=== PATIENT | male | born 1945 | race Caucasian/White ===

== ENCOUNTER 2017-04-08 10:11 | Inpatient (IN) | payer MEDICARE ==
[2017-04-08] MEDS ORDERED: Ondansetron INJ* 2 MG/ML VIAL IV ONE (10:32)
--- NOTE | 2017-04-08 11:30 | RAD ---
HISTORY: Abdominal pain COMPARISONS: None VIEWS: Frontal supine and upright views of the abdomen. FINDINGS: BOWEL: There is a nonobstructive bowel gas pattern. There is a large amount of stool within the colon. CALCULI: There are no abnormal calculi. BONES AND SOFT TISSUES: The patient is status post internal fixation of the left femur OTHER FINDINGS: The lung bases are clear. There is no subphrenic gas. A catheter is noted overlying the lower abdomen, presumably a peritoneal dialysis catheter. IMPRESSION: NONOBSTRUCTIVE BOWEL GAS PATTERN. LARGE AMOUNT OF STOOL WITHIN THE COLON
[2017-04-08 12:21] LABS: Hematocrit 33 % (42-52); Hemoglobin 11.4 g/dl (14.0-18.0); Mean Corpuscular HGB Conc 35 g/dl (31-36); Mean Corpuscular Hemoglobin 34 pg (27-31); Mean Corpuscular Volume 96 fL (80-94); Mean Platelet Volume 7 um3 (7.4-10.4); Red Blood Count 3.41 10^6/ul (4.0-5.4); Red Cell Distribution Width 15 % (10.5-15); White Blood Count 9.1 10^3/ul (3.5-10.8)
[2017-04-08 12:43] LABS: BUN/Creatinine Ratio 4.3 (8-20); C Reactive Protein 2.99 mg/L (< 5.00); EGFR African American 5.9 (>60); EGFR Non-African American 4.6 (>60); Globulin 3.8 g/dL (2-4); Magnesium 1.9 mg/dL (1.9-2.7); Potassium 3.9 mmol/L (3.5-5.0); Total Bilirubin 0.6 mg/dL (0.2-1.0); Total Protein 7.8 g/dL (6.4-8.9)
[2017-04-08 12:52] LABS: Troponin I 0.05 ng/mL (<0.04)
[2017-04-08] MEDS ORDERED: Ondansetron INJ* 2 MG/ML VIAL IV PRN (14:01)
[2017-04-08] MEDS ORDERED: Docusate CAP* 100 MG PO PRN (14:34)
[2017-04-08] MEDS ORDERED: Mometasone/Formoter 200/5 MDI INH PRN (14:34)
[2017-04-08] MEDS ORDERED: Dextrose 50% Syringe 50 ML* 25 GM/50 ML SYRINGE IV PUSH PRN (14:35)
[2017-04-08] MEDS ORDERED: Sevelamer TAB* 800 MG PO PRN (15:14)
[2017-04-08] MEDS: Sevelamer TAB* 800 MG PO SCH (16:22)
[2017-04-08] MEDS: Insulin LISPRO* 1 UNITS UNIT SUBCUT SCH ×2 (17:09→21:09)
[2017-04-08 18:16] LABS: Body Fluid Appearance Clear
[2017-04-08 18:22] LABS: Body Fluid WBC 9 /mcL
[2017-04-08 19:29] LABS: Body Fluid Total Cells Counted 100
[2017-04-08] MEDS ORDERED: Insulin GLARGINE(*) 1 UNITS UNIT SUBCUT SCH (21:00)
--- NOTE | 2017-04-08 21:05 | ED ---
Cale Blake Billy, scribed for Aldo Yoo MD on 04/08/17 at 1031 . Complex/Multi-Sys Presentation - HPI Summary HPI Summary: Patient is a 71 year-old diabetic male coming to [facility] for evaluation of nausea and vomiting since this morning. He was on his way to the dialysis center when his symptoms began in the car. He has been on home dialysis since December 2016. He reports diffuse abdominal pressure at this time, worse than normal. It was improved after fluid was drawn from the patient. He also complains of intermittent shortness of breath and generalized weakness. Denies fevers, chills , diarrhea, or constipation. No contact with sick people or recent traveling. - History Of Current Complaint Chief Complaint: EDGeneral Time Seen by Provider: 04/08/17 10:18 Hx Obtained From: Patient, Family/Head Of Ethics And Compliance Onset/Duration: Gradual Onset, Lasting Hours Timing: Constant Severity Currently: Moderate Severity Initially: Moderate Associated Signs And Symptoms: Positive: Weakness, SOB, Nausea, Vomiting, Abdominal Pain. Negative: Diarrhea, Fever - Allergies/Home Medications Allergies/Adverse Reactions: Allergies Allergy/AdvReac Type Severity Reaction Status Date / Time Labetalol AdvReac Severe Hallucinati Verified 10/08/16 06:10 ons Home Medications: Home Medications Aspirin TAB* [Aspirin 325 MG TAB*] 325 mg PO DAILY 04/08/17 [History Confirmed 04/08/17] Atorvastatin* [Lipitor*] 20 mg PO BEDTIME 04/08/17 [History Confirmed 04/08/17] B-Complex W/ C-Biotin-Fe & Fol [Dialyvite 800/Iron 29-0.8 mg] 1 tab PO DAILY [History Confirmed 04/08/17] Docusate Sodium [Eql Stool Softener] 100 mg PO QPM PRN 04/08/17 [History Confirmed 04/08/17] Furosemide TAB* [Lasix TAB*] 80 mg PO DAILY 04/08/17 [History Confirmed 04/08/17 ] Mupirocin 2% CREAM* [Bactroban 2% CREAM*] 1 applic TOPICAL DAILY 04/08/17 [ History Confirmed 04/08/17] Sevelamer TAB* [Renvela TAB*] 2,400 mg PO .W /MEALS AND SNACKS 04/08/17 [ History Confirmed 04/08/17] PMH/Surg Hx/FS Hx/Imm Hx Endocrine/Hematology History: Reports: Hx Diabetes Denies: Hx Anemia Cardiovascular History: Reports: Hx Hypercholesterolemia, Hx Hypertension - CONTROL WITH MEDS, Other Cardiovascular Problems/Disorders - CVA 2011 -right LE slight limb Denies: Hx Congestive Heart Failure, Hx Pacemaker/ICD Respiratory History: Reports: Other Respiratory Problems/Disorders - right pneumothorax with chest tube 07/30, pulmonary nodules on CT GI History: Reports: Other GI Disorders - inguinal hernia Denies: Hx Cirrhosis, Hx Crohn's Disease, Hx Diverticulosis, Hx Gall Bladder Disease, Hx Gastroesophageal Reflux Disease, Hx Gastrointestinal Bleed, Hx Hiatal Hernia, Hx Irritable Bowel, Hx Jaundice, Hx Obstructive Bowel, Hx Ileostomy, Hx Pyloric Stenosis, Hx Ulcer History: Reports: Hx Chronic Renal Failure - T/R/S HD, Hx Dialysis, Hx Renal Disease, Other Problems/Disorders - kidney toxic drugs Denies: Hx Acute Renal Failure, Hx Benign Prostatic Hyperplasia, Hx Kidney Infection, Hx Kidney Stones Musculoskeletal History: Reports: Hx Arthritis - hands, Hx Orthopedic Injury - lt femur fx repair 07/18/14, Other Musculoskeletal History - HX OF RIGHT RIB FX 1- 7 - NO PROBLEMS 2013 Denies: Hx Back Problems, Hx Bursitis, Hx Congenital Bone Abnormalities, Hx Fibromyalgia, Hx Gout, Hx Osteoporosis, Hx Scoliosis, Hx Tendonitis Sensory History: Reports: Hx Cataracts, Hx Legally Blind, Other Sensory Impairments Denies: Hx Contacts or Glasses, Hx Hearing Aid Opthamlomology History: Reports: Hx Cataracts, Hx Legally Blind, Other Sensory Impairments Denies: Hx Contacts or Glasses Neurological History: Reports: Hx Headaches, Hx Migraine - 20 years ago, Hx Nerve Disease - 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 lt femur repair in [place] 07/18/14. Gallbladder removal Hx Anesthesia Reactions: No - Immunization History Date of Tetanus Vaccine: Unk Date of Influenza Vaccine: None Infectious Disease History: No Infectious Disease History: Denies: Hx Clostridium Difficile, Hx Hepatitis, Hx Human Immunodeficiency Virus (HIV), Hx of Known/Suspected MRSA, Traveled Outside the [place] in Last 30 Days - Family History Known Family History: Positive: Hypertension, Diabetes - Social History Alcohol Use: Occasionally Substance Use Type: Reports: None Smoking Status (MU): Former Smoker Type: Cigarettes Amount Used/How Often: "ONLY SMOKED TEN CIGARETTES IN WHOLE LIFE" Length of Time of Smoking/Using Tobacco: 1 YEAR Have You Smoked in the Last Year: No Review of Systems Negative: Fever, Chills Positive: Shortness Of Breath Positive: Abdominal Pain, Vomiting, Nausea. Negative: Diarrhea Positive: Weakness All Other Systems Reviewed And Are Negative: Yes Physical Exam - Summary Physical Exam Summary: VITAL SIGNS: Reviewed. GENERAL: Patient is a fragile, ill-looking male male who is lying comfortable in the stretcher. Patient is not in any acute respiratory distress. HEAD AND FACE: No signs of trauma. No ecchymosis, hematomas or skull depressions. No sinus tenderness. EYES: PERRLA, EOMI x 2, No injected conjunctiva, no nystagmus. EARS: Hearing grossly intact. Ear canals and tympanic membranes are within normal limits. MOUTH: Oropharynx within normal limits. NECK: Supple, trachea is midline, no adenopathy, no JVD, no carotid bruit, no c- spine tenderness, neck with full ROM. CHEST: Symmetric, no tenderness at palpation LUNGS: Clear to auscultation bilaterally. No wheezing or crackles. CVS: Regular rate and rhythm, S1 and S2 present, no murmurs or gallops appreciated. ABDOMEN: Soft, non-tender. Slight distention. No rebound no guarding, and no masses palpated. Bowel sounds are decreased. Peritoneal dialysis site to the left side of the abdomen. EXTREMITIES: FROM in all major joints, no edema, no cyanosis or clubbing. NEURO: Alert and oriented x 3. No acute neurological deficits. Speech is normal and follows commands. SKIN: Dry and warm Triage Information Reviewed: Yes Vital Signs On Initial Exam: Initial Vitals Temp Pulse Resp BP Pulse Ox 97.3 F 52 16 116/42 100 04/08/17 10:14 04/08/17 10:14 04/08/17 10:14 04/08/17 10:14 04/08/17 10:14 Vital Signs Reviewed: Yes Diagnostics - Vital Signs Vital Signs Temp Pulse Resp BP Pulse Ox 04/08/17 10:18 97.3 F 53 20 116/42 100 04/08/17 10:14 97.3 F 52 16 116/42 100 - Laboratory Lab Results: Lab Results 04/08/17 04/08/17 04/08/17 Range/Units 12:00 12:00 12:00 WBC 9.1 (3.5-10.8) 10^3/ul RBC 3.41 L (4.0-5.4) 10^6/ul Hgb 11.4 L (14.0-18.0) g/dl Hct 33 L (42-52) % MCV 96 H (80-94) fL MCH 34 H (27-31) pg MCHC 35 (31-36) g/dl RDW 15 (10.5-15) % Plt Count 273 (150-450) 10^3/ul MPV 7 L (7.4-10.4) um3 Neut % (Auto) 71.5 (38-83) % Lymph % (Auto) 16.6 L (25-47) % Anson % (Auto) 7.8 (1-9) % Eos % (Auto) 3.4 (0-6) % Baso % (Auto) 0.7 (0-2) % Absolute Neuts (auto) 6.5 (1.5-7.7) 10^3/ul Absolute Lymphs (auto) 1.5 (1.0-4.8) 10^3/ul Absolute Monos (auto) 0.7 (0-0.8) 10^3/ul Absolute Eos (auto) 0.3 (0-0.6) 10^3/ul Absolute Basos (auto) 0.1 (0-0.2) 10^3/ul Absolute Nucleated RBC 0.01 10^3/ul Nucleated RBC % 0.1 Sodium 136 (133-145) mmol/L Potassium 3.9 (3.5-5.0) mmol/L Chloride 91 L (101-111) mmol/L Carbon Dioxide 29 (22-32) mmol/L Anion Gap 16 H (2-11) mmol/L BUN 48 H (6-24) mg/dL Creatinine 11.08 H (0.67-1.17) mg/dL Est GFR ( Amer) 5.9 (>60) Est GFR (Non-Af Amer) 4.6 (>60) BUN/Creatinine Ratio 4.3 L (8-20) Glucose 260 H (70-100) mg/dL Lactic Acid 2.2 H* (0.5-2.0) mmol/L Calcium 10.0 (8.6-10.3) mg/dL Magnesium 1.9 (1.9-2.7) mg/dL Total Bilirubin 0.60 (0.2-1.0) mg/dL AST 11 L (13-39) U/L ALT 17 (7-52) U/L Alkaline Phosphatase 68 (34-104) U/L Troponin I 0.05 H* (<0.04) ng/mL C-Reactive Protein 2.99 (< 5.00) mg/L B-Natriuretic Peptide ( - 100) pg/mL Total Protein 7.8 (6.4-8.9) g/dL Albumin 4.0 (3.2-5.2) g/dL Globulin 3.8 (2-4) g/dL Albumin/Globulin Ratio 1.1 (1-3) Amylase 50 (29-103) U/L Lipase 48 (11.0-82.0) U/L Blood Type Antibody Screen 04/08/17 04/08/17 Range/Units 12:00 12:00 WBC (3.5-10.8) 10^3/ul RBC (4.0-5.4) 10^6/ul Hgb (14.0-18.0) g/dl Hct (42-52) % MCV (80-94) fL MCH (27-31) pg MCHC (31-36) g/dl RDW (10.5-15) % Plt Count (150-450) 10^3/ul MPV (7.4-10.4) um3 Neut % (Auto) (38-83) % Lymph % (Auto) (25-47) % Anson % (Auto) (1-9) % Eos % (Auto) (0-6) % Baso % (Auto) (0-2) % Absolute Neuts (auto) (1.5-7.7) 10^3/ul Absolute Lymphs (auto) (1.0-4.8) 10^3/ul Absolute Monos (auto) (0-0.8) 10^3/ul Absolute Eos (auto) (0-0.6) 10^3/ul Absolute Basos (auto) (0-0.2) 10^3/ul Absolute Nucleated RBC 10^3/ul Nucleated RBC % Sodium (133-145) mmol/L Potassium (3.5-5.0) mmol/L Chloride (101-111) mmol/L Carbon Dioxide (22-32) mmol/L Anion Gap (2-11) mmol/L BUN (6-24) mg/dL Creatinine (0.67-1.17) mg/dL Est GFR ( Amer) (>60) Est GFR (Non-Af Amer) (>60) BUN/Creatinine Ratio (8-20) Glucose (70-100) mg/dL Lactic Acid (0.5-2.0) mmol/L Calcium (8.6-10.3) mg/dL Magnesium (1.9-2.7) mg/dL Total Bilirubin (0.2-1.0) mg/dL AST (13-39) U/L ALT (7-52) U/L Alkaline Phosphatase (34-104) U/L Troponin I (<0.04) ng/mL C-Reactive Protein (< 5.00) mg/L B-Natriuretic Peptide 116 H ( - 100) pg/mL Total Protein (6.4-8.9) g/dL Albumin (3.2-5.2) g/dL Globulin (2-4) g/dL Albumin/Globulin Ratio (1-3) Amylase (29-103) U/L Lipase (11.0-82.0) U/L Blood Type A Positive Antibody Screen Negative Result Diagrams: 04/08/17 12:00 04/08/17 12:00 Lab Statement: Any lab studies that have been ordered have been reviewed, and results considered in the medical decision making process. - Radiology Abdomen XR Radiology Interpretation Completed By: Radiologist - NONOBSTRUCTIVE BOWEL GAS PATTERN. LARGE AMOUNT OF STOOL WITHIN THE COLON - EKG 1154 EKG Interpretation: NSR 65 bpm, ST elevation in III aVF EKG Comparison: No Significant Change - Compared to 08/19/16 Complex Multi-Symp Course/Dx Assessment/Plan: Patient is a 71 year-old diabetic male coming to [facility] for evaluation of nausea and vomiting since this morning. He was on his way to the dialysis center when his symptoms began in the car. He has been on home dialysis since December 2016. He reports diffuse abdominal pressure at this time , worse than normal. It was improved after fluid was drawn from the patient. He also complains of intermittent shortness of breath and generalized weakness. Denies fevers, chills, diarrhea, or constipation. No contact with sick people or recent traveling. Test results show mild chronic anemia, worsening acute on chronic renal failure, hyperglycemia with glucose 260, lactic acid 2.2, trop 0.05. Abd x-ray shows nonobstructive bowel gas pattern and a large amount of stool within the colon. EKG shows ST elevations in III and aVF, however this appears similar to previous EKGs. I discussed with Dr. Dyer who agrees that it is not an acute STEMI. I also discussed the case with Dr. Holder who recommends admission to the medical team. There is a possibility of changing the peritoneal port since it may not be working appropriately. Therefore I discussed the case with Dr. White who requested that the patient be admitted to hospitalist services. I then discussed the case with Dr. Kirk who accepted the patient for admission. He feels better after Zofran, denies any N/V or CP, SOB, or palpitations. He denies abdominal pain. Therefore he will be admitted to the hospitalist services. - Diagnoses Provider Diagnoses: Acute on chronic renal failure, increase troponin r/o ACS - Physician Notifications Discussed Care Of Patient With: Dr. Holder (nephrology) at 1309: Recommends admission to medical services. Dr. Dyer (interventionalist) at 1311: Today's EKG is similar to 08/19/16, no STEMI visualized on today's EKG. Dr. Kirk ( hospitalist) at 1315: Accepts admission. Discharge - Discharge Plan Condition: Stable Disposition: ADMITTED TO [facility] The documentation as recorded by the Cale sterling Billy accurately reflects the service I personally performed and the decisions made by me, Aldo Yoo MD.
[2017-04-08] MEDS: Carvedilol TAB* 25 MG PO SCH (21:09)
[2017-04-08] MEDS: Atorvastatin* 20 MG TAB PO SCH (21:09)
[2017-04-08] MEDS: Heparin VIAL(*) 5000 UNITS/ML VIAL (FIVE THOUSAND) SUBCUT SCH (21:10)
[2017-04-08] MEDS: Timolol 0.5% OPTH.SOL* BTL BOTH EYES SCH (21:20)
--- NOTE | 2017-04-08 22:34 | HP ---
ADMISSION HISTORY AND PHYSICAL: DATE OF ADMISSION: 04/08/17 PRIMARY CARE PROVIDER: Dr. Jose White. SUBSTATION INSPECTOR: Dr. Holder. HEALTHCARE PROXY: His , Cornelia. CODE STATUS: Full. SOURCE OF INFORMATION: History obtained from interview with the patient and his and review of past medical records. RELIABILITY: Good. CHIEF COMPLAINT: Nausea and vomiting. HISTORY OF PRESENT ILLNESS: A 71-year-old man, past medical history of end- stage renal disease, previously on hemodialysis, switched to peritoneal dialysis in December who noted several months, approximately 2 months of increasing fatigue where he largely stays in bed all day. Also associated neck pain for which he only uses Tylenol and Biofreeze, no other medications. It was noted that his peritoneal dialysis catheter was inserted in September 2016. He started peritoneal dialysis in December 2016 shortly after which he started having increased fatigue. His describes him as "slowly declining." This morning, he had several episodes of nausea and vomiting productive of "yellow mucus" before presenting to dialysis and then again at dialysis. He was seen by a nurse at dialysis and was directed to be evaluated in the emergency room. The patient denies any recent fevers, chills, or night sweats. No sick contacts. No recent travel. No changes in his medications. He endorses a chronic cough that has been unchanged in character or severity. He denies diarrhea or constipation. Notes that he moves his bowels daily with the use of an [id number] stool softener and has moved his bowels once today while in the emergency room. Denies any headache although does note increased pruritus. His skin feels dry and food has taste quite differently over the last 2 months. When seen by this author, the patient did have pain in his neck for which he was using a heat pack. Otherwise, he had no complaints. PAST MEDICAL HISTORY: Insulin-dependent type 2 diabetes mellitus, end-stage renal disease with peritoneal dialysis, COPD, hypertension, diabetic neuropathy and retinopathy. The patient is legally blind. 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 MEDICATIONS: Include: 1. Advair 2 puffs twice daily as needed. 2. Amlodipine 10 mg daily. 3. Aspirin 325 mg daily. 4. Atorvastatin 20 mg daily. 5. Bactroban 2% topically as needed. 6. Carvedilol 25 mg twice daily. 7. Dialyvite 800 with zinc 1 tablet daily. 8. Lasix 80 mg daily. 9. Heparin use in his PD catheter if there is fibrinous material expressed. 10. Insulin Humalog with pen per home sliding scale. 11. Lantus 16 to 20 units daily. The patient and noticed blood glucose is elevated in the morning and they increased to twice daily. 12. Renvela 2400 mg daily with meals and snacks. 13. Timolol 0.5% one drop both eyes twice daily. 14. [id number] stool softener which they do not know. ALLERGIES: Include LABETALOL. FAMILY HISTORY: His father and his sister, both had hypertension and diabetes. His father and one of his brothers had rectal cancer. SOCIAL HISTORY: No tobacco or illicits. Drinks approximately 1 alcoholic drink per month at most. Lives with his . REVIEW OF SYSTEMS: As per HPI. Otherwise, all other systems negative. PHYSICAL EXAMINATION GENERAL: Older than stated age, lying 30 degrees in bed. Interactive, pleasant , in no apparent distress. VITAL SIGNS: When seen by this author, 123/60, heart rate 66, respiratory rate 16, 99% on room air. T-max in the emergency room 97.3. HEENT: Oropharynx is clear. He has moist mucous membranes. Sclerae are anicteric. NECK: Non-elevated JVD. No cervical or supraclavicular lymphadenopathy. LUNGS: Clear to auscultation. HEART: He has distant heart sounds. Regular rate and rhythm. Difficult to appreciate any murmurs. ABDOMEN: Soft, nontender, nondistended. He has a peritoneal dialysis catheter in place, clean, dry, and intact. EXTREMITIES: Warm and well perfused without clubbing, cyanosis, or edema. He has 1+ radial pulses. NEUROLOGIC: He is alert and oriented x3. His cranial nerves are intact. Vision not checked. Gait not assessed. No apparent agitation, anxiety, or depression. LABORATORY DATA: Reviewed. Hemoglobin 11.5, hematocrit 33, MCV 96, platelets 273. Chloride 91, bicarb 29, BUN 48, creatinine 11, glucose 260, lactic acid 2.2. His troponin I of 0.05. CRP 2.99. BNP 116. Lipase of 48. Data reviewed. EKG: Normal sinus rhythm with a right bundle branch block, ventricular rate of 72. Data reviewed. Abdominal x-ray: Nonobstructive bowel gas pattern. Large amount of stool within the colon. ASSESSMENT AND PLAN: This is a 71-year-old man, past medical history as outlined above including end-stage renal disease, new to peritoneal dialysis in December, who has been experiencing decline in his functional status since that time, now presenting with intractable nausea and vomiting. 1. Nausea and vomiting: Admit to the hospital. Culture peritoneal dialysate. Discussion with the emergency room indicated that Dr. Holder would like to work with Dr. Winkler to potentially evaluate peritoneal dialysis catheter and thought that it may not be functioning correctly. Certainly, his BUN and creatinine have been increasing. There is question of whether he is uremic with symptoms of nausea, vomiting, pruritus, and changes in his food texture. His dialysis nurse is in the room at this time and working to set him up with a cycler. 2. Anemia: Suspect in the setting of chronic disease and renal dysfunction. 3. Elevated lactic acidosis: Again, suspect in the setting of renal disease. We will repeat in 2 hours. 4. Elevated troponin in the setting of creatinine of 11: Repeat and check q.3 hours for 2 additional checks. Doubt this represents acute myocardial infarction. We will continue the patient's aspirin. 5. Type 2 diabetes: Continue Lantus 16 units at bedtime with insulin sliding scale. Fingersticks with meals. 6. Constipation as evidenced on abdominal film. Continue p.r.n. stool softeners. The patient is moving his bowels daily. 7. Hypertension: Continue amlodipine. 8. Hyperlipidemia: Continue statin. 9. DVT prophylaxis: Heparin subcu. CC: Dr. Jose White; Dr. Holder* [id number]/[facility] #: [id number] [facility]
[2017-04-09] MEDS: Heparin VIAL(*) 5000 UNITS/ML VIAL (FIVE THOUSAND) SUBCUT SCH ×3 (05:03→21:54)
[2017-04-09] MEDS: Insulin LISPRO* 1 UNITS UNIT SUBCUT SCH ×5 (08:53→21:54)
[2017-04-09] MEDS: amLODIPine TAB* 5 MG PO SCH (08:54)
[2017-04-09] MEDS: Furosemide TAB* 40 MG PO SCH (08:54)
[2017-04-09] MEDS: Carvedilol TAB* 25 MG PO SCH ×2 (08:54→21:55)
[2017-04-09] MEDS: Aspirin TAB* 325 MG PO SCH (08:54)
[2017-04-09] MEDS: Sevelamer TAB* 800 MG PO SCH ×3 (08:54→17:27)
[2017-04-09] MEDS: Timolol 0.5% OPTH.SOL* BTL BOTH EYES SCH ×2 (09:01→21:59)
--- NOTE | 2017-04-09 09:01 | PN ---
Subjective - Subjective Reason for Note: Progress Note History: I have reviewed his presentation with the patient and Dr. Kirk's admitting H and P. He presented with signs of acute renal insufficiency - Dr. Winkler has reviewed his PD catheter - this may require resituating. He also had severe constipation for 2 days that may have contributed to his hospital stay - this is resolved. 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) E11.22 , N18.5 Current Medications: Current Medications Acetaminophen (Tylenol Tab*) 650 mg PO Q4H PRN PRN Reason: FEVER/PAIN Amlodipine Besylate (Norvasc Tab*) 10 mg PO DAILY [facility] Last Admin: 04/09/17 08:54 Dose: 10 mg Aspirin (Aspirin Tab*) 325 mg PO DAILY [facility] M Last Admin: 04/09/17 08:54 Dose: 325 mg Atorvastatin Calcium (Lipitor*) 20 mg PO BEDTIME [facility] Last Admin: 04/08/17 21:09 Dose: 20 mg Carvedilol (Coreg Tab*) 25 mg PO BID [facility] M Last Admin: 04/09/17 08:54 Dose: 25 mg Dextrose (D50w Syringe 50 Ml*) 12.5 gm IV PUSH .FOR FS < 60 - SS PRN PRN Reason: FS < 60 Docusate Sodium (Colace Cap*) 100 mg PO BID PRN PRN Reason: CONSTIPATION Furosemide (Lasix Tab*) 80 mg PO DAILY [facility] Last Admin: 04/09/17 08:54 Dose: 80 mg Heparin Sodium (Porcine) (Heparin Vial(*)) 5,000 units SUBCUT Q8HR [facility] M Last Admin: 04/09/17 05:03 Dose: 5,000 units Insulin Glargine (Lantus(*)) 16 units SUBCUT BEDTIME [facility] M Last Admin: 04/08/17 21:10 Dose: 16 units Insulin Human Lispro (Humalog*) 0 units SUBCUT ACHS [facility] PRN Reason: Protocol Last Admin: 04/09/17 08:53 Dose: 4 unit Mometasone Furoate/Formoterol Fumar (Dulera 200/5 Mdi*) 1 puff INH BID PRN; Protocol PRN Reason: SHORTNESS OF BREATH Ondansetron HCl (Zofran Inj*) 4 mg IV Q4H PRN PRN Reason: NAUSEA/VOMITING Sevelamer Carbonate (Renvela Tab*) 2,400 mg PO TID WITH MEALS [facility] Last Admin: 04/09/17 08:54 Dose: 2,400 mg Sevelamer Carbonate (Renvela Tab*) 2,400 mg PO .SEE COMMENTS PRN PRN Reason: WITH SNACKS Timolol Maleate (Timoptic 0.5% Opth*) 1 drop BOTH EYES BID [facility] Last Admin: 04/08/17 21:20 Dose: 1 drop - Review of Systems Constitutional Symptoms: No: Night Sweats Pulmonary: Negative: Cough, Sputum Cardiology: Negative: Chest Pain, Shortness of Breath, Palpitations, Swelling of Ankles Gastroenterology: Positive: Nausea, Vomiting, Change in Bowel Habits Negative: Abdominal Pain Home Medications: Home Medications Medication Instructions Recorded Confirmed Type Insulin Detemir [Levemir Flexpen] 16 - 20 unit SUBCUT BEDTIME 07/18/14 04/08/17 History Insulin Lispro [Humalog Kwikpen] 0 - 3 unit SUBCUT AC MDD 50 units 05/16/16 History Timolol 0.5% OPTH.ERLINDA* [Timoptic 1 drop BOTH EYES BID 05/16/16 04/08/17 History 0.5% Opth*] amLODIPine TAB* [Norvasc 5 mg TAB*] 10 mg PO DAILY 05/16/16 04/08/17 History Carvedilol TAB* [Coreg TAB*] 25 mg PO BID #60 tab 05/24/16 04/08/17 Rx Fluticas/Salmet 230/21 HFA(NF) 1 puff INH BID PRN 10/01/16 04/08/17 History [Advair HFA 23O/21 (NF)] Aspirin TAB* [Aspirin 325 MG TAB*] 325 mg PO DAILY 04/08/17 04/08/17 History Atorvastatin* [Lipitor*] 20 mg PO BEDTIME 04/08/17 04/08/17 History B-Complex W/ C-Biotin-Fe & Fol 1 tab PO DAILY 04/08/17 04/08/17 History [Dialyvite 800/Iron 29-0.8 mg] Docusate Sodium [Eql Stool 100 mg PO QPM PRN 04/08/17 04/08/17 History Softener] Furosemide TAB* [Lasix TAB*] 80 mg PO DAILY 04/08/17 04/08/17 History Mupirocin 2% CREAM* [Bactroban 2% 1 applic TOPICAL DAILY 04/08/17 04/08/17 History CREAM*] Sevelamer TAB* [Renvela TAB*] 2,400 mg PO .W /MEALS AND SNACKS 04/08/17 History Allergies: Allergies Allergy/AdvReac Type Severity Reaction Status Date / Time Labetalol AdvReac Severe Hallucinati Verified 10/08/16 06:10 ons Objective - Vital Signs Vital Signs: Vital Signs 04/08/17 04/08/17 04/08/17 14:36 14:54 15:00 Temperature 98.3 F Pulse Rate 72 70 70 Respiratory 20 18 15 Rate Blood Pressure 145/69 124/62 129/65 (mmHg) O2 Sat by Pulse 99 99 99 Oximetry 04/08/17 04/08/17 04/08/17 15:53 15:57 19:26 Temperature 98.3 F 98.3 F 98.8 F Pulse Rate 72 72 74 Respiratory 22 20 14 Rate Blood Pressure 145/69 145/69 112/49 (mmHg) O2 Sat by Pulse 100 100 95 Oximetry 04/08/17 04/09/17 04/09/17 23:47 04:49 04:55 Temperature 98.2 F 98.5 F Pulse Rate 69 62 62 Respiratory 16 16 20 Rate Blood Pressure 111/60 94/42 97/53 (mmHg) O2 Sat by Pulse 97 100 98 Oximetry 04/09/17 07:30 Temperature 98.2 F Pulse Rate 72 Respiratory Rate Blood Pressure 116/58 (mmHg) O2 Sat by Pulse 99 Oximetry - Intake and Output Intake and Output: Intake & Output 04/06/17 04/07/17 04/08/17 04/09/17 11:59 11:59 11:59 11:59 Intake Total 880 Balance 880 Weight 186 lb 9.6 oz Intake: Oral 880 ADLs: Meal Record Start: 04/08/17 14: 36 Freq: DAILY@0900,1400,1800 Status: Active Created 04/08/17 14:36 System (Rec: 04/08/17 14:36 System [id number]) Document 04/08/17 18:00 [id number] (Rec: 04/08/17 19:10 [id number] [id number]) Intake and Output Start: 04/08/17 10: 17 Freq: Status: Active Created 04/08/17 10:17 System (Rec: 04/08/17 10:17 System [id number]) Intake and Output Start: 04/08/17 14: 36 Freq: DAILY@0600,1400,2200 Status: Active Created 04/08/17 14:36 System (Rec: 04/08/17 14:36 System MED-L08) Document 04/09/17 06:00 [id number] (Rec: 04/09/17 06:15 [id number] MED-C26) Document 04/09/17 06:00 [id number] (Rec: 04/09/17 06:14 [id number] [id number]) - Physical Exam General: No Cyanosis, Yes Anemia, No Jaundice, No Lymphadenopathy, No Clubbing Lungs and Chest: Yes: Chest Expansion Full, Chest Expansion Symetrica, Percussion Note Resonant, Vessicular Breath Sounds. No: Crackles, Wheezes Heart Rate and Rhythm: Regular Additional Cardiovascular: Yes: Normal Heart Sounds. No: Heart Murmur, Pedal Edema Abdominal Exam: Yes: Soft, Bowel Sounds Present. No: Abdominal Mass, Hepatomegaly, Abdominal Tenderness Results - Results Lab Results: Laboratory Results - last 24 hr 04/08/17 04/08/17 04/08/17 14:30 16:24 16:54 POC Glucose (mg/dL) 199 H Lactic Acid Troponin I 0.05 H* Fluid Source Peritonial fluid Fluid Volume 60 Fluid Color Colorless Fluid Appearance Clear Fluid WBC 9 Fluid RBC 1 Fluid Tot Cell Count 100 Fluid Neutrophils 12 Fluid Lymphocytes 11 Fluid Monocytes 77 Fluid Other Cells 1 04/08/17 04/08/17 04/08/17 16:54 19:16 20:54 POC Glucose (mg/dL) 346 H Lactic Acid 2.0 Troponin I 0.05 H* Fluid Source Fluid Volume Fluid Color Fluid Appearance Fluid WBC Fluid RBC Fluid Tot Cell Count Fluid Neutrophils Fluid Lymphocytes Fluid Monocytes Fluid Other Cells 04/09/17 07:49 POC Glucose (mg/dL) 240 H Lactic Acid Troponin I Fluid Source Fluid Volume Fluid Color Fluid Appearance Fluid WBC Fluid RBC Fluid Tot Cell Count Fluid Neutrophils Fluid Lymphocytes Fluid Monocytes Fluid Other Cells Radiology Results: Patient Name: SHANTE MANZO Medical Record#: [id number] Ordering Physician: Aldo Yoo MD Acct.#: [id number] : 1945 Age: 71 Sex: M Location: EMERGENCY DEPARTMENT Exam Date: 04/08/17 1034 ADM Status: REG ER Order Information: ABDOMEN ( COMPLETE) 2 VWS Accession Number: [id number] CPT: 25096 HISTORY: Abdominal pain COMPARISONS: None VIEWS: Frontal supine and upright views of the abdomen. FINDINGS: BOWEL: There is a nonobstructive bowel gas pattern. There is a large amount of stool within the colon. CALCULI: There are no abnormal calculi. BONES AND SOFT TISSUES: The patient is status post internal fixation of the left femur OTHER FINDINGS: The lung bases are clear. There is no subphrenic gas. A catheter is noted overlying the lower abdomen, presumably a peritoneal dialysis catheter. IMPRESSION: NONOBSTRUCTIVE BOWEL GAS PATTERN. LARGE AMOUNT OF STOOL WITHIN THE COLON <Electronically signed by Joseph Gibson MD in OV> 04/08/17 1126 Dictated By: Joseph Gibson MD Dictated Date/Time: 04/08/17 1126 Transcribed Date/Time: 04/08/17 1125 Copy to: CC:Jose White MD; Aldo Yoo MD Imaging - [facility] [address] [address] ph ([phone]) ph ([phone]) ph ([phone]) 1 of 1 Assessment - Problem List Assessment: Patient Problems Acute renal failure (Acute) Constipation (Acute) Peritoneal dialysis status (Acute) Vomiting (Acute) Bilateral inguinal hernia (BIH) (Chronic) Essential hypertension (Chronic) History of CVA (cerebrovascular accident) (Chronic) Hyperlipidemia (Chronic) Mass of right lung (Chronic) S/P cholecystectomy (Chronic 12/31/14) 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) Type 2 diabetes mellitus with renal manifestations (Acute) Plan: Acute renal failure (Acute) Peritoneal dialysis status (Acute)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) This is being evaluated - he is continuing to receive PD. He is having a contrast study today to determine placement of the PD catheter Constipation (Acute) This is now resolved with an enema - discussed fiber/ bowel regimen Type 2 diabetes mellitus with renal manifestations (Acute) Chronic hyperglycemia due to dialysis - FS often in 400s, never below 200 mg/dl. Increase basal insulin Vomiting (Acute) not vomiting at this time Bilateral inguinal hernia (BIH) (Chronic) comorbidity Essential hypertension (Chronic) controlled History of CVA (cerebrovascular accident) (Chronic) Hyperlipidemia (Chronic) secondary diagnosis Mass of right lung (Chronic) I will repeat his CT chest - not performed since June 2016 - suspicious for lung cancer - may be responsible for presentation S/P cholecystectomy (Chronic 12/31/14) I discussed with the patient and partner loss to follow up at my office. He has relied upon the dialysis service for all his medical needs. I will take care of his diabetes and re-evaluate his lung mass.
[2017-04-09] MEDS ORDERED: Dextrose 50% Syringe 50 ML* 25 GM/50 ML SYRINGE IV PUSH PRN (09:08)
[2017-04-09] MEDS: Insulin GLARGINE(*) 1 UNITS UNIT SUBCUT SCH ×2 (10:16→21:55)
[2017-04-09] MEDS ORDERED: Insulin LISPRO* 1 UNITS UNIT SUBCUT SCH (11:30)
--- NOTE | 2017-04-09 13:13 | RAD ---
CPT II Codes: 6045F. Indication: Difficulty draining dialysate. Approximately 1 minute and 14 seconds of fluoroscopy time was used. Using usual aseptic technique and lidocaine as local anesthetic, contrast was injected into the peritoneal dialysis catheter. There is suggestion of a loculated fluid collection although there is free return of contrast upon aspiration. IMPRESSION: Contrast appears to be loculated although if there is complete return of contrast upon aspiration.
--- NOTE | 2017-04-09 13:40 | RAD ---
HISTORY: Lung mass COMPARISONS: Chest x-ray dated December 18, 2016, CT dated June 23, 2016 TECHNIQUE: Multiple contiguous axial CT scans of the chest were obtained without intravenous contrast. Coronal and sagittal multiplanar reformations are also submitted for review. FINDINGS: NECK AND THYROID: The lower neck and thyroid are unremarkable. CHEST WALL: There is no lower cervical, axillary, or supraclavicular lymphadenopathy by size criteria. HEART AND PERICARDIUM: The heart is unremarkable. There are stable small pericardial fat AORTA AND PULMONARY VASCULATURE: The aorta and pulmonary vasculature are normal. MEDIASTINUM: Again noted are multiple mediastinal lymph nodes measuring up to 1.1 cm in short axis. These are similar in size and appearance to the June 23, 2016 examination. CANDY: There are right hilar lymph nodes, there is a stable spiculated right perihilar mass. There is stable fullness of the left hilum. AIRWAY AND ESOPHAGUS: Again noted is mild airway narrowing. LUNG PARENCHYMA: Again noted multiple pulmonary parenchymal nodules. These appear similar in overall size and distribution compared to the previous examination. There is stable peribronchial vascular thickening of the left upper lobe PLEURA: No pleural abnormalities are noted. UPPER ABDOMEN: There has been interval development of a small amount of ascites BONES AND SOFT TISSUES: No bone or soft tissue abnormalities are noted. OTHER: None. IMPRESSION: 1. STABLE PULMONARY PARENCHYMAL NODULES WITH STABLE RIGHT HILAR MASS AND LEFT HILAR FULLNESS, WITH ASSOCIATED MEDIASTINAL LYMPHADENOPATHY. 2. STABLE PERIBRONCHIAL VASCULAR THICKENING PREDOMINANTLY WITHIN THE LEFT UPPER LOBE. 3. ASCITES
[2017-04-09] MEDS: Acetaminophen TAB* 325 MG PO PRN (15:56)
[2017-04-09] MEDS: Mupirocin 2% OINT* TUBE TOPICAL SCH (16:37)
[2017-04-09] MEDS: Atorvastatin* 20 MG TAB PO SCH (21:56)
[2017-04-10] MEDS: Heparin VIAL(*) 5000 UNITS/ML VIAL (FIVE THOUSAND) SUBCUT SCH ×3 (05:56→22:32)
[2017-04-10 07:51] LABS: Hematocrit 28 % (42-52); Hemoglobin 9.7 g/dl (14.0-18.0); Mean Corpuscular HGB Conc 35 g/dl (31-36); Mean Corpuscular Hemoglobin 34 pg (27-31); Mean Corpuscular Volume 97 fL (80-94); Mean Platelet Volume 7 um3 (7.4-10.4); Red Blood Count 2.84 10^6/ul (4.0-5.4); Red Cell Distribution Width 15 % (10.5-15); White Blood Count 7.4 10^3/ul (3.5-10.8)
[2017-04-10 07:54] LABS: Add Diff/Slide Review? Slide Review Added; Comments Flag Yes
[2017-04-10 08:02] LABS: BUN/Creatinine Ratio 4.6 (8-20); C Reactive Protein 1.7 mg/L (< 5.00); Calcium 8.6 mg/dL (8.6-10.3); EGFR African American 5.8 (>60); EGFR Non-African American 4.5 (>60); Potassium 3.8 mmol/L (3.5-5.0)
[2017-04-10 08:12] LABS: Troponin I 0.05 ng/mL (<0.04)
--- NOTE | 2017-04-10 08:24 | PN ---
Subjective - Subjective Reason for Note: Progress Note History: He is feeling well. No nausea/vomiting/diarrhea. PD fluid dwell at present. BP and glucose acceptable 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) E11.22 , N18.5 Current Medications: Current Medications Acetaminophen (Tylenol Tab*) 650 mg PO Q4H PRN PRN Reason: FEVER/PAIN Last Admin: 04/09/17 15:56 Dose: 325 mg Amlodipine Besylate (Norvasc Tab*) 10 mg PO DAILY [facility] Last Admin: 04/09/17 08:54 Dose: 10 mg Aspirin (Aspirin Tab*) 325 mg PO DAILY [facility] Last Admin: 04/09/17 08:54 Dose: 325 mg Atorvastatin Calcium (Lipitor*) 20 mg PO BEDTIME [facility] Last Admin: 04/09/17 21:56 Dose: 20 mg Carvedilol (Coreg Tab*) 25 mg PO BID [facility] Last Admin: 04/09/17 21:55 Dose: 25 mg Dextrose (D50w Syringe 50 Ml*) 12.5 gm IV PUSH .FOR FS < 60 - SS PRN PRN Reason: FS < 60 Docusate Sodium (Colace Cap*) 100 mg PO BID PRN PRN Reason: CONSTIPATION Furosemide (Lasix Tab*) 80 mg PO DAILY [facility] Last Admin: 04/09/17 08:54 Dose: 80 mg Heparin Sodium (Porcine) (Heparin Vial(*)) 5,000 units SUBCUT Q8HR [facility] Last Admin: 04/10/17 05:56 Dose: 5,000 units Insulin Glargine (Lantus(*)) 25 units SUBCUT Q12H [facility] Last Admin: 04/09/17 21:55 Dose: 25 units Insulin Human Lispro (Humalog*) 0 units SUBCUT ACHS [facility] PRN Reason: Protocol Last Admin: 04/09/17 21:54 Dose: 6 unit Insulin Human Lispro (Humalog*) 0 units SUBCUT AC VICTOR M PRN Reason: Protocol Last Admin: 04/09/17 18:32 Dose: 3 units Mometasone Furoate/Formoterol Fumar (Dulera 200/5 Mdi*) 1 puff INH BID PRN; Protocol PRN Reason: SHORTNESS OF BREATH Mupirocin (Bactroban 2 % Oint*) 1 applic TOPICAL DAILY [facility] Last Admin: 04/09/17 16:37 Dose: Not Given Ondansetron HCl (Zofran Inj*) 4 mg IV Q4H PRN PRN Reason: NAUSEA/VOMITING Sevelamer Carbonate (Renvela Tab*) 2,400 mg PO TID WITH MEALS [facility] Last Admin: 04/09/17 17:27 Dose: 2,400 mg Sevelamer Carbonate (Renvela Tab*) 2,400 mg PO .SEE COMMENTS PRN PRN Reason: WITH SNACKS Timolol Maleate (Timoptic 0.5% Opth*) 1 drop BOTH EYES BID [facility] Last Admin: 04/09/17 21:59 Dose: 1 drop Home Medications: Home Medications Medication Instructions Recorded Confirmed Type Insulin Detemir [Levemir Flexpen] 16 - 20 unit SUBCUT BEDTIME 07/18/14 04/08/17 History Insulin Lispro [Humalog Kwikpen] 0 - 3 unit SUBCUT AC MDD 50 units 05/16/16 History Timolol 0.5% OPTH.ERLINDA* [Timoptic 1 drop BOTH EYES BID 05/16/16 04/08/17 History 0.5% Opth*] amLODIPine TAB* [Norvasc 5 mg TAB*] 10 mg PO DAILY 05/16/16 04/08/17 History Carvedilol TAB* [Coreg TAB*] 25 mg PO BID #60 tab 05/24/16 04/08/17 Rx Fluticas/Salmet 230/21 HFA(NF) 1 puff INH BID PRN 10/01/16 04/08/17 History [Advair HFA 23O/21 (NF)] Aspirin TAB* [Aspirin 325 MG TAB*] 325 mg PO DAILY 04/08/17 04/08/17 History Atorvastatin* [Lipitor*] 20 mg PO BEDTIME 04/08/17 04/08/17 History B-Complex W/ C-Biotin-Fe & Fol 1 tab PO DAILY 04/08/17 04/08/17 History [Dialyvite 800/Iron 29-0.8 mg] Docusate Sodium [Eql Stool 100 mg PO QPM PRN 04/08/17 04/08/17 History Softener] Furosemide TAB* [Lasix TAB*] 80 mg PO DAILY 04/08/17 04/08/17 History Mupirocin 2% CREAM* [Bactroban 2% 1 applic TOPICAL DAILY 04/08/17 04/08/17 History CREAM*] Sevelamer TAB* [Renvela TAB*] 2,400 mg PO .W /MEALS AND SNACKS 04/08/17 History Allergies: Allergies Allergy/AdvReac Type Severity Reaction Status Date / Time Labetalol AdvReac Severe Hallucinati Verified 10/08/16 06:10 ons Objective - Vital Signs Vital Signs: Vital Signs 04/09/17 04/09/17 04/09/17 11:10 15:26 19:21 Temperature 98.1 F 98.2 F 97.8 F Pulse Rate 65 74 74 Respiratory 16 16 Rate Blood Pressure 106/46 106/50 110/51 (mmHg) O2 Sat by Pulse 99 97 98 Oximetry 04/09/17 04/09/17 04/10/17 20:00 22:03 04:08 Temperature 97.8 F 98.1 F Pulse Rate 71 69 Respiratory 16 16 16 Rate Blood Pressure 112/54 111/53 (mmHg) O2 Sat by Pulse 98 97 Oximetry 04/10/17 07:13 Temperature 97.9 F Pulse Rate 65 Respiratory Rate Blood Pressure 123/60 (mmHg) O2 Sat by Pulse 98 Oximetry - Intake and Output Intake and Output: Intake & Output 04/07/17 04/08/17 04/09/17 04/10/17 11:59 11:59 11:59 11:59 Intake Total 1305 Balance 1305 Weight 190 lb 7.52 oz Intake: Oral 1305 Other: Estimated Void Small # Bowel Movements 0 # Voids 1 ADLs: Meal Record Start: 04/08/17 14: 36 Freq: DAILY@0900,1400,1800 Status: Active Created 04/08/17 14:36 System (Rec: 04/08/17 14:36 System MED-L08) Document 04/08/17 18:00 [id number] (Rec: 04/08/17 19:10 [id number] MED-C09) Document 04/09/17 09:00 [id number] (Rec: 04/09/17 09:21 [id number] MED-C11) Document 04/09/17 13:45 [id number] (Rec: 04/09/17 14:04 [id number] MED-C11) Document 04/09/17 18:00 [id number] (Rec: 04/09/17 18:07 [id number] MED-C11) Intake and Output Start: 04/08/17 10: 17 Freq: Status: Active Created 04/08/17 10:17 System (Rec: 04/08/17 10:17 System ED-C24) Intake and Output Start: 04/08/17 14: 36 Freq: DAILY@0600,1400,2200 Status: Active Created 04/08/17 14:36 System (Rec: 04/08/17 14:36 System MED-L08) Document 04/09/17 06:00 [id number] (Rec: 04/09/17 06:15 [id number] MED-C26) Document 04/09/17 06:00 [id number] (Rec: 04/09/17 06:14 [id number] MEDL-C02) Document 04/09/17 13:45 [id number] (Rec: 04/09/17 14:04 [id number] MED-C11) Document 04/09/17 22:00 [id number] (Rec: 04/09/17 22:36 [id number] MED-C11) Document 04/10/17 06:00 [id number] (Rec: 04/10/17 06:27 [id number] MEDL-C02) - Physical Exam Abdominal Exam: Yes: Distention. No: Rigidity, Abdominal Mass, Hepatomegaly, Splenomegaly, Abdominal Tenderness Results - Results Lab Results: Laboratory Results - last 24 hr 04/09/17 04/09/17 04/09/17 11:42 17:06 21:12 WBC RBC Hgb Hct MCV MCH MCHC RDW Plt Count MPV Neut % (Auto) Lymph % (Auto) Ramsey % (Auto) Eos % (Auto) Baso % (Auto) Absolute Neuts (auto) Absolute Lymphs (auto) Absolute Monos (auto) Absolute Eos (auto) Absolute Basos (auto) Absolute Nucleated RBC Nucleated RBC % Sodium Potassium Chloride Carbon Dioxide Anion Gap BUN Creatinine Est GFR ( Amer) Est GFR (Non-Af Amer) BUN/Creatinine Ratio Glucose POC Glucose (mg/dL) 260 H 246 H 293 H Calcium Troponin I C-Reactive Protein 04/10/17 04/10/17 04/10/17 06:34 06:34 07:28 WBC 7.4 RBC 2.84 L Hgb 9.7 L Hct 28 L MCV 97 H MCH 34 H MCHC 35 RDW 15 Plt Count 212 MPV 7 L Neut % (Auto) 58.6 Lymph % (Auto) 24.3 L Ramsey % (Auto) 10.9 H Eos % (Auto) 5.5 Baso % (Auto) 0.7 Absolute Neuts (auto) 4.3 Absolute Lymphs (auto) 1.8 Absolute Monos (auto) 0.8 Absolute Eos (auto) 0.4 Absolute Basos (auto) 0.1 Absolute Nucleated RBC 0 Nucleated RBC % 0 Sodium 134 Potassium 3.8 Chloride 95 L Carbon Dioxide 26 Anion Gap 13 H BUN 51 H Creatinine 11.17 H Est GFR ( Amer) 5.8 Est GFR (Non-Af Amer) 4.5 BUN/Creatinine Ratio 4.6 L Glucose 160 H POC Glucose (mg/dL) 159 H Calcium 8.6 Troponin I 0.05 H* C-Reactive Protein 1.70 Radiology Results: Patient Name: SHANTE MANZO Medical Record#: [id number] Ordering Physician: Francesco Holder MD Acct.#: [id number] : 1945 Age: 71 Sex: M Location: [address] [place] [address] - MEDICAL Exam Date: 04/09/17 ADM Status: ADM IN Order Information: INJ CONTRAST FOR CVAD PATENCY Accession Number: [id number] CPT: 12297 CPT II Codes: 6045F. Indication: Difficulty draining dialysate. Approximately 1 minute and 14 seconds of fluoroscopy time was used. Using usual aseptic technique and lidocaine as local anesthetic, contrast was injected into the peritoneal dialysis catheter. There is suggestion of a loculated fluid collection although there is free return of contrast upon aspiration. IMPRESSION: Contrast appears to be loculated although if there is complete return of contrast upon aspiration. <Electronically signed by Ebony Call MD in [place]> 04/09/17 1343 Dictated By: Ebony Call MD Dictated Date/Time: 04/09/17 1343 Transcribed Date/Time: 04/09/17 1255 Copy to: CC:Jose White MD; Connor Kirk MD; Francesco Holder MD Imaging - [facility] Imaging - [facility] Imaging - [facility] [id number] [place] [id number] [place] [id number] ph ([phone]) ph ([phone]) ph ([phone]) Patient Name: SHANTE MANZO Medical Record#: [id number] Ordering Physician: Jose White MD Acct.#: [id number] : 1945 Age: 71 Sex: M Location: [address] [place] [address] MEDICAL Exam Date: 04/09/17906 ADM Status: ADM IN Order Information: CT CHEST W/O Accession Number: [id number] CPT: 27605 HISTORY: Lung mass COMPARISONS: Chest x-ray dated December 18, 2016, CT dated June 23, 2016 TECHNIQUE: Multiple contiguous axial CT scans of the chest were obtained without intravenous contrast. Coronal and sagittal multiplanar reformations are also submitted for review. FINDINGS: NECK AND THYROID: The lower neck and thyroid are unremarkable. CHEST WALL: There is no lower cervical, axillary, or supraclavicular lymphadenopathy by size criteria. HEART AND PERICARDIUM: The heart is unremarkable. There are stable small pericardial fat AORTA AND PULMONARY VASCULATURE: The aorta and pulmonary vasculature are normal. MEDIASTINUM: Again noted are multiple mediastinal lymph nodes measuring up to 1.1 cm in short axis. These are similar in size and appearance to the June 23, 2016 examination. CANDY: There are right hilar lymph nodes, there is a stable spiculated right perihilar mass. There is stable fullness of the left hilum. AIRWAY AND ESOPHAGUS: Again noted is mild airway narrowing. LUNG PARENCHYMA: Again noted multiple pulmonary parenchymal nodules. These appear similar in overall size and distribution compared to the previous examination. There is stable peribronchial vascular thickening of the left upper lobe PLEURA: No pleural abnormalities are noted. UPPER ABDOMEN: There has been interval development of a small amount of ascites BONES AND SOFT TISSUES: No bone or soft tissue abnormalities are noted. OTHER: None. IMPRESSION: 1. STABLE PULMONARY PARENCHYMAL NODULES WITH STABLE RIGHT HILAR MASS AND LEFT HILAR FULLNESS, WITH ASSOCIATED MEDIASTINAL LYMPHADENOPATHY. 2. STABLE PERIBRONCHIAL VASCULAR THICKENING PREDOMINANTLY WITHIN THE LEFT UPPER LOBE. 3. ASCITES <Electronically signed by Joseph Gibson MD in [place]> 04/09/17 1336 Dictated By: Joseph Gibson MD Dictated Date/Time: 04/09/17 1336 Transcribed Date/Time: 04/09/17 1329 Copy to: 1 of 2 1 of 1 Assessment - Problem List Assessment: Patient Problems Acute renal failure (Acute) Constipation (Acute) Peritoneal dialysis status (Acute) Vomiting (Acute) Bilateral inguinal hernia (BIH) (Chronic) Essential hypertension (Chronic) History of CVA (cerebrovascular accident) (Chronic) Hyperlipidemia (Chronic) Mass of right lung (Chronic) S/P cholecystectomy (Chronic 12/31/14) 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) Type 2 diabetes mellitus with renal manifestations (Acute) Plan: Acute renal failure (Acute) Peritoneal dialysis status (Acute)Vomiting (Acute) D/W Dr. Holder and Dr. Winkler. PD cath needs to be replaced. Plan - replace catheter and use directly if placed endoscopically. Otherwise, place tunneled central vascular access and temporarily HD until PD cath replacement can be performed. Patient prefers the former. Constipation (Acute) ongoing Essential hypertension (Chronic) on target Mass of right lung (Chronic) CT unchanged Type 2 diabetes mellitus with renal manifestations (Acute) controlled. Troponin I stable due to poor renal clearance. Discussed with patient and Cornelia Lee
[2017-04-10] MEDS ORDERED: Insulin LISPRO* 1 UNITS UNIT SUBCUT SCH (10:00)
[2017-04-10] MEDS: Insulin LISPRO* 1 UNITS UNIT SUBCUT SCH ×8 (10:24→22:50)
[2017-04-10] MEDS: amLODIPine TAB* 5 MG PO SCH (10:26)
[2017-04-10] MEDS: Carvedilol TAB* 25 MG PO SCH ×2 (10:26→22:30)
[2017-04-10] MEDS: Aspirin TAB* 325 MG PO SCH (10:26)
[2017-04-10] MEDS: Sevelamer TAB* 800 MG PO SCH ×3 (10:26→17:50)
[2017-04-10] MEDS: Furosemide TAB* 40 MG PO SCH (10:27)
[2017-04-10] MEDS: Mupirocin 2% OINT* TUBE TOPICAL SCH (10:28)
[2017-04-10] MEDS: Timolol 0.5% OPTH.SOL* BTL BOTH EYES SCH ×2 (10:29→22:35)
[2017-04-10] MEDS: Insulin GLARGINE(*) 1 UNITS UNIT SUBCUT SCH ×2 (10:59→22:32)
[2017-04-10] MEDS ORDERED: Insulin GLARGINE(*) 1 UNITS UNIT SUBCUT ONE (11:00)
[2017-04-10] MEDS ORDERED: Heparin DIALYSIS ONLY(*) 1,000 UNITS/ML VIAL ONE (12:02)
--- NOTE | 2017-04-10 12:08 | PN ---
Progress Note - Progress Note SOAP: Subjective: Pt seen, and case reviewed. I discussed Mr Bynum' poor PD outflow with Dr Holder earlier this week. Pt admitted for GI issues that are improving. Objective: abdo: soft/mild distension, NT PD catheter in place PD cath raadiology reviewed Assessment: Poor flow in and out of PD catheter. Plan: Laparoscopy and revision of peritneal dialysis catheter, possible replacement. Pre op abx
[2017-04-10] MEDS ORDERED: Bupivacaine 0.25% EPI 200,000* 30 ML SDV ONE (12:26)
[2017-04-10] MEDS ORDERED: Ondansetron INJ* 2 MG/ML VIAL IV PRN (13:44)
[2017-04-10] MEDS ORDERED: fentaNYL* 50 MCG/ML 2 ML VIAL (100 MCG VIAL) IV PRN (13:44)
[2017-04-10] MEDS ORDERED: HYDROmorphone* 1 MG/ML 1 ML SYR IV PRN (13:44)
[2017-04-10] MEDS: Morphine INJ* 2 MG/ML 1 ML SYRINGE IV PRN (20:26)
[2017-04-10] MEDS: Atorvastatin* 20 MG TAB PO SCH (22:30)
[2017-04-10] MEDS: Acetaminophen TAB* 325 MG PO PRN (22:30)
[2017-04-11] MEDS: Morphine INJ* 4 MG/ML 1 ML SYRINGE IV PRN ×2 (03:33→07:55)
[2017-04-11] MEDS: Docusate CAP* 100 MG PO PRN ×2 (03:47→08:14)
--- NOTE | 2017-04-11 04:11 | OP ---
CC: Jose White MD; Francesco Holder MD; [facility] OPERATIVE REPORT: DATE OF OPERATION: 04/10/17 DATE OF : [birth year] SURGEON: Neil Winkler MD CELLULAR EQUIPMENT INSTALLER: HARITHA Hirsch ANESTHESIOLOGIST: Gus Ross MD ANESTHESIA: General. PRE-OP DIAGNOSIS: Malfunctioning peritoneal dialysis catheter. POST-OP DIAGNOSIS: Malfunctioning peritoneal dialysis catheter. OPERATIVE PROCEDURE: Diagnostic laparoscopy and revision of peritoneal dialysis catheter. SPECIMEN: None. DRAINS: The previously placed curl catheter at the left lower quadrant. DESCRIPTION OF PROCEDURE: Mr. Bynum is a 71-year-old gentleman, who underwent placement of a perito francisco dialysis catheter in September of last year. Postoperative course was uneventful. He did not re quire dialysis until earlier this year. Recently, however, the outflow of the catheter has been poo r. The patient notes that he has to sit up in order to empty all of the dialysate. He was in the p rocess of being worked up for this and was noted to have nausea, vomiting, and abdominal pain. He w as admitted to the hospital for this purpose and improved with IV fluids and bowel rest and this dasia eared to be a second issue; however, during his time here, he underwent an imaging study of the jaguar toneal dialysis catheter, it showed flow in and out of the catheter, but in a small space in the pel vis. I outlined the details of a laparoscopy and evaluation of the catheter in the operating room t o both Mr. Bynum and his . His did sign consent. We spoke about the complications, which included but not limited to bleeding, infection, need for removal, need for hemodialysis if this did not function well. We also discussed the strong possibility of replacement of the catheter if we co uld not get the current one functioning. The patient was marked, brought to the operating room, placed in the operating table in a supine pos ition. Preoperative antibiotics were given. Sequential devices were placed on bilateral lower extr emities. General anesthesia was induced. The patient's abdomen was clipped of hair and prepped and draped in the standard surgical fashion prepping the dialysis catheter and draping it off of field. A time-out was performed. An incision was made just along the previous incision at Smith's point along the left costal margin . This was deepened down to the fascia, which was elevated and a Veress needle inserted into the ab dominal cavity, which was then allowed to insufflate to a pressure of 15 mmHg. The patient tolerate d the insufflation well. Veress needle was removed and 5-mm trocar was inserted. Laparoscope was in serted through this and review of the abdomen showed some free fluid. The omentopexy is still intac t from the original placement of the peritoneal dialysis catheter. The table was placed in a Trendelenburg fashion and the catheter was identified in the deep pelvis i n appropriate manner. The sigmoid colon did appear redundant and fatty, but there was no scar tissu e. The sigmoid colon was bluntly retracted out of the pelvis allowing for us to fully visualize the catheter, which was then removed. Catheter was then accessed and 20 cc of sterile saline was inserted with the distal portion of the c url cath clamped. We did visualize all of the drainage holes with good flow of fluid and no fibrino us tissue within the tubing itself. Incision was made to continue using this catheter as it appeared to completely intact. It was dropp ed back into the pelvis in its previous place. The sigmoid colon was then brought up to the anterio r abdominal wall and was sewn to the anterior abdominal wall to bring this somewhat more out o f the abdomen and allow small bowel to go in to the deep pelvis. The catheter was then flushed with dialysate and it flowed very freely and was also removed just as easily giving us the impression that this catheter functioned well and would serve Mr. Bynum well. At this point, the 5-mm trocar that was placed in the left lower quadrant was removed and an 0 Polys orb suture utilized to reapproximate the superficial layer to prevent flow of peritoneal fluid throu gh this incision site. We did not do the same thing at the 5-mm trocar at the infracostal site. Abdomen was allowed to collapse. Trocar was removed under vision and all three skin incisions were reapproximated with 4-0 Monocryl subcuticular sutures. Steri- Strips and sterile dressing were appl ied as well as 4x4's and tape at the exit site of the peritoneal dialysis catheter. Again, I do wan t to mention that the peritoneal dialysis catheters tract along the abdominal wall was not affected at any time and no cuffs of the catheter were identified or needed to be identified. [id number]/[facility] #: [id number]
[2017-04-11] MEDS: Heparin VIAL(*) 5000 UNITS/ML VIAL (FIVE THOUSAND) SUBCUT SCH (05:39)
[2017-04-11] MEDS: Sevelamer TAB* 800 MG PO SCH ×2 (07:56→12:17)
[2017-04-11] MEDS: Timolol 0.5% OPTH.SOL* BTL BOTH EYES SCH (07:56)
[2017-04-11] MEDS: Carvedilol TAB* 25 MG PO SCH (07:56)
[2017-04-11] MEDS: Aspirin TAB* 325 MG PO SCH (07:57)
[2017-04-11] MEDS: amLODIPine TAB* 5 MG PO SCH (07:57)
[2017-04-11] MEDS: Furosemide TAB* 40 MG PO SCH (07:58)
[2017-04-11] MEDS: Mupirocin 2% OINT* TUBE TOPICAL SCH (09:40)
[2017-04-11] MEDS: Insulin LISPRO* 1 UNITS UNIT SUBCUT SCH ×4 (09:45→13:03)
--- NOTE | 2017-04-11 09:45 | PN ---
Progress Note - Progress Note SOAP: Subjective: He is doing well and has minimal incisional pain PD catheter has been functioning well overnight He had some breakfast, no nausea or vomiting Objective: Temp Pulse Resp BP Pulse Ox 97.9 F 63 16 122/57 99 04/11/17 07:22 04/11/17 07:22 04/11/17 07:55 04/11/17 07:22 04/11/17 07:22 PEX: Comfortable Abd is soft and slightly distended. Dressings intact, PD catheter in place. Few bowel sounds Assessment: POD#1 s/p revision of peritoneal dialysis catheter Plan: Continue to use catheter and follow-seems to be working well now.
[2017-04-11] MEDS: Insulin GLARGINE(*) 1 UNITS UNIT SUBCUT SCH (09:47)
[2017-04-11 11:21] VITALS: BP 117/61
--- NOTE | 2017-04-11 11:22 | PN ---
Subjective - Subjective Reason for Note: Discharge Note History: Dr. Winkler was able to re-site the HD catheter without having to replace it. He has pain this morning from the procedure. He is eating and drinking. He wants to go home. He had a low volume on his PD cycle. T2D on target. 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) E11.22 , N18.5 Current Medications: Current Medications Acetaminophen (Tylenol Tab*) 650 mg PO Q4H PRN PRN Reason: FEVER/PAIN Last Admin: 04/10/17 22:30 Dose: 650 mg Amlodipine Besylate (Norvasc Tab*) 10 mg PO DAILY [facility] Last Admin: 04/11/17 07:57 Dose: 10 mg Aspirin (Aspirin Tab*) 325 mg PO DAILY [facility] Last Admin: 04/11/17 07:57 Dose: 325 mg Atorvastatin Calcium (Lipitor*) 20 mg PO BEDTIME [facility] Last Admin: 04/10/17 22:30 Dose: 20 mg Carvedilol (Coreg Tab*) 25 mg PO BID [facility] Last Admin: 04/11/17 07:56 Dose: 25 mg Dextrose (D50w Syringe 50 Ml*) 12.5 gm IV PUSH .FOR FS < 60 - SS PRN PRN Reason: FS < 60 Docusate Sodium (Colace Cap*) 100 mg PO BID PRN PRN Reason: CONSTIPATION Last Admin: 04/11/17 08:14 Dose: 100 mg Furosemide (Lasix Tab*) 80 mg PO DAILY [facility] Last Admin: 04/11/17 07:58 Dose: 80 mg Heparin Sodium (Porcine) (Heparin Vial(*)) 5,000 units SUBCUT Q8HR [facility] Last Admin: 04/11/17 05:39 Dose: 5,000 units Insulin Glargine (Lantus(*)) 25 units SUBCUT Q12H [facility] Last Admin: 04/11/17 09:47 Dose: 25 units Insulin Human Lispro (Humalog*) 0 units SUBCUT AC [facility] PRN Reason: Protocol Last Admin: 04/11/17 09:45 Dose: 1 units Insulin Human Lispro (Humalog*) 0 units SUBCUT ACHS [facility] PRN Reason: Protocol Last Admin: 04/11/17 09:46 Dose: 2 units Mometasone Furoate/Formoterol Fumar (Dulera 200/5 Mdi*) 1 puff INH BID PRN; Protocol PRN Reason: SHORTNESS OF BREATH Morphine Sulfate (Morphine Inj (Syringe)*) 2 mg IV Q4H PRN PRN Reason: PAIN - MODERATE Last Admin: 04/10/17 20:26 Dose: 2 mg Morphine Sulfate (Morphine Inj (Syringe)*) 4 mg IV Q4H PRN PRN Reason: PAIN - SEVERE Last Admin: 04/11/17 07:55 Dose: 4 mg Mupirocin (Bactroban 2 % Oint*) 1 applic TOPICAL DAILY [facility] Last Admin: 04/11/17 09:40 Dose: Not Given Ondansetron HCl (Zofran Inj*) 4 mg IV Q4H PRN PRN Reason: NAUSEA/VOMITING Last Admin: 04/10/17 15:29 Dose: 4 mg Sevelamer Carbonate (Renvela Tab*) 2,400 mg PO TID WITH MEALS [facility] Last Admin: 04/11/17 07:56 Dose: 2,400 mg Sevelamer Carbonate (Renvela Tab*) 2,400 mg PO .SEE COMMENTS PRN PRN Reason: WITH SNACKS Timolol Maleate (Timoptic 0.5% Opth*) 1 drop BOTH EYES BID [facility] Last Admin: 04/11/17 07:56 Dose: 1 drop Home Medications: Home Medications Medication Instructions Recorded Confirmed Type Insulin Detemir [Levemir Flexpen] 16 - 20 unit SUBCUT BEDTIME 07/18/14 04/08/17 History Insulin Lispro [Humalog Kwikpen] 0 - 3 unit SUBCUT AC MDD 50 units 05/16/16 History Timolol 0.5% OPTH.ERLINDA* [Timoptic 1 drop BOTH EYES BID 05/16/16 04/08/17 History 0.5% Opth*] amLODIPine TAB* [Norvasc 5 mg TAB*] 10 mg PO DAILY 05/16/16 04/08/17 History Carvedilol TAB* [Coreg TAB*] 25 mg PO BID #60 tab 05/24/16 04/08/17 Rx Fluticas/Salmet 230/21 HFA(NF) 1 puff INH BID PRN 10/01/16 04/08/17 History [Advair HFA 23O/21 (NF)] Aspirin TAB* [Aspirin 325 MG TAB*] 325 mg PO DAILY 04/08/17 04/08/17 History Atorvastatin* [Lipitor*] 20 mg PO BEDTIME 04/08/17 04/08/17 History B-Complex W/ C-Biotin-Fe & Fol 1 tab PO DAILY 04/08/17 04/08/17 History [Dialyvite 800/Iron 29-0.8 mg] Docusate Sodium [Eql Stool 100 mg PO QPM PRN 04/08/17 04/08/17 History Softener] Furosemide TAB* [Lasix TAB*] 80 mg PO DAILY 04/08/17 04/08/17 History Mupirocin 2% CREAM* [Bactroban 2% 1 applic TOPICAL DAILY 04/08/17 04/08/17 History CREAM*] Sevelamer TAB* [Renvela TAB*] 2,400 mg PO .W /MEALS AND SNACKS 04/08/17 History Allergies: Allergies Allergy/AdvReac Type Severity Reaction Status Date / Time Labetalol AdvReac Severe Hallucinati Verified 10/08/16 06:10 ons Objective - Vital Signs Vital Signs: Vital Signs 04/10/17 04/10/17 04/10/17 14:00 14:05 14:10 Temperature Pulse Rate 59 59 58 Respiratory 16 16 16 Rate Blood Pressure 145/67 133/62 132/60 (mmHg) O2 Sat by Pulse 100 97 97 Oximetry 04/10/17 04/10/17 04/10/17 14:15 14:31 15:00 Temperature Pulse Rate 59 53 99 Respiratory 16 16 Rate Blood Pressure 125/69 136/66 148/63 (mmHg) O2 Sat by Pulse 99 99 Oximetry 04/10/17 04/10/17 04/10/17 15:22 15:26 16:37 Temperature 94.7 F Pulse Rate 54 54 55 Respiratory 16 16 Rate Blood Pressure 150/67 150/67 134/61 (mmHg) O2 Sat by Pulse 100 100 99 Oximetry 04/10/17 04/10/17 04/10/17 17:28 19:28 20:00 Temperature 97.6 F Pulse Rate 64 60 Respiratory 16 Rate Blood Pressure 126/63 120/66 (mmHg) O2 Sat by Pulse 100 99 Oximetry 04/10/17 04/10/17 04/11/17 20:26 21:26 00:01 Temperature 97.6 F Pulse Rate 64 Respiratory 16 16 16 Rate Blood Pressure 111/55 (mmHg) O2 Sat by Pulse 99 Oximetry 04/11/17 04/11/17 04/11/17 03:33 04:33 07:22 Temperature 97.4 F 97.9 F Pulse Rate 58 63 Respiratory 16 14 16 Rate Blood Pressure 121/62 122/57 (mmHg) O2 Sat by Pulse 100 99 Oximetry 04/11/17 04/11/17 07:55 08:55 Temperature Pulse Rate Respiratory 16 16 Rate Blood Pressure (mmHg) O2 Sat by Pulse Oximetry - Intake and Output Intake and Output: Intake & Output 04/08/17 04/09/17 04/10/17 04/11/17 11:59 11:59 11:59 11:59 Intake Total 1305 2150 Output Total 500 Balance 1305 1650 Weight 190 lb 7.52 oz Intake: IV Fluids 550 0.45 NS 550 Oral 1305 1600 Output: Abdominal Drain 500 Urine 0 Other: Estimated Void Small # Bowel Movements 0 0 # Voids 1 ADLs: Meal Record Start: 04/08/17 14: 36 Freq: DAILY@0900,1400,1800 Status: Active Created 04/08/17 14:36 System (Rec: 04/08/17 14:36 System MED-L08) Document 04/08/17 18:00 [id number] (Rec: 04/08/17 19:10 [id number] MED-C09) Document 04/09/17 09:00 [id number] (Rec: 04/09/17 09:21 [id number] MED-C11) Document 04/09/17 13:45 [id number] (Rec: 04/09/17 14:04 [id number] MED-C11) Document 04/09/17 18:00 [id number] (Rec: 04/09/17 18:07 [id number] MED-C11) Document 04/10/17 09:00 [id number] (Rec: 04/10/17 09:49 [id number] MED-C11) Document 04/10/17 13:46 [id number] (Rec: 04/10/17 13:46 [id number] MED-C09) Document 04/10/17 18:00 [id number] (Rec: 04/10/17 18:39 [id number] MED-C09) Document 04/11/17 05:41 [id number] (Rec: 04/11/17 05:41 [id number] MED-M13) Document 04/11/17 09:00 [id number] (Rec: 04/11/17 09:21 [id number] MED-C02) Intake and Output Start: 04/08/17 10: 17 Freq: Status: Active Created 04/08/17 10:17 System (Rec: 04/08/17 10:17 System ED-C24) Intake and Output Start: 04/08/17 14: 36 Freq: DAILY@0600,1400,2200 Status: Active Created 04/08/17 14:36 System (Rec: 04/08/17 14:36 System MED-L08) Document 04/09/17 06:00 [id number] (Rec: 04/09/17 06:15 [id number] MED-C26) Document 04/09/17 06:00 [id number] (Rec: 04/09/17 06:14 [id number] MEDL-C02) Document 04/09/17 13:45 [id number] (Rec: 04/09/17 14:04 [id number] MED-C11) Document 04/09/17 22:00 [id number] (Rec: 04/09/17 22:36 [id number] MED-C11) Document 04/10/17 06:00 [id number] (Rec: 04/10/17 06:27 [id number] MEDL-C02) Document 04/10/17 22:00 [id number] (Rec: 04/10/17 23:19 [id number] MED-C09) Document 04/11/17 05:34 [id number] (Rec: 04/11/17 05:34 [id number] MED-C09) - Physical Exam General: No Cyanosis, Yes Anemia, No Jaundice, No Clubbing Lungs and Chest: Yes: Chest Expansion Full, Chest Expansion Symetrica, Percussion Note Resonant, Vessicular Breath Sounds. No: Crackles, Wheezes Heart Rate and Rhythm: Regular Additional Cardiovascular: Yes: Normal Heart Sounds. No: Heart Murmur, Pedal Edema Abdominal Exam: Yes: Distention, Soft, Abdominal Mass, Abdominal Tenderness - mild, Bowel Sounds Present. No: Guarding, Rebound Tenderness Results - Results Lab Results: Laboratory Results - last 24 hr 04/10/17 04/10/17 04/10/17 11:57 16:18 20:34 POC Glucose (mg/dL) 94 97 155 H 04/11/17 07:27 POC Glucose (mg/dL) 152 H Assessment - Problem List Assessment: Patient Problems Acute renal failure (Acute) Constipation (Acute) Peritoneal dialysis status (Acute) Vomiting (Acute) Bilateral inguinal hernia (BIH) (Chronic) Essential hypertension (Chronic) History of CVA (cerebrovascular accident) (Chronic) Hyperlipidemia (Chronic) Mass of right lung (Chronic) S/P cholecystectomy (Chronic 12/31/14) 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) Type 2 diabetes mellitus with renal manifestations (Acute) Plan: I spoke to Carly the dialysis nurse. She thinks he can go home. I have no medical reason to keep him in the hospital. I will use hydrocodone for pain control for a few days.
[2017-04-11] MEDS: Acetaminophen TAB* 325 MG PO PRN (11:43)
[2017-04-11] MEDS: Morphine INJ* 2 MG/ML 1 ML SYRINGE IV PRN (12:27)
--- NOTE | 2017-04-11 20:43 | DS ---
CC: Neil Winkler MD; Francesco Holder MD DISCHARGE SUMMARY: DATE OF ADMISSION: 04/08/17 DATE OF DISCHARGE: 04/11/17 DISCHARGE DIAGNOSES: 1. Acute renal failure due to loculated peritoneal dialysis site. 2. Constipation. 3. [id number] type 2 diabetes mellitus. COMORBIDITIES: Mass in his right lung, stable. SECONDARY DIAGNOSES: 1. Hyperlipidemia. 2. Essential hypertension. 3. Bilateral inguinal hernias. 4. End-stage renal disease. HISTORY: Alec Bynum is a 71-year-old white male. His presentation is documented in Dr. Connor Kirk's admitting history and physical. In short, he presented with nausea, vomiting, constipation . PHYSICAL EXAMINATION: Vital Signs: Blood pressure 123/60, heart rate 66, respirations 16, oxygen s aturation 99% on room air, T-max 97.3. No focal findings. INVESTIGATIONS: Hemoglobin 11.5, hematocrit 33, MCV 96, platelets 273. Chemistry: Chloride 91, bic arbonate 29, BUN 48, creatinine 1.1, glucose is 260, lactic acid 2.2. Troponin I 0.05. CRP 2.99. BNP 116. Lipase 48. EKG: Right bundle branch block, sinus rhythm. Abdominal x-ray: Nonobstructi ve bowel gas pattern, stool in colon. INITIAL IMPRESSION: 1. Intractable nausea and vomiting. He was admitted to the hospital, PD dialysate was cultured. Dalila Winkler's surgical opinion was obtained concerning the peritoneal dialysis catheter. 2. Constipation. He had successful management of his constipation. INVESTIGATIONS: Troponin I series 0.05 continuously and no change, this was thought to be secondary to end-stage renal insufficiency and not to his heart. Imaging: PD catheter patency film contrast was loculated. CT scan of his chest to follow the right lung mass, stable right hilar mass and left hilar fullness associated with mediastinal lymphadenopa thy. Stable peribronchial vascular thickening of the left upper lobe. CONSULTATIONS: He was seen in consultation by Dr. Winkler, who took him to surgery on 04/10/17. He h ad a diagnostic laparoscopy and revision of his PD catheter, which was patent and functional at the end of this. His note is part of the electronic medical records. Microbiology with blood cultures and peritoneal dialysis site culture was negative. Nasal MRSA scree n was negative. HOSPITAL COURSE: His constipation was managed by the nursing staff. He tolerated well the revision of his PD catheter. On the day of discharge, he had some pain at the re-siting of his PD catheter, otherwise he is feeli ng well. PHYSICAL EXAMINATION ON THE DAY OF DISCHARGE: Vital Signs: Temperature 98.1, pulse 63, respiration s 16, oxygen saturation 98%, blood pressure 117/61. Skin: Pale, no cyanosis, jaundice or clubbing. Cardiovascular System: His pulse was regular. Normal character and volume. Venous pressure was n ot elevated. Heart sounds were normal. No pedal edema. Respiratory System: His chest was clear. Abdomen: Slight tenderness at the site of his PD catheter, otherwise benign with normal bowel sound s. He is alert and oriented, yet no asterixis. ASSESSMENT AND PLAN: 1. Peritoneal dialysis. I spoke to Carly, who is his dialysis nurse and obtained domestic paramete rs. He will follow up after the at Dr. Hodler's office. 2. Constipation. He now has a bowel regimen. 3. Type 2 diabetes mellitus, insulin requiring. We increased his insulin in the hospital as he was running high because of the dialysate. 4. Hypertension, on target. 5. Hyperlipidemia. Continue current treatment. DISCHARGE MEDICATIONS: 1. Hydrocodone with acetaminophen 5/325 mg 1 tablet every 4 hours as needed, maximum daily dose 6, 30 tablets issued. I-STOP protocol followed. 2. Insulin detemir 20 units at bedtime or increase up to 30 depending on blood glucose. 3. Amlodipine 10 mg daily. 4. Timolol 0.5% ophthalmic solution 1 drop each eye twice daily. 5. Lispro insulin as per usual carbohydrate counting. 6. Carvedilol 25 mg twice daily. 7. Fluticasone and salmeterol 230/21 mcg HFA 1 puff twice daily as needed. 8. Sevelamer 2400 mg daily. 9. Atorvastatin 20 mg at bedtime. 10. Docusate sodium 100 mg every evening as needed. 11. Mupirocin 2% topical as needed. 12. Aspirin 325 mg a day. 13. B complex 1 a day. 14. Furosemide 80 mg a day. I discussed this with the family and he will follow up in my office within a week. [id number]/[facility] #: [id number]
== END 2017-04-11 13:10 | disposition home or self-care (01) | DRG 982 ==
LOC: ED 10:11 → MED 14:01 → OBSVTOIN 04-09 09:00
PROVIDERS: ADMIT Internal Medicine; ATTEND Internal Medicine
PROC: 3E1M39Z Irrigation of Peritoneal Cavity using Dialysate, Percutaneous Approach (ICD-10-PCS; 2017-04-08)
PROC: 0WW Anatomical Regions, General, Revision (ICD-10-PCS; principal; 2017-04-10 14:30)
DX: N17.9 Acute kidney failure, unspecified (principal); T85.611A Breakdown (mechanical) of intraperitoneal dialysis catheter, initial encounter; I12.0 Hypertensive chronic kidney disease with stage 5 chronic kidney disease or end stage renal disease; E11.22 Type 2 diabetes mellitus with diabetic chronic kidney disease; I69.359 Hemiplegia and hemiparesis following cerebral infarction affecting unspecified side; X58.XXXA Exposure to other specified factors, initial encounter; Y92.009 Unspecified place in unspecified non-institutional (private) residence as the place of occurrence of the external cause; K59.00 Constipation, unspecified; E11.65 Type 2 diabetes mellitus with hyperglycemia; N18.6 End stage renal disease; D63.1 Anemia in chronic kidney disease; J44.9 Chronic obstructive pulmonary disease, unspecified; E11.40 Type 2 diabetes mellitus with diabetic neuropathy, unspecified; E11.319 Type 2 diabetes mellitus with unspecified diabetic retinopathy without macular edema; E78.5 Hyperlipidemia, unspecified; H54.8 Legal blindness, as defined in USA; Z99.2 Dependence on renal dialysis; Z79.82 Long term (current) use of aspirin; Z79.01 Long term (current) use of anticoagulants; Z79.4 Long term (current) use of insulin; Z79.899 Other long term (current) drug therapy; Z88.8 Allergy status to other drugs, medicaments and biological substances; Z83.3 Family history of diabetes mellitus; Z82.49 Family history of ischemic heart disease and other diseases of the circulatory system; Z80.0 Family history of malignant neoplasm of digestive organs; I45.10 Unspecified right bundle-branch block; R74.8 Abnormal levels of other serum enzymes; K40.20 Bilateral inguinal hernia, without obstruction or gangrene, not specified as recurrent; R91.8 Other nonspecific abnormal finding of lung field
CPT/HCPCS: 36415; 36598; 71250; 74020; 80048; 80053; 82150; 83605; 83690; 83735; 83880; 84484; 85025; 86140; 86850; 86900; 86901; 87040; 87205; 87641; 89051; 93005; A9270-GY; J1644; J2270; J2405; Q9967

== ENCOUNTER 2017-04-15 02:44 | Inpatient (IN) | payer MEDICARE ==
[2017-04-15] MEDS ORDERED: NS 0.9% 1000 ML* 1,000 ML IV ONE (03:09)
[2017-04-15 03:51] LABS: Hematocrit 31 % (42-52); Mean Corpuscular HGB Conc 35 g/dl (31-36); Mean Corpuscular Hemoglobin 34 pg (27-31); Mean Corpuscular Volume 97 fL (80-94); Mean Platelet Volume 8 um3 (7.4-10.4); Red Blood Count 3.19 10^6/ul (4.0-5.4); Red Cell Distribution Width 15 % (10.5-15); White Blood Count 10.8 10^3/ul (3.5-10.8)
[2017-04-15 04:00] LABS: ALT < 3 U/L (7-52); AST 9 U/L (13-39); Albumin 3.5 g/dL (3.2-5.2); Alkaline Phosphatase 58 U/L (34-104); Anion Gap 14 mmol/L (2-11); Blood Urea Nitrogen 47 mg/dL (6-24); C Reactive Protein 56.34 mg/L (< 5.00); CO2 Carbon Dioxide 25 mmol/L (22-32); Calcium 9.1 mg/dL (8.6-10.3); Chloride 93 mmol/L (101-111); EGFR African American 5.4 (>60); EGFR Non-African American 4.2 (>60); Globulin 3.4 g/dL (2-4); Glucose 195 mg/dL (70-100); Lipase 17 U/L (11.0-82.0); Magnesium 1.9 mg/dL (1.9-2.7); Potassium 3.4 mmol/L (3.5-5.0); Sodium 132 mmol/L (133-145); Total Protein 6.9 g/dL (6.4-8.9)
--- NOTE | 2017-04-15 04:08 | ED ---
kate Blake Timothy, scribed for Omkar Valdovinos MD on 04/15/17 at 0313 . GI/ HPI - HPI Summary HPI Summary: Alec Bynum is a 71 yo male presenting to [facility] with vomiting and 4/10 pain for the past 2 weeks. Pt's caregiver state that he was sent home 04/11/17, after visiting the hospital 04/08/17. 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 His MHx includes AR, HLD, HTN, CVA, neuropathy bilateral feet, migraine, CVA, PNX, anorexia nervosa, renal disease/failure, DM, anemia, MRSA. - History of Current Complaint Time Seen by Provider: 04/15/17 03:09 Stated Complaint: VOMITING Hx Obtained From: Patient, Family/Battery Checker Onset/Duration: Started Weeks Ago, Still Present Timing: Constant Severity: Moderate Current Severity: Moderate Pain Intensity: 4 Location of Pain: Diffuse Associated Signs and Symptoms: Positive: Nausea, Vomiting - Additional Pertinent History Primary Care Physician: [id number] - Allergy/Home Medications Allergies/Adverse Reactions: Allergies Allergy/AdvReac Type Severity Reaction Status Date / Time Labetalol AdvReac Severe Hallucinati Verified 04/15/17 03:06 ons PMH/Surg Hx/FS Hx/Imm Hx Endocrine/Hematology History: Reports: Hx Diabetes, Hx Anemia Cardiovascular History: Reports: Hx Hypercholesterolemia, Hx Hypertension - CONTROL WITH MEDS, Other Cardiovascular Problems/Disorders - CVA 2011 -right LE slight limb Denies: Hx Congestive Heart Failure, Hx Pacemaker/ICD Respiratory History: Reports: Other Respiratory Problems/Disorders - right pneumothorax with chest tube 07/30, pulmonary nodules on CT GI History: Reports: Other GI Disorders - inguinal hernia Denies: Hx Cirrhosis, Hx Crohn's Disease, Hx Diverticulosis, Hx Gall Bladder Disease, Hx Gastroesophageal Reflux Disease, Hx Gastrointestinal Bleed, Hx Hiatal Hernia, Hx Irritable Bowel, Hx Jaundice, Hx Obstructive Bowel, Hx Ileostomy, Hx Pyloric Stenosis, Hx Ulcer History: Reports: Hx Chronic Renal Failure - T/R/S HD, Hx Dialysis, Hx Renal Disease, Other Problems/Disorders - kidney toxic drugs Denies: Hx Acute Renal Failure, Hx Benign Prostatic Hyperplasia, Hx Kidney Infection, Hx Kidney Stones Musculoskeletal History: Reports: Hx Arthritis - hands, Hx Orthopedic Injury - lt femur fx repair 07/18/14, Other Musculoskeletal History - HX OF RIGHT RIB FX 1- 7 - NO PROBLEMS 2013 Denies: Hx Back Problems, Hx Bursitis, Hx Congenital Bone Abnormalities, Hx Fibromyalgia, Hx Gout, Hx Osteoporosis, Hx Scoliosis, Hx Tendonitis Sensory History: Reports: Hx Cataracts, Hx Legally Blind, Other Sensory Impairments Denies: Hx Contacts or Glasses, Hx Hearing Aid Opthamlomology History: Reports: Hx Cataracts, Hx Legally Blind, Other Sensory Impairments Denies: Hx Contacts or Glasses Neurological History: Reports: Hx Headaches, Hx Migraine - 20 years ago, Hx Nerve Disease - 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 lt femur repair in [place] 07/18/14. Gallbladder removal Hx Anesthesia Reactions: No - Immunization History Date of Tetanus Vaccine: Unk Date of Influenza Vaccine: None Infectious Disease History: Denies: Hx Clostridium Difficile, Hx Hepatitis, Hx Human Immunodeficiency Virus (HIV), Hx of Known/Suspected MRSA, Traveled Outside the [place] in Last 30 Days - Family History Known Family History: Positive: Hypertension, Diabetes - Social History Alcohol Use: Occasionally Substance Use Type: Reports: None Smoking Status (MU): Former Smoker Type: Cigarettes Amount Used/How Often: "ONLY SMOKED TEN CIGARETTES IN WHOLE LIFE" Length of Time of Smoking/Using Tobacco: 1 YEAR Have You Smoked in the Last Year: No Review of Systems Constitutional: Negative Eyes: Negative ENT: Negative Cardiovascular: Negative Respiratory: Negative Positive: Vomiting Genitourinary: Negative Musculoskeletal: Negative Skin: Negative Neurological: Other - "eyes rolled back into head with shaking" Psychological: Normal All Other Systems Reviewed And Are Negative: Yes Physical Exam Triage Information Reviewed: Yes Vital Signs On Initial Exam: Initial Vitals Temp Pulse Resp BP Pulse Ox 97.1 F 69 16 119/52 100 04/15/17 03:00 04/15/17 03:00 04/15/17 03:00 04/15/17 03:00 04/15/17 03:00 Vital Signs Reviewed: Yes Appearance: Positive: No Pain Distress, Ill-Appearing Skin: Positive: Warm Head/Face: Positive: Normal Head/Face Inspection Eyes: Positive: KATHRINE Neck: Positive: Supple Respiratory/Lung Sounds: Positive: Breath Sounds Present Cardiovascular: Positive: RRR Abdomen Description: Positive: Nontender, Soft Bowel Sounds: Positive: Hypoactive Musculoskeletal: Positive: Strength/ROM Intact Neurological: Positive: Sensory/Motor Intact Diagnostics - Vital Signs Vital Signs Temp Pulse Resp BP Pulse Ox 04/15/17 03:00 97.1 F 69 16 119/52 100 - Laboratory Result Diagrams: 04/15/17 03:35 04/15/17 03:35 Lab Statement: Any lab studies that have been ordered have been reviewed, and results considered in the medical decision making process. - EKG 0352 Cardiac Rate: Bradycardia - 59 BPM EKG Interpretation: Sinus bradycardia @ 59 BPM, RBBB Re-Evaluation - Re-Evaluation First Eval Change: Unchanged - will admit GIGU Course/Dx - Course Assessment/Plan: Alec Bynum is a 71 yo male presenting to [facility] with vomiting for the past 2 weeks, seen at [facility] [place] and discharged 04/11/17. In the ED course he received IV fluids. His EKG suggests sinus bradycardia and RBBB. Of note is his lactic acid of 3.5. After clinical examination and review of his lab studies as well as discussion with Dr. Shoemaker, he will be admitted to [facility] [place] further evaluation and treatment. - Diagnoses Provider Diagnoses: Vomiting - Physician Notifications Discussed Care Of Patient With: David Shoemaker - Accepts Pt for admission Time Discussed With Above Provider: 04:16 Instructed by Provider To: Admit As Inpatient Discharge - Discharge Plan Condition: Fair Disposition: ADMITTED TO [facility] Discharge Disposition Comment: admission for further evaluation and treatment The documentation as recorded by the kate sterling Timothy accurately reflects the service I personally performed and the decisions made by me, Omkar Valdovinos MD.
--- NOTE | 2017-04-15 05:34 | HP ---
H&P (Free Text) History and Physical: PCP: Tammi White MD Date/Time of Evaluation: 04/15/2017 0515 CC: N/V, generalized weakness, progressive fatigue HPI: Mr Bynum is a 71YO male HX ESRD-PD who was admitted 04/09-04/11/2017 for the same symptoms which it appears was felt to be 2nd acute renal failure 2nd loculation of his PD catheter. He underwent relocation of the PD catheter via surgery. His N/V were reportedly controlled at that time and so he was discharged. 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 Each time his eyes rolled back into his head and he flailed his arms while not responding. On Thursday, she though he was "joking" with her, but family informed her later that he was not. She had encouraged him to come to the ED yesterday afternoon, but he refused. He denies abdominal pain other than mild post-op tenderness at the sites. He denies chest pain, SOB, palpitations, F/C, cough congestion, or other issues. PMedHx, PSurgHx, SocHx, & FamHx: reviewed and unchanged compared to H&P dated Ambulatory Orders Nursing to reconcile. Insulin Detemir [Levemir Flexpen] 20-30 unit SUBCUT BEDTIME 07/18/14 Insulin Lispro [Humalog Kwikpen] 0 - 3 unit SUBCUT AC MDD 50 units 05/16/16 Timolol 0.5% OPTH.ERLINDA* [Timoptic 0.5% Opth*] 1 drop BOTH EYES BID 05/16/16 amLODIPine TAB 10 mg PO DAILY 05/16/16 Carvedilol TAB* [Coreg TAB*] 25 mg PO BID #60 tab 05/24/16 Fluticas/Salmet 230/21 HFA(NF) [Advair HFA 23O/21 (NF)] 1 puff INH BID PRN 10/01 Aspirin TAB* [Aspirin 325 MG TAB*] 325 mg PO DAILY 04/08/17 Atorvastatin* [Lipitor 20 MG*] 20 mg PO BEDTIME 04/08/17 Docusate Sodium [Eql Stool Softener] 100 mg PO QPM PRN 04/08/17 Furosemide TAB* [Lasix TAB*] 80 mg PO DAILY 04/08/17 Mupirocin 2% CREAM* [Bactroban 2% CREAM*] 1 applic TOPICAL DAILY 04/08/17 Sevelamer TAB* [Renvela TAB*] 2,400 mg PO .W /MEALS AND SNACKS 04/08/17 HYDROcodone/ACETAMIN 5-325 MG* [[place] 5-325 TAB*] 1 tab PO Q4H PRN #30 tab MDD 6 04/11/17 Allergies Labetalol Adverse Reaction (Severe, Verified 04/15/17 03:06) Hallucinations ROS: chronic cough at its baseline; otherwise as above or reviewed and negative Constitutional: NAD, normally developed, overweight white male vitals: Vital Signs Temp 36.2 C 04/15/17 03:05 Pulse 60 04/15/17 04:00 Resp 22 04/15/17 03:17 BP 101/49 04/15/17 04:00 Pulse Ox 97 04/15/17 04:00 Intake & Output 04/14/17 04/14/17 04/15/17 11:59 23:59 11:59 Weight 83.007 kg HEENM: atraumatic; sclera/conjunctiva: non-icteric/clear; hearing: clinically mildly decreased; oropharynx: clear, mucosa tacky Neck: soft tissue: no nuchal rigidity; thyroid: normal Pulmonary: clear to auscultation bilaterally, good aeration, no accessory muscle use CV: RR/RR, normal S1S2, no carotid bruit, no jugular venous distention, 2+ B DP/ PT, no edema Abdominal: soft, non-distended, non-tender, no rebound/guarding/rigidity, normoactive bowel sounds, no hepatosplenomegaly or masses, no costovertebral angle tenderness; PD catheter current & former site appear to be healing well, no erythema/warmth/induration/discharge Musculoskeletal: general: grossly intact; gait: too weak to ambulate Integumental: op sites as above; otherwise normal appearance and texture of exposed skin Psychiatric orientation: AA&O to PPS affect: fatigued mood: cooperative eye contact: fair to poor content: reliable responses: mildly slowed insight: fair Testing: Lab Results 04/15/17 04/15/17 04/15/17 Range/Units 03:35 03:35 03:35 WBC 10.8 (3.5-10.8) 10^3/ul RBC 3.19 L (4.0-5.4) 10^6/ul Hgb 11.0 L (14.0-18.0) g/dl Hct 31 L (42-52) % MCV 97 H (80-94) fL MCH 34 H (27-31) pg MCHC 35 (31-36) g/dl RDW 15 (10.5-15) % Plt Count 179 (150-450) 10^3/ul MPV 8 (7.4-10.4) um3 Neut % (Auto) 75.5 (38-83) % Lymph % (Auto) 10.6 L (25-47) % Thayer % (Auto) 11.5 H (1-9) % Eos % (Auto) 2.0 (0-6) % Baso % (Auto) 0.4 (0-2) % Absolute Neuts (auto) 8.1 H (1.5-7.7) 10^3/ul Absolute Lymphs (auto) 1.1 (1.0-4.8) 10^3/ul Absolute Monos (auto) 1.2 H (0-0.8) 10^3/ul Absolute Eos (auto) 0.2 (0-0.6) 10^3/ul Absolute Basos (auto) 0 (0-0.2) 10^3/ul Absolute Nucleated RBC 0 10^3/ul Nucleated RBC % 0 Sodium 132 L (133-145) mmol/L Potassium 3.4 L (3.5-5.0) mmol/L Chloride 93 L (101-111) mmol/L Carbon Dioxide 25 (22-32) mmol/L Anion Gap 14 H (2-11) mmol/L BUN 47 H (6-24) mg/dL Creatinine 11.89 H (0.67-1.17) mg/dL Est GFR ( Amer) 5.4 (>60) Est GFR (Non-Af Amer) 4.2 (>60) BUN/Creatinine Ratio 4.0 L (8-20) Glucose 195 H (70-100) mg/dL Lactic Acid 3.5 H* (0.5-2.0) mmol/L Calcium 9.1 (8.6-10.3) mg/dL Magnesium 1.9 (1.9-2.7) mg/dL Total Bilirubin 0.50 (0.2-1.0) mg/dL AST 9 L (13-39) U/L ALT < 3 L (7-52) U/L Alkaline Phosphatase 58 (34-104) U/L C-Reactive Protein 56.34 H (< 5.00) mg/L Total Protein 6.9 (6.4-8.9) g/dL Albumin 3.5 (3.2-5.2) g/dL Globulin 3.4 (2-4) g/dL Albumin/Globulin Ratio 1.0 (1-3) Lipase 17 (11.0-82.0) U/L ECG, personally reviewed: 1st degree AV RBBB bradycardia rate 59, no ischemia XRY abdomen: ordered, pending Impression: 71M HX ESRD-PD, DM2, COPD presents ~3days post-discharge with progressive fatigue, generalized weakness, & N/V; also constipation DIAGNOSIS & PLAN Primary progressive fatigue, generalized weakness, & N/V of uncertain etiology : check XRY abdomen to r/o SBO vs ileus : blood & dialysate CXs : anti-emetics : supportive care constipation : review and increase bowel regimen once abdominal XRY negative for SBO/ileus Secondary DM2 w/ retinopathy, neuropathy, & ESRD-PD : insulin carb ratio diet : basal/bolus/correctional insulin : update A1c COPD : albuterol nebs Q2H PRN : continue outpatient regimen HX L MCA CVA : continue aspirin legally blind : no acute issue Admission Rational: observation for N/V & failure to thrive DVTp: heparin SQ Code Status: full HCP:
[2017-04-15] MEDS ORDERED: Albuterol 2.5 MG/3 ML NEB.SOL* (0.083%) INH PRN (06:06)
[2017-04-15] MEDS ORDERED: Mometasone/Formoter 200/5 MDI INH PRN (06:11)
[2017-04-15] MEDS ORDERED: NS 0.9% 1000 ML* 500 ML IV SCH (06:45)
[2017-04-15] MEDS: Ondansetron INJ* 2 MG/ML VIAL IV PRN (07:33)
--- NOTE | 2017-04-15 08:01 | RAD ---
INDICATION: Abdominal pain COMPARISON: Similar radiograph dated April 08, 2017 TECHNIQUE: Supine and upright views of the abdomen were obtained. FINDINGS: On the upright view there are multiple air-fluid levels seen in the colon and possibly the small bowel. There is a paucity of gas overlying the distal colon and rectum. There is stool overlying the expected location of the rectum. The gas-filled transverse colon measures up to 7.6 cm in diameter. There is no evidence of free air. A peritoneal dialysis catheter is incidentally noted at the midline lower abdomen. IMPRESSION: Radiographic images compatible with large bowel obstruction with the transverse colon measuring up to 7.6 cm in diameter and a large amount of stool overlying the distal colon and rectum.
--- NOTE | 2017-04-15 08:27 | PN ---
Subjective - Subjective Reason for Note: Progress Note History: I obtained the history from the patient, Cornelia Lee and from Dr. David Shoemaker's H and P. I discharged Shante Manzo after an admission 04/08 - 04/11/2017 for nausea, vomiting, constipation, inadequate PD due to loculation. He had his PD catheter repositioned to good effect. On 04/12 evening he had a brief episode of unresponsiveness when his eyes rolled back and he had another episode witnessed by Cornelia Lee early this morning. He had no sequelae (no post-ictal symptoms ). His presentation was with nausea, vomiting and constipation. His lactic acid is a little elevated, but his CO2 is normal. This morning he has a stiff neck and nausea. Active Problems: Active Problems Constipation (Acute) K59.00 Peritoneal dialysis status (Acute) Z99.2 Sick sinus syndrome (Acute) I49.5 Syncope (Acute) R55 Type 2 diabetes mellitus with renal manifestations (Acute) E11.29 Vomiting (Acute) R11.10 Essential hypertension (Chronic) I10 History of CVA (cerebrovascular accident) (Chronic) Z86.73 Hyperlipidemia (Chronic) E78.5 S/P cholecystectomy (Chronic 12/31/14) Z90.49 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) E11.22 , N18.5 Current Medications: Current Medications Acetaminophen (Tylenol Tab*) 650 mg PO Q6H PRN PRN Reason: FEVER/PAIN Albuterol (Ventolin 2.5 Mg/3 Ml Neb.Erlinda*) 2.5 mg INH Q2H PRN PRN Reason: SOB/WHEEZING Amlodipine Besylate (Norvasc Tab*) 10 mg PO DAILY VICTOR M Aspirin (Aspirin Tab*) 325 mg PO DAILY VICTOR M Atorvastatin Calcium (Lipitor*) 20 mg PO BEDTIME VICTOR M Carvedilol (Coreg Tab*) 25 mg PO BID VICTOR M Furosemide (Lasix Tab*) 80 mg PO DAILY VICTOR M Insulin Glargine (Lantus(*)) 17 units SUBCUT 2100 VICTOR M Stop: 04/16/17 20:00 Insulin Human Lispro (Humalog*) 0 units SUBCUT AC VICTOR M PRN Reason: Protocol Insulin Human Lispro (Humalog*) 0 units SUBCUT ACHS VICTOR M PRN Reason: Protocol Mometasone Furoate/Formoterol Fumar (Dulera 200/5 Mdi*) 1 puff INH BID PRN; Protocol PRN Reason: SHORTNESS OF BREATH Mupirocin (Bactroban 2% Cream*) 1 applic TOPICAL DAILY VICTOR M Ondansetron HCl (Zofran Inj*) 4 mg IV Q6H PRN PRN Reason: NAUSEA Last Admin: 04/15/17 07:33 Dose: 4 mg Sevelamer Carbonate (Renvela Tab*) 2,400 mg PO .W /MEALS AND SNACKS VICTOR M Timolol Maleate (Timoptic 0.5% Opth*) 1 drop BOTH EYES BID VICTOR M - Review of Systems Constitutional Symptoms: No: Fever Pulmonary: Negative: Cough, Sputum, Respiratory Distress, Shortness of Breath Cardiology: Negative: Chest Pain, Shortness of Breath, Palpitations, Swelling of Ankles Gastroenterology: Positive: Nausea, Vomiting, Constipation Negative: Abdominal Pain Home Medications: Home Medications Medication Instructions Recorded Confirmed Type Insulin Detemir [Levemir Flexpen] 16 - 20 unit SUBCUT BEDTIME 07/18/14 04/15/17 History Insulin Lispro [Humalog Kwikpen] 0 - 3 unit SUBCUT AC MDD 50 units 05/16/16 History Timolol 0.5% OPTH.ERLINDA* [Timoptic 1 drop BOTH EYES BID 05/16/16 04/15/17 History 0.5% Opth*] amLODIPine TAB* [Norvasc 5 mg TAB*] 10 mg PO DAILY 05/16/16 04/15/17 History Carvedilol TAB* [Coreg TAB*] 25 mg PO BID #60 tab 05/24/16 04/15/17 Rx Fluticas/Salmet 230/21 HFA(NF) 1 puff INH BID PRN 10/01/16 04/15/17 History [Advair HFA 23O/21 (NF)] Aspirin TAB* [Aspirin 325 MG TAB*] 325 mg PO DAILY 04/08/17 04/15/17 History Atorvastatin* [Lipitor 20 MG*] 20 mg PO BEDTIME 04/08/17 04/15/17 History Docusate Sodium [Eql Stool 100 mg PO QPM PRN 04/08/17 04/15/17 History Softener] Furosemide TAB* [Lasix TAB*] 80 mg PO DAILY 04/08/17 04/15/17 History Mupirocin 2% CREAM* [Bactroban 2% 1 applic TOPICAL DAILY 04/08/17 04/15/17 History CREAM*] Sevelamer TAB* [Renvela TAB*] 2,400 mg PO .W /MEALS AND SNACKS 04/08/17 History HYDROcodone/ACETAMIN 5-325 MG* 1 tab PO Q4H PRN #30 tab MDD 6 04/11/17 04/15/17 Rx [[place] 5-325 TAB*] Allergies: Allergies Allergy/AdvReac Type Severity Reaction Status Date / Time Labetalol AdvReac Severe Hallucinati Verified 04/15/17 03:06 ons Objective - Vital Signs Vital Signs: Vital Signs 04/15/17 04/15/17 05:40 06:00 Temperature 97.4 F Pulse Rate 75 66 Respiratory 18 Rate Blood Pressure 140/44 111/54 (mmHg) O2 Sat by Pulse 100 98 Oximetry - Intake and Output Intake and Output: Intake & Output 04/12/17 04/13/17 04/14/17 04/15/17 11:59 11:59 11:59 11:59 Intake Total 530 Balance 530 Intake: IV Fluids 500 IVPB 30 ADLs: Meal Record Start: 04/15/17 05: 40 Freq: DAILY@0900,1400,1800 Status: Active Created 04/15/17 05:40 System (Rec: 04/15/17 05:40 System [id number]) Intake and Output Start: 04/15/17 03: 06 Freq: Status: Active Created 04/15/17 03:06 System (Rec: 04/15/17 03:06 System [id number]) Intake and Output Start: 04/15/17 05: 40 Freq: DAILY@0600,1400,2200 Status: Active Created 04/15/17 05:40 System (Rec: 04/15/17 05:40 System [id number]) - Physical Exam General Physical Exam Comment: He has a vomit tub on his bed. He is able to sit himself up independently and is cooperative, alert and oriented General: No Cyanosis, Yes Anemia, No Jaundice, No Clubbing Eye Exam: bilateral: PERRLA, EOMI Skin: Normal: Rash Endocrine: No Central Obesity, No Acromegaly, No Vitiligo, No Flushing, No Acanthosis nigricans, No [place] Syndrome Lungs and Chest: Yes: Chest Expansion Full, Chest Expansion Symetrica, Percussion Note Resonant, Vessicular Breath Sounds. No: Crackles, Wheezes Heart Rate and Rhythm: Regular JVP: Not Elevated Additional Cardiovascular: Yes: Normal Heart Sounds. No: Heart Murmur, Pedal Edema Abdominal Exam: Yes: Distention, Soft, Bowel Sounds Present. No: Abdominal Mass , Hepatomegaly, Splenomegaly, Abdominal Tenderness Results - Results Lab Results: Laboratory Results - last 24 hr 04/15/17 07:44 POC Glucose (mg/dL) 159 H Radiology Results: Patient Name: SHANTE MANZO Medical Record#: [id number] Ordering Physician: David Shoemaker MD Acct.#: [id number] : 1945 Age: 71 Sex: M Location: [address] [place] [address] MEDICAL Exam Date: 04/15/17606 ADM Status: ADM Edmundo Order Information: ABDOMEN ( COMPLETE) 2 S Accession Number: [id number] CPT: 33289 INDICATION: Abdominal pain COMPARISON: Similar radiograph dated April 08, 2017 TECHNIQUE: Supine and upright views of the abdomen were obtained. FINDINGS: On the upright view there are multiple air-fluid levels seen in the colon and possibly the small bowel. There is a paucity of gas overlying the distal colon and rectum. There is stool overlying the expected location of the rectum. The gas-filled transverse colon measures up to 7.6 cm in diameter. There is no evidence of free air. A peritoneal dialysis catheter is incidentally noted at the midline lower abdomen. IMPRESSION: Radiographic images compatible with large bowel obstruction with the transverse colon measuring up to 7.6 cm in diameter and a large amount of stool overlying the distal colon and rectum. <Electronically signed by Marcus Morris MD in OV> 04/15/17757 Dictated By: Marcus Morris MD Dictated Date/Time: 04/15/17757 Transcribed Date/Time: 04/15/17754 Copy to: CC:Jose White MD; David Shoemaker MD Imaging - [facility] Imaging - [facility] Imaging - [facility] [address] [place], [place] [id number] [place] [id number] [place] [id number] ph [phone]) ph ([phone]) ph ([phone]) 1 of 1 Other Results/Reports: EKG Sinus bradycardia [place] 59 [place] 262 QTc 455 QRS 97 RBBB 1 missed beat, multiple PACs Assessment - Problem List Assessment: Patient Problems Constipation (Acute) Peritoneal dialysis status (Acute) Sick sinus syndrome (Acute) Syncope (Acute) Type 2 diabetes mellitus with renal manifestations (Acute) Vomiting (Acute) Essential hypertension (Chronic) History of CVA (cerebrovascular accident) (Chronic) Hyperlipidemia (Chronic) S/P cholecystectomy (Chronic 12/31/14) 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) Bilateral inguinal hernia (BIH) (Chronic) Mass of right lung (Chronic) Plan: Vomiting (Acute)/Constipation (Acute) 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 Holder to consult - his CO2 looks fine and his potassium is a little low Syncope (Acute) /Sick sinus syndrome (Acute) He has had 2 episodes of witnessed syncope. Both episodes were short lived. There was no post-ictal phase. 2 EKGs (also 04/08) show missed P waves with pauses I will place him in a telemetry bed. I suspect he may have had episodes of syncope due to prolonged pauses due to sick sinus syndrome. He has several electrophysiological abnormalities: pauses, PACs, RBBB. He may need a pacemaker - for cardiology consultation Type 2 diabetes mellitus with renal manifestations (Acute) on target Essential hypertension (Chronic) on target History of CVA (cerebrovascular accident) (Chronic) Hyperlipidemia (Chronic) continue current Rx S/P cholecystectomy (Chronic 12/31/14) Bilateral inguinal hernia (BIH) (Chronic) inactive Mass of right lung (Chronic) inactive I spoke with the patient and with Cornelia Lee - they agree with the management plan
[2017-04-15] MEDS: amLODIPine TAB* 5 MG PO SCH (09:11)
[2017-04-15] MEDS: Furosemide TAB* 40 MG PO SCH (09:11)
[2017-04-15] MEDS: Acetaminophen TAB* 325 MG PO PRN (09:11)
[2017-04-15] MEDS: Aspirin TAB* 325 MG PO SCH (09:11)
[2017-04-15] MEDS: Carvedilol TAB* 25 MG PO SCH ×2 (09:11→20:54)
[2017-04-15] MEDS: Insulin LISPRO* 1 UNITS UNIT SUBCUT SCH ×8 (09:12→20:55)
[2017-04-15] MEDS: Polyethylene Glycol 3350* 17 GM PACKET PO PRN (09:13)
[2017-04-15] MEDS: Timolol 0.5% OPTH.SOL* BTL BOTH EYES SCH ×2 (09:39→20:48)
[2017-04-15] MEDS: Mupirocin 2% CREAM* 15 GM TOPICAL SCH (09:39)
--- NOTE | 2017-04-15 11:38 | PN ---
Progress Note - Progress Note Note: Surgery Progress: S: POD #5 from laparoscopic revision of PD catheter and sigmoid colon pexy by Dr. Winkler. Dr. White's note reviewed. AXR: dilated transverse colon c/w LBO. At present he states he has no pain. He and his state that the catheter has been functioning fine. He states he's been passing flatus, but no BM. (He did not require any narcotic after discharge on 04/11.) O: Vital Signs - 8 hr 04/15/17 04/15/17 04/15/17 04:00 05:00 05:30 Temperature Pulse Rate 60 64 63 Respiratory Rate Blood Pressure 101/49 120/53 95/44 (mmHg) O2 Sat by Pulse 97 91 100 Oximetry 04/15/17 04/15/17 04/15/17 05:40 06:00 09:41 Temperature 97.4 F 97.9 F Pulse Rate 75 66 74 Respiratory 18 16 Rate Blood Pressure 140/44 111/54 129/66 (mmHg) O2 Sat by Pulse 100 98 99 Oximetry Abd: distended, tympanitic; soft, nontender. A: LBO 2/2 constipation P: agree w/ Miralax and SSE; has not had JAGJIT yet; will check back later after results of SSE; will d/w Dr. Winkler
[2017-04-15] MEDS: Sevelamer TAB* 800 MG PO SCH ×2 (12:57→20:09)
--- NOTE | 2017-04-15 16:23 | CONS ---
DATE OF CONSULT: 04/15/17 REASON FOR CONSULTATION: Syncope and abnormal ECG. HISTORY OF PRESENT ILLNESS: Mr. Bynum is a 71-year-old gentleman with a long- standing history of diabetes with secondary renal failure on peritoneal dialysis. The patient has had 2 admissions very recently with nausea and vomiting in the setting of constipation. On the first presentation at [facility], he had his PD catheter relocated, but upon going home, he ate dinner and developed nausea and vomiting which was witnessed. His said after the vomiting his eyes rolled back and his hands went up towards his head and were very shaky. This happened a second time also, both with nausea and vomiting. The patient states that constipation has been relatively recent and neither he nor his could think of any medication changes that might have led to the worsening of the constipation. Although Lasix was recently added, the symptoms preceded the Lasix. The patient denies chest pain, pressure, or heaviness. He does get intermittently short of breath and his just said he will look short of breath at times and he did this while I was there where his respiratory rate increased transiently. PAST MEDICAL HISTORY: The patient has a past medical history of: 1. Insulin-dependent type 2 diabetes mellitus. 2. Endstage renal disease, on peritoneal dialysis. 3. COPD. 4. Hypertension. 5. Diabetic neuropathy. 6. Diabetic retinopathy (legally blind). 7. Dyslipidemia. 8. Stroke, 2012, left middle cerebral artery, with residual right-sided weakness, very mild limp. 9. History of femur fracture and rib fractures. CURRENT MEDICATIONS: Include: 1. Tylenol p.r.n. 2. Ventolin nebulizer p.r.n. 3. Norvasc 10 mg a day. 4. Aspirin 325 mg a day. 5. Lipitor 20 mg a day. 6. Coreg 25 mg b.i.d. 7. Lasix 80 mg a day. 8. Lantus insulin. 9. Humalog insulin. 10. Dulera 1 puff b.i.d. 11. Bactroban cream. 12. Zofran p.r.n. 13. MiraLAX p.r.n. 14. Renvela tablets. 15. Timoptic ophthalmic drops. ALLERGIES: Include LABETALOL. FAMILY HISTORY: Significant, in that his father and sister have hypertension and diabetes. Colon cancer runs in his family with his father and brother. 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 Rare alcohol. Nonsmoker. Lives with his . REVIEW OF SYSTEMS: See history of present illness. In addition to that, he denied orthopnea originally, but his shortness of breath episode seemed to happen more when he is lying down and not when he is upright or walking. No recent over-the- counter medications. No recent leg swelling. All other review of systems was negative. PHYSICAL EXAMINATION: The patient is 5 feet 9 inches, weighs 183 pounds with a BMI of 27. Vitals currently: Blood pressure 102/52, pulse is 62 and regular, respiratory rate is 16, oxygen saturation on room air is 98%. General Appearance: Centripetally obese older gentleman lying at 30 degrees, eyes closed , appears uncomfortable. He did respond to questions. Psychologically, pleasant and cooperative. Neurologically, vision not checked, but he did not open his eyes consistent with his legal blind status. Hearing is good. Speech is appropriate. Comprehension is good and he follows commands well. Skin: Warm , dry. No cyanosis or rashes appreciated. HEENT: Mucous membranes are moderately moist. Neck without thyromegaly. Palpable carotid pulses bilaterally. Breath sounds were clear with good effort. No wheezes, rales, or rhonchi. Coronary: S1, S2. Regular trace, early peaking systolic murmur heard in the upper sternal border. Abdomen: Rotund, appears distended, firm, but nontender. Lower extremities are free of edema and warm. DIAGNOSTIC STUDIES/LABORATORY DATA: The patient's 12-lead ECG from 04/15/17 at 0352 showed sinus rhythm with a first-degree AV block, a blocked PAC, right bundle branch block, and left posterior fascicular block. When this EKG is compared to this EKG of 04/08/17, PVCs are no longer seen and there does appear to be another blocked PAC although more difficult to read. When compared with his EKG of 08/29/16, at that time, he was in normal sinus rhythm with a left bundle branch block at a rate of 93 beats a minute. His echocardiogram from shows moderate left ventricular hypertrophy and ejection fraction of 55% to 60% with abnormal diastolic filling, mild right atrial enlargement, mild-to- moderate aortic insufficiency, borderline aortic stenosis, trace to mild mitral insufficiency, mild tricuspid insufficiency, small pericardial effusion. The patient, on telemetry, has had no dropped beats; sinus rhythm with a first- degree AV block, then developed a 5-second run of monomorphic VT of 17 beats with a cycle length of 400 milliseconds (150 beats a minute). Labs: White count 10.8, hemoglobin 11, hematocrit 31, platelets 179. Sodium 132, potassium 3.4, chloride 93, bicarb 25, gap was 14, BUN 47, creatinine 12, glucose 195, lactic acid 3.5. ALT less than 3. CRP 56. His troponin from : #1 is 0.05, #2 is 0.05, #3 is 0.05, and #4 is 0.05. From 03/07/16, total cholesterol 193, triglycerides 215, LDL cholesterol 117, and HDL cholesterol 33. TSH at that time 2.81 and parathyroid hormone 8.8. Calcium 8.6. His abdominal and chest x-ray showed air fluid levels and was interpreted as compatible with large-bowel obstruction with transverse colon measuring up to 7.6 cm in diameter and large amount of stool overlying the distal colon and rectum. SUMMARY: Mr. Bynum is a 71-year-old gentleman who presented with severe constipation, nausea, and vomiting. Mr. Bynum had 2 syncopal episodes following vomiting which would suggest a vagally mediated syncope. Mr. Bynum does have evidence of infrahisian conduction disorders with his right bundle branch block as well as AV daksha block. Originally, I felt this is vagally induced; however, in looking at old EKGs where there is evidence of alternating from a left bundle branch block to right bundle branch block, it does appear he is at risk for complete infrahisian block as well. With respect to his acute presentation with syncope, as it was occurring with nausea and vomiting, his current event may well be vasovagally induced and demanded treatment of the constipation and the etiology of the constipation should be aggressively addressed, I will leave the decisions regarding narcotic doses to Internal Medicine (held here that are narco as an outpatient). Norvasc might contribute to constipation. Coreg might contribute to bradycardia and first-degree AV block, although I doubt it would directly lead to syncope. Optimization of potassium levels may additionally help in avoiding overaggressive diuresis, may help either via Lasix or his peritoneal dialysate. With his history of endstage renal disease, his calcium levels looked okay last year which may need to be updated and thyroid status may need to be updated, if it has not been done as an outpatient. With respect to the patient's heart block and EKGs, alternating left and right bundles is an indication for a pacemaker as this can indicate if they lose both bundles, they could develop asystole unpredictably. I therefore think that a pacemaker is indicated, but I would not recommend this at this point in time, I would treat his underlying constipation. For the patient's ventricular tachycardia, a stress test would be indicated. He is a high risk cath patient, but we may need to consider cardiac catheterization as well. Overall, Mr. Bynum is a very high risk patient due to his longstanding diabetes with end-organ effect. The onset of the ventricular tachycardia is unexpected. I will add for an updated echo to ensure his ventricular systolic function remains stable and if a device is implanted, we may want to consider Electrophysiology input he continues to have a preserved systolic function. CC: Dr. Jose hWite* [id number]/[facility] #: [id number] SIRENA
--- NOTE | 2017-04-15 16:37 | ECHO ---
Patient: SHANTE MANZO [facility] Rec#: [id number] : 1945 Date: 04/15/2017 Age: 71y Height: 175.26 cm / 69.0 in Weight: 83.91 kg / 184.9 lbs Sex: M BSA: 2 Room#: 431 Admit Date#: 04/15/2017 Type: Inpatient Referring: Ronel Baca MD Reading: Ronel Baca MD Laundry Routeman: Neeru Arana RIVER CC: Jose White MD CC: Francesco Holder MD Transthoracic Echocardiogram Indication: Syncope BP: 102/52 HR: 80 Rhythm: NSR Findings History: ESRD with peritoneal dialysis,DM,HLD,HTN. Technical Comments: The study quality is good. Completed at 1618. Left Ventricle: Moderate concentric left ventricular hypertrophy is observed. Global left ventricular wall motion and contractility are within normal limits. The estimated ejection fraction is 60-65%. Abnormal left ventricular diastolic function is observed. Left Atrium: The left atrium is mild to moderately dilated. Right Ventricle: The right ventricular cavity size is normal. The right ventricular global systolic function is normal. Right Atrium: The right atrium is mild to moderately dilated. Aortic Valve: The aortic valve is trileaflet. The aortic valve leaflets are mildly thickened. There is mild aortic regurgitation. There is no evidence of aortic stenosis. Mitral Valve: The mitral valve leaflets are mildly thickened. There is a trace of mitral regurgitation. There is no evidence of mitral stenosis. Tricuspid Valve: The tricuspid valve leaflets are normal. There is trace to mild tricuspid regurgitation. No pulmonary hypertension is noted. There is no tricuspid stenosis. Pulmonic Valve: The pulmonic valve appears normal. There is trace to mild pulmonic regurgitation. There is no pulmonic stenosis. Pericardium: The pericardium appears normal. Venous: The venous system is not well visualized. Conclusions Moderate concentric left ventricular hypertrophy is observed. Global left ventricular wall motion and contractility are within normal limits. The estimated ejection fraction is 60-65%. Abnormal left ventricular diastolic function is observed. The right ventricular global systolic function is normal. There is mild aortic regurgitation. Compared with prior echo of 07/25/16, no significant changes. There is a trace of mitral regurgitation. There is trace to mild tricuspid regurgitation. No pulmonary hypertension is noted. The pericardium appears normal. Measurements Name Value Normal Range RVIDd (AP) 2D 2.7 cm (0.9 - 2.6) RVDdMajor (2D) 3.3 cm (2.2 - 4.4) RAd ISD 4CH 5.6 cm (3.4 - 4.9) RA (A4C)W 2.6 cm (2.9 - 4.6) IVSd (2D) 1.5 cm (0.6 - 1) LVPWd (2D) 1.5 cm (0.6 - 1) LVIDd (2D) 4.6 cm (3.6 - 5.4) LVIDs (2D) 2.7 cm - LV FS (2D) 41 % (25 - 45) Aortic Annulus 2.6 cm (1.4 - 2.6) Ao root diameter (2D) 3.4 cm (2.1 - 3.5) Ascending Ao 3.7 cm (2.1 - 3.4) Aortic arch 2.6 cm (1.8 - 3.4) Descending Ao 0.7 cm - LA dimension (AP) 2D 4.4 cm (2.3 - 3.8) LAd ISD 4CH 5.9 cm (2.9 - 5.3) LA ISD 4CH W 3.7 cm (2.5 - 4.5) Name Value Normal Range LA ESV SP 4CH (A/L) 57 ml - LA ESV SP 2CH (A/L) 42 ml - LA ESV BP (A/L) 50 ml - LA ESV BP (A/L) index 24.81 ml/m2 - LA ESV SP 4CH (MOD) 55 ml - LA ESV SP 2CH (MOD) 41 ml - Name Value Normal Range MV E-wave Vmax 0.7 m/sec - MV deceleration time 213 msec - MV A-wave Vmax 1 m/sec - MV E:A ratio 0.71 ratio - LV septal e' Vmax 0.05 m/sec - LV lateral e' Vmax 0.05 m/sec - LV E:e' septal ratio 14 ratio - LV E:e' lateral ratio 14 ratio - Name Value Normal Range AV Vmax 1.8 m/sec - AV VTI 30 cm - AV peak gradient 12.57 mmHg - AV mean gradient 5.99 mmHg - LVOT Vmax 0.9 m/sec - LVOT VTI 19.3 cm - LVOT peak gradient 3.53 mmHg - LVOT mean gradient 1.85 mmHg - AR PHT 599 msec - AR peak gradient 64.77 mmHg - Name Value Normal Range TR Vmax 2.3 m/sec - TR peak gradient 21 mmHg - RAP 8 mmHg - RVSP 29 mmHg - Name Value Normal Range PV Vmax 0.9 m/sec - PV peak gradient 3.24 mmHg -
[2017-04-15] MEDS: Atorvastatin* 20 MG TAB PO SCH (20:54)
[2017-04-15] MEDS ORDERED: Insulin GLARGINE(*) 1 UNITS UNIT SUBCUT SCH (21:00)
[2017-04-16] MEDS: Mupirocin 2% CREAM* 15 GM TOPICAL SCH (08:24)
--- NOTE | 2017-04-16 08:26 | PN ---
Subjective - Subjective Reason for Note: Progress Note History: He received a soap suds enema and also miralax. He required some manual extraction of feces. He hasn't cleared his constipation. He had an episode of non-sustained VT. PD is going according to plan. He has no new pain or discomfort. 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 Vomiting (Acute) R11.10 Essential hypertension (Chronic) I10 History of CVA (cerebrovascular accident) (Chronic) Z86.73 Hyperlipidemia (Chronic) E78.5 S/P cholecystectomy (Chronic 12/31/14) Z90.49 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) E11.22 , N18.5 Current Medications: Current Medications Acetaminophen (Tylenol Tab*) 650 mg PO Q6H PRN PRN Reason: FEVER/PAIN Last Admin: 04/15/17 09:11 Dose: 325 mg Albuterol (Ventolin 2.5 Mg/3 Ml Neb.Erlinda*) 2.5 mg INH Q2H PRN PRN Reason: SOB/WHEEZING Amlodipine Besylate (Norvasc Tab*) 10 mg PO DAILY [facility] Last Admin: 04/15/17 09:11 Dose: 10 mg Aspirin (Aspirin Tab*) 325 mg PO DAILY [facility] Last Admin: 04/15/17 09:11 Dose: 325 mg Atorvastatin Calcium (Lipitor*) 20 mg PO BEDTIME [facility] Last Admin: 04/15/17 20:54 Dose: 20 mg Carvedilol (Coreg Tab*) 25 mg PO BID [facility] Last Admin: 04/15/17 20:54 Dose: 25 mg Furosemide (Lasix Tab*) 80 mg PO DAILY [facility] Last Admin: 04/15/17 09:11 Dose: 80 mg Insulin Glargine (Lantus(*)) 17 units SUBCUT 2100 [facility] Stop: 04/16/17 20:00 Last Admin: 04/15/17 20:54 Dose: 17 units Insulin Human Lispro (Humalog*) 0 units SUBCUT AC [facility] PRN Reason: Protocol Last Admin: 04/15/17 18:22 Dose: Not Given Insulin Human Lispro (Humalog*) 0 units SUBCUT ACHS VICTOR M PRN Reason: Protocol Last Admin: 04/15/17 20:55 Dose: 2 units Mometasone Furoate/Formoterol Fumar (Dulera 200/5 Mdi*) 1 puff INH BID PRN; Protocol PRN Reason: SHORTNESS OF BREATH Mupirocin (Bactroban 2% Cream*) 1 applic TOPICAL DAILY [facility] Last Admin: 04/15/17 09:39 Dose: Not Given Ondansetron HCl (Zofran Inj*) 4 mg IV Q6H PRN PRN Reason: NAUSEA Last Admin: 04/15/17 07:33 Dose: 4 mg Polyethylene Glycol/Electrolytes (Miralax*) 34 gm PO DAILY PRN PRN Reason: CONSTIPATION Last Admin: 04/15/17 09:13 Dose: 34 gm Sevelamer Carbonate (Renvela Tab*) 2,400 mg PO .W /MEALS AND SNACKS [facility] Last Admin: 04/15/17 20:09 Dose: 2,400 mg Timolol Maleate (Timoptic 0.5% Opth*) 1 drop BOTH EYES BID [facility] Last Admin: 04/15/17 20:48 Dose: Not Given Home Medications: Home Medications Medication Instructions Recorded Confirmed Type Insulin Detemir [Levemir Flexpen] 16 - 20 unit SUBCUT BEDTIME 07/18/14 04/15/17 History Insulin Lispro [Humalog Kwikpen] 0 - 3 unit SUBCUT AC MDD 50 units 05/16/16 History Timolol 0.5% OPTH.ERLINDA* [Timoptic 1 drop BOTH EYES BID 05/16/16 04/15/17 History 0.5% Opth*] amLODIPine TAB* [Norvasc 5 mg TAB*] 10 mg PO DAILY 05/16/16 04/15/17 History Carvedilol TAB* [Coreg TAB*] 25 mg PO BID #60 tab 05/24/16 04/15/17 Rx Fluticas/Salmet 230/21 HFA(NF) 1 puff INH BID PRN 10/01/16 04/15/17 History [Advair HFA 23O/21 (NF)] Aspirin TAB* [Aspirin 325 MG TAB*] 325 mg PO DAILY 04/08/17 04/15/17 History Atorvastatin* [Lipitor 20 MG*] 20 mg PO BEDTIME 04/08/17 04/15/17 History Docusate Sodium [Eql Stool 100 mg PO QPM PRN 04/08/17 04/15/17 History Softener] Furosemide TAB* [Lasix TAB*] 80 mg PO DAILY 04/08/17 04/15/17 History Mupirocin 2% CREAM* [Bactroban 2% 1 applic TOPICAL DAILY 04/08/17 04/15/17 History CREAM*] Sevelamer TAB* [Renvela TAB*] 2,400 mg PO .W /MEALS AND SNACKS 04/08/17 History HYDROcodone/ACETAMIN 5-325 MG* 1 tab PO Q4H PRN #30 tab MDD 6 04/11/17 04/15/17 Rx [[place] 5-325 TAB*] Allergies: Allergies Allergy/AdvReac Type Severity Reaction Status Date / Time Labetalol AdvReac Severe Hallucinati Verified 04/15/17 03:06 ons Objective - Vital Signs Vital Signs: Vital Signs 04/15/17 04/15/17 04/15/17 08:34 08:38 09:41 Temperature 97.9 F Pulse Rate 69 74 Respiratory 16 Rate Blood Pressure 111/71 129/66 (mmHg) O2 Sat by Pulse 96 99 Oximetry 04/15/17 04/15/17 04/15/17 11:15 17:07 19:17 Temperature 98.3 F 98.7 F Pulse Rate 67 66 72 Respiratory 16 12 16 Rate Blood Pressure 102/52 91/50 103/54 (mmHg) O2 Sat by Pulse 98 99 97 Oximetry 04/15/17 04/16/17 04/16/17 23:15 02:31 04:12 Temperature 99.2 F 99.1 F Pulse Rate 68 68 64 Respiratory 16 20 16 Rate Blood Pressure 110/51 95/45 (mmHg) O2 Sat by Pulse 95 95 100 Oximetry 04/16/17 04/16/17 07:14 07:43 Temperature 97.2 F Pulse Rate 64 Respiratory 14 16 Rate Blood Pressure 106/51 (mmHg) O2 Sat by Pulse 96 Oximetry - Intake and Output Intake and Output: Intake & Output 04/13/17 04/14/17 04/15/17 04/16/17 11:59 11:59 11:59 11:59 Intake Total 630 520 Balance 630 520 Weight 183 lb 186 lb 11.2 oz Intake: IV Fluids 500 IVPB 30 Oral 100 520 Other: # Bowel Movements 0 # Voids 0 ADLs: Meal Record Start: 04/15/17 05: 40 Freq: DAILY@0900,1400,1800 Status: Active Created 04/15/17 05:40 System (Rec: 04/15/17 05:40 System [id number]) Document 04/15/17 09:44 [id number] (Rec: 04/15/17 09:45 [id number]) Document 04/15/17 13:14 [id number] (Rec: 04/15/17 13:14 [id number]) Document 04/15/17 18:00 [id number] (Rec: 04/15/17 19:55 [id number]) Intake and Output Start: 04/15/17 03: 06 Freq: Status: Active Created 04/15/17 03:06 System (Rec: 04/15/17 03:06 System [id number]) Intake and Output Start: 04/15/17 05: 40 Freq: DAILY@0600,1400,2200 Status: Active Created 04/15/17 05:40 System (Rec: 04/15/17 05:40 System [id number]) Document 04/15/17 13:14 [id number] (Rec: 04/15/17 13:14 [id number] [id number]) Document 04/16/17 06:00 [id number] (Rec: 04/16/17 06:19 [id number]) - Physical Exam General: No Cyanosis, Yes Anemia, No Jaundice, No Clubbing Lungs and Chest: Yes: Chest Expansion Full, Chest Expansion Symetrica, Percussion Note Resonant, Vessicular Breath Sounds. No: Crackles, Wheezes Heart Rate and Rhythm: Regular Additional Cardiovascular: Yes: Normal Heart Sounds. No: Heart Murmur, Pedal Edema Abdominal Exam: Yes: Distention, Soft, Bowel Sounds Present. No: Abdominal Tenderness Results - Results Lab Results: Laboratory Results - last 24 hr 04/15/17 04/15/17 04/15/17 08:03 11:23 16:47 POC Glucose (mg/dL) 186 H 145 H Lactic Acid 2.4 H* 04/15/17 04/16/17 20:12 07:32 POC Glucose (mg/dL) 172 H 147 H Lactic Acid EKG Report: Echocardiogram - transthoracic Conclusions Moderate concentric left ventricular hypertrophy is observed. Global left ventricular wall motion and contractility are within normal limits. The estimated ejection fraction is 60-65%. Abnormal left ventricular diastolic function is observed. The right ventricular global systolic function is normal. There is mild aortic regurgitation. Compared with prior echo of 07/25/16, no significant changes. There is a trace of mitral regurgitation. There is trace to mild tricuspid regurgitation. No pulmonary hypertension is noted. The pericardium appears normal. Assessment - Problem List Assessment: Patient Problems Constipation (Acute) Infra-HIS atrioventricular block (Acute) Non-sustained ventricular tachycardia (Acute) Peritoneal dialysis status (Acute) Syncope (Acute) Type 2 diabetes mellitus with renal manifestations (Acute) Vomiting (Acute) Essential hypertension (Chronic) History of CVA (cerebrovascular accident) (Chronic) Hyperlipidemia (Chronic) S/P cholecystectomy (Chronic 12/31/14) 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) Bilateral inguinal hernia (BIH) (Chronic) Mass of right lung (Chronic) Plan: Constipation (Acute) He is taking amlodipine which is constipation. We will not give him opioids - n o pain. I will stop the amlodipine Infra-HIS atrioventricular block (Acute) Syncope (Acute) I reviewed Dr. Baca' s consultation note. She states because he has had alternating RBBB and LBBB he is a candidate for a pacemaker. She thinks the syncope was precipitated by vaso-vagal reaction - straining/vomiting. She notes beta-leda. Given his comorbidities, she would like to fix the constipation and consider the electrophysiological problems at a later date Non-sustained ventricular tachycardia (Acute) This may require further evaluation. The transthoracic echocardiogram shows no segmental wall abnormalities/systolic dysfunction Peritoneal dialysis status (Acute) ongoing Type 2 diabetes mellitus with renal manifestations (Acute) stable Vomiting (Acute) resolved Essential hypertension (Chronic) I will stop amlodipine and introduce a small dose of an SALVATORE inhibitor (he is now on PD and hence hyperkalemia shouldn't be a problem) History of CVA (cerebrovascular accident) (Chronic) I discussed this with the patient and Cornelia Lee.
[2017-04-16] MEDS: Sevelamer TAB* 800 MG PO SCH ×3 (08:30→17:20)
[2017-04-16] MEDS: Furosemide TAB* 40 MG PO SCH (08:32)
[2017-04-16] MEDS: Aspirin TAB* 325 MG PO SCH (08:33)
[2017-04-16] MEDS: amLODIPine TAB* 5 MG PO SCH (08:33)
[2017-04-16] MEDS: Carvedilol TAB* 25 MG PO SCH ×2 (08:33→20:49)
[2017-04-16] MEDS: Timolol 0.5% OPTH.SOL* BTL BOTH EYES SCH ×2 (08:34→20:50)
[2017-04-16] MEDS: Psyllium PAK PO SCH (09:01)
[2017-04-16] MEDS: Insulin LISPRO* 1 UNITS UNIT SUBCUT SCH ×7 (09:03→20:49)
[2017-04-16] MEDS: Ramipril CAP* 2.5 MG PO SCH (09:04)
--- NOTE | 2017-04-16 12:37 | PN ---
Progress Note - Progress Note Note: S: No further BM; passing flatus. Reyes diet. Denies abd pain. PD cath working well. Had double dose Miralax this am as well as Metamucil. O: Vital Signs - 8 hr 04/16/17 04/16/17 07:14 07:43 Temperature 97.2 F Pulse Rate 64 Respiratory 14 16 Rate Blood Pressure 106/51 (mmHg) O2 Sat by Pulse 96 Oximetry Intake and Output Last 24 Hours 04/14/17 04/15/17 04/16/17 04/17/17 06:59 06:59 06:59 06:59 Intake Total 250 1150 220 Balance 250 1150 220 Weight 183 lb 186 lb 11.2 oz Intake: IV Fluids 250 500 IVPB 30 Oral 620 220 Other: # Bowel Movements 0 # Voids 0 Abd: mild to mod distension; tympanitic; soft, nontender A: LBO 2/2 constipation P: cont currrent regimen; may need add'l enemas; will follow
[2017-04-16] MEDS: Atorvastatin* 20 MG TAB PO SCH (20:49)
--- NOTE | 2017-04-17 07:32 | PN ---
Subjective - Subjective Reason for Note: Progress Note History: He remains constipated despite stopping amlodipine and giving him x 2 days of miralax 34 mg and fiber. He has no abdominal pain, nausea or vomiting. He has had no other new symptoms. Telemetry shows missed beats, but no further VT. 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 Vomiting (Acute) R11.10 Essential hypertension (Chronic) I10 History of CVA (cerebrovascular accident) (Chronic) Z86.73 Hyperlipidemia (Chronic) E78.5 S/P cholecystectomy (Chronic 12/31/14) Z90.49 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) E11.22 , N18.5 Current Medications: Current Medications Acetaminophen (Tylenol Tab*) 650 mg PO Q6H PRN PRN Reason: FEVER/PAIN Last Admin: 04/15/17 09:11 Dose: 325 mg Albuterol (Ventolin 2.5 Mg/3 Ml Neb.Erlinda*) 2.5 mg INH Q2H PRN PRN Reason: SOB/WHEEZING Aspirin (Aspirin Tab*) 325 mg PO DAILY [facility] Last Admin: 04/16/17 08:33 Dose: 325 mg Atorvastatin Calcium (Lipitor*) 20 mg PO BEDTIME [facility] Last Admin: 04/16/17 20:49 Dose: 20 mg Carvedilol (Coreg Tab*) 25 mg PO BID [facility] Last Admin: 04/16/17 20:49 Dose: 25 mg Furosemide (Lasix Tab*) 80 mg PO DAILY [facility] Last Admin: 04/16/17 08:32 Dose: 80 mg Insulin Human Lispro (Humalog*) 0 units SUBCUT AC VICTOR M PRN Reason: Protocol Last Admin: 04/16/17 17:39 Dose: 1 unit Insulin Human Lispro (Humalog*) 0 units SUBCUT ACHS [facility] PRN Reason: Protocol Last Admin: 04/16/17 20:49 Dose: 4 units Mometasone Furoate/Formoterol Fumar (Dulera 200/5 Mdi*) 1 puff INH BID PRN; Protocol PRN Reason: SHORTNESS OF BREATH Mupirocin (Bactroban 2% Cream*) 1 applic TOPICAL DAILY [facility] Last Admin: 04/16/17 08:24 Dose: Not Given Ondansetron HCl (Zofran Inj*) 4 mg IV Q6H PRN PRN Reason: NAUSEA Last Admin: 04/15/17 07:33 Dose: 4 mg Polyethylene Glycol/Electrolytes (Miralax*) 34 gm PO DAILY PRN PRN Reason: CONSTIPATION Last Admin: 04/15/17 09:13 Dose: 34 gm Psyllium Hydrophilic Mucilloid (Metamucil Olu*) 1 pkt PO DAILY [facility] Last Admin: 04/16/17 09:01 Dose: 1 pkt Ramipril (Altace Cap*) 2.5 mg PO DAILY [facility] Last Admin: 04/16/17 09:04 Dose: 2.5 mg Sevelamer Carbonate (Renvela Tab*) 2,400 mg PO .W /MEALS AND SNACKS [facility] Last Admin: 04/16/17 17:20 Dose: 2,400 mg Timolol Maleate (Timoptic 0.5% Opth*) 1 drop BOTH EYES BID [facility] Last Admin: 04/16/17 20:50 Dose: Not Given Home Medications: Home Medications Medication Instructions Recorded Confirmed Type Insulin Detemir [Levemir Flexpen] 16 - 20 unit SUBCUT BEDTIME 07/18/14 04/15/17 History Insulin Lispro [Humalog Kwikpen] 0 - 3 unit SUBCUT AC MDD 50 units 05/16/16 History Timolol 0.5% OPTH.ERLINDA* [Timoptic 1 drop BOTH EYES BID 05/16/16 04/15/17 History 0.5% Opth*] amLODIPine TAB* [Norvasc 5 mg TAB*] 10 mg PO DAILY 05/16/16 04/15/17 History Carvedilol TAB* [Coreg TAB*] 25 mg PO BID #60 tab 05/24/16 04/15/17 Rx Fluticas/Salmet 230/21 HFA(NF) 1 puff INH BID PRN 10/01/16 04/15/17 History [Advair HFA 23O/21 (NF)] Aspirin TAB* [Aspirin 325 MG TAB*] 325 mg PO DAILY 04/08/17 04/15/17 History Atorvastatin* [Lipitor 20 MG*] 20 mg PO BEDTIME 04/08/17 04/15/17 History Docusate Sodium [Eql Stool 100 mg PO QPM PRN 04/08/17 04/15/17 History Softener] Furosemide TAB* [Lasix TAB*] 80 mg PO DAILY 04/08/17 04/15/17 History Mupirocin 2% CREAM* [Bactroban 2% 1 applic TOPICAL DAILY 04/08/17 04/15/17 History CREAM*] Sevelamer TAB* [Renvela TAB*] 2,400 mg PO .W /MEALS AND SNACKS 04/08/17 History HYDROcodone/ACETAMIN 5-325 MG* 1 tab PO Q4H PRN #30 tab MDD 6 04/11/17 04/15/17 Rx [[place] 5-325 TAB*] Allergies: Allergies Allergy/AdvReac Type Severity Reaction Status Date / Time Labetalol AdvReac Severe Hallucinati Verified 04/15/17 03:06 ons Objective - Vital Signs Vital Signs: Vital Signs 04/16/17 04/16/17 04/16/17 07:43 11:13 15:45 Temperature 98.2 F 98.3 F Pulse Rate 67 67 Respiratory 16 16 16 Rate Blood Pressure 105/49 98/53 (mmHg) O2 Sat by Pulse 98 95 Oximetry 04/16/17 04/16/17 04/17/17 20:21 23:41 02:32 Temperature 98.0 F 98.3 F Pulse Rate 70 68 67 Respiratory 16 16 16 Rate Blood Pressure 101/44 103/55 (mmHg) O2 Sat by Pulse 93 98 98 Oximetry 04/17/17 04/17/17 04/17/17 03:22 07:13 07:16 Temperature 98.4 F 100.5 F Pulse Rate 68 68 Respiratory 16 16 16 Rate Blood Pressure 105/51 101/39 (mmHg) O2 Sat by Pulse 99 97 Oximetry - Intake and Output Intake and Output: Intake & Output 04/14/17 04/15/17 04/16/17 04/17/17 11:59 11:59 11:59 11:59 Intake Total 630 740 735 Output Total 0 Balance 630 740 735 Weight 183 lb 186 lb 11.2 oz 190 lb Intake: IV Fluids 500 IVPB 30 Oral 100 740 735 Output: Urine 0 Other: # Bowel Movements 0 0 # Voids 0 0 ADLs: Meal Record Start: 04/15/17 05: 40 Freq: DAILY@0900,1400,1800 Status: Active Created 04/15/17 05:40 System (Rec: 04/15/17 05:40 System [id number]) Document 04/15/17 09:44 [id number] (Rec: 04/15/17 09:45 [id number] TELE-C01) Document 04/15/17 13:14 [id number] (Rec: 04/15/17 13:14 [id number] TELE-C01) Document 04/15/17 18:00 [id number] (Rec: 04/15/17 19:55 [id number] TELE-C11) Document 04/16/17 09:00 [id number] (Rec: 04/16/17 10:52 [id number] TELE-C10) Document 04/16/17 14:00 [id number] (Rec: 04/16/17 14:55 [id number] TELE-C07) Document 04/16/17 18:00 [id number] (Rec: 04/16/17 22:30 [id number] TELE-C11) Intake and Output Start: 04/15/17 03: 06 Freq: Status: Active Created 04/15/17 03:06 System (Rec: 04/15/17 03:06 System [id number]) Intake and Output Start: 04/15/17 05: 40 Freq: DAILY@0600,1400,2200 Status: Active Created 04/15/17 05:40 System (Rec: 04/15/17 05:40 System [id number]) Document 04/15/17 13:14 [id number] (Rec: 04/15/17 13:14 [id number] TELE-C01) Document 04/16/17 06:00 [id number] (Rec: 04/16/17 06:19 [id number] TELE-C33) Document 04/16/17 14:00 [id number] (Rec: 04/16/17 14:55 [id number] TELE-C07) Document 04/16/17 22:00 [id number] (Rec: 04/16/17 22:31 [id number] TELE-C11) Document 04/17/17 06:00 [id number] (Rec: 04/17/17 07:10 [id number] TELE-C34) - Physical Exam General: No Cyanosis, Yes Anemia, No Jaundice, No Clubbing Lungs and Chest: Yes: Chest Expansion Full, Chest Expansion Symetrica, Percussion Note Resonant, Vessicular Breath Sounds. No: Crackles, Wheezes Heart Rate and Rhythm: Regular JVP: Not Elevated Additional Cardiovascular: Yes: Normal Heart Sounds. No: Heart Murmur, Pedal Edema Abdominal Exam: Yes: Distention - PD dwell, Soft, Bowel Sounds Present. No: Rigidity, Hepatomegaly Results - Results Lab Results: Laboratory Results - last 24 hr 04/16/17 04/16/17 04/16/17 07:32 11:21 17:08 POC Glucose (mg/dL) 147 H 137 H 204 H 04/16/17 19:56 POC Glucose (mg/dL) 202 H Assessment - Problem List Assessment: Patient Problems Constipation (Acute) Infra-HIS atrioventricular block (Acute) Non-sustained ventricular tachycardia (Acute) Peritoneal dialysis status (Acute) Syncope (Acute) Type 2 diabetes mellitus with renal manifestations (Acute) Vomiting (Acute) Essential hypertension (Chronic) History of CVA (cerebrovascular accident) (Chronic) Hyperlipidemia (Chronic) S/P cholecystectomy (Chronic 12/31/14) 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) Bilateral inguinal hernia (BIH) (Chronic) Mass of right lung (Chronic) Plan: Constipation (Acute) He continues to have a problem with constipation. This is a risk as he develops increased vagal tone. I will give him senna today and also add Magnesium citrate to the miralax Infra-HIS atrioventricular block (Acute) He has had some missed beats, but no heart block Non-sustained ventricular tachycardia (Acute) not recurring Peritoneal dialysis status (Acute) ongoing Syncope (Acute) no recurrence Type 2 diabetes mellitus with renal manifestations (Acute) He is a little hyperglycemic, I will increase his lantus Essential hypertension (Chronic) No worsening of hypertension having stopped his amlodipine I discussed this with the patient.
[2017-04-17] MEDS ORDERED: Senna TAB PO ONE (08:00)
[2017-04-17] MEDS ORDERED: Polyethylene Glycol 3350* 17 GM PACKET PO ONE (08:00)
[2017-04-17] MEDS: Sevelamer TAB* 800 MG PO SCH ×2 (08:56→17:05)
[2017-04-17] MEDS: Psyllium PAK PO SCH (08:58)
[2017-04-17] MEDS: Furosemide TAB* 40 MG PO SCH (08:59)
[2017-04-17] MEDS: Aspirin TAB* 325 MG PO SCH (09:00)
[2017-04-17] MEDS: Mupirocin 2% CREAM* 15 GM TOPICAL SCH (09:02)
[2017-04-17] MEDS: Ramipril CAP* 2.5 MG PO SCH (09:02)
[2017-04-17] MEDS: Insulin LISPRO* 1 UNITS UNIT SUBCUT SCH ×7 (09:03→21:31)
[2017-04-17] MEDS: Insulin GLARGINE(*) 1 UNITS UNIT SUBCUT SCH (09:04)
[2017-04-17] MEDS: Carvedilol TAB* 25 MG PO SCH ×2 (09:04→21:31)
[2017-04-17] MEDS: Timolol 0.5% OPTH.SOL* BTL BOTH EYES SCH ×2 (09:07→21:33)
[2017-04-17] MEDS: Ondansetron INJ* 2 MG/ML VIAL IV PRN (14:12)
--- NOTE | 2017-04-17 15:57 | PN ---
Progress Note - Progress Note Note: Surgery Progress: (patient seen earlier today @ ~1100) S: more abd discomfort which he r/t the laxatives he is receiving; little flatus ; no BM O: Vital Signs - 8 hr 04/17/17 04/17/17 04/17/17 11:15 14:42 15:26 Temperature 99.8 F 98.7 F 98.6 F Pulse Rate 68 68 64 Respiratory 16 14 14 Rate Blood Pressure 100/55 95/54 95/47 (mmHg) O2 Sat by Pulse 98 100 98 Oximetry Intake and Output Last 24 Hours 04/15/17 04/16/17 04/17/17 04/18/17 06:59 06:59 06:59 06:59 Intake Total 250 1150 955 600 Output Total 0 0 Balance 250 1150 955 600 Weight 183 lb 186 lb 11.2 oz 190 lb Intake: IV Fluids 250 500 IVPB 30 Oral 620 955 600 Output: Urine 0 0 Other: # Bowel Movements 0 0 1 # Voids 0 0 Abd: mild to mod distension; +BS; soft; mildly tender, not well localized; tympanitic; no masses Rectal: JAGJIT done revealing little to no stool A: constipation w/ other medical issues as noted per Dr. White P: oral laxatives as ordered; patient is willing to try an enema again so I will order that
[2017-04-17] MEDS: Atorvastatin* 20 MG TAB PO SCH (21:31)
[2017-04-18] MEDS ORDERED: Insulin LISPRO* 1 UNITS UNIT SUBCUT ONE (09:47)
[2017-04-18] MEDS: Insulin GLARGINE(*) 1 UNITS UNIT SUBCUT SCH (09:56)
[2017-04-18] MEDS: Insulin LISPRO* 1 UNITS UNIT SUBCUT SCH ×7 (09:56→21:01)
[2017-04-18] MEDS: Ramipril CAP* 2.5 MG PO SCH (09:57)
[2017-04-18] MEDS: Carvedilol TAB* 25 MG PO SCH ×2 (09:57→21:02)
[2017-04-18] MEDS: Aspirin TAB* 325 MG PO SCH (09:57)
[2017-04-18] MEDS: Furosemide TAB* 40 MG PO SCH (09:57)
[2017-04-18] MEDS: Mupirocin 2% CREAM* 15 GM TOPICAL SCH (09:57)
[2017-04-18] MEDS: Timolol 0.5% OPTH.SOL* BTL BOTH EYES SCH ×2 (09:58→21:04)
[2017-04-18] MEDS: Psyllium PAK PO SCH (09:58)
--- NOTE | 2017-04-18 10:29 | PN ---
Subjective - Subjective Reason for Note: Progress Note History: He continues to have constipation. He has had no bowel movement - he passes gas. He had another "episode" while he was straining on the toilet of light- headedness, nausea and vomiting. He has had no other new problems. 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 Vomiting (Acute) R11.10 Essential hypertension (Chronic) I10 History of CVA (cerebrovascular accident) (Chronic) Z86.73 Hyperlipidemia (Chronic) E78.5 S/P cholecystectomy (Chronic 12/31/14) Z90.49 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) E11.22 , N18.5 Current Medications: Current Medications Acetaminophen (Tylenol Tab*) 650 mg PO Q6H PRN PRN Reason: FEVER/PAIN Last Admin: 04/15/17 09:11 Dose: 325 mg Albuterol (Ventolin 2.5 Mg/3 Ml Neb.Erlinda*) 2.5 mg INH Q2H PRN PRN Reason: SOB/WHEEZING Aspirin (Aspirin Tab*) 325 mg PO DAILY [facility] Last Admin: 04/18/17 09:57 Dose: 325 mg Atorvastatin Calcium (Lipitor*) 20 mg PO BEDTIME [facility] Last Admin: 04/17/17 21:31 Dose: 20 mg Carvedilol (Coreg Tab*) 25 mg PO BID [facility] Last Admin: 04/18/17 09:57 Dose: 25 mg Furosemide (Lasix Tab*) 80 mg PO DAILY [facility] Last Admin: 04/18/17 09:57 Dose: 80 mg Insulin Glargine (Lantus(*)) 25 units SUBCUT Q24H [facility] Last Admin: 04/18/17 09:56 Dose: 25 units Insulin Human Lispro (Humalog*) 0 units SUBCUT AC VICTOR M PRN Reason: Protocol Last Admin: 04/18/17 09:56 Dose: 3 unit Insulin Human Lispro (Humalog*) 0 units SUBCUT ACHS [facility] PRN Reason: Protocol Last Admin: 04/18/17 09:56 Dose: 2 units Mometasone Furoate/Formoterol Fumar (Dulera 200/5 Mdi*) 1 puff INH BID PRN; Protocol PRN Reason: SHORTNESS OF BREATH Mupirocin (Bactroban 2% Cream*) 1 applic TOPICAL DAILY [facility] Last Admin: 04/18/17 09:57 Dose: Not Given Ondansetron HCl (Zofran Inj*) 4 mg IV Q6H PRN PRN Reason: NAUSEA Last Admin: 04/17/17 14:12 Dose: 4 mg Polyethylene Glycol/Electrolytes (Miralax*) 34 gm PO DAILY PRN PRN Reason: CONSTIPATION Last Admin: 04/15/17 09:13 Dose: 34 gm Psyllium Hydrophilic Mucilloid (Metamucil Olu*) 1 pkt PO DAILY [facility] Last Admin: 04/18/17 09:58 Dose: Not Given Ramipril (Altace Cap*) 2.5 mg PO DAILY [facility] Last Admin: 04/18/17 09:57 Dose: 2.5 mg Sevelamer Carbonate (Renvela Tab*) 2,400 mg PO .W /MEALS AND SNACKS [facility] Last Admin: 04/17/17 17:05 Dose: 2,400 mg Timolol Maleate (Timoptic 0.5% Opth*) 1 drop BOTH EYES BID [facility] Last Admin: 04/18/17 09:58 Dose: Not Given Home Medications: Home Medications Medication Instructions Recorded Confirmed Type Insulin Detemir [Levemir Flexpen] 16 - 20 unit SUBCUT BEDTIME 07/18/14 04/15/17 History Insulin Lispro [Humalog Kwikpen] 0 - 3 unit SUBCUT AC MDD 50 units 05/16/16 History Timolol 0.5% OPTH.ERLINDA* [Timoptic 1 drop BOTH EYES BID 05/16/16 04/15/17 History 0.5% Opth*] amLODIPine TAB* [Norvasc 5 mg TAB*] 10 mg PO DAILY 05/16/16 04/15/17 History Carvedilol TAB* [Coreg TAB*] 25 mg PO BID #60 tab 05/24/16 04/15/17 Rx Fluticas/Salmet 230/21 HFA(NF) 1 puff INH BID PRN 10/01/16 04/15/17 History [Advair HFA 23O/21 (NF)] Aspirin TAB* [Aspirin 325 MG TAB*] 325 mg PO DAILY 04/08/17 04/15/17 History Atorvastatin* [Lipitor 20 MG*] 20 mg PO BEDTIME 04/08/17 04/15/17 History Docusate Sodium [Eql Stool 100 mg PO QPM PRN 04/08/17 04/15/17 History Softener] Furosemide TAB* [Lasix TAB*] 80 mg PO DAILY 04/08/17 04/15/17 History Mupirocin 2% CREAM* [Bactroban 2% 1 applic TOPICAL DAILY 04/08/17 04/15/17 History CREAM*] Sevelamer TAB* [Renvela TAB*] 2,400 mg PO .W /MEALS AND SNACKS 04/08/17 History HYDROcodone/ACETAMIN 5-325 MG* 1 tab PO Q4H PRN #30 tab MDD 6 04/11/17 04/15/17 Rx [[place] 5-325 TAB*] Allergies: Allergies Allergy/AdvReac Type Severity Reaction Status Date / Time Labetalol AdvReac Severe Hallucinati Verified 04/15/17 03:06 ons Objective - Vital Signs Vital Signs: Vital Signs 04/17/17 04/17/17 04/17/17 11:15 14:42 15:26 Temperature 99.8 F 98.7 F 98.6 F Pulse Rate 68 68 64 Respiratory 16 14 14 Rate Blood Pressure 100/55 95/54 95/47 (mmHg) O2 Sat by Pulse 98 100 98 Oximetry 04/17/17 04/17/17 04/17/17 17:22 19:30 19:50 Temperature 98.8 F Pulse Rate 66 Respiratory 14 15 Rate Blood Pressure 92/46 (mmHg) O2 Sat by Pulse 98 99 Oximetry 04/17/17 04/18/17 04/18/17 23:34 03:40 03:47 Temperature 98.4 F 97.6 F Pulse Rate 67 62 Respiratory 16 16 Rate Blood Pressure 90/51 84/49 88/53 (mmHg) O2 Sat by Pulse 99 100 Oximetry 04/18/17 04/18/17 04/18/17 04:23 06:48 06:58 Temperature Pulse Rate Respiratory 124 14 Rate Blood Pressure 102/53 (mmHg) O2 Sat by Pulse Oximetry 04/18/17 07:23 Temperature 97.9 F Pulse Rate 57 Respiratory 16 Rate Blood Pressure 104/46 (mmHg) O2 Sat by Pulse 96 Oximetry - Intake and Output Intake and Output: Intake & Output 04/15/17 04/16/17 04/17/17 04/18/17 11:59 11:59 11:59 11:59 Intake Total 360 1260 Output Total 0 Balance 360 1260 Weight 185 lb Intake: Oral 360 1260 Output: Urine 0 Other: # Bowel Movements 0 ADLs: Meal Record Start: 04/15/17 05: 40 Freq: DAILY@0900,1400,1800 Status: Active Created 04/15/17 05:40 System (Rec: 04/15/17 05:40 System MED-C02) Document 04/15/17 09:44 [id number] (Rec: 04/15/17 09:45 [id number] TELE-C01) Document 04/15/17 13:14 [id number] (Rec: 04/15/17 13:14 [id number] TELE-C01) Document 04/15/17 18:00 [id number] (Rec: 04/15/17 19:55 [id number] TELE-C11) Document 04/16/17 09:00 [id number] (Rec: 04/16/17 10:52 [id number] TELE-C10) Document 04/16/17 14:00 [id number] (Rec: 04/16/17 14:55 [id number] TELE-C07) Document 04/16/17 18:00 [id number] (Rec: 04/16/17 22:30 [id number] TELE-C11) Document 04/17/17 09:00 [id number] (Rec: 04/17/17 10:25 [id number] TELE-C07) Document 04/17/17 14:00 [id number] (Rec: 04/17/17 14:24 [id number] TELE-C07) Document 04/17/17 18:00 [id number] (Rec: 04/17/17 20:24 [id number] TELE-C01) Document 04/18/17 09:00 [id number] (Rec: 04/18/17 10:07 [id number] TELE-C01) Intake and Output Start: 04/15/17 03: 06 Freq: Status: Active Created 04/15/17 03:06 System (Rec: 04/15/17 03:06 System [id number]) Intake and Output Start: 04/15/17 05: 40 Freq: DAILY@0600,1400,2200 Status: Active Created 04/15/17 05:40 System (Rec: 04/15/17 05:40 System MED-C02) Document 04/15/17 13:14 [id number] (Rec: 04/15/17 13:14 [id number] TELE-C01) Document 04/16/17 06:00 [id number] (Rec: 04/16/17 06:19 [id number] TELE-C33) Document 04/16/17 14:00 [id number] (Rec: 04/16/17 14:55 [id number] TELE-C07) Document 04/16/17 22:00 [id number] (Rec: 04/16/17 22:31 [id number] TELE-C11) Document 04/17/17 06:00 [id number] (Rec: 04/17/17 07:10 [id number] TELE-C34) Document 04/17/17 14:00 [id number] (Rec: 04/17/17 14:24 [id number] TELE-C07) Document 04/17/17 22:00 [id number] (Rec: 04/17/17 22:51 [id number] TELE-C01) Document 04/18/17 05:54 [id number] (Rec: 04/18/17 05:55 [id number] TELE-C33) - Physical Exam General: No Cyanosis, Yes Anemia, No Jaundice, No Clubbing Abdominal Exam: Yes: Distention - He is in the dwell phase of peritoneal dialysis, Soft, Bowel Sounds Present. No: Rigidity, Abdominal Mass, Abdominal Tenderness Results - Results Lab Results: Laboratory Results - last 24 hr 04/17/17 04/17/17 04/17/17 11:25 16:48 20:25 POC Glucose (mg/dL) 306 H 182 H 208 H 04/18/17 07:29 POC Glucose (mg/dL) 155 H EKG Report: Telemetry: He has bradycardia with the episodes of presyncope/syncope. His telemetry has shown no new VT, but he continues to h ave "missed beats" interpreted by Dr. Baca as being PACs with QRS buried in previous beat followed by a compensatory pause. Assessment - Problem List Assessment: Patient Problems Constipation (Acute) Infra-HIS atrioventricular block (Acute) Non-sustained ventricular tachycardia (Acute) Peritoneal dialysis status (Acute) Syncope (Acute) Type 2 diabetes mellitus with renal manifestations (Acute) Vomiting (Acute) Essential hypertension (Chronic) History of CVA (cerebrovascular accident) (Chronic) Hyperlipidemia (Chronic) S/P cholecystectomy (Chronic 12/31/14) 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) Bilateral inguinal hernia (BIH) (Chronic) Mass of right lung (Chronic) Plan: Constipation (Acute) I spoke with the patient, Dr. Peterson Malone. He has not had a spontaneous bowel movement, nor has he produced with a fairly large amount of PEG yesterday. Dr. Winkler reminded me that he was manually disimpacted - but this may not have been complete. The patient is passing flatus. Unfortunately, he has increased vagal tone when he strains and presyncope/bradycardia. I will give him a formal bowel prep today with 1 gallon of golytely Infra-HIS atrioventricular block (Acute) I wonder if he should have a pacemaker placed. 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 Did the surgery Dr. Winkler performed affect his colon and cause the constipation. 2. How are we following the cardiological issues. 1. I explained to the patient that this is not intestinal obstruction, and Dr. Winkler didn't do any surgery to the colon itself. 2. I explained that we are monitoring him and if he continues to have symptomatic episodes, we will consider a pacemaker. He requires continuing inpatient acute care with telemetry
[2017-04-18] MEDS ORDERED: PEG 3000 GI LAVAGE* 1 GALLON PO ONE (10:39)
--- NOTE | 2017-04-18 11:30 | PN ---
Progress Note - Progress Note SOAP: Subjective: Pt seen and examined. Still no BM and this is his chief concern. No abdo pain. He is undergoing PD. Positive flatus. Minimal appetite. fatigued, but this is his baseline for past 1 year. Objective: abdo: soft/mild distension/NT incisions healing well. Assessment: S/p revision of PD catheter. constipation w/o abdominal symptoms Plan: encourage PO go lytely
[2017-04-18] MEDS: Sevelamer TAB* 800 MG PO SCH ×2 (17:26→21:04)
[2017-04-18] MEDS: Atorvastatin* 20 MG TAB PO SCH (21:02)
[2017-04-19 06:22] LABS: BUN/Creatinine Ratio 4.1 (8-20); Calcium 8.6 mg/dL (8.6-10.3); EGFR African American 5.4 (>60); EGFR Non-African American 4.2 (>60); Magnesium 2.1 mg/dL (1.9-2.7); Potassium 4.1 mmol/L (3.5-5.0)
[2017-04-19] MEDS: Sevelamer TAB* 800 MG PO SCH ×4 (08:25→21:11)
[2017-04-19] MEDS: Furosemide TAB* 40 MG PO SCH (08:25)
[2017-04-19] MEDS: Aspirin TAB* 325 MG PO SCH (08:25)
[2017-04-19] MEDS: Carvedilol TAB* 25 MG PO SCH ×2 (08:26→21:07)
[2017-04-19] MEDS: Psyllium PAK PO SCH (08:28)
[2017-04-19] MEDS: Timolol 0.5% OPTH.SOL* BTL BOTH EYES SCH ×2 (08:28→22:16)
[2017-04-19] MEDS: Insulin GLARGINE(*) 1 UNITS UNIT SUBCUT SCH (08:51)
[2017-04-19] MEDS: Mupirocin 2% CREAM* 15 GM TOPICAL SCH (08:52)
--- NOTE | 2017-04-19 09:26 | PN ---
Subjective - Subjective Reason for Note: Progress Note History: He continues to be constipated - he was unable to drink more than 2.5 cups of Golytely as it made him nauseated. Cornelia Lee stated he drank lots of water in the day "to flush it out" and couldn't take the extra fluid. 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 Vomiting (Acute) R11.10 Essential hypertension (Chronic) I10 History of CVA (cerebrovascular accident) (Chronic) Z86.73 Hyperlipidemia (Chronic) E78.5 S/P cholecystectomy (Chronic 12/31/14) Z90.49 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) E11.22 , N18.5 Current Medications: Current Medications Acetaminophen (Tylenol Tab*) 650 mg PO Q6H PRN PRN Reason: FEVER/PAIN Last Admin: 04/15/17 09:11 Dose: 325 mg Albuterol (Ventolin 2.5 Mg/3 Ml Neb.Erlinda*) 2.5 mg INH Q2H PRN PRN Reason: SOB/WHEEZING Aspirin (Aspirin Tab*) 325 mg PO DAILY [facility] Last Admin: 04/19/17 08:25 Dose: 325 mg Atorvastatin Calcium (Lipitor*) 20 mg PO BEDTIME [facility] Last Admin: 04/18/17 21:02 Dose: 20 mg Carvedilol (Coreg Tab*) 6.25 mg PO BID [facility] Last Admin: 04/19/17 08:26 Dose: 6.25 mg Furosemide (Lasix Tab*) 80 mg PO DAILY [facility] Last Admin: 04/19/17 08:25 Dose: 80 mg Insulin Glargine (Lantus(*)) 25 units SUBCUT Q24H [facility] Last Admin: 04/19/17 08:51 Dose: 25 units Insulin Human Lispro (Humalog*) 0 units SUBCUT AC [facility] PRN Reason: Protocol Last Admin: 04/18/17 17:52 Dose: 2 unit Insulin Human Lispro (Humalog*) 0 units SUBCUT ACHS [facility]CTOR M PRN Reason: Protocol Last Admin: 04/18/17 21:01 Dose: 4 units Mometasone Furoate/Formoterol Fumar (Dulera 200/5 Mdi*) 1 puff INH BID PRN; Protocol PRN Reason: SHORTNESS OF BREATH Mupirocin (Bactroban 2% Cream*) 1 applic TOPICAL DAILY [facility]CTOR M Last Admin: 04/19/17 08:52 Dose: Not Given Ondansetron HCl (Zofran Inj*) 4 mg IV Q6H PRN PRN Reason: NAUSEA Last Admin: 04/17/17 14:12 Dose: 4 mg Polyethylene Glycol/Electrolytes (Miralax*) 34 gm PO DAILY PRN PRN Reason: CONSTIPATION Last Admin: 04/15/17 09:13 Dose: 34 gm Psyllium Hydrophilic Mucilloid (Metamucil Olu*) 1 pkt PO DAILY [facility]CTOR M Last Admin: 04/19/17 08:28 Dose: Not Given Sevelamer Carbonate (Renvela Tab*) 2,400 mg PO QID WITH FOOD [facility] Last Admin: 04/19/17 08:25 Dose: 2,400 mg Timolol Maleate (Timoptic 0.5% Opth*) 1 drop BOTH EYES BID [facility] Last Admin: 04/19/17 08:28 Dose: Not Given Home Medications: Home Medications Medication Instructions Recorded Confirmed Type Insulin Detemir [Levemir Flexpen] 16 - 20 unit SUBCUT BEDTIME 07/18/14 04/15/17 History Insulin Lispro [Humalog Kwikpen] 0 - 3 unit SUBCUT AC MDD 50 units 05/16/16 History Timolol 0.5% OPTH.ERLINDA* [Timoptic 1 drop BOTH EYES BID 05/16/16 04/15/17 History 0.5% Opth*] amLODIPine TAB* [Norvasc 5 mg TAB*] 10 mg PO DAILY 05/16/16 04/15/17 History Carvedilol TAB* [Coreg TAB*] 25 mg PO BID #60 tab 05/24/16 04/15/17 Rx Fluticas/Salmet 230/21 HFA(NF) 1 puff INH BID PRN 10/01/16 04/15/17 History [Advair HFA 23O/21 (NF)] Aspirin TAB* [Aspirin 325 MG TAB*] 325 mg PO DAILY 04/08/17 04/15/17 History Atorvastatin* [Lipitor 20 MG*] 20 mg PO BEDTIME 04/08/17 04/15/17 History Docusate Sodium [Eql Stool 100 mg PO QPM PRN 04/08/17 04/15/17 History Softener] Furosemide TAB* [Lasix TAB*] 80 mg PO DAILY 04/08/17 04/15/17 History Mupirocin 2% CREAM* [Bactroban 2% 1 applic TOPICAL DAILY 04/08/17 04/15/17 History CREAM*] Sevelamer TAB* [Renvela TAB*] 2,400 mg PO .W /MEALS AND SNACKS 04/08/17 History HYDROcodone/ACETAMIN 5-325 MG* 1 tab PO Q4H PRN #30 tab MDD 6 04/11/17 04/15/17 Rx [[place] 5-325 TAB*] Allergies: Allergies Allergy/AdvReac Type Severity Reaction Status Date / Time Labetalol AdvReac Severe Hallucinati Verified 04/15/17 03:06 ons Objective - Vital Signs Vital Signs: Vital Signs 04/18/17 04/18/17 04/18/17 11:42 15:56 19:52 Temperature 99.2 F 98.1 F 98.7 F Pulse Rate 63 64 74 Respiratory 16 16 18 Rate Blood Pressure 111/49 96/49 110/59 (mmHg) O2 Sat by Pulse 96 99 95 Oximetry 04/18/17 04/19/17 04/19/17 20:00 00:34 03:37 Temperature 98.1 F 97.5 F Pulse Rate 66 67 Respiratory 18 20 20 Rate Blood Pressure 110/54 110/56 (mmHg) O2 Sat by Pulse 98 96 Oximetry 04/19/17 08:05 Temperature 98.3 F Pulse Rate 59 Respiratory 18 Rate Blood Pressure 113/53 (mmHg) O2 Sat by Pulse 97 Oximetry - Intake and Output Intake and Output: Intake & Output 04/16/17 04/17/17 04/18/17 04/19/17 11:59 11:59 11:59 11:59 Intake Total 360 1260 950 Output Total 0 0 Balance 360 1260 950 Weight 185 lb Intake: Oral 360 1260 950 Output: Urine 0 0 Other: Estimated Void Small # Bowel Movements 0 0 # Voids 2 ADLs: Meal Record Start: 04/15/17 05: 40 Freq: DAILY@0900,1400,1800 Status: Active Created 04/15/17 05:40 System (Rec: 04/15/17 05:40 System MED-C02) Document 04/15/17 09:44 [id number] (Rec: 04/15/17 09:45 [id number] TELE-C01) Document 04/15/17 13:14 [id number] (Rec: 04/15/17 13:14 [id number] TELE-C01) Document 04/15/17 18:00 [id number] (Rec: 04/15/17 19:55 [id number] TELE-C11) Document 04/16/17 09:00 IHZ0441 (Rec: 04/16/17 10:52 AVX7574 TELE-C10) Document 04/16/17 14:00 [id number] (Rec: 04/16/17 14:55 [id number] TELE-C07) Document 04/16/17 18:00 [id number] (Rec: 04/16/17 22:30 [id number] TELE-C11) Document 04/17/17 09:00 [id number] (Rec: 04/17/17 10:25 [id number] TELE-C07) Document 04/17/17 14:00 [id number] (Rec: 04/17/17 14:24 [id number] TELE-C07) Document 04/17/17 18:00 [id number] (Rec: 04/17/17 20:24 [id number] TELE-C01) Document 04/18/17 09:00 [id number] (Rec: 04/18/17 10:07 [id number] TELE-C01) Document 04/18/17 14:00 [id number] (Rec: 04/18/17 14:26 DTI0579 TELE-C01) Document 04/18/17 18:00 [id number] (Rec: 04/18/17 20:13 [id number] TELE-C01) Intake and Output Start: 04/15/17 03: 06 Freq: Status: Active Created 04/15/17 03:06 System (Rec: 04/15/17 03:06 System EDRM-C16) Intake and Output Start: 04/15/17 05: 40 Freq: DAILY@0600,1400,2200 Status: Active Created 04/15/17 05:40 System (Rec: 04/15/17 05:40 System MED-C02) Document 04/15/17 13:14 [id number] (Rec: 04/15/17 13:14 [id number] TELE-C01) Document 04/16/17 06:00 [id number] (Rec: 04/16/17 06:19 [id number] TELE-C33) Document 04/16/17 14:00 [id number] (Rec: 04/16/17 14:55 [id number] TELE-C07) Document 04/16/17 22:00 PDF1507 (Rec: 04/16/17 22:31 WSL9515 TELE-C11) Document 04/17/17 06:00 [id number] (Rec: 04/17/17 07:10 NLB9620 TELE-C34) Document 04/17/17 14:00 [id number] (Rec: 04/17/17 14:24 RKX3554 TELE-C07) Document 04/17/17 22:00 [id number] (Rec: 04/17/17 22:51 [id number] TELE-C01) Document 04/18/17 05:54 [id number] (Rec: 04/18/17 05:55 [id number] TELE-C33) Document 04/18/17 14:00 [id number] (Rec: 04/18/17 14:26 [id number] TELE-C01) Document 04/18/17 22:00 [id number] (Rec: 04/18/17 22:21 [id number] TELE-C01) Document 04/19/17 06:00 [id number] (Rec: 04/19/17 06:01 [id number] TELE-C33) - Physical Exam General: No Cyanosis, Yes Anemia, No Jaundice, No Clubbing Abdominal Exam: Yes: Distention - PD dwell, Soft, Bowel Sounds Present. No: Rigidity, Abdominal Tenderness Results - Results Lab Results: Laboratory Results - last 24 hr 04/18/17 04/18/17 04/18/17 11:34 16:44 20:19 Sodium Potassium Chloride Carbon Dioxide Anion Gap BUN Creatinine Est GFR ( Amer) Est GFR (Non-Af Amer) BUN/Creatinine Ratio Glucose POC Glucose (mg/dL) 210 H 234 H 215 H Calcium Magnesium 04/19/17 04/19/17 05:40 07:46 Sodium 135 Potassium 4.1 Chloride 95 L Carbon Dioxide 27 Anion Gap 13 H BUN 49 H Creatinine 11.95 H Est GFR ( Amer) 5.4 Est GFR (Non-Af Amer) 4.2 BUN/Creatinine Ratio 4.1 L Glucose 169 H POC Glucose (mg/dL) 162 H Calcium 8.6 Magnesium 2.1 Assessment - Problem List Assessment: Patient Problems Constipation (Acute) Infra-HIS atrioventricular block (Acute) Non-sustained ventricular tachycardia (Acute) Peritoneal dialysis status (Acute) Second degree atrioventricular block (Acute) Syncope (Acute) 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 Infra-HIS atrioventricular block (Acute) /Non-sustained ventricular tachycardia (Acute)/Second degree atrioventricular block (Acute) He has had multiple episodes of asymptomatic second degree AV block. Peritoneal dialysis status (Acute) His creatinine has not improved since repositioning the PD catheter. His CO2 is not acidotic. His potassium is normal, but his anion gap is a little raised. I will discuss this with Dr. Winkler. Maybe this is the underlying cause of his constipation and may contribute to his cardiac rhythm disturbances. Syncope (Acute) no further episodes Type 2 diabetes mellitus with renal manifestations (Acute) adequate control Vomiting (Acute) felt nauseated after taking Golytely Essential hypertension (Chronic) This is not elevated - despite reducing the ramipril History of CVA (cerebrovascular accident) (Chronic) Hyperlipidemia (Chronic) continue current Rx Phone call Dr. Winkler and Dr. Holder: - Since PD repositioning - increase frequency of dialysis to counteract the decreased volume. But Cr remains high - Plan to increase dwell volume by 100 mls per session - Since there are no electrolyte problems, it is unlikely that this is the cause of the heart rhythm problems - Constipation - we should appraise the severity of this problem. He has no pain. I will check a plain film and determine whether we need to check a barium enema tomorrow. - Dr. Holder suggests metoclopramide and castor oil as purgatives. Discussed with Cornelia Lee and patient
[2017-04-19] MEDS: Insulin LISPRO* 1 UNITS UNIT SUBCUT SCH ×7 (09:50→21:44)
[2017-04-19] MEDS: Metoclopramide TAB* 10 MG PO SCH ×2 (09:50→17:18)
--- NOTE | 2017-04-19 11:19 | RAD ---
Indication: Constipation. Comparison is made with previous exam dated April 15, 2017. Flat plate of the abdomen demonstrates stool in the right upper quadrant and left upper quadrant. No definite evidence of large bowel obstruction is noted. Small bowel demonstrates no abnormal dilatation. Previously identified colonic distention is not as prominent on the current exam. IMPRESSION: Residual stool in the right colon and descending colon. No dilated loops of bowel are noted. Bowel gas pattern is nonspecific.
[2017-04-19] MEDS ORDERED: Castor Oil (Pharmaceutic Aid)* 118 ML BTL PO ONE (11:30)
[2017-04-19] MEDS: Polyethylene Glycol 3350* 17 GM PACKET PO PRN (13:19)
[2017-04-19] MEDS: Atorvastatin* 20 MG TAB PO SCH (21:06)
[2017-04-19] MEDS: Castor Oil (Pharmaceutic Aid)* 118 ML BTL PO SCH (21:10)
[2017-04-20] MEDS: Metoclopramide TAB* 10 MG PO SCH ×3 (02:24→17:28)
[2017-04-20 05:46] LABS: Calcium 8.7 mg/dL (8.6-10.3); EGFR African American 5.3 (>60); EGFR Non-African American 4.1 (>60); Magnesium 2.1 mg/dL (1.9-2.7); Potassium 3.9 mmol/L (3.5-5.0)
[2017-04-20] MEDS: Insulin LISPRO* 1 UNITS UNIT SUBCUT SCH ×7 (07:47→21:20)
[2017-04-20] MEDS: Sevelamer TAB* 800 MG PO SCH ×4 (07:47→21:18)
--- NOTE | 2017-04-20 07:53 | PN ---
Subjective - Subjective Reason for Note: Discharge Note History: He had a large bowel movement with castor oil plus metoclopramide. There was some wheezing, but this improved with PD and taking off some volume. He has had 2:1 AV block with missed beats on his telemetry. 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 Vomiting (Acute) R11.10 Essential hypertension (Chronic) I10 History of CVA (cerebrovascular accident) (Chronic) Z86.73 Hyperlipidemia (Chronic) E78.5 S/P cholecystectomy (Chronic 12/31/14) Z90.49 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) E11.22 , N18.5 Current Medications: Current Medications Acetaminophen (Tylenol Tab*) 650 mg PO Q6H PRN PRN Reason: FEVER/PAIN Last Admin: 04/15/17 09:11 Dose: 325 mg Albuterol (Ventolin 2.5 Mg/3 Ml Neb.Erlinda*) 2.5 mg INH Q2H PRN PRN Reason: SOB/WHEEZING Aspirin (Aspirin Tab*) 325 mg PO DAILY [facility] Last Admin: 04/19/17 08:25 Dose: 325 mg Atorvastatin Calcium (Lipitor*) 20 mg PO BEDTIME [facility] Last Admin: 04/19/17 21:06 Dose: 20 mg Carvedilol (Coreg Tab*) 6.25 mg PO BID [facility] Last Admin: 04/19/17 21:07 Dose: 6.25 mg [place] Oil ([place] Oil (Pharmaceutic Aid)*) 30 ml PO BID [facility] Stop: 04/21/17 10:00 Last Admin: 04/19/17 21:10 Dose: Not Given Furosemide (Lasix Tab*) 80 mg PO DAILY [facility] Last Admin: 04/19/17 08:25 Dose: 80 mg Insulin Glargine (Lantus(*)) 25 units SUBCUT Q24H [facility] Last Admin: 04/19/17 08:51 Dose: 25 units Insulin Human Lispro (Humalog*) 0 units SUBCUT AC [facility] PRN Reason: Protocol Last Admin: 04/20/17 07:47 Dose: Not Given Insulin Human Lispro (Humalog*) 0 units SUBCUT 0730,1130,1630,2100 [facility] PRN Reason: Protocol Last Admin: 04/20/17 07:47 Dose: Not Given Metoclopramide HCl (Reglan Tab*) 10 mg PO Q8H [facility] Stop: 04/21/17 10:00 Last Admin: 04/20/17 02:24 Dose: Not Given Mometasone Furoate/Formoterol Fumar (Dulera 200/5 Mdi*) 1 puff INH BID PRN; Protocol PRN Reason: SHORTNESS OF BREATH Mupirocin (Bactroban 2% Cream*) 1 applic TOPICAL DAILY [facility] Last Admin: 04/19/17 08:52 Dose: Not Given Ondansetron HCl (Zofran Inj*) 4 mg IV Q6H PRN PRN Reason: NAUSEA Last Admin: 04/17/17 14:12 Dose: 4 mg Polyethylene Glycol/Electrolytes (Miralax*) 34 gm PO DAILY PRN PRN Reason: CONSTIPATION Last Admin: 04/19/17 13:19 Dose: 34 gm Psyllium Hydrophilic Mucilloid (Metamucil Olu*) 1 pkt PO DAILY [facility] Last Admin: 04/19/17 08:28 Dose: Not Given Sevelamer Carbonate (Renvela Tab*) 2,400 mg PO QID WITH FOOD [facility] Last Admin: 04/19/17 21:11 Dose: Not Given Timolol Maleate (Timoptic 0.5% Opth*) 1 drop BOTH EYES BID [facility] Last Admin: 04/19/17 22:16 Dose: Not Given Home Medications: Home Medications Medication Instructions Recorded Confirmed Type Insulin Detemir [Levemir Flexpen] 16 - 20 unit SUBCUT BEDTIME 07/18/14 04/15/17 History Insulin Lispro [Humalog Kwikpen] 0 - 3 unit SUBCUT AC MDD 50 units 05/16/16 History Timolol 0.5% OPTH.ERLINDA* [Timoptic 1 drop BOTH EYES BID 05/16/16 04/15/17 History 0.5% Opth*] amLODIPine TAB* [Norvasc 5 mg TAB*] 10 mg PO DAILY 05/16/16 04/15/17 History Carvedilol TAB* [Coreg TAB*] 25 mg PO BID #60 tab 05/24/16 04/15/17 Rx Fluticas/Salmet 230/21 HFA(NF) 1 puff INH BID PRN 10/01/16 04/15/17 History [Advair HFA 23O/21 (NF)] Aspirin TAB* [Aspirin 325 MG TAB*] 325 mg PO DAILY 04/08/17 04/15/17 History Atorvastatin* [Lipitor 20 MG*] 20 mg PO BEDTIME 04/08/17 04/15/17 History Docusate Sodium [Eql Stool 100 mg PO QPM PRN 04/08/17 04/15/17 History Softener] Furosemide TAB* [Lasix TAB*] 80 mg PO DAILY 04/08/17 04/15/17 History Mupirocin 2% CREAM* [Bactroban 2% 1 applic TOPICAL DAILY 04/08/17 04/15/17 History CREAM*] Sevelamer TAB* [Renvela TAB*] 2,400 mg PO .W /MEALS AND SNACKS 04/08/17 History HYDROcodone/ACETAMIN 5-325 MG* 1 tab PO Q4H PRN #30 tab MDD 6 04/11/17 04/15/17 Rx [[place] 5-325 TAB*] Allergies: Allergies Allergy/AdvReac Type Severity Reaction Status Date / Time Labetalol AdvReac Severe Hallucinati Verified 04/15/17 03:06 ons Objective - Vital Signs Vital Signs: Vital Signs 04/19/17 04/19/17 04/19/17 08:00 08:05 11:18 Temperature 98.3 F 98.0 F Pulse Rate 59 66 Respiratory 16 18 20 Rate Blood Pressure 113/53 105/56 (mmHg) O2 Sat by Pulse 97 92 Oximetry 04/19/17 04/19/17 04/19/17 15:29 19:28 20:45 Temperature 98.3 F 98.3 F Pulse Rate 65 76 68 Respiratory 16 18 18 Rate Blood Pressure 103/50 117/60 (mmHg) O2 Sat by Pulse 96 93 95 Oximetry 04/19/17 04/19/17 04/20/17 22:35 23:36 03:46 Temperature 99.3 F 98.9 F Pulse Rate 78 69 Respiratory 18 20 20 Rate Blood Pressure 106/43 108/49 (mmHg) O2 Sat by Pulse 95 99 Oximetry - Intake and Output Intake and Output: Intake & Output 04/17/17 04/18/17 04/19/17 04/20/17 11:59 11:59 11:59 11:59 Intake Total 360 1260 1070 660 Output Total 0 0 0 Balance 360 1260 1070 660 Weight 185 lb Intake: Oral 360 1260 1070 660 Output: Urine 0 0 0 Other: Estimated Void Small Small # Bowel Movements 0 0 0 Estimated Stool Amount Large # Voids 2 0 ADLs: Meal Record Start: 04/15/17 05: 40 Freq: DAILY@0900,1400,1800 Status: Active Created 04/15/17 05:40 System (Rec: 04/15/17 05:40 System MED-C02) Document 04/15/17 09:44 [id number] (Rec: 04/15/17 09:45 [id number] TELE-C01) Document 04/15/17 13:14 ABE2307 (Rec: 04/15/17 13:14 [id number] TELE-C01) Document 04/15/17 18:00 [id number] (Rec: 04/15/17 19:55 VBM9714 TELE-C11) Document 04/16/17 09:00 RPL9021 (Rec: 04/16/17 10:52 [id number] TELE-C10) Document 04/16/17 14:00 [id number] (Rec: 04/16/17 14:55 BBQ7551 TELE-C07) Document 04/16/17 18:00 [id number] (Rec: 04/16/17 22:30 [id number] TELE-C11) Document 04/17/17 09:00 IHE7900 (Rec: 04/17/17 10:25 RNJ9717 TELE-C07) Document 04/17/17 14:00 ZRW8812 (Rec: 04/17/17 14:24 SMZ8461 TELE-C07) Document 04/17/17 18:00 [id number] (Rec: 04/17/17 20:24 [id number] TELE-C01) Document 04/18/17 09:00 VFH1828 (Rec: 04/18/17 10:07 LNA7121 TELE-C01) Document 04/18/17 14:00 FEO4731 (Rec: 04/18/17 14:26 OII5665 TELE-C01) Document 04/18/17 18:00 [id number] (Rec: 04/18/17 20:13 UTR1122 TELE-C01) Document 04/19/17 09:36 [id number] (Rec: 04/19/17 09:36 [id number] TELE-C03) Document 04/19/17 13:39 [id number] (Rec: 04/19/17 13:40 OVM8980 TELE-C03) Document 04/19/17 18:00 [id number] (Rec: 04/19/17 18:25 KOV1439 TELE-C01) Intake and Output Start: 04/15/17 03: 06 Freq: Status: Active Created 04/15/17 03:06 System (Rec: 04/15/17 03:06 System EDRM-C16) Intake and Output Start: 04/15/17 05: 40 Freq: DAILY@0600,1400,2200 Status: Active Created 04/15/17 05:40 System (Rec: 04/15/17 05:40 System MED-C02) Document 04/15/17 13:14 [id number] (Rec: 04/15/17 13:14 [id number] TELE-C01) Document 04/16/17 06:00 AGE0245 (Rec: 04/16/17 06:19 [id number] TELE-C33) Document 04/16/17 14:00 [id number] (Rec: 04/16/17 14:55 CKT3119 TELE-C07) Document 04/16/17 22:00 LIP1361 (Rec: 04/16/17 22:31 HRN2641 TELE-C11) Document 04/17/17 06:00 [id number] (Rec: 04/17/17 07:10 IDU6994 TELE-C34) Document 04/17/17 14:00 XSB3548 (Rec: 04/17/17 14:24 IKR2766 TELE-C07) Document 04/17/17 22:00 [id number] (Rec: 04/17/17 22:51 [id number] TELE-C01) Document 04/18/17 05:54 [id number] (Rec: 04/18/17 05:55 EDB3662 TELE-C33) Document 04/18/17 14:00 NVW7501 (Rec: 04/18/17 14:26 CFI2806 TELE-C01) Document 04/18/17 22:00 HLY8421 (Rec: 04/18/17 22:21 IWF6555 TELE-C01) Document 04/19/17 06:00 RGZ1411 (Rec: 04/19/17 06:01 PYC2790 TELE-C33) Document 04/19/17 13:39 [id number] (Rec: 04/19/17 13:40 VHR6166 TELE-C03) Document 04/19/17 22:00 TJA7102 (Rec: 04/19/17 22:34 GZB8214 TELE-C01) Document 04/20/17 05:46 [id number] (Rec: 04/20/17 05:48 [id number] [facility] - Physical Exam General: No Cyanosis, Yes Anemia, No Jaundice, No Clubbing Lungs and Chest: Yes: Chest Expansion Full, Chest Expansion Symetrica, Percussion Note Resonant, Vessicular Breath Sounds. No: Crackles, Wheezes - scattered expiratory, Respiratory Distress, Use of Accessory Muscles Heart Rate and Rhythm: Regular Additional Cardiovascular: Yes: Normal Heart Sounds. No: Heart Murmur, Pedal Edema Abdominal Exam: Yes: Distention, Soft, Bowel Sounds Present. No: Rigidity, Abdominal Tenderness, Guarding, Rebound Tenderness Results - Results Lab Results: Laboratory Results - last 24 hr 04/19/17 04/19/17 04/19/17 07:46 12:01 16:41 Sodium Potassium Chloride Carbon Dioxide Anion Gap BUN Creatinine Est GFR ( Amer) Est GFR (Non-Af Amer) BUN/Creatinine Ratio Glucose POC Glucose (mg/dL) 162 H 184 H 151 H Calcium Magnesium 04/19/17 04/20/17 20:25 05:14 Sodium 133 Potassium 3.9 Chloride 95 L Carbon Dioxide 24 Anion Gap 14 H BUN 49 H Creatinine 12.16 H Est GFR ( Amer) 5.3 Est GFR (Non-Af Amer) 4.1 BUN/Creatinine Ratio 4.0 L Glucose 141 H POC Glucose (mg/dL) 184 H Calcium 8.7 Magnesium 2.1 Radiology Results: Patient Name: SHANTE MANZO Medical Record#: [id number] Ordering Physician: Jose White MD Acct.#: [id number] : 1945 Age: 71 Sex: M Location: [address] [place] [address] MEDICAL/TELEMETRY Exam Date: 04/19/17 0939 ADM Status: ADM IN Order Information: ABDOMEN ( COMPLETE) 2 VWS Accession Number: [id number] CPT: 64926 Indication: Constipation. Comparison is made with previous exam dated April 15, 2017. Flat plate of the abdomen demonstrates stool in the right upper quadrant and left upper quadrant. No definite evidence of large bowel obstruction is noted. Small bowel demonstrates no abnormal dilatation. Previously identified colonic distention is not as prominent on the current exam. IMPRESSION: Residual stool in the right colon and descending colon. No dilated loops of bowel are noted. Bowel gas pattern is nonspecific. <Electronically signed by Ebony Call MD in [place]> 04/19/17 1116 Dictated By: Ebony Call MD Dictated Date/Time: 04/19/17 1116 Transcribed Date/Time: 04/19/17 1114 Copy to: CC:Jose White MD; David Shoemaker MD; Ronel Baca MD; Francesco Holder MD Imaging - [facility] Imaging - [place] Urgent [facility] [address] [address] ph ([phone]) ph ([phone]) ph ([phone]) 1 of 1 Assessment - Problem List Assessment: Patient Problems Constipation (Acute) Infra-HIS atrioventricular block (Acute) Non-sustained ventricular tachycardia (Acute) Peritoneal dialysis status (Acute) Second degree atrioventricular block (Acute) Syncope (Acute) 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 Discharge is contingent upon decision-making by cardiology of risk from bradycardia/heart block. 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
[2017-04-20] MEDS ORDERED: ceFAZolin VIAL(*) 1 GM in D5W 50 ML BAG* 50 ML IVPB ONE (10:14)
[2017-04-20] MEDS ORDERED: Diazepam TAB(*) 5 MG PO ONE (10:14)
[2017-04-20] MEDS: Castor Oil (Pharmaceutic Aid)* 118 ML BTL PO SCH ×2 (10:38→21:15)
[2017-04-20] MEDS: Psyllium PAK PO SCH (10:39)
[2017-04-20] MEDS: Timolol 0.5% OPTH.SOL* BTL BOTH EYES SCH ×2 (10:39→21:15)
[2017-04-20] MEDS: Carvedilol TAB* 25 MG PO SCH ×2 (10:48→23:31)
[2017-04-20] MEDS: Furosemide TAB* 40 MG PO SCH (10:48)
[2017-04-20] MEDS: Mupirocin 2% CREAM* 15 GM TOPICAL SCH (10:48)
[2017-04-20] MEDS: Insulin GLARGINE(*) 1 UNITS UNIT SUBCUT SCH (10:48)
[2017-04-20] MEDS: Aspirin TAB* 325 MG PO SCH (10:48)
--- NOTE | 2017-04-20 12:15 | CONS ---
CC: Dr. White; Dr. Baca FOLLOWUP CONSULTATION REPORT: DATE OF CONSULT: 04/20/17 INDICATION FOR REPEAT CONSULTATION: Heart block, ventricular tachycardia. HISTORY OF PRESENT ILLNESS: The patient is a 71-year-old gentleman with a history of diabetes, hist ory of end-stage renal disease, and history of peritoneal dialysis, who is admitted to the hospital with constipation. Please see Dr. Baca's full consultation for his initial evaluation. The patient was seen by Surgery. He was treated with an enema and his constipation has currently re solved. I was asked to see the patient regarding his high-degree AV block and ventricular tachycardia. He is a gentleman with a normal LV function on his most recent echocardiogram. His ejection fractio n was 65%. I had a long discussion with Dr. Baca, Dr. White, and the patient regarding the best op tions for his treatment. Currently, the patient does need evaluation of ischemic burden for his nghai cardium; however, given his ventricular tachycardia and Infra-Hisian block, I do not think chemical stress test either with a Lexiscan or with a dobutamine stress echo is appropriate. If you are franky g to do a ischemic evaluation on this patient, he would require a cardiac catheterization. The cedrick ent is at increased risk for complications for a catheterization. The question exists is what we ar e going to do with the information regarding his cardiac catheterization. If it does show 3-vessel coronary artery disease, it is likely a small vessel disease and his success for coronary artery byp ass surgery is lower. He is at increased risk of complications for coronary artery bypass surgery g vik his current medical status. His most pressing cardiac problem is his Infra-Hisian block, and risk of syncope and sudden cardiac . I think his risk of sudden cardiac with ventricular tachycardia is relatively low give n the fact that he has normal LV function and his ventricular tachycardia with monomorphic occurred during significant provocation during an enema. For now my recommendation is the patient undergo dual-chamber pacemaker implantation, after which he will be able to have higher dose beta blockers for suppression of any ventricular arrhythmias. At some point in the future, after he has healed up from his pacemaker, the patient can undergo a Maggi can Myoview stress test and further cardiac testing based on the result of the stress test. Again t his was discussed at length with Dr. White and Dr. Baca. The patient is willing to proceed with pe rmanent pacemaker implantation. [id number]/[facility] #: [id number]
[2017-04-20] MEDS ORDERED: ceFAZolin VIAL 1 GM in NS *SYRINGE * * 10 ML ONE (13:00)
[2017-04-20] MEDS ORDERED: Lidocaine 1% INJ* 10 MG/ML 30 ML SDV ONE (13:51)
[2017-04-20] MEDS ORDERED: fentaNYL* 50 MCG/ML 2 ML VIAL (100 MCG VIAL) ONE (13:54)
[2017-04-20] MEDS ORDERED: Midazolam* 1 MG/ML 5 ML VIAL (5 MG) ONE (13:54)
--- NOTE | 2017-04-20 17:36 | RAD ---
INDICATION: Status post pacemaker placement. COMPARISON: Comparison is made with a prior chest x-ray study from December 18, 2016. Correlation is also made with a prior study from August 29, 2016. TECHNIQUE: A portable view of the chest was obtained. FINDINGS: The heart is within normal limits in size for this portable exam. There is a dual-chamber transvenous pacemaker present. There are bilateral curvilinear infiltrates which are unchanged suggestive of scarring. There are multiple chronic right lateral rib fractures. No pneumothorax or pleural effusion is seen. IMPRESSION: 1. STATUS POST PACEMAKER PLACEMENT, NO EVIDENCE FOR ACUTE FINDING. 2. CHRONIC PARENCHYMAL CHANGES.
[2017-04-20] MEDS: Acetaminophen TAB* 325 MG PO PRN (18:30)
[2017-04-20] MEDS: Atorvastatin* 20 MG TAB PO SCH (21:18)
[2017-04-21] MEDS: Acetaminophen TAB* 325 MG PO PRN (00:57)
[2017-04-21] MEDS: Metoclopramide TAB* 10 MG PO SCH ×2 (00:57→09:42)
--- NOTE | 2017-04-21 07:19 | PN ---
Subjective - Subjective Reason for Note: Discharge Note History: Events of yesterday reviewed. Dr. Colunga recommended a dual chamber pacemaker as a stress test is not considered safe. He tolerated the procedure. This morning he has a paced rhythm on telemetry. He is feeling well and denies pain. He wants to go home. Active Problems: Active Problems Cardiac pacemaker in situ (Acute) Z95.0 Constipation (Acute) K59.00 Infra-HIS atrioventricular block (Acute) I44.30 Non-sustained ventricular tachycardia (Acute) I47.2 Peritoneal dialysis status (Acute) Z99.2 Second degree atrioventricular block (Acute) I44.1 Syncope (Acute) R55 Type 2 diabetes mellitus with renal manifestations (Acute) E11.29 Vomiting (Acute) R11.10 Essential hypertension (Chronic) I10 History of CVA (cerebrovascular accident) (Chronic) Z86.73 Hyperlipidemia (Chronic) E78.5 S/P cholecystectomy (Chronic 12/31/14) Z90.49 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) E11.22 , N18.5 Current Medications: Current Medications Acetaminophen (Tylenol Tab*) 650 mg PO Q6H PRN PRN Reason: FEVER/PAIN Last Admin: 04/21/17 00:57 Dose: 650 mg Albuterol (Ventolin 2.5 Mg/3 Ml Neb.Erlinda*) 2.5 mg INH Q2H PRN PRN Reason: SOB/WHEEZING Aspirin (Aspirin Tab*) 325 mg PO DAILY [facility] Last Admin: 04/20/17 10:48 Dose: 325 mg Atorvastatin Calcium (Lipitor*) 20 mg PO BEDTIME [facility] Last Admin: 04/20/17 21:18 Dose: 20 mg Carvedilol (Coreg Tab*) 6.25 mg PO BID [facility] Last Admin: 04/20/17 23:31 Dose: Not Given Lawson Oil (Lawson Oil (Pharmaceutic Aid)*) 30 ml PO BID [facility] Stop: 04/21/17 10:00 Last Admin: 04/20/17 21:15 Dose: Not Given Furosemide (Lasix Tab*) 80 mg PO DAILY [facility] Last Admin: 04/20/17 10:48 Dose: 80 mg Cefazolin Sodium 0.5 gm/ (Sodium Chloride) 50 mls @ 200 mls/hr IVPB Q12H [facility] Stop: 04/22/17 01:44 Insulin Glargine (Lantus(*)) 25 units SUBCUT Q24H [facility] Last Admin: 04/20/17 10:48 Dose: 25 units Insulin Human Lispro (Humalog*) 0 units SUBCUT AC [facility] PRN Reason: Protocol Last Admin: 04/20/17 18:25 Dose: 3 unit Insulin Human Lispro (Humalog*) 0 units SUBCUT 0730,1130,1630,2100 [facility] PRN Reason: Protocol Last Admin: 04/20/17 21:20 Dose: 10 units Metoclopramide HCl (Reglan Tab*) 10 mg PO Q8H [facility] Stop: 04/21/17 10:00 Last Admin: 04/21/17 00:57 Dose: 10 mg Mometasone Furoate/Formoterol Fumar (Dulera 200/5 Mdi*) 1 puff INH BID PRN; Protocol PRN Reason: SHORTNESS OF BREATH Mupirocin (Bactroban 2% Cream*) 1 applic TOPICAL DAILY [facility] Last Admin: 04/20/17 10:48 Dose: 1 applic Ondansetron HCl (Zofran Inj*) 4 mg IV Q6H PRN PRN Reason: NAUSEA Last Admin: 04/17/17 14:12 Dose: 4 mg Polyethylene Glycol/Electrolytes (Miralax*) 34 gm PO DAILY PRN PRN Reason: CONSTIPATION Last Admin: 04/19/17 13:19 Dose: 34 gm Psyllium Hydrophilic Mucilloid (Metamucil Olu*) 1 pkt PO DAILY [facility] Last Admin: 04/20/17 10:39 Dose: Not Given Sevelamer Carbonate (Renvela Tab*) 2,400 mg PO QID WITH FOOD [facility] Last Admin: 04/20/17 21:18 Dose: Not Given Timolol Maleate (Timoptic 0.5% Opth*) 1 drop BOTH EYES BID [facility] Last Admin: 04/20/17 21:15 Dose: Not Given Home Medications: Home Medications Medication Instructions Recorded Confirmed Type Insulin Detemir [Levemir Flexpen] 16 - 20 unit SUBCUT BEDTIME 07/18/14 04/15/17 History Insulin Lispro [Humalog Kwikpen] 0 - 3 unit SUBCUT AC MDD 50 units 05/16/16 History Timolol 0.5% OPTH.ERLINDA* [Timoptic 1 drop BOTH EYES BID 05/16/16 04/15/17 History 0.5% Opth*] amLODIPine TAB* [Norvasc 5 mg TAB*] 10 mg PO DAILY 05/16/16 04/15/17 History Carvedilol TAB* [Coreg TAB*] 25 mg PO BID #60 tab 05/24/16 04/15/17 Rx Fluticas/Salmet 230/21 HFA(NF) 1 puff INH BID PRN 10/01/16 04/15/17 History [Advair HFA 23O/21 (NF)] Aspirin TAB* [Aspirin 325 MG TAB*] 325 mg PO DAILY 04/08/17 04/15/17 History Atorvastatin* [Lipitor 20 MG*] 20 mg PO BEDTIME 04/08/17 04/15/17 History Docusate Sodium [Eql Stool 100 mg PO QPM PRN 04/08/17 04/15/17 History Softener] Furosemide TAB* [Lasix TAB*] 80 mg PO DAILY 04/08/17 04/15/17 History Mupirocin 2% CREAM* [Bactroban 2% 1 applic TOPICAL DAILY 04/08/17 04/15/17 History CREAM*] Sevelamer TAB* [Renvela TAB*] 2,400 mg PO .W /MEALS AND SNACKS 04/08/17 History HYDROcodone/ACETAMIN 5-325 MG* 1 tab PO Q4H PRN #30 tab MDD 6 04/11/17 04/15/17 Rx [[place] 5-325 TAB*] Allergies: Allergies Allergy/AdvReac Type Severity Reaction Status Date / Time Labetalol AdvReac Severe Hallucinati Verified 04/15/17 03:06 ons Objective - Vital Signs Vital Signs: Vital Signs 04/20/17 04/20/17 04/20/17 07:17 07:49 07:50 Temperature 99.2 F Pulse Rate 70 Respiratory 16 17 Rate Blood Pressure 89/44 108/50 (mmHg) O2 Sat by Pulse 97 Oximetry 04/20/17 04/20/17 04/20/17 11:27 13:13 15:07 Temperature 99.6 F Pulse Rate 66 Respiratory 16 16 Rate Blood Pressure 118/64 141/60 (mmHg) O2 Sat by Pulse 97 Oximetry 04/20/17 04/20/17 04/20/17 15:10 15:13 15:15 Temperature 97.9 F Pulse Rate 78 Respiratory 16 18 Rate Blood Pressure 149/79 116/60 (mmHg) O2 Sat by Pulse 98 Oximetry 04/20/17 04/20/17 04/20/17 15:27 15:30 15:45 Temperature Pulse Rate Respiratory 14 15 11 Rate Blood Pressure 131/58 136/62 (mmHg) O2 Sat by Pulse Oximetry 04/20/17 04/20/17 04/20/17 16:00 16:30 17:00 Temperature Pulse Rate Respiratory 16 18 Rate Blood Pressure 140/61 130/59 121/59 (mmHg) O2 Sat by Pulse Oximetry 04/20/17 04/20/17 04/20/17 18:00 18:22 19:27 Temperature 98.5 F Pulse Rate 73 Respiratory 18 Rate Blood Pressure 120/56 90/53 (mmHg) O2 Sat by Pulse 93 94 Oximetry 04/20/17 04/20/17 04/20/17 19:38 19:57 20:00 Temperature Pulse Rate 74 72 Respiratory 18 17 Rate Blood Pressure 95/48 (mmHg) O2 Sat by Pulse 94 Oximetry 04/20/17 04/20/17 04/20/17 20:37 22:22 23:25 Temperature 98.5 F Pulse Rate 79 67 Respiratory 16 Rate Blood Pressure 111/56 110/56 (mmHg) O2 Sat by Pulse 94 99 Oximetry 04/21/17 02:00 Temperature Pulse Rate Respiratory Rate Blood Pressure (mmHg) O2 Sat by Pulse 95 Oximetry - Intake and Output Intake and Output: Intake & Output 04/18/17 04/19/17 04/20/17 04/21/17 11:59 11:59 11:59 11:59 Intake Total 1260 1070 660 649 Output Total 0 0 0 0 Balance 1260 1070 660 649 Weight 185 lb Intake: Oral 1260 1070 660 649 Output: Urine 0 0 0 0 Other: Estimated Void Small Small # Bowel Movements 0 0 0 0 Estimated Stool Amount Large # Voids 2 0 0 ADLs: Meal Record Start: 04/15/17 05: 40 Freq: DAILY@0900,1400,1800 Status: Active Created 04/15/17 05:40 System (Rec: 04/15/17 05:40 System MED-C02) Document 04/15/17 09:44 [id number] (Rec: 04/15/17 09:45 [id number] TELE-C01) Document 04/15/17 13:14 [id number] (Rec: 04/15/17 13:14 [id number] TELE-C01) Document 04/15/17 18:00 [id number] (Rec: 04/15/17 19:55 [id number] TELE-C11) Document 04/16/17 09:00 [id number] (Rec: 04/16/17 10:52 [id number] TELE-C10) Document 04/16/17 14:00 [id number] (Rec: 04/16/17 14:55 [id number] TELE-C07) Document 04/16/17 18:00 FYM0328 (Rec: 04/16/17 22:30 BUX0402 TELE-C11) Document 04/17/17 09:00 MIR7089 (Rec: 04/17/17 10:25 [id number] TELE-C07) Document 04/17/17 14:00 [id number] (Rec: 04/17/17 14:24 [id number] TELE-C07) Document 04/17/17 18:00 NFI9340 (Rec: 04/17/17 20:24 [id number] TELE-C01) Document 04/18/17 09:00 UKD0389 (Rec: 04/18/17 10:07 [id number] TELE-C01) Document 04/18/17 14:00 [id number] (Rec: 04/18/17 14:26 [id number] TELE-C01) Document 04/18/17 18:00 WDS1407 (Rec: 04/18/17 20:13 ERZ1645 TELE-C01) Document 04/19/17 09:36 SIA8625 (Rec: 04/19/17 09:36 DRP7446 TELE-C03) Document 04/19/17 13:39 [id number] (Rec: 04/19/17 13:40 KLA4532 TELE-C03) Document 04/19/17 18:00 HXD9035 (Rec: 04/19/17 18:25 RIR9951 TELE-C01) Document 04/20/17 09:00 [id number] (Rec: 04/20/17 12:19 [id number] TELE-C01) Document 04/20/17 14:00 WNR6405 (Rec: 04/20/17 14:09 PNE8768 TELE-C01) Document 04/20/17 18:00 KFE6035 (Rec: 04/20/17 18:42 [id number] TELE-C01) Intake and Output Start: 04/15/17 03: 06 Freq: Status: Active Created 04/15/17 03:06 System (Rec: 04/15/17 03:06 System EDRM-C16) Intake and Output Start: 04/15/17 05: 40 Freq: DAILY@0600,1400,2200 Status: Active Created 04/15/17 05:40 System (Rec: 04/15/17 05:40 System MED-C02) Document 04/15/17 13:14 [id number] (Rec: 04/15/17 13:14 BZC1636 TELE-C01) Document 04/16/17 06:00 GKE3654 (Rec: 04/16/17 06:19 SFC5267 TELE-C33) Document 04/16/17 14:00 FDY9041 (Rec: 04/16/17 14:55 WLD2705 TELE-C07) Document 04/16/17 22:00 PMS7215 (Rec: 04/16/17 22:31 RQJ9269 TELE-C11) Document 04/17/17 06:00 WYQ2056 (Rec: 04/17/17 07:10 WXA8924 TELE-C34) Document 04/17/17 14:00 CRF7387 (Rec: 04/17/17 14:24 VWK0514 TELE-C07) Document 04/17/17 22:00 KGN2492 (Rec: 04/17/17 22:51 [id number] TELE-C01) Document 04/18/17 05:54 PON0527 (Rec: 04/18/17 05:55 KWO7011 TELE-C33) Document 04/18/17 14:00 AOL7614 (Rec: 04/18/17 14:26 HTC5540 TELE-C01) Document 04/18/17 22:00 NJD1078 (Rec: 04/18/17 22:21 [id number] TELE-C01) Document 04/19/17 06:00 ORM8480 (Rec: 04/19/17 06:01 [id number] TELE-C33) Document 04/19/17 13:39 RVD3294 (Rec: 04/19/17 13:40 [id number] TELE-C03) Document 04/19/17 22:00 CUM9051 (Rec: 04/19/17 22:34 CAL2252 TELE-C01) Document 04/20/17 05:46 [id number] (Rec: 04/20/17 05:48 [id number] [facility] [place]) Document 04/20/17 14:00 [id number] (Rec: 04/20/17 14:09 [id number] TELE-C01) Document 04/20/17 22:00 KPQ8667 (Rec: 04/20/17 22:43 ILU2388 TELE-C03) Document 04/21/17 05:53 [id number] (Rec: 04/21/17 05:54 [id number] TELE-C10) - Physical Exam General: No Cyanosis, Yes Anemia, No Jaundice, No Clubbing Lungs and Chest: Yes: Chest Expansion Full, Chest Expansion Symetrica, Percussion Note Resonant, Vessicular Breath Sounds, Wheezes - scattered. No: Crackles Heart Rate and Rhythm: Regular Additional Cardiovascular: Yes: Normal Heart Sounds. No: Heart Murmur, Pedal Edema Abdominal Exam: Yes: Distention, Soft, Bowel Sounds Present. No: Abdominal Tenderness, Guarding, Rebound Tenderness Results - Results Lab Results: Laboratory Results - last 24 hr 04/20/17 04/20/17 04/20/17 07:40 11:26 17:15 POC Glucose (mg/dL) 138 H 154 H 167 H 04/20/17 20:47 POC Glucose (mg/dL) 374 H Assessment - Problem List Assessment: Patient Problems Cardiac pacemaker in situ (Acute) Constipation (Acute) Infra-HIS atrioventricular block (Acute) Non-sustained ventricular tachycardia (Acute) Peritoneal dialysis status (Acute) Second degree atrioventricular block (Acute) Syncope (Acute) Type 2 diabetes mellitus with renal manifestations (Acute) Vomiting (Acute) Essential hypertension (Chronic) History of CVA (cerebrovascular accident) (Chronic) Hyperlipidemia (Chronic) S/P cholecystectomy (Chronic 12/31/14) 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) Bilateral inguinal hernia (BIH) (Chronic) Mass of right lung (Chronic) Plan: Cardiac pacemaker in situ (Acute)Infra-HIS atrioventricular block (Acute)Second degree atrioventricular block (Acute)Syncope (Acute) This problem is now taken care of. Non-sustained ventricular tachycardia (Acute) No new problems Constipation (Acute) Passing flatus - no further bowel movement Peritoneal dialysis status (Acute) per Dr. Holder Type 2 diabetes mellitus with renal manifestations (Acute) High this morning - likely due to the stress of the pacemaker placement - continue usual treatment Essential hypertension (Chronic) BP on target History of CVA (cerebrovascular accident) (Chronic) I discussed the above with the patient and Cornelia Lee - ready for discharge when cardiologists sign off.
--- NOTE | 2017-04-21 07:52 | RAD ---
HISTORY: Status post device implant COMPARISONS: April 20, 2017, December 18, 2016 VIEWS: 2: Frontal and lateral views of the chest. FINDINGS: CARDIOMEDIASTINAL SILHOUETTE: The cardiomediastinal silhouette is normal. CANDY: The candy are normal. PLEURA: The costophrenic angles are sharp. No pleural abnormalities are noted. LUNG PARENCHYMA: Again noted is a perihilar pattern of opacification bilaterally. This can be identified on multiple previous examinations and is stable, suggestive of chronic parenchymal changes. ABDOMEN: The upper abdomen is clear. There is no subphrenic gas. BONES AND SOFT TISSUES: No bone or soft tissue abnormalities are noted. OTHER: A left-sided pacemaker is noted. IMPRESSION: STABLE CHRONIC PARENCHYMAL CHANGES. NO ACTIVE CARDIOPULMONARY DISEASE.
[2017-04-21] MEDS: Insulin LISPRO* 1 UNITS UNIT SUBCUT SCH ×2 (08:33→09:40)
[2017-04-21 08:35] VITALS: BP 122/55
[2017-04-21] MEDS: Castor Oil (Pharmaceutic Aid)* 118 ML BTL PO SCH (08:40)
[2017-04-21] MEDS: Timolol 0.5% OPTH.SOL* BTL BOTH EYES SCH (08:40)
[2017-04-21] MEDS: Psyllium PAK PO SCH (08:40)
[2017-04-21] MEDS: Sevelamer TAB* 800 MG PO SCH (08:43)
[2017-04-21] MEDS: Aspirin TAB* 325 MG PO SCH (08:43)
[2017-04-21] MEDS: Carvedilol TAB* 25 MG PO SCH (08:44)
[2017-04-21] MEDS: Furosemide TAB* 40 MG PO SCH (08:44)
[2017-04-21] MEDS: Insulin GLARGINE(*) 1 UNITS UNIT SUBCUT SCH (09:41)
[2017-04-21] MEDS: Mupirocin 2% CREAM* 15 GM TOPICAL SCH (09:43)
--- NOTE | 2017-04-21 11:12 | DS ---
CC: Gary Colunga MD; Francesco Holder MD * DISCHARGE SUMMARY: DATE OF ADMISSION: 04/15/17 DATE OF DISCHARGE: 04/21/17 DISCHARGE DIAGNOSES: 1. High-degree atrioventricular block and ventricular tachycardia with near syncope. 2. Constipation. 3. End-stage renal disease, on peritoneal dialysis with recently revised PD catheter. PROCEDURES: Placement of dual-chamber pacemaker. SECONDARY DIAGNOSES: 1. Type 2 diabetes mellitus, insulin-requiring. 2. Essential hypertension. 3. History of cerebrovascular accident. 4. Hyperlipidemia. HISTORY: Alec Bynum is a 71-year-old white male. His presentation is documented in Dr. David Shoemaker's admitting history and physical. He had a recent admission between 04/08/17 and 04/11/17 for acute renal failure due to loculated peritoneal dialysis site, constipation, and out of control type 2 diabetes mellitus. He returns to the hospital with constipation, nausea, vomiting, and 2 episodes of near syncope. PHYSICAL EXAMINATION: Examination in the emergency room: Temperature 36.2 degrees Celsius, pulse 60, respirations 22, blood pressure 101/49, pulse oximetry 97%. Cardiovascular System: Pulse was regular. Heart sounds are normal. No edema. Abdomen: Soft, nondistended. No rebound, guarding, or rigidity. Normal bowel sounds. Peritoneal dialysis catheter site is healing well. INITIAL INVESTIGATIONS: CBC: White count 10.8, hemoglobin 11, hematocrit 31, platelets 179. Chemistry: Sodium 132, potassium 3.4, chloride 93, carbon dioxide 25, anion gap 14, BUN 47, creatinine 11.89, glucose 195. LFTs normal. CRP 56.34. INITIAL IMPRESSION: Progressive fatigue, generalized weakness, nausea, vomiting , and constipation. Chest and abdominal film was ordered. He is to continue with dialysis. INVESTIGATIONS: Abdominal x-ray, 04/15/17, large bowel obstruction with transverse colon measuring 7.6, large amount of overlying stool. 04/19/17, residual stool in right colon and descending colon, no dilated loops. 04/20/17 , chest x-ray post pacemaker placement, no acute findings. CONSULTATIONS: 04/15/17, Dr. Ronel Baca. Consultation note is part of the medical record. Two episodes of syncope following vomiting suggested vagally- mediated syncope, evidence of infrahisian conduction disorders with right bundle - branch block and AV daksha block. She recommended telemetry. She noted the alternating left and right bundle-branch block as an indication for pacemaker placement. There was a single episode of nonsustained ventricular tachycardia, which she also considered and discussed a cardiac catheterization. She ordered an echocardiogram. 04/20/17, consultation, Dr. Gary Colunga. This note is part of the electronic medical record. He felt with the history of infrahisian block, risk of syncope, and sudden cardiac , he required a pacemaker. Given the episode of ventricular tachycardia, he felt that a Lexiscan Myoview was contraindicated, dobutamine-induced cardiac stress test was also contraindicated, and recommended first that we place a permanent pacemaker and once that is placed, use beta- blockade for protection of his ventricle and conduct a stress test once all this has been carried out as an outpatient. HOSPITAL PROGRESS: 1. Cardiac conduction problems. The patient provided history of 2 episodes of near syncope associated with nausea and straining from his constipation. I consulted Dr. Baca and we placed him on telemetry. He had a transthoracic echocardiogram on 04/15/17. This showed an ejection fraction of 60% to 65%, abnormal left ventricular diastolic function, moderate concentric left ventricular hypertrophy. No pulmonary hypertension noted. Ultimately, he went for pacemaker placement after a period of observation on 04/01 and this was tolerated. The pacemaker is functional and Mr. Bynum has a paced rhythm on the day of discharge. 2. Constipation. We tried a variety of different approaches to relieve him, which included large doses of MiraLAX. Finally what worked was castor oil and metoclopramide. 3. Peritoneal dialysis, he recently had a re-siting of his PD catheter. Given this was performed surgically, he was having smaller volumes of dialysate. This was adjusted during the admission by Dr. Holder. On the day of discharge, he is feeling well. He is in no pain. He tolerated the pacemaker placement and feels ready to go home. He has not had a further bowel movement in 2 days. He was passing flatus. He has no nausea or vomiting. He has had no further episodes of near syncope since pacemaker placement and no chest pain, shortness of breath, or palpitations. PHYSICAL EXAMINATION ON DATE OF DISCHARGE: Vital Signs: Temperature 98.5 degrees Fahrenheit, pulse 67, respirations 16, oxygen saturation 99%, blood pressure 110/56. He has no cyanosis, jaundice, clubbing, or adenopathy. He looks pale. Cardiovascular System: Pulse was regular. Heart sounds normal. No edema. Respiratory System: Chest expansion full and symmetrical, percussion resonant, breath sounds vesicular, few scattered expiratory wheezes. Abdominal examination: Mildly distended from dialysis , soft. No masses or organomegaly. Bowel sounds are present. Nervous System: Alert and oriented. Conjugate eye movements. Cranial nerves II through XII intact. He is moving his arms and legs. ASSESSMENT AND PLAN: 1. Cardiac rhythm disturbances. 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 He had an episode of nonsustained ventricular tachycardia. He has many risk factors for coronary artery disease. He will have risk stratification once the cardiac pacemaker site has healed, and he will follow with Dr. Colunga as an outpatient. 2. Constipation. He will continue a bowel regimen of increased fiber in his diet. We will use castor oil should he become constipated. 3. Peritoneal dialysis. Dr. Holder is following this closely as an outpatient. 4. Type 2 diabetes mellitus. Continue his usual insulin regimen. 5. Hypertension. At present, his blood pressure is controlled. I stopped his amlodipine in view of his constipation. We are likely to step up his beta- blockade again as I decreased this during his hospitalization due to his cardiac rhythm disturbances; however, I have not brought him back to baseline on the day of discharge owing to his lower blood pressure. 6. Hyperlipidemia. Continue current medication. DISCHARGE MEDICATIONS: 1. Carvedilol 6.25 mg twice daily to be reviewed by Dr. Colunga as an outpatient. 2. [place] oil 30 mL twice daily p.r.n. for constipation. 3. Insulin detemir 25 q.p.m. 4. Timolol 0.5% ophthalmic solution 1 drop both eyes twice daily. 5. Fluticasone-salmeterol 230/21 one puff twice daily as needed. 6. Sevelamer 2400 mg orally with meals and snacks. 7. Atorvastatin 20 mg q.h.s. 8. Aspirin 325 mg daily. 9. Furosemide 80 mg daily. 10. Lispro insulin 3 units before each meal plus 1 unit for every 50 mg/dL going to 150 mg/dL. He will follow up with me within a week as an outpatient. [id number]/[facility] #: [id number] [facility]
--- NOTE | 2017-04-21 12:27 | OP ---
CC: Jose White MD; Francesco Holder MD * DATE OF OPERATION: 04/20/17 - ROOM #431 DATE OF : 45 SURGEON: Gary Colunga MD. ANESTHESIA: Local anesthesia with conscious sedation. PRE-OP DIAGNOSES: 1. 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 2. Syncope. POST-OP DIAGNOSES: 1. 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 2. Syncope. OPERATIVE PROCEDURE: Dual chamber pacemaker implantation. ESTIMATED BLOOD LOSS: Nil. COMPLICATIONS: None. INDICATIONS: The patient is a 71-year-old gentleman with end-stage renal disease who was admitted to the hospital after near syncope at home. The patient was diagnosed with severe constipation here in the hospital; however, he was documented to have a right bundle branch block, left anterior fascicular block and first degree AV block. Occasionally he would have second degree heart block type 1. In reviewing his records, he also had what appeared to be a left bundle branch block at some point in the past. 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 DESCRIPTION OF PROCEDURE: The patient was brought to the procedure room in a fasting state. Informed consent had been obtained prior to the procedure. All labs had been reviewed. The patient was placed supine on the procedure table. His left anterior chest was prepped and draped in the usual fashion. 1% lidocaine was used for local anesthesia. Under ultrasound guidance, the axillary vein was entered by a modified Seldinger technique and a guidewire was placed. A second guidewire was placed under the same technique. A 4 cm incision was made in the pectoral area and blunt dissection was carried down to the pectoral fascia. A pocket was formed for the pacemaker. Over the first guidewire, a 7-Hungarian sheath introducer was placed through which a right ventricular lead was advanced to the RV apex. The right ventricular lead is a Medtronic model 5076 serial #[id number], it had an R-wave sensitivity of 7.7, impedance 1003 ohms, threshold 1.3 volts at 0.5 milliseconds. The ventricular lead was sutured to the pectoral fascia using 0 silk. Over the second guidewire , a 7-Hungarian sheath introducer was placed through which a right atrial lead was advanced to the high right atrium. The right atrial lead was a Medtronic model 5076 serial #[id number]. It had a P-wave sensitivity of 3.3 millivolts and impedance of 660 ohms, threshold of 0.6 volts at 0.5 milliseconds. The atrial lead was then sutured to the pectoral fascia using 0 silk. The pocket was flushed with antibiotic infused normal saline and a generator was attached appropriately to the atrioventricular leads. The generator is a Medtronic model A2DR01 serial #[id number]. The device was placed into the pocket. The surgical incision was closed in 3 layers. The subcutaneous tissue was closed with 2-0 and 3-0 absorbable suture. The skin was closed with tu. Before sterile field was broken, the device was interrogated and noted to be functioning normally. The patient was returned to the holding area in stable condition. NOTE: THIS IS AN MRI COMPATIBLE DEVICE. [id number]/[facility] #: [id number] MTDD
[2017-04-21] MEDS ORDERED: CEFAZOLIN IVPB SCH (13:30)
[2017-04-21] MEDS ORDERED: NS 0.9% IVPB SCH (13:30)
== END 2017-04-21 11:05 | disposition home health service (06) | DRG 242 ==
LOC: ED 02:44 → MED 05:37 → MEDTELE 09:29 → OBSVTOIN 04-17 07:51
PROVIDERS: ADMIT Hospitalist; ATTEND Internal Medicine
PROC: 3E1M39Z Irrigation of Peritoneal Cavity using Dialysate, Percutaneous Approach (ICD-10-PCS; principal; 2017-04-17)
PROC: 0JH606Z Insertion of Pacemaker, Dual Chamber into Chest Subcutaneous Tissue and Fascia, Open Approach (ICD-10-PCS; 2017-04-20)
PROC: 02HK3JZ Insertion of Pacemaker Lead into Right Ventricle, Percutaneous Approach (ICD-10-PCS; 2017-04-20)
PROC: 02H63JZ Insertion of Pacemaker Lead into Right Atrium, Percutaneous Approach (ICD-10-PCS; 2017-04-20)
DX: I44.1 Atrioventricular block, second degree (principal); N18.6 End stage renal disease; K56.60 Unspecified intestinal obstruction; I47.2 Ventricular tachycardia; E87.2 Acidosis; I12.0 Hypertensive chronic kidney disease with stage 5 chronic kidney disease or end stage renal disease; F50.00 Anorexia nervosa, unspecified; I69.351 Hemiplegia and hemiparesis following cerebral infarction affecting right dominant side; E11.22 Type 2 diabetes mellitus with diabetic chronic kidney disease; I45.2 Bifascicular block; E11.40 Type 2 diabetes mellitus with diabetic neuropathy, unspecified; E78.5 Hyperlipidemia, unspecified; G43.909 Migraine, unspecified, not intractable, without status migrainosus; E78.00 Pure hypercholesterolemia, unspecified; R91.8 Other nonspecific abnormal finding of lung field; M19.042 Primary osteoarthritis, left hand; M19.041 Primary osteoarthritis, right hand; E11.36 Type 2 diabetes mellitus with diabetic cataract; H54.8 Legal blindness, as defined in USA; I45.10 Unspecified right bundle-branch block; E66.3 Overweight; R05 Cough; J44.9 Chronic obstructive pulmonary disease, unspecified; E11.319 Type 2 diabetes mellitus with unspecified diabetic retinopathy without macular edema; K59.00 Constipation, unspecified; R62.7 Adult failure to thrive; R55 Syncope and collapse; K40.20 Bilateral inguinal hernia, without obstruction or gangrene, not specified as recurrent; I49.5 Sick sinus syndrome; E11.65 Type 2 diabetes mellitus with hyperglycemia; Z79.4 Long term (current) use of insulin; Z99.2 Dependence on renal dialysis; I25.2 Old myocardial infarction; Z72.89 Other problems related to lifestyle; Z86.14 Personal history of Methicillin resistant Staphylococcus aureus infection; Z88.8 Allergy status to other drugs, medicaments and biological substances; Z90.49 Acquired absence of other specified parts of digestive tract; Z82.49 Family history of ischemic heart disease and other diseases of the circulatory system; Z83.3 Family history of diabetes mellitus; Z87.891 Personal history of nicotine dependence; Z68.27 Body mass index [BMI] 27.0-27.9, adult; Z80.0 Family history of malignant neoplasm of digestive organs; Z79.82 Long term (current) use of aspirin
CPT/HCPCS: 33208; 36415; 71010; 71020; 74020; 76937; 80048; 80053; 83036; 83605; 83690; 83735; 85025; 86140; 87040; 87205; 90945; 93005; 93306; A9270-GY; C1785; C1898; G0257; J0690; J2001; J2250; J2405; J3010

== ENCOUNTER 2018-05-28 11:27 | Day surgery (SDC) | payer MEDICARE ==
--- NOTE | 2018-05-14 16:44 | HP ---
HISTORY AND PHYSICAL: DATE OF ADMISSION: 05/28/2018. CHIEF COMPLAINT: Admission for placement of right arm AV fistula. HISTORY OF PRESENT ILLNESS: The patient is a 72-year-old male with end-stage renal disease that he has had for over 3 years. He has been on peritoneal dialysis for the past 3 years, but a recent infection with a peritoneal dialysis catheter required removal of the catheter and the patient to be on antibiotics. The patient then started to have dialysis via temporary Perm-a- Cath via the right jugular vein and he is being admitted today for creation of [place] arteriovenous fistula, in this case a brachiocephalic at the level of the arm. PAST MEDICAL HISTORY: Remarkable for no known allergies. He has history of coronary artery disease, gallbladder disease, history of pacemaker placement via the left subclavian approach, history of hernia repair. REVIEW OF SYSTEMS: Contributory for heart disease, gallbladder disease, end- stage renal failure, hypertension, and diabetes. FAMILY HISTORY: The father had cancer and diabetes, sister has diabetes, and brothers have diabetes and cancer. MEDICATIONS: The patient's current medications include: 1. Carvedilol 6.25 mg b.i.d. 2. Gabapentin 100 mg b.i.d. 3. Aspirin 81 mg once a day. 4. Dialyvite 800 mg once a day. 5. Furosemide 80 mg twice a day. 6. Clopidogrel 75 mg once a day. 7. Atorvastatin 20 mg once daily. 8. Levothyroxine 88 mcg once daily. 9. Ciprofloxacin 500 mg twice daily. 10. Sevelamer 800 mg daily. 11. Timolol for eyes twice a day. 12. Humalog 3 times a day. PHYSICAL EXAMINATION VITAL SIGNS: The patient's weight is 197 pounds. Blood pressure 113/46, pulse of 78, respirations of 16. HEAD AND NECK: Reveals no neck nodes or masses. There is a right internal jugular dialysis catheter present. On the left subclavian area, there is a permanent pacemaker. On the right side, there is no pacemaker. EXTREMITIES: The patient has excellent palpable pulses at both brachials, radials, and ulna. The patient has areas of ecchymosis from venipunctures in both arms. The patient also has no evidence of visible veins at the level of the arms. LUNGS: Clear to auscultation bilaterally. HEART: Regular without murmurs. The ultrasound of the right upper extremity was performed since the left cannot be used because of the presence of a permanent pacemaker and the findings are as follows: The cephalic vein on the right measures 4.5 mm, the mid arm measures 3.7 mm and the lower arm 3.6 mm. The distance from the skin to the cephalic vein is 3.2 mm. The basilic vein and the lower arm diameter is 5 mm. Vein sizes for cephalic vein, brachiocephalic fistula transposition are adequate for an AV fistula and this is the area that will be selected. The remaining of the physical exam is unremarkable. DIAGNOSTIC IMPRESSION: End-stage renal disease and the plan is to proceed with a right brachiocephalic arteriovenous fistula to be performed under local anesthesia and sedation. The patient understands that there are potential complications including but not exclusive of others such as clotting, inability for the fistula to mature, infection, bleeding. The patient understands, agrees , and wishes to proceed. [id number]/CPS #: [id number] MTDD
[~2018-05-28 11:27] MED LIST: Buffered Lidocaine 0.9% SYRIN* 5 ML/SYR SYRINGE INTRADERM ONE; NS 0.45% 1000 ML BAG* 1,000 ML IV SCH
[2018-05-28] MEDS ORDERED: ceFAZolin 2 GM PREMIX (*) 2 GM/50 ML BAG IVPB ONE (13:36)
[2018-05-28] MEDS ORDERED: Midazolam* 1 MG/ML 2 ML VIAL (2 MG) ONE (13:55)
[2018-05-28] MEDS ORDERED: Lidocaine 2% PF * 5 ML VIAL ONE (14:15)
[2018-05-28] MEDS ORDERED: fentaNYL* 50 MCG/ML 2 ML VIAL (100 MCG VIAL) ONE (14:15)
[2018-05-28] MEDS ORDERED: Lidocaine 1% INJ* 10 MG/ML 30 ML SDV ONE (14:23)
[2018-05-28] MEDS ORDERED: Propofol* 10 MG/ML 20 ML BTL IV PUSH ONE (14:24)
[2018-05-28] MEDS ORDERED: Famotidine IV* 10 MG/ML 2 ML (20 mg) ONE (14:24)
[2018-05-28] MEDS ORDERED: Heparin DIALYSIS ONLY(*) 1,000 UNITS/ML VIAL ONE (14:48)
[2018-05-28] MEDS ORDERED: Heparin VIAL(*) 5000 UNITS/ML VIAL (FIVE THOUSAND) ONE (15:00)
[2018-05-28 17:11] VITALS: BP 174/79
--- NOTE | 2018-05-29 02:49 | OP ---
CC: Dr. Holder * DATE OF OPERATION: 05/28/18 - [facility] DATE OF : 45 SURGEON: Robb Sanchez MD MENTAL HYGIENIST: Waleska Monaco NP ANESTHESIA: Local plus MAC. PRE-OP DIAGNOSIS: End-stage renal disease. POST-OP DIAGNOSIS: End-stage renal disease. OPERATIVE PROCEDURE: First-stage brachiobasilic fistula. INDICATIONS: The patient has end-stage renal disease and has a pacemaker on the left side. The patient was on peritoneal dialysis and likely may go back on it; however, the patient was referred for an AV fistula for backup. In the preoperative exam with an ultrasound, the patient had adequate size blood vessels for the cephalic vein and the plan was to proceed with a brachiocephalic fistula since the radiocephalic was not adequate because of the poor quality of the cephalic vein at the wrist. However, during the procedure, the cephalic vein was stenotic, scarred down for a long segment and with a thickened wall. The basilic vein was adequate in size and pliable without any abnormalities. For this reason, during the procedure, the plan was changed to a first-stage brachiobasilic fistula to premature the basilic vein and then at a subsequent stage proceed with a basilic vein transposition. ESTIMATED BLOOD LOSS: Less than 30 cc. DESCRIPTION OF PROCEDURE: The patient was taken to the operating room. Proper markings were done on the right side because it cannot be done on the left side because of the presence of a pacemaker. The patient was taken to the operating room and placed in the supine position. He was prepped and draped in the usual sterile fashion. He received preoperative antibiotics and after proper identification of the patient, time-out and proper site, lidocaine 1% was used to infiltrate 1 cm below the antecubital fossa. The incision was carried down through the skin, subcutaneous tissue. The fascia was opened and the cephalic vein was identified, dissected off as it was in proximity to the median vein in the bifurcation to the basilic, it was felt that the cephalic was thickened for a long segment and more distal with stenosis and it was deemed not useable for anastomosis; however, the basilic vein appeared to be in excellent condition and it was at least 4 mm in diameter. It was decided then to proceed with a first-stage brachiobasilic fistula and at this point, we then proceeded to encircle in vessel loops, the basilic vein, the cephalic vein and the median vein and vessel loops. After this, dissection was carried down to the brachial artery. Identification of the medial cutaneous nerve was done and . We then proceeded to disconnect the cephalic vein from the median vein by tying it off with 2-0 silk sutures and after this was done, we used part of median vein cephalic and prepared the tip for anastomosis tying off the more distal median vein with 2-0 silk sutures and the more proximal part of the vein was spatulated for anastomosis. At this point, the patient received 3000 units of heparin and after this was done, we then proceeded to cross clamp the brachial artery proximally and distally and arteriotomy was done with an 11-blade and extended with a Hawthorne scissors. The anastomosis was approximately 8 mm and this was done in a parachute style using 6-0 Prolene and once it was completed, we then proceeded to open the flow to the basilic. There was minor oozing and bleedings were controlled. There was excellent flow into the basilic vein on Doppler. The patient has a palpable radial pulse and strong signal with the Doppler. The ulnar was not palpable; however, the patient had excellent capillary refill of the right hand. At this point, we rechecked the area of the anastomosis. We proceeded to close the subcutaneous tissue with interrupted 4-0 Vicryl suture and the skin with a subcuticular 4-0 Biosyn suture. The incision was covered without pressure and the patient was taken in good condition to the recovery room. [id number]/[facility] #: [id number] SIRENA
== END 2018-05-28 17:12 | disposition home or self-care (01) ==
LOC: OR 11:27
PROVIDERS: ATTEND Surgery
DX: N18.6 End stage renal disease (principal); Z99.2 Dependence on renal dialysis; I25.10 Atherosclerotic heart disease of native coronary artery without angina pectoris; Z95.0 Presence of cardiac pacemaker; E11.22 Type 2 diabetes mellitus with diabetic chronic kidney disease; I12.0 Hypertensive chronic kidney disease with stage 5 chronic kidney disease or end stage renal disease; Z79.4 Long term (current) use of insulin; I08.0 Rheumatic disorders of both mitral and aortic valves; Z79.01 Long term (current) use of anticoagulants; E78.5 Hyperlipidemia, unspecified; I47.1 Supraventricular tachycardia
CPT/HCPCS: J0690; J1644; J2250; J2704; J3010

== ENCOUNTER 2018-05-31 07:40 | Emergency (ER) | payer MEDICARE ==
[2018-05-31] MEDS ORDERED: Morphine VIAL* 4 MG/ML VIAL (1 ml vial) IV ONE (07:58)
[2018-05-31] MEDS ORDERED: Ondansetron INJ* 2 MG/ML VIAL IV ONE (07:58)
[2018-05-31 08:20] LABS: ABS Basophils 0 10^3/ul (0-0.2); ABS Eosinophils 0.2 10^3/ul (0-0.6); ABS Lymphocytes 1.2 10^3/ul (1.0-4.8); ABS Monocytes 0.9 10^3/ul (0-0.8); ABS Neutrophils 3.8 10^3/ul (1.5-7.7); ABS Nucleated RBC 0 10^3/ul; Eosinophil % 3.8 % (0-6); Hematocrit 37 % (42-52); Hemoglobin 12.3 g/dl (14.0-18.0); Lymphocyte % 19.5 % (25-47); Mean Corpuscular HGB Conc 33 g/dl (31-36); Mean Corpuscular Hemoglobin 31 pg (27-31); Mean Corpuscular Volume 93 fL (80-94); Mean Platelet Volume 7.3 um3 (7.4-10.4); Nucleated Red Blood Cells % 0; Platelet Count 231 10^3/ul (150-450); Red Blood Count 4.01 10^6/ul (4.00-5.40); Red Cell Distribution Width 15 % (10.5-15); White Blood Count 6.3 10^3/ul (3.5-10.8)
--- NOTE | 2018-05-31 08:23 | ED ---
Headache - HPI Summary HPI Summary: This is Kathie Livingston, documenting for attending Wai Sharp MD. Pt is a 72 y/o M who presents to ED c/o headache since 6:00. The headache began during his dialysis and gradually came on, causing him to not complete dialysis. His teacher ballet says he seemed fine this morning, until she got the call from dialysis telling her hes not doing well and to go to ED per Dr. Ramsey. Pt describes the headache as a sharp pain, rated 10/10 in severity, above his left eye on the left forehead and notes that headaches are not common for him. PSHx 3 days ago of a fistula in right arm, but it seems they were not able to complete the surgery, but rerouted the vein according to teacher ballet with him. His last dialysis round before todays was on Thursday as well. He was sedentary and laid around all day yesterday and the day before because his arm was sore according to family member. He denies eye pain, abdominal pain, back pain, dyspnea, or vomiting. He does feel very nauseous which is aggravated by movement. He has a catheter in right chest for dialysis. PMHx of blindness, diabetes, and stroke. 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 - History Of Current Complaint Chief Complaint: EDHeadache Stated Complaint: HEADACHE Time Seen by Provider: 05/31/18 07:49 Hx Obtained From: Family/[employer] Developer Onset/Duration: Gradual Onset, Started hours ago, Still Present Currently Pain Is: Current Pain Scale(0-10)=, Severe Character: Sharp Location of Headache: Frontal - left forehead Aggravating Factor: Other - Movement Associated Signs And Symptoms: Nausea, Vomiting - DENIES - Allergies/Home Medications Allergies/Adverse Reactions: Allergies Allergy/AdvReac Type Severity Reaction Status Date / Time labetalol Allergy Mild Hallucinati Verified 05/31/18 08:56 ons PMH/Surg Hx/FS Hx/Imm Hx Endocrine/Hematology History: Reports: Hx Diabetes - TYPE 2, Hx Thyroid Disease - UNSURE HYPO OR HYPER, Hx Anemia Cardiovascular History: Reports: Hx Coronary Artery Disease, Hx Hypercholesterolemia, Hx Hypertension - CONTROL WITH MEDS, Hx Pacemaker/ICD - 2016, Hx Peripheral Vascular Disease - RIGHT LEG AMPUTATION, Other Cardiovascular Problems/Disorders - CVA 2011 -right LE slight limb / BKA 2017 - [place] Denies: Hx Congestive Heart Failure Respiratory History: Reports: Other Respiratory Problems/Disorders - right pneumothorax with chest tube 07/30, pulmonary nodules on CT GI History: Reports: Other GI Disorders - HX OF BILATERAL INGUINAL HERNIA Denies: Hx Cirrhosis, Hx Crohn's Disease, Hx Diverticulosis, Hx Gall Bladder Disease, Hx Gastroesophageal Reflux Disease, Hx Gastrointestinal Bleed, Hx Hiatal Hernia, Hx Irritable Bowel, Hx Jaundice, Hx Obstructive Bowel, Hx Ileostomy, Hx Pyloric Stenosis, Hx Ulcer History: Reports: Hx Chronic Renal Failure - T/R/S HD, Hx Dialysis - TUE, THURS, SAT, Hx Renal Disease, Other Problems/Disorders - kidney toxic drugs Denies: Hx Acute Renal Failure, Hx Benign Prostatic Hyperplasia, Hx Kidney Infection, Hx Kidney Stones Musculoskeletal History: Reports: Hx Arthritis - hands, Hx Orthopedic Injury - lt femur fx repair 07/18/14, Other Musculoskeletal History - HX OF RIGHT RIB FX 1- 7 - NO PROBLEMS SINCE 2013 Denies: Hx Back Problems, Hx Bursitis, Hx Congenital Bone Abnormalities, Hx Fibromyalgia, Hx Gout, Hx Osteoporosis, Hx Scoliosis, Hx Tendonitis Sensory History: Reports: Hx Cataracts, Hx Legally Blind, Other Sensory Impairments Denies: Hx Contacts or Glasses - LEGALLY BLIND, Hx Glaucoma, Hx Hearing Aid Opthamlomology History: Reports: Hx Cataracts, Hx Legally Blind, Other Sensory Impairments Denies: Hx Contacts or Glasses - LEGALLY BLIND, Hx Glaucoma Neurological History: Reports: Hx Headaches, Hx Migraine - 20 years ago, Hx Nerve Disease - 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 07/2014 LEFT FEMUR REPAIR, [place]. 2015 LAPAROS[place] [facility] [place]AL [place] WITH IOL IMPLANTS[place] [facility] [place]2016 [place] [facility] [place]. [place]2016 LEFT INGUINAL HERNIA REPAIR, HEMODIALYSIS CATHETER INSERTION, [facility] [place]. 09/2016 PERTIONEAL DIALYSIS CATHETER [place], [facility] [place] 03/2017 REVISION OF PERTIONEAL DIALYSIS CATHETER, [facility] [place]. 04/2017 MEDTRONIC PACEMAKER INSERTION, [facility] [place]. 2018 RIGHT BELOW KNEE AMPUTATION, [place], [place]. 2018 CARDIAC STENTS INSERTION, [place], [place] Hx Anesthesia Reactions: No - Immunization History Date of Tetanus Vaccine: Unk Date of Influenza Vaccine: None Infectious Disease History: No Infectious Disease History: Denies: Hx Clostridium Difficile, Hx Hepatitis, Hx Human Immunodeficiency Virus (HIV), Hx of Known/Suspected MRSA, Traveled Outside the in Last 30 Days - Family History Known Family History: Positive: Hypertension, Diabetes - Social History Alcohol Use: Rare Substance Use Type: Reports: None Smoking Status (MU): Former Smoker Type: Cigarettes Amount Used/How Often: "ONLY SMOKED TEN CIGARETTES IN WHOLE LIFE" Length of Time of Smoking/Using Tobacco: 1 YEAR Have You Smoked in the Last Year: No Review of Systems Positive: Other - NEGATIVE: eye pain Negative: Shortness Of Breath Positive: Nausea. Negative: Abdominal Pain, Vomiting Positive: Other - NEGATIVE: back pain Positive: Headache All Other Systems Reviewed And Are Negative: Yes Physical Exam - Summary Physical Exam Summary: Appearance: Well appearing, mild distress Skin: warm, dry, reflects adequate perfusion Head/face: normal Eyes: Blind, bilateral implanted lenses ENT: normal, mucous membranes are moist Neck: supple, non-tender Respiratory: crackles in left base lung, breath sounds present Cardiovascular: RRR, pulses symmetrical Abdomen: non-tender, soft, chest catheter Bowel Sounds: present Musculoskeletal: right BKA, strength/ROM intact Neuro: normal, sensory motor intact, A&Ox3 Triage Information Reviewed: Yes Vital Signs On Initial Exam: Initial Vitals Temp Pulse Resp BP Pulse Ox 97.1 F 90 16 141/50 98 05/31/18 07:43 05/31/18 07:43 05/31/18 07:43 05/31/18 07:43 05/31/18 07:43 Vital Signs Reviewed: Yes - Jewell Coma Scale Best Eye Response: 4 - Spontaneous Best Motor Response: 6 - Obeys Commands Best Verbal Response: 5 - Oriented Coma Scale Total: 15 Diagnostics - Vital Signs Vital Signs Temp Pulse Resp BP Pulse Ox 05/31/18 08:11 19 05/31/18 07:43 97.1 F 90 16 141/50 98 - Laboratory Result Diagrams: 05/31/18 08:09 05/31/18 08:09 Lab Statement: Any lab studies that have been ordered have been reviewed, and results considered in the medical decision making process. - Radiology CXR Radiology Interpretation Completed By: Radiologist - [id number]. Alveolar and interstitial pulmonary edema with associated LEFT larger than RIGHT pleural effusions. ED physician reviewed this report. - CT Brain CT CT Interpretation Completed By: Radiologist - 07:58 Mild involutional change and stigmata of probable chronic small vessel ischemic disease. No acute intracranial process evident. Partial LEFT mastoid effusions. ED physician reviewed radiology report. - EKG 8:11 Cardiac Rate: NL - 93 bpm EKG Rhythm: Sinus Rhythm - paced rhythm ST Segment: Non-Specific Ectopy: PVCs - regular EKG Interpretation: LAD, LBBB Re-Evaluation - Re-Evaluation First Eval Re-Evaluation Time: 08:42 Change: Worse - Pt is vomiting Second Eval Re-Evaluation Time: 09:14 Change: Improved - now pt is resting Headache Course/Dx - Course Course Of Treatment: Patient with multiple comorbidities presents with acute onset of left frontal headache. No other neurologic symptoms. Vomiting here. Treated with medications with some relief initially. Elected for admission. Discussed the case with the hospitalist who went in and evaluated. A second round of medications had been given. Patient was feeling much much better and at that time decided not to be admitted. His hospitalization/admission was canceled and he was discharged to follow up closely with his doctors. He does have dialysis scheduled for Thursday. I spoke with his dialysis doctor here who states that they took off most of what they wanted at dialysis today. - Diagnoses Provider Diagnoses: Frontal headache, Diabetes type 2, controlled, End stage renal failure on dialysis - Physician Notifications Discussed Care Of Patient With: Marixa Rush Time Discussed With Above Provider: 09:20 Instructed by Provider To: Other - Agreed to admit pt. 9:[address] Holder who told him that pt completed most of his dialysis treatment today. 9: [address] White who said he likes to be informed of patients coming, but has to tell hospitalist to admit pt. Discharge - Sign-Out/Discharge Documenting (check all that apply): Patient Departure - Discharge - Discharge Plan Condition: Improved Disposition: HOME Prescriptions: Promethazine TAB* [Phenergan Tab*] 25 mg PO Q6H PRN #12 tab PRN Reason: headache, nausea Patient Education Materials: Type 2 Diabetes in Adults (ED), Acute Headache (ED ), End Stage Kidney Disease (ED) Referrals: Jose White MD [Primary Care Provider] - Additional Instructions: Return with fever, uncontrolled pain, worse, new symptoms or other concerns as discussed. Follow-up for dialysis on Thursday. - Billing Disposition and Condition Condition: IMPROVED Disposition: Home
[2018-05-31 08:35] LABS: INR 1.05 (0.77-1.02)
[2018-05-31] MEDS ORDERED: Metoclopramide IV* 5 MG/ML 2 ML VIAL IV ONE (08:42)
[2018-05-31] MEDS ORDERED: diPHENhydraMINE IV* 50 MG/ML 1 ml VIAL (BENADRYL) IV ONE (08:42)
[2018-05-31] MEDS ORDERED: Metoclopramide IV* 5 MG/ML 2 ML VIAL ONE (08:42)
[2018-05-31 08:43] LABS: EGFR Non-African American 11.6 (>60)
[2018-05-31] MEDS ORDERED: diPHENhydraMINE IV* 50 MG/ML 1 ml VIAL (BENADRYL) ONE (08:43)
--- NOTE | 2018-05-31 08:55 | RAD ---
Indication: LEFT frontal headache. End-stage renal disease. Comparison: May 20, 2016 MRI. Technique: Noncontrast CT vertex of skull through foramen magnum. Report: Mild prominence of the cerebral sulci and cerebellar fissures reflecting involutional change. Unremarkable ventricles and basal cisterns. Decreased density in the periventricular and subcortical white matter while non-specific is most likely due to chronic microangiopathy. Negative for holloway matter white matter obscuration, intra or extra-axial hemorrhage, or mass effect. Unremarkable orbital contents. No suspicious calvarial or skull base lesion evident. Partial LEFT mastoid effusions. Clear RIGHT mastoid air spaces and visualized paranasal sinuses. Unremarkable scalp. IMPRESSION: #. Mild involutional change and stigmata of probable chronic small vessel ischemic disease. #. No acute intracranial process evident. #. Partial LEFT mastoid effusions.
--- NOTE | 2018-05-31 09:47 | RAD ---
Indication: Headache, nausea. Incomplete dialysis. Comparison: July 07, 2017 Technique: Supine AP 0935 hours Report: Tip of tunneled RIGHT chest wall hemodialysis catheter is at the level of the RIGHT atrium. RIGHT atrial and RIGHT ventricular level pacemaker leads. Cardiomegaly, prominent ill-defined central pulmonary vasculature, perihilar and diffuse alveolar opacities and prominence of interstitial markings suggestion of moderate LEFT and small RIGHT pleural effusions. Multiple healed RIGHT-sided rib fractures. IMPRESSION: #. Alveolar and interstitial pulmonary edema with associated LEFT larger than RIGHT pleural effusions.
[2018-05-31] MEDS ORDERED: hydrALAZINE IV* 20 MG/ML VIAL IV SLOW PU ONE (11:07)
[2018-05-31 12:02] VITALS: BP 162/81
--- NOTE | 2018-05-31 19:13 | CONS ---
CONSULTATION REPORT: DATE OF CONSULT: 05/31/18 - EMERGENCY DEPT PRIMARY CARE PROVIDER: Dr. White. CHIEF COMPLAINT: Headache. HISTORY OF PRESENT ILLNESS: Mr. Bynum is a 72-year-old male who has a history of end-stage renal disease and receives hemodialysis, Thursday, Thursday, Thursday , who presents to emergency room from hemodialysis with complaints of headache. The patient was treated with morphine, Reglan, Zofran, and Benadryl in the emergency room and fell asleep following this. The ER provider felt that the patient will need to be admitted for further management of his headache, however when I went to see the patient his headache was resolved and he wished to be discharged home. The patient was noted to be hypertensive; therefore, we treated this in the emergency room. Additionally, the patient ambulated some to ensure that this did not provoke his headache. After he ambulated and his blood pressure improved some, the patient was discharged home by the ER provider. As I had been asked to admit the patient; however, I am dictating this consultation. The patient's , who is at the bedside, states overall the patient is improved. She felt she could manage him the way he is at this point. PAST MEDICAL HISTORY: 1. End-stage renal disease. 2. Coronary artery disease. 3. Type 2 diabetes. 4. COPD. 5. Hypertension. 6. Diabetic neuropathy and retinopathy (the patient is legally blind). 7. Hyperlipidemia. 8. History of left MCA CVA in 2011. PAST SURGICAL HISTORY: 1. PD catheter insertion and removal. 2. Temporary hemodialysis catheter placement. 3. Hernia repair. 4. Pacemaker. 5. First-stage brachiobasilic fistula. 6. Left below-knee amputation. 7. Cholecystectomy. 8. Bilateral cataract extractions. MEDICATIONS: 1. Amlodipine 10 mg p.o. q.h.s. 2. Lasix 80 mg daily. 3. Plavix 75 mg daily. 4. Coreg 6.25 mg twice daily. 5. Lipitor 20 mg q.h.s. 6. Aspirin 81 mg daily. 7. Vitamin B complex/folic acid/vitamin D 1 tab p.o. daily. 8. Timolol 1 drop to both eyes twice daily. 9. Sevelamer 2400 mg p.o. with meals and snacks. 10. Synthroid 88 mcg daily. 11. Humalog 0 to 3 units subcutaneous a.c. 12. Levemir 16 to 20 units subcutaneous q.h.s. 13. Gabapentin 100 mg daily. 14. Promethazine 25 mg p.o. q.6 hours p.r.n. nausea. ALLERGIES: Labetalol. FAMILY HISTORY: Positive for hypertension and diabetes. His father also had rectal cancer. SOCIAL HISTORY: The patient does not smoke. He does not drink alcohol routinely. He lives with his . His is his healthcare proxy. REVIEW OF SYSTEMS: Complete 11-system review of systems is obtained, pertinent positives and negatives are as per HPI and otherwise negative. PHYSICAL EXAM: Blood pressure 179/83, pulse 83, respirations 19, temp 97.1, and O2 sat 99% on room air. General: The patient is a well-developed, elderly male, seen lying in stretcher, in no acute distress. HEENT: Pupils are equal and round. Oropharynx is clear. Oral mucosa is moist. There is no submandibular, cervical, or supraclavicular adenopathy. Thyroid is not enlarged. No thyroid nodule is noted. Cardiac: Normal S1, S2. Regular rate and rhythm. I do not appreciate any murmurs. There is no lower extremity edema. Pulmonary: Lungs are clear to auscultation bilaterally. Abdomen: Bowel sounds are present. Abdomen is soft, nondistended. Musculoskeletal: The patient has a left below-knee amputation. Skin is warm and dry. There are no rashes. Neuro: Cranial nerves II through XII appeared to be grossly intact. Sensation is intact to light touch throughout. Strength appears to be within normal limits throughout. Psych: The patient is alert. He is oriented x3. Affect appears appropriate. DIAGNOSTIC STUDIES/LAB DATA: WBC 6.3, hemoglobin 12.3, hematocrit 37, platelets 231. INR 1.05. Sodium 137, potassium 3.7, chloride 98, CO2 of 31, BUN 15, creatinine 4.96, glucose 230, lactic acid 1.4, calcium 8.4. Bilirubin 0.7, AST 14, ALT less than 3, alk phos 88, albumin 2.8. EKG reveals ventricularly paced rhythm. Chest x-ray reveals alveolar and interstitial pulmonary edema with associated left larger than right pleural effusions. CT brain mild involutional change in stigmata of probable chronic small vessel ischemic disease. No acute intracranial process evident, partial left mastoid effusions. ASSESSMENT AND PLAN: Mr. Bynum is a 72-year-old male with numerous medical conditions including end-stage renal disease, type 3 diabetes, and hypertension who presented to the emergency room from the dialysis unit with complaints of severe headache. 1. Headache. At this point, the patient's headache has resolved after being treated in the emergency room. I do question if this may have been related to his blood pressure being quite elevated. The patient states that he did take his usual medications on the morphing of presentation. He did vomit these up, however, in the emergency room. The patient will be given hydralazine x1 dose to try to get the blood pressure down prior to being discharged. The patient will continue on his usual home medications and follow up with Dr. White. If the headache returns, he can return to the emergency room for reevaluation and treatment. 2. Hypertension. As above, the patient will be receiving hydralazine x1 in the ER. He will need to follow up with Dr. White for adjustments in his antihypertensive regimen. For now, he will continue on his usual home medications. 3. End-stage renal disease. The patient did not get much of his dialysis treatment on the day of consultation. He will follow up with Dr. Willis and his usually scheduled dialysis appointment on Thursday. 4. Type 2 diabetes. The patient will continue on his usual home medication regimen. 5. The patient is being discharged home today. He should follow up with Dr. White in the next 2 to 3 days. TIME SPENT: Fifty minutes were spent on this consultation, of which greater than half spent [id number] with the patient and his reviewing his history and determining an appropriate disposition and plan. [id number]/[facility] #: [id number] SIRENA
== END 2018-05-31 12:16 | disposition home or self-care (01) ==
LOC: ED 07:40
DX: R51 Headache (principal); R11.0 Nausea; I12.0 Hypertensive chronic kidney disease with stage 5 chronic kidney disease or end stage renal disease; E11.22 Type 2 diabetes mellitus with diabetic chronic kidney disease; N18.6 End stage renal disease; Z99.2 Dependence on renal dialysis; E07.9 Disorder of thyroid, unspecified; D64.9 Anemia, unspecified; I25.10 Atherosclerotic heart disease of native coronary artery without angina pectoris; Z95.810 Presence of automatic (implantable) cardiac defibrillator; E78.00 Pure hypercholesterolemia, unspecified; I73.9 Peripheral vascular disease, unspecified; F41.9 Anxiety disorder, unspecified; Z89.511 Acquired absence of right leg below knee; Z88.8 Allergy status to other drugs, medicaments and biological substances; Z82.49 Family history of ischemic heart disease and other diseases of the circulatory system; Z83.3 Family history of diabetes mellitus; Z87.891 Personal history of nicotine dependence
CPT/HCPCS: 36415; 70450; 71045; 80053; 83605; 85025; 85610; 85730; 93005; 96374; 96375; 99284; J0360; J1200; J2270; J2405; J2765

== ENCOUNTER 2018-06-29 11:17 | Emergency (ER) | payer MEDICARE ==
[2018-06-29 12:24] LABS: ABS Basophils 0.1 10^3/ul (0-0.2); ABS Eosinophils 0.2 10^3/ul (0-0.6); ABS Lymphocytes 1.8 10^3/ul (1.0-4.8); ABS Monocytes 0.7 10^3/ul (0-0.8); ABS Neutrophils 2.9 10^3/ul (1.5-7.7); ABS Nucleated RBC 0 10^3/ul; Hematocrit 36 % (42-52); Hemoglobin 11.9 g/dl (14.0-18.0); Lymphocyte % 31.1 % (25-47); Mean Corpuscular HGB Conc 34 g/dl (31-36); Mean Corpuscular Hemoglobin 30 pg (27-31); Mean Corpuscular Volume 90 fL (80-94); Mean Platelet Volume 6.9 um3 (7.4-10.4); Nucleated Red Blood Cells % 0; Platelet Count 259 10^3/ul (150-450); Red Blood Count 3.95 10^6/ul (4.00-5.40); Red Cell Distribution Width 17 % (10.5-15); White Blood Count 5.6 10^3/ul (3.5-10.8)
--- NOTE | 2018-06-29 12:25 | ED ---
Complex/Multi-Sys Presentation - HPI Summary HPI Summary: This is scribe Ed Gina documenting for attending Aldo Yoo MD. 72 y/o male presents to ED c/o constant general weakness and fatigue lasting around 1 week. Associated sx: intermittent nausea, decreased appetite, dyspnea at rest - worsening in the last few days, diarrhea starting around 1 week ago. Watery diarrhea. Denies ABD pain, CP. Pt is on Plavix and ASA. Pt on dialysis - MWF. I, Dr. Yoo, personally performed the services described in this documentation as scribed in my presence and it is both accurate and complete. - History Of Current Complaint Chief Complaint: EDWeakness Time Seen by Provider: 06/29/18 12:06 Hx Obtained From: Patient Onset/Duration: Lasting Days, Still Present Timing: Constant Associated Signs And Symptoms: Positive: Weakness, SOB, Nausea, Diarrhea, Other - decrease appetite - Allergies/Home Medications Allergies/Adverse Reactions: Allergies Allergy/AdvReac Type Severity Reaction Status Date / Time labetalol Allergy Mild Hallucinati Verified 05/31/18 08:56 ons Home Medications: Home Medications Aspirin EC TAB* [Ecotrin EC Low Dose 81 MG*] 81 mg PO DAILY 06/29/18 [History Confirmed 06/29/18] PMH/Surg Hx/FS Hx/Imm Hx Previously Healthy: No Endocrine/Hematology History: Reports: Hx Diabetes - TYPE 2, Hx Thyroid Disease - UNSURE HYPO OR HYPER, Hx Anemia Cardiovascular History: Reports: Hx Coronary Artery Disease, Hx Hypercholesterolemia, Hx Hypertension - CONTROL WITH MEDS, Hx Pacemaker/ICD - / 2016, Hx Peripheral Vascular Disease - RIGHT LEG AMPUTATION, Other Cardiovascular Problems/Disorders - CVA 2011 -right LE slight limb / BKA 2017 - [place] Denies: Hx Congestive Heart Failure Respiratory History: Reports: Other Respiratory Problems/Disorders - right pneumothorax with chest tube 07/30, pulmonary nodules on CT GI History: Reports: Other GI Disorders - HX OF BILATERAL INGUINAL HERNIA Denies: Hx Cirrhosis, Hx Crohn's Disease, Hx Diverticulosis, Hx Gall Bladder Disease, Hx Gastroesophageal Reflux Disease, Hx Gastrointestinal Bleed, Hx Hiatal Hernia, Hx Irritable Bowel, Hx Jaundice, Hx Obstructive Bowel, Hx Ileostomy, Hx Pyloric Stenosis, Hx Ulcer History: Reports: Hx Chronic Renal Failure - T/R/S HD, Hx Dialysis - TUE, THURS, SAT, Hx Renal Disease, Other Problems/Disorders - kidney toxic drugs Denies: Hx Acute Renal Failure, Hx Benign Prostatic Hyperplasia, Hx Kidney Infection, Hx Kidney Stones Musculoskeletal History: Reports: Hx Arthritis - hands, Hx Orthopedic Injury - lt femur fx repair 07/18/14, Other Musculoskeletal History - HX OF RIGHT RIB FX 1- 7 - NO PROBLEMS SINCE 2013 Denies: Hx Back Problems, Hx Bursitis, Hx Congenital Bone Abnormalities, Hx Fibromyalgia, Hx Gout, Hx Osteoporosis, Hx Scoliosis, Hx Tendonitis Sensory History: Reports: Hx Cataracts, Hx Legally Blind, Other Sensory Impairments Denies: Hx Contacts or Glasses - LEGALLY BLIND, Hx Glaucoma, Hx Hearing Aid Opthamlomology History: Reports: Hx Cataracts, Hx Legally Blind, Other Sensory Impairments Denies: Hx Contacts or Glasses - LEGALLY BLIND, Hx Glaucoma Neurological History: Reports: Hx Headaches, Hx Migraine - 20 years ago, Hx Nerve Disease - 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 07/2014 LEFT FEMUR REPAIR, [place]. 2014 LAPAROSCOPIC CHOLECYSTECTOMY, [facility]. 2013 BILATERAL CATARACT EXTRACTION WITH IOL IMPLANTS, [facility] [place]. 08/2016 EBUS, [facility]. 09/2016 LEFT INGUINAL HERNIA REPAIR, HEMODIALYSIS CATHETER INSERTION, [facility]. 09/2016 PERTIONEAL DIALYSIS CATHETER INSERTION, [facility]. 03/2017 REVISION OF PERTIONEAL DIALYSIS CATHETER, [facility]. 04/2017 MEDTRONIC PACEMAKER INSERTION, [facility]. 2018 RIGHT BELOW KNEE AMPUTATION, [facility], [place]. 2018 CARDIAC STENTS INSERTION, [facility], [place] Hx Anesthesia Reactions: No - Immunization History Date of Tetanus Vaccine: Unk Date of Influenza Vaccine: None Immunizations Up to Date: Yes Infectious Disease History: No Infectious Disease History: Denies: Hx Clostridium Difficile, Hx Hepatitis, Hx Human Immunodeficiency Virus (HIV), Hx of Known/Suspected MRSA, Traveled Outside the in Last 30 Days - Family History Known Family History: Positive: Hypertension, Diabetes - Social History Alcohol Use: Rare Hx Substance Use: No Substance Use Type: Reports: None Hx Tobacco Use: No Smoking Status (MU): Never Smoked Tobacco Type: Cigarettes Amount Used/How Often: "ONLY SMOKED TEN CIGARETTES IN WHOLE LIFE" Length of Time of Smoking/Using Tobacco: 1 YEAR Have You Smoked in the Last Year: No Review of Systems Positive: Fatigue Eyes: Negative ENT: Negative Cardiovascular: Negative Positive: Shortness Of Breath Positive: Diarrhea, Nausea, Other - decreased appetite Genitourinary: Negative Musculoskeletal: Negative Skin: Negative Positive: Weakness Psychological: Normal All Other Systems Reviewed And Are Negative: Yes Physical Exam - Summary Physical Exam Summary: VITAL SIGNS: Reviewed. GENERAL: Patient is an elderly,fragile male who is lying comfortable in the stretcher. Patient is not in any acute respiratory distress. HEAD AND FACE: No signs of trauma. No ecchymosis, hematomas or skull depressions. No sinus tenderness. EYES: PERRLA, EOMI x 2, No injected conjunctiva, no nystagmus. EARS: Hearing grossly intact. Ear canals and tympanic membranes are within normal limits. MOUTH: Dry oral mucosa. NECK: Supple, trachea is midline, no adenopathy, no JVD, no carotid bruit, no c- spine tenderness, neck with full ROM. CHEST: Symmetric, no tenderness at palpation. Pt has a dialysis catheter in the right side of the chest. LUNGS: Clear to auscultation bilaterally. No wheezing or crackles. CVS: Regular rate and rhythm, S1 and S2 present, no murmurs or gallops appreciated. ABDOMEN: Soft, non-tender. No signs of distention. No rebound no guarding, and no masses palpated. Bowel sounds are normal. EXTREMITIES: Below the knee amputation. NEURO: Alert and oriented x 3. No acute neurological deficits. Speech is normal and follows commands. SKIN: Dry and warm. Increased turgor. Triage Information Reviewed: Yes Vital Signs On Initial Exam: Initial Vitals Temp Pulse Resp BP Pulse Ox 98.8 F 81 18 133/79 95 06/29/18 11:20 06/29/18 11:20 06/29/18 11:20 06/29/18 11:20 06/29/18 11:20 Vital Signs Reviewed: Yes Diagnostics - Vital Signs Vital Signs Temp Pulse Resp BP Pulse Ox 06/29/18 11:20 98.8 F 81 18 133/79 95 - Laboratory Result Diagrams: 06/29/18 12:10 06/29/18 12:10 Lab Statement: Any lab studies that have been ordered have been reviewed, and results considered in the medical decision making process. - Radiology CXR Radiology Interpretation Completed By: Radiologist - 1. PROBABLE LOCULATED LEFT PLEURAL EFFUSION WITH SOME ASSOCIATED NODULARITY. RECOMMEND FOLLOW-UP CHEST X- RAYS TO RESOLUTION. 2. FINDINGS MOST CONSISTENT WITH CONGESTIVE HEART FAILURE. - EKG 1 EKG Interpretation: 12: 04 - Atrial-paced rhythm @ 77 BPM. Unchanged from . Re-Evaluation - Re-Evaluation 1 Re-Evaluation Time: 15:22 Comment: Inform pt plan to transfer. Complex Multi-Symp Course/Dx Assessment/Plan: 72 y/o male c/o weakness, SOB and sleeping most of the time. PMHx significant cardiac pacemaker for atroventricular block , syncope, sick sinus syndrome. Hemodialysis 3x week MWF, DM Type II ,HTN, CVA. Encephalopathy. Test results show slight microcytic hypochromic anemia, with a hgb 11.9, hct 36. BUN 15, creatinine 4.9, glucose 185, troponin 0.04, CRP 22.7, BNP 3056, for which the pt was given Lasix 40 mg IV since the pt is still able to urinate. CXR shows 1. PROBABLE LOCULATED LEFT PLEURAL EFFUSION WITH SOME ASSOCIATED NODULARITY. RECOMMEND FOLLOW-UP CHEST X-RAYS TO RESOLUTION. 2. FINDINGS MOST CONSISTENT WITH CONGESTIVE HEART FAILURE. Because of increased CRP and the pt also having cough productive, I placed the pt on Rocephin for possible early PNA. At this time I discussed PE results and findings with Dr. Strauss who accepted the pt for admission, however at 3pm Dr. Strauss informed me that [facility] currently does not offer dialysis, so he recommended the pt be transferred to the nearest facility with dialysis. Spoke with the pts , who agreed to be transferred to facility with dialysis availability. Pt is hemodynamically stable , A&Ox3. At this point I discussed the case with Dr. Ludy Obrien (ER attending at [facility]), who accepted the pt for transfer to [facility] ER. - Diagnoses Provider Diagnoses: CHF exacerbation, End stage renal disease, Hemodialysis patient - Physician Notifications Discussed Care Of Patient With: Garett Strauss Time Discussed With Above Provider: 14:30 Instructed by Provider To: Admit As Inpatient Discharge - Sign-Out/Discharge Documenting (check all that apply): Patient Departure - Discharge Plan Condition: Stable Disposition: TRANS HIGHER LVL OF CARE FAC Referrals: Law,Jose, MD [Primary Care Provider] - - Billing Disposition and Condition Condition: STABLE Disposition: Trans Higher Lvl of Care Fac
[2018-06-29] MEDS ORDERED: NS 0.9% 1000 ML* 1,000 ML IV SCH (12:30)
[2018-06-29 12:40] LABS: EGFR Non-African American 11.5 (>60)
[2018-06-29] MEDS ORDERED: cefTRIAXone(*) 1 GM in NS 0.9% 50 ML* 50 ML IVPB ONE (14:01)
--- NOTE | 2018-06-29 14:10 | RAD ---
INDICATION: Weakness. COMPARISON: Comparison is made with prior chest x-ray studies from July 07, 2017 and May 31, 2018. TECHNIQUE: Dual-energy PA and lateral views of the chest were obtained. FINDINGS: The heart is within normal limits in size. There is a dual-chamber transvenous pacemaker. There is a central venous catheter present entering on the right side. The catheter tip projects over the right atrium. There is a moderate size left effusion which appears to be partially loculated. There appears to be some associated nodularity. There is a trace right pleural effusion. There is diffuse prominent of the interstitial markings which appear to have progressed slightly. IMPRESSION: 1. PROBABLE LOCULATED LEFT PLEURAL EFFUSION WITH SOME ASSOCIATED NODULARITY. RECOMMEND FOLLOW-UP CHEST X-RAYS TO RESOLUTION. 2. FINDINGS MOST CONSISTENT WITH CONGESTIVE HEART FAILURE.
[2018-06-29] MEDS ORDERED: Furosemide IV* 10 MG/ML VIAL (40 MG) IV ONE (15:41)
[2018-06-29] MEDS ORDERED: Furosemide IV* 10 MG/ML VIAL (40 MG) ONE (15:44)
[2018-06-29 17:55] VITALS: BP 182/82
== END 2018-06-29 17:55 | disposition short-term general hospital (02) ==
LOC: ED 11:17
DX: I13.2 Hypertensive heart and chronic kidney disease with heart failure and with stage 5 chronic kidney disease, or end stage renal disease (principal); E11.22 Type 2 diabetes mellitus with diabetic chronic kidney disease; N18.6 End stage renal disease; I50.9 Heart failure, unspecified; Z99.2 Dependence on renal dialysis; R11.0 Nausea; R19.7 Diarrhea, unspecified; F41.9 Anxiety disorder, unspecified; Z79.01 Long term (current) use of anticoagulants; Z79.82 Long term (current) use of aspirin; Z95.5 Presence of coronary angioplasty implant and graft; Z89.511 Acquired absence of right leg below knee; Z88.8 Allergy status to other drugs, medicaments and biological substances
CPT/HCPCS: 36415; 71046; 80053; 83605; 83735; 83880; 84484; 85025; 85610; 85730; 86140; 87040; 93005; 96374; 99284; J0696; J1940

== ENCOUNTER 2018-07-28 05:51 | Day surgery (SDC) | payer MEDICARE ==
--- NOTE | 2018-07-23 20:50 | HP ---
CC: Dr. White; Dr. Holder * ADMISSION HISTORY AND PHYSICAL: DATE OF ADMISSION: 07/28/18 ATTENDING SURGEON: Dr. Neil Winkler.* (DICTATED BY HARITHA DUMAS) CHIEF COMPLAINT: End-stage renal disease with desire to resume peritoneal dialysis. HISTORY OF PRESENT ILLNESS: This is a 72-year-old male with multiple medical problems including chronic kidney disease, recently on ongoing hemodialysis therapy. His dialysis days are Mondays, Wednesdays, and Fridays though his schedule next week will change to Thursday, Thursday, and to accommodate the surgery. The patient did have a peritoneal dialysis catheter placed in September [address] Winkler. He did require revision of this, but it had been working well until he developed what sounds like possible peritonitis and the catheter was subsequently removed. This occurred while he was in [place]. He has been utilizing a right chest dialysis catheter since that time (he does have a right arm AV fistula, which is not fully matured and is pending revision by Dr. Sanchez on 08/04/18). The patient is aware of the indications, risks, benefits, and alternatives of the surgery and would like to proceed as scheduled with open placement of peritoneal dialysis catheter. PAST MEDICAL HISTORY: Type 2 diabetes with nephropathy (chronic kidney disease , on dialysis), retinopathy (legally blind), and peripheral neuropathy. He is treated for hypertension, hyperlipidemia, and hypothyroidism. He underwent PCI with stent placement x3 earlier this year in [place]. He sustained a left MCA stroke in 2011 with right lower extremity weakness. He is status post right lower extremity below-knee amputation in January of this year. PAST SURGICAL HISTORY: Other surgeries include PCI with stenting as noted above ; pacemaker placement by Dr. Colunga; left inguinal herniorrhaphy; laparoscopic cholecystectomy; hemodialysis catheter placement, subsequent removal and replacement; right upper extremity AV fistula; ORIF of the left femoral fracture ; PD catheter placement and removal as noted above. CURRENT MEDICATIONS: 1. Aspirin 81 mg once daily, which he was instructed to hold as of today, 07/22. 2. Plavix 75 mg once daily, which he will continue during the perioperative period. 3. Carvedilol 12.5 mg b.i.d. 4. Atorvastatin 20 mg once daily. 5. Furosemide 80 mg b.i.d. 6. Levothyroxine 88 mcg once daily. 7. Lispro up to 6 units a.c. based on fingersticks. 8. Levemir 16 units subcutaneously q.p.m. and occasionally q.a.m. based on fingersticks. 9. Sevelamer 400 mg 3 tablets t.i.d. with meals. 10. Timolol eye drops 0.5% one drop OU b.i.d. He was also recently prescribed alprazolam 0.25, though I do not have the specific dosage instructions on that. DRUG ALLERGIES: LABETALOL (hallucinations). FAMILY HISTORY: Not obtained. SOCIAL HISTORY: The patient lives with his significant other. No history of tobacco use or alcohol use. REVIEW OF SYSTEMS: General: He was admitted at [facility] in [place] between 06/29/18 and 07/01/18 for shortness of breath and fatigue with a left pleural effusion for which a chest tube was placed and subsequently removed. Echocardiogram was done during that admission (see attached). The patient was also seen recently for Cardiology evaluation by Dr. Colunga (see attached). Cardiovascular: As above, no additions. Respiratory: As above, no additions. GI: No problems reported. : No problems reported other than his chronic kidney disease. Endocrine: Diabetes and hypothyroidism. Musculoskeletal: Status post right below-knee amputation with healed stump per his significant other. Neurological: He is legally blind, history of peripheral neuropathy. PHYSICAL EXAMINATION GENERAL: Chronically ill-appearing, elderly male, in no acute distress. VITAL SIGNS: Height and weight per chart record, temperature 96.9, blood pressure 150/76, pulse 64, respirations 18. HEENT: Conjunctivae pink. Oropharynx: He has full upper denture, remaining lower teeth in fairly good repair. No intraoral lesions noted. NECK: No lymphadenopathy or thyromegaly noted. LUNGS: Fairly clear to auscultation to the right base. Left base has somewhat decreased breath sounds. No wheezes. HEART: Regular rate and rhythm. No murmur appreciated. Pacemaker in the left upper anterior chest wall. Dialysis catheter in the right upper anterior chest wall. ABDOMEN: Well-healed laparoscopic incisions from prior surgeries. No tenderness or palpable masses. No organomegaly though limited exam. GENITALIA: Not done. RECTAL: Not done. EXTREMITIES: Status post right below-knee amputation. Left lower extremity without edema or open lesions. NEUROLOGICAL: Grossly intact though specific exam not performed. SKIN: Warm and dry. No suspicious rashes or lesions noted. IMPRESSION: Chronic kidney disease, on chronic dialysis with desire to resume peritoneal dialysis. PLAN: Open placement of peritoneal dialysis catheter. HARITHA DUMAS [id number]/[facility] #: [id number] [facility]ITALDalila
[~2018-07-28 05:51] MED LIST changes: +DiMENhydriNATE IV* 50 MG/ML VIAL IV PUSH PRN; +Morphine INJ* 2 MG/ML 1 ML SYRINGE (TWO MG - NEW SYRINGE VERSION) IV PRN; -NS 0.45% 1000 ML BAG* 1,000 ML IV SCH; +Naloxone* 0.4 MG/ML 1 ML VIAL IV PRN; +Ondansetron TAB* 4 MG PO ONE; +PROCHLORPERAZINE INJ 5 MG/ML 2 ML VIAL IV PRN; +fentaNYL* 50 MCG/ML 2 ML VIAL (100 MCG VIAL) IV PRN; +oxyCODONE/Acetamin 5/325 MG* TAB PO PRN
[2018-07-28] MEDS ORDERED: NS 0.45% 1000 ML BAG* 1,000 ML IV SCH (06:00)
[2018-07-28] MEDS ORDERED: Famotidine IV* 10 MG/ML 2 ML (20 mg) IV ONE (06:00)
[2018-07-28] MEDS ORDERED: Ondansetron ODT TAB* 4 MG ONE (06:07)
[2018-07-28] MEDS ORDERED: Famotidine IV* 10 MG/ML 2 ML (20 mg) ONE (06:07)
[2018-07-28] MEDS ORDERED: ceFAZolin 2 GM in NS PREMIX(*) 2 GM/100 ML BAG IVPB ONE (06:08)
[2018-07-28] MEDS ORDERED: Bupivacaine 0.25% W/EPI* 10 ML SDV ONE (07:11)
[2018-07-28] MEDS ORDERED: Heparin DIALYSIS ONLY(*) 1,000 UNITS/ML VIAL ONE (07:18)
[2018-07-28] MEDS ORDERED: Povidone Iodine 5% OPTH* 30 ML BTL ONE (07:20)
[2018-07-28] MEDS ORDERED: fentaNYL* 50 MCG/ML 2 ML VIAL (100 MCG VIAL) ONE (07:26)
[2018-07-28] MEDS ORDERED: Midazolam* 1 MG/ML 5 ML VIAL (5 MG) ONE (07:26)
[2018-07-28] MEDS ORDERED: KETAMINE HCL* 50 MG/ML 10 ML VIAL ONE (07:26)
--- NOTE | 2018-07-28 08:38 | BRIEFOPN ---
Brief Operative Note - Surgery Procedures: Procedures Pre-OP Diagnoses: ESRD Post-op Diagnosis: same Procedure: Open placement of peritoneal dialysis catheter Surgeon: Peterson Asst: Mikie Anethesia: local MAC EBL: minimal IVF: minimal Specimen: none Drains: 44.5cm swan cath
[2018-07-28] MEDS ORDERED: Flumazenil* 0.1 MG/ML 5 ML MDV ONE (08:39)
[2018-07-28 09:05] VITALS: BP 150/85
--- NOTE | 2018-07-28 22:02 | OP ---
CC: Dr. Jose man; Dr. Francesco Holder * DATE OF OPERATION: 07/28/18 - [facility] DATE OF : 45 SURGEON: Neil Winkler MD RESPIRATORY THERAPY AIDE: Jerrica Deluna NP ANESTHESIOLOGIST: Dr. Malik ANESTHESIA: Local MAC. PRE-OP DIAGNOSIS: End-stage renal disease. POST-OP DIAGNOSIS: End-stage renal disease. OPERATIVE PROCEDURE: Open placement of peritoneal dialysis catheter. ESTIMATED BLOOD LOSS: Minimal. FLUIDS: Minimal crystalloid fluids given. CATHETER: 44.5 cm [place] neck catheter placed in the peritoneal cavity. DESCRIPTION OF PROCEDURE: The patient was identified in the preoperative area. He was marked appropriately, taken care of his waist line, belt line. Consent was signed by his family member and he was taken back to the OR. Placed in the operating table in the supine position. General sedation was given. Sequential devices were placed on single extremity. Preoperative antibiotics were given. The patient's abdomen was clipped of hair and prepped and draped in standard surgical fashion. Time-out was performed. After injection of lidocaine overlying the right rectus muscle, skin incision was made. This was deepened down through the subcutaneous fat down to the anterior fascia of the rectus muscle. This was incised and the muscle split and posterior fascia picked up and incised and the peritoneum ultimately was grasped. Stay suture placed at this site and also a 2-0 Vicryl stitch and then the peritoneum was incised. The catheter was then inserted with the help of a laparoscopic instrument aiming it towards the peritoneum. The 2 disks were appropriately placed into the abdominal cavity and the 2-0 Polysorb suture tied around the peritoneum. The cuffed area lay appropriately and the anterior fascia was reapproximated with a 0 Polysorb suture in the running fashion. Next, a tunnel was made up and then back over to the right side. The catheter was brought out appropriately in this fashion. It was hooked up to the dialysate and ran smoothly into the abdomen and again was removed without incident. We then closed the incisions with the 3-0 Polysorb suture followed by 4-0 Monocryl and a sterile dressing was applied. The patient tolerated the procedure well. [id number]/[facility] #: [id number] [facility]
== END 2018-07-28 09:24 | disposition home or self-care (01) ==
LOC: OR 05:51
PROVIDERS: ATTEND Surgery
DX: N18.6 End stage renal disease (principal); E11.42 Type 2 diabetes mellitus with diabetic polyneuropathy; E11.319 Type 2 diabetes mellitus with unspecified diabetic retinopathy without macular edema; Z79.84 Long term (current) use of oral hypoglycemic drugs; E78.5 Hyperlipidemia, unspecified; I12.9 Hypertensive chronic kidney disease with stage 1 through stage 4 chronic kidney disease, or unspecified chronic kidney disease; E03.9 Hypothyroidism, unspecified; I69.351 Hemiplegia and hemiparesis following cerebral infarction affecting right dominant side; Z79.01 Long term (current) use of anticoagulants; R06.02 Shortness of breath; Z99.2 Dependence on renal dialysis
CPT/HCPCS: A9270-GY; J0690; J1644; J2250; J3010

== ENCOUNTER 2018-08-04 10:00 | Day surgery (SDC) | payer MEDICARE ==
--- NOTE | 2018-07-12 09:51 | HP ---
HISTORY AND PHYSICAL: DATE OF ADMISSION/SURGERY: 08/04/18 Mr. Bynum is scheduled for admission for stage 2 of his right arm AV fistula on 08/04/18. DATE OF HISTORY AND PHYSICAL: 07/07/18 ATTENDING PHYSICIAN: Dr. Sanchez.* (DICTATED BY ELIZABET FLETCHER NP) CHIEF COMPLAINT: End-stage renal disease and first-stage brachiobasilic fistula. HISTORY OF PRESENT ILLNESS: Alec Bynum is a 72-year-old male with history of end-stage renal disease. Most recently, on 05/28/18, he was admitted for a possible brachiocephalic fistula for renal dialysis. The cephalic vein was not able to be used due to stenosis and scarring, but at that point, the first stage of a brachiobasilic fistula was done as the brachial vein appeared adequate for a fistula. The patient now returns for his second stage of a right basilic vein transposition. PAST MEDICAL HISTORY: End-stage renal disease that he has had for over 3 years. He has been on peritoneal dialysis for the past 3 years. He had an infection in the peritoneal dialysis catheter and he has a right central venous catheter. He undergoes dialysis 3 times a week. Most recently, he had dialysis on 07/07/18. He has a history of coronary artery disease, gallbladder disease, history of a pacemaker via the left subclavian approach, history of hernia repair. He has a right AK amputation and he also hip replacement, heart disease, gallbladder disease, end-stage renal failure, hypertension, and diabetes. The patient on 06/30/[address] Sanchez and at that time, the patient was short of breath. He was referred to the emergency room at [facility] and he was taken to [facility] where he had fluid removed from his lungs. At this point, the patient denies shortness of breath. MEDICATIONS: 1. Aspirin 81 mg daily. He was asked to stop this 3 days prior to surgery. 2. Atorvastatin calcium 20 mg. 3. Carvedilol 12.5 mg p.o. b.i.d. 4. Clopidogrel bisulfate 75 mg. 5. Clonazepam 0.5 mg. 6. Furosemide 80 mg. 7. Gabapentin 100 mg. 8. Humalog KwikPen 100 units per mL. 9. Levothyroxine 88 mcg. 10. Promethazine HCl 25 mg. 11. Sevelamer carbonate 800 mg. 12. Timolol maleate 0.5%. 13. Fiber 625 mg. ALLERGIES: LABETALOL. FAMILY HISTORY: Father, cancer and diabetes. Sister with diabetes and brothers , diabetes and cancer. 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 She has never smoked and she denies alcohol use. REVIEW OF SYSTEMS: He does take a daily aspirin. Denied problems with anesthesia. He does have heart disease, gallbladder disease, renal failure, hypertension, and diabetes. PHYSICAL EXAMINATION GENERAL: Alec Bynum is a 72-year-old male, well developed, well nourished, in no acute distress. The patient is in a wheelchair. He has a right above- knee amputation and he is accompanied by his and service dog, Annie. VITAL SIGNS: Blood pressure 118/54, weight 191, pulse 75, respirations 18. HEENT: Within normal limits. He has a right internal jugular dialysis catheter. Left, he has a pacemaker. CHEST: Lungs clear. HEART: S1, S2. Regular rate and rhythm. No extra heart sounds, murmurs, clicks, or rubs. ABDOMEN: Soft, nontender. Positive bowel sounds. Positive tympany. No masses or organomegaly. EXTREMITIES: +2 symmetrical radial pulses. LOCAL EXAM: Shows well-healed scar from the previous surgery for the right arm brachiobasilic fistula with positive thrill. IMPRESSION: End-stage renal disease, first-stage brachiobasilic fistula. PLAN: Same-day surgery admission to Dr. Sanchez's service for right basilic vein transposition. ELIZABET FLETCHER NP [id number]/[facility] #: [id number] SIRE[place]
[~2018-08-04 10:00] MED LIST changes: -DiMENhydriNATE IV* 50 MG/ML VIAL IV PUSH PRN; +Famotidine IV* 10 MG/ML 2 ML (20 mg) IV ONE; -Morphine INJ* 2 MG/ML 1 ML SYRINGE (TWO MG - NEW SYRINGE VERSION) IV PRN; +NS 0.45% 1000 ML BAG* 1,000 ML IV SCH; -Naloxone* 0.4 MG/ML 1 ML VIAL IV PRN; -Ondansetron TAB* 4 MG PO ONE; -PROCHLORPERAZINE INJ 5 MG/ML 2 ML VIAL IV PRN; -fentaNYL* 50 MCG/ML 2 ML VIAL (100 MCG VIAL) IV PRN; -oxyCODONE/Acetamin 5/325 MG* TAB PO PRN
[2018-08-04] MEDS ORDERED: ceFAZolin 2 GM in NS PREMIX(*) 2 GM/100 ML BAG IVPB ONE (10:36)
[2018-08-04] MEDS ORDERED: Famotidine IV* 10 MG/ML 2 ML (20 mg) ONE (10:36)
[2018-08-04] MEDS ORDERED: Ondansetron INJ* 2 MG/ML VIAL ONE (11:49)
[2018-08-04] MEDS ORDERED: Lidocaine 2% PF * 5 ML VIAL ONE (11:49)
[2018-08-04] MEDS ORDERED: Propofol* 10 MG/ML 20 ML BTL IV PUSH ONE (11:49)
[2018-08-04] MEDS ORDERED: fentaNYL* 50 MCG/ML 2 ML VIAL (100 MCG VIAL) ONE ×2 (11:49→13:51)
[2018-08-04] MEDS ORDERED: Midazolam* 1 MG/ML 5 ML VIAL (5 MG) ONE ×2 (11:50→13:52)
[2018-08-04] MEDS ORDERED: KETAMINE HCL* 50 MG/ML 10 ML VIAL ONE (11:50)
[2018-08-04] MEDS ORDERED: Heparin VIAL(*) 5000 UNITS/ML VIAL (FIVE THOUSAND) ONE (11:51)
[2018-08-04] MEDS ORDERED: Lidocaine 1% INJ* 10 MG/ML 30 ML SDV ONE ×2 (12:31→13:15)
[2018-08-04] MEDS ORDERED: Heparin DIALYSIS ONLY(*) 1,000 UNITS/ML VIAL ONE (12:31)
[2018-08-04] MEDS ORDERED: Propofol* 500 MG/50 ML BTL ONE (12:52)
[2018-08-04] MEDS ORDERED: EPINEPHrine SYR 0.1MG/ML* SYRINGE ONE (13:19)
[2018-08-04] MEDS ORDERED: Sodium Bicarbonate 8.4% SYR* 10 ML SYRINGE ONE ×2 (13:20→13:22)
[2018-08-04] MEDS ORDERED: Sodium Bicarbonate 8.4%* 50 ML SYRINGE ONE (13:20)
[2018-08-04] MEDS ORDERED: Lidocaine 1.5% EPI 1:200,000* 30 ML SDV ONE (13:24)
[2018-08-04] MEDS ORDERED: Lidocaine 1% MPF wEPI 200,000* 30 ML SDV ONE (13:26)
[2018-08-04] MEDS ORDERED: Naloxone* 0.4 MG/ML 1 ML VIAL IV PRN (14:06)
[2018-08-04] MEDS ORDERED: Ondansetron INJ* 2 MG/ML VIAL IV PRN (14:06)
[2018-08-04] MEDS ORDERED: fentaNYL* 50 MCG/ML 2 ML VIAL (100 MCG VIAL) IV PRN (14:06)
[2018-08-04 17:27] VITALS: BP 146/67
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
== END 2018-08-04 17:26 | disposition home or self-care (01) ==
LOC: OR 10:00
PROVIDERS: ATTEND Surgery
DX: N18.6 End stage renal disease (principal); E11.21 Type 2 diabetes mellitus with diabetic nephropathy; Z79.4 Long term (current) use of insulin; Z99.2 Dependence on renal dialysis; I25.10 Atherosclerotic heart disease of native coronary artery without angina pectoris; Z95.0 Presence of cardiac pacemaker; I25.2 Old myocardial infarction; Z95.5 Presence of coronary angioplasty implant and graft; E03.9 Hypothyroidism, unspecified; F41.8 Other specified anxiety disorders; D64.9 Anemia, unspecified
CPT/HCPCS: J0171; J0690; J1642; J1644; J2001; J2250; J2405; J2704; J3010

== ENCOUNTER 2018-08-16 00:44 | Inpatient (IN) | payer MEDICARE ==
--- OUTSIDE RECORDS SUMMARY | 2018-08-16 00:57 | XMS REPORT ---
:1945 External Reference #:[id number] Author Organization [employer] Address [address] [facility] [place] [facility] [place] [address] Phone [phone] Care Team Providers Name Role Phone Jose White MD Primary Care Physician Unavailable Payers Type Date Identification Numbers Payment Provider Subscriber Medicare Primary Effective: Policy Number: Medicare Shante Manzo 2010 [id number] PayID: [id number] [address] [place] [address] [facility] Part [facility] Policy Number: [id number] 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 Active Onset: 05/31/2018 Type 2 diabetes mellitus Marixa Rush D.O. Active Onset: 05/31/2018 End-stage renal disease Marixa Rush D.O. Active Onset: 05/31/2018 Headache Marixa Rush D.O. 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 Cigarette Use Never Smoked Cigarettes ETOH Use Denies alcohol use Smoking Patient has never smoked Recreational Drug Use Denies Drug Use Daily Caffeine Consumes on average 2 sodas per day Exercise Type/Frequency Exercises rarely Allergies, Adverse Reactions, Alerts Date Description Reaction Status Severity Comments 10/01/2016 Labetalol active 09/11/2016 NKDA inactive Medications Medication Date Status Form Strength Qnty SIG Indications Ordering Provider Hydrocodone-Cheng 07/23/ Active Tablets 5-325mg 14tab 1 tablet Z01.818 Janae Salazar taminophen 2018 s by mouth lb Cardoza 4-6 MD hours as needed for moderately severe pain Levemir / Active Solution 100Unit/M 16 units at Unknown 0000 L bedtime as directed Renal Vitamin 00/00/ Active daily Unknown 0000 Phosphorous / Active 3 tablets Unknown 0000 with each meals total of 9 tablet per day Humalog Kwikpen / Active Solution 100Unit/M sliding Unknown 0000 Pen-Inject L scale [place] Oil / Active Oil daily prn Unknown 0000 Atorvastatin / Active Tablets 20mg take 1 Unknown Calcium 0000 tablet at bedtime Furosemide / Active Tablets 80mg 1 by mouth Unknown 0000 twice daily Timolol Maleate / Active Solution 0.5% 1 gtt both Unknown 0000 eyes twice daily Levothyroxine / Active Tablets 88mcg 1 tablet po Unknown Sodium 0000 daily Plavix / Active Tablets 75mg 1 by mouth Unknown 0000 every day Aspirin / Active Tablets 81mg 1 by mouth Unknown 0000 every day Carvedilol / Active Tablets 12.5mg 1 tablet po Unknown 0000 twice daily Alprazolam / Active Tablets 0.25mg as needed Unknown 0000 Keflex 04/21/ Hx Capsules 250mg 9caps 2 times a Gary 2016 - day for 3 D. Keanu, M.D. 2016 Carvedilol 04/21/ Hx Tablets 6.25mg 1 by mouth Gary 2016 - twice a day Cindy Colunga 07/13/ M.Cindy 2017 Hydrocodone-Cheng 09/15/ Hx Tablets 5-325mg 20tab 1 tablet PO N18.6 Janae Salazar taminophen 2016 s q 4hrs prn Sony pain Tramadol HCL / Hx Tablets 50mg 1-2 tablets Unknown 0000 every 6 hours as needed Carvedilol / Hx Tablets 25mg 1 tab by Unknown 0000 - mouth twice 04/21/ a day 2016 Amlodipine / Hx Tablets 10mg 1 by mouth Unknown Besylate 0000 - every day 2016 Kionex / Hx Suspension 15GM/60ML 2 times Unknown 0000 daily Simvastatin / Hx Tablets 40mg 1 by mouth Unknown 0000 - every day 2016 Lactulose / Hx Solution 10GM/15ML 15ml twice Unknown 0000 a day Losartan / Hx Tablets 100mg 1 by mouth Unknown Potassium 0000 - every day 2015 Aspirin / Hx Tablets 325mg 1 by mouth Unknown 0000 - every day 2017 Fluticasone / Hx Aerosol 232-14mcg Unknown Propionate/Salm 0000 - /Act eterol 2017 Fiber Complete / Hx Tablets once a day Unknown 0000 Medications Administered in Office Medication Date Status Form Strength Qnty SIG Indications Ordering Provider Inj, Administered Injection Gary White Regadenoson, 017 Delano Colunga 0.1 MG Technetium TC Administered Injection Gary White 99M 017 Delano Colunga Tetrofosmin, Per Unit Dose Up To 40 Millicuries Vital Signs Date Vital Result Comment 08/11/2018 Weight 191.00 lb diaylsis today Heart Rate 50 /min BP Systolic Sitting 128 mmHg Lue reg cuff BP Diastolic Sitting 60 mmHg Lue reg cuff Respiratory Rate 20 /min Ejection Fraction 55-60% 06/30/2018 echo 08/06/2018 Heart Rate 62 /min Respiratory Rate 16 /min Body Temperature 97.9 F 07/23/2018 Heart Rate 64 /min BP Systolic 150 mmHg BP Diastolic 76 mmHg Respiratory Rate 18 /min Body Temperature 96.9 F 07/14/2018 Height 69 inches 5'9" Weight 191.00 lb weight at dialyisis , no weight at todays visit Heart Rate 50 /min BP Systolic Sitting 110 mmHg Lue reg cuff BP Diastolic Sitting 70 mmHg Lue reg cuff Respiratory Rate 16 /min BMI (Body Mass Index) 28.2 kg/m2 07/05/2018 Height 69 inches 5'9" Weight 192.00 lb Heart Rate 78 /min BP Systolic 122 mmHg BP Diastolic 60 mmHg Respiratory Rate 18 /min Body Temperature 98.6 F BMI (Body Mass Index) 28.4 kg/m2 08/11/2017 Height 69 inches 5'9" Weight 197.00 lb w shoes Heart Rate 80 /min BP Systolic Sitting 122 [address] rue large cuff BP Diastolic Sitting 70 [address] rue large cuff Respiratory Rate 20 /min BMI (Body Mass Index) 29.1 kg/m2 Ejection Fraction 60-65% echo 04/15/17 05/28/2017 Height 69 inches 5'9" Weight 191.00 lb Heart Rate 96 /min BP Systolic Sitting 132 mmHg Lue reg cuff BP Diastolic Sitting 80 mmHg Lue reg cuff BP Systolic Standing 118 mmHg Lue BP Diastolic Standing 72 mmHg Lue Respiratory Rate 16 /min BMI (Body Mass Index) 28.2 kg/m2 Ejection Fraction 60-65% 04/15/17 04/28/2017 Height 69 inches 5'9" Weight 184.00 lb pe Heart Rate 70 /min BP Systolic 130 mmHg Rue, reg cuff BP Diastolic 70 mmHg Rue, reg cuff Respiratory Rate 16 /min BMI (Body Mass Index) 27.2 kg/m2 Ejection Fraction 60-65% as of 04/15/17 echo 12/25/2016 Heart Rate 68 /min Respiratory Rate 18 /min Body Temperature 96.9 F 12/15/2016 Heart Rate 78 /min BP Systolic 142 mmHg BP Diastolic 70 mmHg Respiratory Rate 18 /min Body Temperature 97.6 F 10/16/2016 Heart Rate 72 /min BP Systolic 148 mmHg BP Diastolic 82 mmHg Respiratory Rate 16 /min Body Temperature 96.3 F 10/01/2016 Height 69 inches 5'9" Weight 186.00 lb Heart Rate 76 /min BP Systolic 148 mmHg BP Diastolic 70 mmHg Respiratory Rate 16 /min Body Temperature 98.6 F BMI (Body Mass Index) 27.5 kg/m2 09/15/2016 Height 69 inches 5'9" Weight 195.00 lb Heart Rate 72 /min BP Systolic 115 mmHg BP Diastolic 58 mmHg Respiratory Rate 16 /min Body Temperature 97.8 F BMI (Body Mass Index) 28.8 kg/m2 Results Test Date Test Result H/L Range Note Laboratory test finding 07/28/2018 Point of Care Glucose 143 mg/dL High 70 -100 1 Basic Metabolic Panel 07/26/2018 Sodium 137 mmol/L 135-145 Potassium 4.5 mmol/L 3.5-5.0 Chloride 103 mmol/L 101-111 Co2 Carbon Dioxide 24 mmol/L 22-32 Anion Gap 10 mmol/L 2-11 Glucose 204 mg/dL High 70-100 Blood Urea Nitrogen 27 mg/dL High 6-24 Creatinine 6.38 mg/dL High 0.67-1.17 BUN/Creatinine Ratio 4.2 Low 8-20 Calcium 9.5 mg/dL 8.6-10.3 Egfr Non- 8.7 >60 Egfr 10.5 >60 2 Laboratory test finding 10/08/2016 Point of Care Glucose 180 mg/dL High 74 -106 3 Laboratory test finding 10/08/2016 Point of Care Glucose 213 mg/dL High 74 -106 4 CBC No Diff 10/01/2016 White Blood Count 6.9 10^3/uL 3.5-10.8 5 Red Blood Count 3.36 10^6/uL Low 4.0-5.4 5 Hemoglobin 10.5 g/dL Low 14.0-18.0 5 Hematocrit 30 % Low 42-52 5 Mean Corpuscular Volume 89 fL 80-94 5 Mean Corpuscular Hemoglobin 31 pg 27-31 5 Mean Corpuscular HGB Conc 35 g/dL 31-36 5 Red Cell Distribution Width 14 % 10.5-15 5 Platelet Count 315 10^3/uL 150-450 5 Mean Platelet Volume 7 um3 Low 7.4-10.4 5 Basic Metabolic Panel 10/01/2016 Sodium 135 mmol/L 133-145 5 Potassium 4.3 mmol/L 3.5-5.0 5 Chloride 97 mmol/L Low 101-111 5 Co2 Carbon Dioxide 33 mmol/L High 22-32 5 Anion Gap 5 mmol/L 2-11 5 Glucose 168 mg/dL High 70-100 5 Blood Urea Nitrogen 27 mg/dL High 6-24 5 Creatinine 4.38 mg/dL High 0.67-1.17 5 BUN/Creatinine Ratio 6.2 Low 8-20 5 Calcium 8.5 mg/dL Low 8.6-10.3 5 Egfr Non- 13.4 >60 5 Egfr 17.3 >60 5, 6 Laboratory test 09/24/2016 Point of Care 172 mg/dL High 74-106 7 finding Glucose Laboratory test 08/27/2016 Point of Care 124 mg/dL High 74-106 8 finding Glucose Laboratory test 08/27/2016 Cytology Non-Senior Coldfusion Developer SEE RESULT BELOW 9, 10 finding Laboratory test 08/27/2016 Point of Care 147 mg/dL High 74-106 11 finding Glucose 1 Diamond Sawer: [id number] 2 Because ethnic data is not always readily available, this report includes an eGFR for both -Americans and non- Americans. The National Kidney Disease Education Program (NKDEP) does not endorse the use of the MDRD equation for patients that are not between the ages of 18 and 70, are , have extremes of body size, muscle mass, or nutritional status, or are non- or non-. According to the National Kidney Foundation, irrespective of diagnosis, the stage of the disease is based on the level of kidney function: Stage Description GFR(mL/min/1.73 m(2)) 1 Kidney damage with normal or decreased GFR 90 2 Kidney damage with mild decrease in GFR 60-89 3 Moderate decrease in GFR 30-59 4 Severe decrease in GFR 15-29 5 Kidney failure <15 (or dialysis) 3 Diamond Sawer: [id number] JAKE CHRISTIANSON 4 Diamond Sawer: [id number] DIAZ 5 SURGERY 10/08/16 SD 6 Because ethnic data is not always readily available, this report includes an eGFR for both -Americans and non- Americans. The National Kidney Disease Education Program (NKDEP) does not endorse the use of the MDRD equation for patients that are not between the ages of 18 and 70, are , have extremes of body size, muscle mass, or nutritional status, or are non- or non-. According to the National Kidney Foundation, irrespective of diagnosis, the stage of the disease is based on the level of kidney function: Stage Description GFR(mL/min/1.73 m(2)) 1 Kidney damage with normal or decreased GFR 90 2 Kidney damage with mild decrease in GFR 60-89 3 Moderate decrease in GFR 30-59 4 Severe decrease in GFR 15-29 5 Kidney failure <15 (or dialysis) 7 Diamond Sawer: [id number] DIAZ 8 Diamond Sawer: [id number] DALE DODGE 9 NO TRACKING NUMBER 10 SEE RESULT BELOW Name: SHANTE MANZO : [address]: Gracie Armendariz MD Acct: [id number] Unit: [id number] AGE: 70 Location: OR Re08/27/16 SEX: M Status: REG SDC SPEC: [id number] KAITLIN: 08/27/[address]: Gracie Armendariz MD REQ: [id number] RECD: 08/27/16 STATUS: SOUT _ ORDERED: FN ASP DEEP/6, FNA IMMEDIATE S/6 COMMENTS: NO TRACKING NUMBER FINAL DIAGNOSIS 1) R-10 Lymph node, endobronchial fine needle aspiration: Benign- bronchial epithelium and few lymphocytes. 2) Station-7 lymph node, endobronchial fine needle aspiration: Benign- bronchial epithelium and lymphoid tissue. 3) R-12 Lymph node, endobronchial fine needle aspiration: Benign- mostly blood with lymphoid tissue. 4) L-4 lymph node, endobronchial fine needle aspiration: Benign- bronchial epithelium with lymphoid tissue. 5) R-11 lymph node, endobronchial fine needle aspiration: Benign- bronchial epithelium with lymphoid tissue. 6) R-4 lymph node, endobronchial fine needle aspiration: Benign- bronchial epithelium with lymphoid tissue. A cell block was prepared in the evaluation of each specimen. CONTINUED ON NEXT PAGE * ML=Testing performed at Main Lab DEPARTMENT OF PATHOLOGY, [address] [place] [address] Edmond Noland M.D. Director [facility] # [id number] RUN DATE: 08/28/16 [facility] LAB LIVE PAGE 2 Patient: SHANTE MANZO [id number] (Continued) SPECIMEN COMMENTS (Continued) Smears and cell block reveal similar findings. 1. LYMPH NODE - R-10 ENDOBRONCHIAL FINE NEEDLE ASPIRATION, 2. LYMPH NODE - ST-7 ENDOBRONCHIAL FINE NEEDLE ASPIRATION, 3. LYMPH NODE - R-12 ENDOBRONCHIAL FINE NEEDLE ASPIRATION, 4. LYMPH NODE - L-4 ENDOBRONCHIAL FINE NEEDLE ASPIRATION, 5. LYMPH NODE - R-11 ENDOBRONCHIAL FINE NEEDLE ASPIRATION, 6. LYMPH NODE - R-4 ENDOBRONCHIAL FINE NEEDLE ASPIRATION CLINICAL HISTORY Lung mass, enlarged lymph nodes IMMEDIATE INTERPRETATION 1- all passes -adequate 2- all passes- adequate 3- all passes adequate 4- all passes-adequate 5 - all passes -adequate 6 - all passes -adequate GROSS DESCRIPTION 1) 6- alcohol fixed slides, 3- passes, needle rinse in formalin for cell block. 2) 6- alcohol fixed slides, 3-passes, needle rinse in formalin for cell block 3) 8- alcohol fixed slides, 3-passes, needle rinse in formalin for cell block 4) 6- alcohol fixed slides, 3-passes, needle rinse in formalin for cell block 5) 4- alcohol fixed slides, 2-passes, needle rinse in formalin for cell block 6) 7-alcohol fixed slides, 3-passes, needle rinse in formalin for cell block Signed (signature on file) Edmond Noland MD 1339 END OF REPORT * ML=Testing performed at Main Lab DEPARTMENT OF PATHOLOGY, [address] [place] [address] Edmond Noland M.D. Director [facility] # [id number] 11 Diamond Sawer: [id number] Wilfredo Patel Procedures Date CPT Code Description Status 07/28/2018 22968 Insert Intraperitoneal Cannula/Catheter Permanent Completed 07/28/2018 82778 Insert Intraperitoneal Cannula/Catheter Permanent Completed 07/14/2018 43019 EKG Tracing & Interpretation Completed 05/05/2018 00316 Pace Maker Eval W/Iterative Adjment Dual Lead Completed 05/05/2018 16300 Pace Maker Eval W/Iterative Adjment Dual Lead Completed 09/09/2017 09222 Pace Maker Eval W/Iterative Adjment Dual Lead Completed 09/09/2017 86800 Pace Maker Eval W/Iterative Adjment Dual Lead Completed 06/05/2017 91135 Stress Test Completed 06/05/2017 71059 Myocardial Perfusion Imaging Tomographic (Spect) Completed Multiple Studies 05/26/2017 03143 Pace Maker Eval W/Iterative Adjment Dual Lead Completed 04/28/2017 24319 EKG Tracing & Interpretation Completed 04/21/2017 65626 Pace Maker Eval W/Iterative Adjment Dual Lead Completed 04/21/2017 37012 EKG, Interpretation Only Completed 04/20/2017 33170 EKG, Interpretation Only Completed 04/20/2017 20243 Perm Pacemaker Av Sequential Atrial And Ventricular Completed 04/15/2017 85835 ECHO Transthorasic Realtime 2D W Doppler & Color Flow Completed Hosp 04/10/2017 66219 Lap With Revision Previous Placed Cannula Or Catheter Completed 04/10/2017 05572 Lap With Revision Previous Placed Cannula Or Catheter Completed 12/15/2016 57374 Removal Of Tunneled Central Venous Cath W/O Completed Subcutaneous Port/HOMICIDE SQUAD CAPTAIN 10/08/2016 41300 Lap W/Insert Intraperitoneal Cannula Or Catheter Completed Permanent 09/24/2016 68425 Fluoroscopic Guidance For Cent Completed 09/24/2016 55254 Repair Hernia Inguinal > 5Yrs, Reducible Completed 09/24/2016 65193 Repair Hernia Inguinal > 5Yrs, Reducible Completed 09/24/2016 71221 Removal Of Tunneled Central Venous Cath W/O Completed Subcutaneous Port/HOMICIDE SQUAD CAPTAIN 09/24/2016 65470 Insertion Tunneled Cent Venous Cathr W/O Subcut Completed Port/Pump 5Yrs> 09/24/2016 64742 Insertion Tunneled Cent Venous Cathr W/O Subcut Completed Port/Pump 5Yrs> 08/27/2016 81912 Endobronchial Ultrasound=>3 Completed 08/18/2016 96577 Insertion Tunneled Cent Venous Cathr W/O Subcut Completed Port/Pump 5Yrs> 08/18/2016 19286 Ultrasound Guidance For Vascular Access Completed 08/18/2016 61694 Fluoroscopic Guidance For Cent Completed 08/15/2016 94428 ECHO Transthorasic Realtime 2D W Doppler & Color Flow Completed Hosp 05/19/2016 55921 EEG Recording Awake & Asleep Completed 07/29/2014 87426 Tube,Thoracostomy,Incl Water S Completed 12/25/2011 68603 Color Flow Doppler/Interp & Reprt Completed 12/25/2011 03829 Pulse Wave/Continuous-Interp.RPT Completed 12/25/2011 95773 ECHO Transthorasic Realtime 2D W Doppler & Color Flow Completed Hosp Encounters Type Date Location Provider CPT E/M Dx Office Visit 08/06/2018 [facility] 13422 Z99.2 1:15p Jesus Deluna NP Z48.01 Office Visit 07/14/2018 1:45p [facility] Gary Colunga, 75032 I47.2 [facility] Delano Z95.0 I25.10 R06.02 Office Visit 07/05/2018 10:30a [facility] [place] [address] N18.6 [facility] Office Visit 05/31/2018 1:20p [facility], Marixa Rush, 09365 R51 Hospitalists D.O. N18.6 E11.22 Z89.512 E11.40 Office Visit 08/11/2017 1:45p [facility] Gary Colunga, 56765 I47.2 [facility] AT [facility] Delano R94.31 I44.1 Z95.0 Office Visit 05/28/2017 3:15p [facility] Gary Colunga, 84647 I44.1 [facility] M.D. Z95.0 I47.2 R94.31 Office Visit 04/19/2017 3:16p [facility] Qutaybeh S. Maghaydah, 98287 I47.2 M.D. Office Visit 04/18/2017 3:15p [facility] Qutaybeh S. Maghaydah, 75180 I47.2 M.D. Office Visit 04/17/2017 3:47p [facility] Qutaybeh S. Maghaydah, 94918 R55 M.D. I47.2 Office Visit 04/16/2017 4:28p [facility] Qutaybeh S. Maghaydah, 41756 R55 M.D. I47.2 Office Visit 04/15/2017 11:52a [facility] Ronel Baca M.D. 67130 R55 I47.2 Office Visit 04/15/2017 8:46a [facility], 95254 R11.2 Assoc,pc Hospitalists MEdwin N18.6 R53.1 Z99.2 Office Visit 04/10/2017 7:00a [facility], 27357 T85.621A [facility] N18.6 Office Visit 04/08/2017 10:41a [facility],pc Connor Kirk, 58254 E87.2 Hospitalists Delano R74.8 E11.9 N18.6 Office Visit 09/15/2016 11:30a [facility] [place] [address] N18.6 [facility] Office Visit 08/29/2016 11:24a [facility] [place] [address] R06.02 Services Of [facility] Office Visit 08/29/2016 3:42p [facility] [place] [address] R06.02 Assoc,pc Hospitalists J20.9 N18.6 E11.8 Office Visit 08/22/2016 11:30a [facility] [place] [address] R22.2 Services Of [facility] N18.6 E11.22 Office Visit 08/19/2016 11:29a [facility] [place] [address] R22.2 Services Of [facility] E11.22 N18.6 Office Visit 05/20/2016 4:39p [facility] Brandon Cruz, 60770 I63.6 Delano G08 Office Visit 05/19/2016 4:38p [facility] [address] G43.109 R44.3 I10 G93.40 R94.01 Office Visit 05/18/2016 4:35p [facility] [address] G43.109 R44.3 I10 G93.40 Office Visit 07/30/2014 2:30p [facility] Alexandre Salvador M.D. 33248 511.89 [facility] Office Visit 07/29/2014 2:26p [facility] Alexandre Salvador M.D. 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
--- OUTSIDE RECORDS SUMMARY | 2018-08-16 00:57 | XMS REPORT ---
:1945 External Reference #:[id number] Author Organization [facility] Address [address] [facility] [place] [address] Phone [phone] Care Team Providers Name Role Phone Jose White MD Primary Care Physician Unavailable Payers Type Date Identification Numbers Payment Provider Subscriber Medicare Primary Effective: Policy Number: Medicare Shante Manzo 2010 [id number] PayID: [id number] [address] [place] [address] [facility] Part B Policy Number: [id number] [facility] Shante Manzo PayID: [id number] [address] [place] [address] Problems Date Description Provider Status Onset: 05/31/2018 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 Active Onset: 05/31/2018 Type 2 diabetes mellitus Marixa uRsh D.O. Active Onset: 05/31/2018 End-stage renal disease Marixa Rush D.O. Active Onset: 05/31/2018 Headache Marixa Rush D.O. 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 Cigarette Use Never Smoked [...] Form Strength Qnty SIG Indications Ordering Provider Levemir / Active Solution 100Unit/ML 16 units Unknown 0000 at bedtime as directed Renal Vitamin /00/ Active daily Unknown 0000 Phosphorous / Active 3 Unknown 0000 tablets with each meals total of 9 tablet per day Humalog Kwikpen / Active Solution 100Unit/ML sliding Unknown 0000 Pen-Inject scale [place] Oil / Active Oil daily prn Unknown 0000 Atorvastatin / Active Tablets 20mg take 1 Unknown Calcium 0000 tablet at bedtime Furosemide / Active Tablets 40mg 1 by Unknown 0000 mouth twice daily Timolol Maleate / Active Solution 0.5% 1 gtt Unknown 0000 both eyes twice daily Levothyroxine / Active Tablets 88mcg 1 tablet Unknown Sodium 0000 po daily Plavix / Active Tablets 75mg 1 by Unknown 0000 mouth every day Aspirin / Active Tablets 81mg 1 by Unknown 0000 mouth every day Carvedilol / Active Tablets 12.5mg 1 tablet Unknown 0000 po twice daily Keflex 04/21/ Hx Capsules 250mg 9caps 2 times a Gary 2016 - day for 3 D. Keanu, 04/24/ days M.D. 2016 Carvedilol 04/21/ Hx Tablets 6.25mg 1 by Gary 2016 - DVenancio Colunga, 07/13/ twice a M.D. 2017 day Hydrocodone-Cheng 09/15/ Hx Tablets 5-325mg 20tab 1 tablet N18.6 Janaeelle Salazar taminophen 2016 s PO q 4hrs Sony prn pain Tramadol HCL / Hx Tablets 50mg 1-2 Unknown 0000 tablets every 6 hours as needed Carvedilol / Hx Tablets 25mg 1 tab by Unknown 0000 - mouth 04/21/ twice a 2016 day Amlodipine / Hx Tablets 10mg 1 by Unknown Besylate 0000 - mouth 03/28/ every day 2016 Kionex / Hx Suspension 15GM/60ML 2 times Unknown 0000 daily Simvastatin / Hx Tablets 40mg 1 by Unknown 0000 - mouth 03/28/ every day 2016 Lactulose / Hx Solution 10GM/15ML 15ml Unknown 0000 twice a day Losartan / Hx Tablets 100mg 1 by Unknown Potassium 0000 - mouth day 2015 Aspirin / Hx Tablets 325mg 1 by Unknown 0000 - mouth day 2017 Fluticasone / Hx Aerosol 232-14mcg/ Unknown Propionate/Salm 0000 - Act eterol 2017 Fiber Complete / Hx Tablets once a Unknown 0000 day Medications Administered in Office Medication Date Status Form Strength Qnty SIG Indications Ordering Provider Inj, Administered Injection Gary White Regadenoson, 017 Delano Colunga 0.1 MG Technetium TC Administered Injection Gary White 99M 017 Delano Colunga Tetrofosmin, Per Unit Dose Up To 40 Millicuries Vital Signs Date Vital Result Comment 07/23/2018 Heart Rate 64 /min BP Systolic [...] Result H/L Range Note Laboratory test finding 10/08/2016 Point of Care 180 mg/dL High 74-106 1 Glucose Laboratory test finding 10/08/2016 Point of Care 213 mg/dL High 74-106 2 Glucose CBC No Diff 10/01/2016 White Blood Count 6.9 10^3/uL 3.5-10.8 3 Red Blood Count 3.36 10^6/uL Low 4.0-5.4 3 Hemoglobin 10.5 g/dL Low 14.0-18.0 3 Hematocrit 30 % Low 42-52 3 Mean Corpuscular Volume 89 fL 80-94 3 Mean Corpuscular Hemoglobin 31 pg 27-31 3 Mean Corpuscular HGB Conc 35 g/dL 31-36 3 Red Cell Distribution Width 14 % 10.5-15 3 Platelet Count 315 10^3/uL 150-450 3 Mean Platelet Volume 7 um3 Low 7.4-10.4 3 Basic Metabolic Panel 10/01/2016 Sodium 135 mmol/L 133-145 3 Potassium 4.3 mmol/L 3.5-5.0 3 Chloride 97 mmol/L Low 101-111 3 Co2 Carbon Dioxide 33 mmol/L High 22-32 3 Anion Gap 5 mmol/L 2-11 3 Glucose 168 mg/dL High 70-100 3 Blood Urea Nitrogen 27 mg/dL High 6-24 3 Creatinine 4.38 mg/dL High 0.67-1.17 3 BUN/Creatinine Ratio 6.2 Low 8-20 3 Calcium 8.5 mg/dL Low 8.6-10.3 3 Egfr Non- 13.4 >60 3 Egfr 17.3 >60 3, 4 Laboratory test 09/24/2016 Point of Care 172 mg/dL High 74-106 5 finding Glucose Laboratory test 08/27/2016 Point of Care 124 mg/dL High 74-106 6 finding Glucose Laboratory test 08/27/2016 Cytology Non-Gauger Delivery SEE RESULT BELOW 7, 8 finding Laboratory test 08/27/2016 Point of Care 147 mg/dL High 74-106 9 finding Glucose 1 Network Support Administrator: [id number] JAKE CHRISTIANSON 2 Network Support Administrator: [id number] DIAZ 3 SURGERY 10/08/16 SD 4 Because ethnic data is not always readily [...] 15-29 5 Kidney failure <15 (or dialysis) 5 Network Support Administrator: [id number] DIAZ 6 Network Support Administrator: [id number] DALE DODGE 7 NO TRACKING NUMBER 8 SEE RESULT BELOW Name: SHANTE MANZO: [address]: Gracie Armendariz MD Acct: [id number] Unit: [id number] AGE: 70 Location: OR Re08/27/16 SEX: M Status: REG SDC SPEC: [id number] KAITLIN: 08/27/[address]: Gracie Armendariz MD REQ: [id number] RECD: 08/27/16 STATUS: SOUT _ ORDERED: FN [...] performed at Main Lab DEPARTMENT OF PATHOLOGY, [address] [place] [address] Edmond Noland M.D. Director [facility] # [id number] RUN DATE: 08/28/16 [facility] LAB LIVE PAGE 2 Patient: SHANTE MANZO [id number] (Continued) SPECIMEN COMMENTS (Continued) Smears and cell [...] performed at Main Lab DEPARTMENT OF PATHOLOGY, [address] [place] [address] Edmond Noland M.D. Director [facility] # [id number] 9 Network Support Administrator: [id number] Wilfredo Amanda Procedures Date CPT Code Description Status 07/14/2018 84994 EKG Tracing & Interpretation Completed 05/05/2018 46566 Pace Maker Eval W/Iterative Adjment Dual Lead Completed 05/05/2018 72705 Pace Maker Eval W/Iterative Adjment Dual Lead Completed 09/09/2017 93816 Pace Maker Eval W/Iterative Adjment Dual Lead Completed 09/09/2017 26727 Pace Maker Eval W/Iterative Adjment Dual Lead Completed 06/05/2017 35057 Stress Test Completed 06/05/2017 37974 Myocardial Perfusion Imaging Tomographic (Spect) Completed Multiple Studies 05/26/2017 46580 Pace Maker Eval W/Iterative Adjment Dual Lead Completed 04/28/2017 20651 EKG Tracing & Interpretation Completed 04/21/2017 40982 Pace Maker Eval W/Iterative Adjment Dual Lead Completed 04/21/2017 04128 EKG, Interpretation Only Completed 04/20/2017 86191 EKG, Interpretation Only Completed 04/20/2017 64717 [address]emaker [address] Sequential Atrial And Ventricular Completed 04/15/2017 25447 ECHO Transthorasic Realtime 2D W Doppler & Color Flow Completed Hosp 04/10/2017 54331 Lap With Revision Previous Placed Cannula Or Catheter Completed 04/10/2017 13126 Lap With Revision Previous Placed Cannula Or Catheter Completed 12/15/2016 79208 Removal Of Tunneled Central Venous Cath W/O Completed Subcutaneous Port/SUPER[employer] 10/08/2016 67653 Lap W/Insert Intraperitoneal Cannula Or Catheter Completed Permanent 09/24/2016 31379 Fluoroscopic Guidance For Cent Completed 09/24/2016 26233 Repair Hernia Inguinal > 5Yrs, Reducible Completed 09/24/2016 37656 Repair Hernia Inguinal > 5Yrs, Reducible Completed 09/24/2016 47106 Removal Of Tunneled Central Venous Cath W/O Completed Subcutaneous Port/SU[employer] 09/24/2016 82784 Insertion Tunneled Cent Venous Cathr W/O Subcut Completed Port/Pump 5Yrs> 09/24/2016 16462 Insertion Tunneled Cent Venous Cathr W/O Subcut Completed Port/Pump 5Yrs> 08/27/2016 14339 Endobronchial Ultrasound=>3 Completed 08/18/2016 65864 Insertion Tunneled Cent Venous Cathr W/O Subcut Completed Port/Pump 5Yrs> 08/18/2016 20620 Ultrasound Guidance For Vascular Access Completed 08/18/2016 78977 Fluoroscopic Guidance For Cent Completed 08/15/2016 96476 ECHO Transthorasic Realtime 2D W Doppler & Color Flow Completed Hosp 05/19/2016 89446 EEG Recording Awake & Asleep Completed 07/29/2014 96014 Tube,Thoracostomy,Incl Water S Completed 12/25/2011 62985 Color Flow Doppler/Interp & Reprt Completed 12/25/2011 33899 Pulse Wave/Continuous-Interp.RPT Completed 12/25/2011 79811 ECHO Transthorasic Realtime 2D W Doppler & Color Flow Completed Hosp Encounters Type Date Location Provider CPT E/M Dx Office Visit 07/14/2018 [facility] Edith Colunga, 75803 I47.2 1:45p Jesus Wick Z95.0 I25.10 R06.02 Office Visit 07/05/2018 10:30a [facility] [place] [address] N18.6 [facility] Office Visit 05/31/2018 1:20p [facility], Marixa Rush, 90785 R51 Hospitalists D.O. N18.6 E11.22 Z89.512 E11.40 Office Visit 08/11/2017 1:45p [facility] Edith Colunga, [address] [facility] MEdwin R94.31 I44.1 Z95.0 Office Visit 05/28/2017 3:15p [facility] Edith Colunga 24376 I44.1 Jesus Wikc Z95.0 I47.2 R94.31 Office Visit 04/19/2017 3:16p [facility] Artem Estes, 46638 I47.2 M.D. Office Visit 04/18/2017 3:15p [facility] Qutaybeh S. Maghaydah, 39429 I47.2 M.D. Office Visit 04/17/2017 3:47p [facility] Qutaybeh S. Maghaydah, 22526 R55 M.D. I47.2 Office Visit 04/16/2017 4:28p [facility] Qutayb S. hayd, 90073 R55 M.D. I47.2 Office Visit 04/15/2017 11:52a [facility] Ronel Baca M.D. 20580 R55 I47.2 Office Visit 04/15/2017 8:46a [facility] David Shoemaker , 49280 R11.2 Assoc,pc Hospitalists Delano N18.6 R53.1 Z99.2 Office Visit 04/10/2017 7:00a [facility], 84286 T85.621A [facility] N18.6 Office Visit 04/08/2017 10:41a [facility], Connor Kirk, 61803 E87.2 Hospitalists Delano R74.8 E11.9 N18.6 Office Visit 09/15/2016 11:30[place] [facility] [place] [address] N18.6 [facility] Office Visit 08/29/2016 11:24a [facility] [place] [address] R06.02 [facility] Of [facility] Office Visit 08/29/2016 3:42p [facility] Alisa Vega, GRZEGORZ 39091 R06.02 Assoc,pc Hospitalists J20.9 N18.6 E11.8 Office Visit 08/22/2016 11:30a [facility] [place] [address] R22.2 [facility] N18.6 E11.22 Office Visit 08/19/2016 11:29a [facility] [place] [address] R22.2 [facility] E11.22 N18.6 Office Visit 05/20/2016 4:39p [facility] Brandon Cruz, 49540 I63.6 Delano G08 Office Visit 05/19/2016 4:38p [facility] [place] [address] G43.109 R44.3 I10 G93.40 R94.01 Office Visit 05/18/2016 4:35p [facility] [place] [address] G43.109 R44.3 I10 G93.40 Office Visit 07/30/2014 2:30p [facility] Alexandre Salvador M.D. 41113 511.89 [facility] Office Visit 07/29/2014 2:26p [facility] Alexandre Salvador M.D. 07047 511.89 [facility] 786.05 511.9 Plan of Care Future Appointment(s):08/06/2018 1:15 pm - Jerrica Deluna NP at [facility]07/28/2018 7:30 am - Neil Winkler MD at [facility]08/11/2018 11:00 am - Gary Colunga M.D. at [facility]
--- OUTSIDE RECORDS SUMMARY | 2018-08-16 00:57 | XMS REPORT ---
:1945 External Reference #:[id number] Author Organization [employer] Address [address] [place] [address] Phone [phone] Care Team Providers Name Role Phone Jose White MD Primary Care Physician Unavailable Payers Type Date Identification Numbers Payment Provider Subscriber Medicare Primary Effective: Policy Number: Medicare Shante Manzo 2010 [id number] PayID: [id number] [address] [place] [address] [facility] Part B Policy Number: [id number] [facility] Shante Manzo PayID: [id number] [address] [place] [address] Problems Date Description Provider Status Onset: 05/31/2018 [...] Comments Marital Status Lives With 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, 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 Cigarette Use [...] as needed for moderately severe pain Levemir 00// Active Solution 100Unit/M 16 units at Unknown 0000 L bedtime as directed Renal Vitamin 00/00/ Active daily Unknown 0000 Phosphorous / Active 3 tablets Unknown 0000 with each meals total of 9 tablet per day Humalog Kwikpen / Active Solution 100Unit/M sliding Unknown 0000 Pen-Inject L scale [place] Oil / Active Oil daily prn Unknown 0000 Atorvastatin / Active Tablets 20mg take 1 Unknown Calcium 0000 tablet at bedtime Furosemide / Active Tablets 40mg 1 by mouth Unknown 0000 twice daily [...] twice daily Alprazolam / Active Tablets 0.25mg Unknown 0000 Keflex 04/21/ Hx Capsules 250mg 9caps 2 times a Gary 2016 - day for 3 D. Keanu M.DVenancio 2016 Carvedilol 04/21/ Hx Tablets 6.25mg 1 by mouth Gary 2017 - twice a day Cindy Colunga 07/13/ M.Cindy 2017 Hydrocodone-Cheng 09/15/ Hx Tablets 5-325mg 20tab 1 tablet PO N18.6 Janae Salazar taminophen 2016 s q 4hrs prn ian Cardoza MD Tramadol HCL / Hx Tablets 50mg 1-2 [...] Millicuries Vital Signs Date Vital Result Comment 08/06/2018 Heart Rate 62 /min Respiratory Rate [...] 8 finding Glucose Laboratory test 08/27/2016 Cytology Non-Shank Breaker SEE RESULT BELOW 9, 10 finding Laboratory test 08/27/2016 Point of Care 147 mg/dL High 74-106 11 finding Glucose 1 Test Analyst: [id number] 2 Because ethnic data is not always [...] 5 Kidney failure <15 (or dialysis) 3 Test Analyst: [id number] JAKE CHRISTIANSON 4 Test Analyst: [id number] DIAZ 5 SURGERY 10/08/16 SD 6 Because [...] 5 Kidney failure <15 (or dialysis) 7 Test Analyst: [id number] POLLY DIAZ 8 Test Analyst: [id number] DALE DODGE 9 NO TRACKING NUMBER 10 SEE RESULT BELOW Name: SHANTE MANZO : [address]: Gracie Armendariz MD Acct: [id number] Unit: [id number] AGE: 70 Location: OR Re08/27/16 SEX: M Status: REG SD SPEC: [id number] KAITLIN: 08/27/168976 [facility] DR: Gracie Armendariz MD REQ: [id number] RECD: 08/27/16 STATUS: SOUT _ ORDERED: FN [...] performed at Main Lab DEPARTMENT OF PATHOLOGY, [address] [place] [address] Edmond Noland M.D. Director [facility] # [id number] RUN DATE: 08/28/16 [facility] LAB LIVE PAGE 2 Patient: SHANTE MANZO [id number] (Continued) SPECIMEN COMMENTS (Continued) Smears and cell [...] performed at Main Lab DEPARTMENT OF PATHOLOGY, [address] [place] [address] Edmond Noland M.D. Director [facility] # [id number] 11 Test Analyst: VIANNEY Patel Procedures Date CPT Code Description Status 07/28/2018 28807 Insert Intraperitoneal Cannula/Catheter Permanent Completed 07/28/2018 37526 Insert Intraperitoneal Cannula/Catheter Permanent Completed 07/14/2018 11330 EKG Tracing & Interpretation Completed 05/05/2018 91125 Pace Maker Eval W/Iterative Adjment Dual Lead Completed 05/05/2018 15300 Pace Maker Eval W/Iterative Adjment Dual Lead Completed 09/09/2017 32024 Pace Maker Eval W/Iterative Adjment Dual Lead Completed 09/09/2017 39311 Pace Maker Eval W/Iterative Adjment Dual Lead Completed 06/05/2017 36726 Stress Test Completed 06/05/2017 27213 Myocardial Perfusion Imaging Tomographic (Spect) Completed Multiple Studies 05/26/2017 85082 Pace Maker Eval W/Iterative Adjment Dual Lead Completed 04/28/2017 37326 EKG Tracing & Interpretation Completed 04/21/2017 48324 Pace Maker Eval W/Iterative Adjment Dual Lead Completed 04/21/2017 43420 EKG, Interpretation Only Completed 04/20/2017 95476 EKG, Interpretation Only Completed 04/20/2017 94407 Perm Pacemaker Av Sequential Atrial And Ventricular Completed 04/15/2017 20817 ECHO Transthorasic Realtime 2D W Doppler & Color Flow Completed Hosp 04/10/2017 30836 Lap With Revision Previous Placed Cannula Or Catheter Completed 04/10/2017 57945 Lap With Revision Previous Placed Cannula Or Catheter Completed 12/15/2016 18542 Removal Of Tunneled Central Venous Cath W/O Completed Subcutaneous Port/FILM WAXER 10/08/2016 40711 Lap W/Insert Intraperitoneal Cannula Or Catheter Completed Permanent 09/24/2016 16451 Fluoroscopic Guidance For Cent Completed 09/24/2016 89808 Repair Hernia Inguinal > 5Yrs, Reducible Completed 09/24/2016 99329 Repair Hernia Inguinal > 5Yrs, Reducible Completed 09/24/2016 82732 Removal Of Tunneled Central Venous Cath W/O Completed Subcutaneous Port/FILM WAXER 09/24/2016 24115 Insertion Tunneled Cent Venous Cathr W/O Subcut Completed Port/Pump 5Yrs> 09/24/2016 91473 Insertion Tunneled Cent Venous Cathr W/O Subcut Completed Port/Pump 5Yrs> 08/27/2016 72560 Endobronchial Ultrasound=>3 Completed 08/18/2016 95059 Insertion Tunneled Cent Venous Cathr W/O Subcut Completed Port/Pump 5Yrs> 08/18/2016 92523 Ultrasound Guidance For Vascular Access Completed 08/18/2016 27630 Fluoroscopic Guidance For Cent Completed 08/15/2016 03151 ECHO Transthorasic Realtime 2D W Doppler & Color Flow Completed Hosp 05/19/2016 60881 EEG Recording Awake & Asleep Completed 07/29/2014 36966 Tube,Thoracostomy,Incl Water S Completed 12/25/2011 19079 Color Flow Doppler/Interp & Reprt Completed 12/25/2011 71377 Pulse Wave/Continuous-Interp.RPT Completed 12/25/2011 79358 ECHO Transthorasic Realtime 2D W Doppler & Color Flow Completed Hosp Encounters Type Date Location Provider CPT E/M Dx Office Visit 07/14/2018 [facility] Edith Colunga, 17336 I47.2 1:45p [facility] M.DVenancio Z95.0 I25.10 R06.02 Office Visit 07/05/2018 10:30a [facility] [place] [address] N18.6 [facility] Office Visit 05/31/2018 1:20p [facility], Marixa Rush, 86574 R51 Hospitalists D.O. N18.6 E11.22 Z89.512 E11.40 Office Visit 08/11/2017 1:45p [facility] Edith Colunga, 59661 I47.2 Legal Counsel AT [facility] M.D. R94.31 I44.1 Z95.0 Office Visit 05/28/2017 3:15p [facility] Edith Colunga 40554 I44.1 [facility] M.DVenancio Z95.0 I47.2 R94.31 Office Visit 04/19/2017 3:16p [facility] Artem Estes, 84763 I47.2 M.DVenancio Office Visit 04/18/2017 3:15p [facility] Artem Estes, 06644 I47.2 M.DVenancio Office Visit 04/17/2017 3:47p [facility] [place], 05792 R55 M.Cindy I47.2 Office Visit 04/16/2017 4:28p [facility] Qutayb S. Meera, 18074 R55 M.Cindy I47.2 Office Visit 04/15/2017 11:52a [facility] Ronel Baca M.D. 37535 R55 I47.2 Office Visit 04/15/2017 8:46a [facility] [place], [address] R11.2 Assoc,pc Hospitalists [place] N18.6 R53.1 Z99.2 Office Visit 04/10/2017 7:00a [facility], 79280 T85.621A [facility] N18.6 Office Visit 04/08/2017 10:41a [facility], Connor Kirk, 99710 E87.2 Hospitalists [place]ano R74.8 E11.9 N18.6 Office Visit 09/15/2016 11:30[place] [facility] [place] [address] N18.6 [facility] Office Visit 08/29/2016 11:24a [facility] [place] [address] R06.02 Services [facility] Office Visit 08/29/2016 3:42p [facility] Alisa Vega, GRZEGORZ 00335 R06.02 Assoc, Hospitalists J20.9 N18.6 E11.8 Office Visit 08/22/2016 11:30a [facility] [place] [address] R22.2 [facility] N18.6 E11.22 Office Visit 08/19/2016 11:29a [facility] [place] [address] R22.2 Services [facility] E11.22 N18.6 Office Visit 05/20/2016 4:39p [facility] Brandon Cruz, 58546 I63.6 [place]ano G08 Office Visit 05/19/2016 4:38p [facility] [place] [address] G43.109 R44.3 I10 G93.40 R94.01 Office Visit 05/18/2016 4:35p [facility] [place] [address] G43.109 R44.3 I10 G93.40 Office Visit 07/30/2014 2:30p [facility] Alexandre Salvador M.D. 62586 511.89 [facility] Office Visit 07/29/2014 2:26p [facility] Alexandre Salvador M.D. 93548 511.89 Services [facility] 786.05 511.9 Plan of Care Future Appointment(s):08/11/2018 11:00 am - Gary Colunga M.D. at [facility]08/06/2018 - Jerrica Deluna, NPZ99.2 Dependence on renal dialysisFollow up:As gadffpX99.01 Encounter for change or removal of surgical wound dressing
--- OUTSIDE RECORDS SUMMARY | 2018-08-16 00:57 | XMS REPORT ---
:1945 External Reference #:[id number] Author Organization [employer] Address [address] [place] [address] Phone [phone] Care Team Providers Name Role Phone Jose White MD Primary Care Physician Unavailable Payers Type Date Identification Numbers Payment Provider Subscriber Medicare Primary Effective: Policy Number: Medicare Shante Manzo 2010 [id number] PayID: [id number] [address] [place] [address] [facility] Part B Policy Number: [id number] [facility] Shante Manzo PayID: [id number] [address] [place] [address] Problems Date Description Provider Status Onset: 05/31/2018 [...] Comments Marital Status Lives With 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, 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 Cigarette Use Never Smoked [...] 100Unit/M sliding Unknown 0000 Pen-Inject L scale [place] Oil / Active Oil daily prn Unknown [...] SIG Indications Ordering Provider Inj, Administered Injection Gray White Regadenoson, 017 Delano Colunga 0.1 MG [...] 8 finding Glucose Laboratory test 08/27/2016 Cytology Non-Oil And Gas Field Technician SEE RESULT BELOW 9, 10 finding Laboratory test 08/27/2016 Point of Care 147 mg/dL High 74-106 11 finding Glucose 1 Hoe Runner: [id number] 2 Because ethnic data is not always [...] 5 Kidney failure <15 (or dialysis) 3 Hoe Runner: [id number] JAKE CHRISTIANSON 4 Hoe Runner: [id number] DIAZ 5 SURGERY 10/08/16 SD 6 Because [...] 5 Kidney failure <15 (or dialysis) 7 Hoe Runner: [id number] DIAZ 8 Hoe Runner: [id number] DALE DODGE 9 NO TRACKING NUMBER 10 SEE RESULT BELOW Name: SHANTE MANZO : [address]: Gracie Armendariz MD Acct: [id number] Unit: [id number] AGE: 70 Location: OR Re08/27/16 SEX: M Status: REG SDC SPEC: [id number] KAITLIN: 08/27/[address]: Gracie Armendariz MD REQ: [id number] RECD: 08/27/16 STATUS: SOUT _ ORDERED: FN [...] performed at Main Lab DEPARTMENT OF PATHOLOGY, [address] [place] [address] Edmond Noland M.D. Director [facility] # [id number] RUN DATE: 08/28/16 [facility] LAB LIVE PAGE 2 Patient: SHANTE MANZO [id number] (Continued) SPECIMEN COMMENTS (Continued) Smears and cell [...] performed at Main Lab DEPARTMENT OF PATHOLOGY, [address] [place] [address] Edmond Noland M.D. Director [facility] # [id number] 11 Hoe Runner: [id number] Wilfredo Patel Procedures Date CPT Code Description Status 07/28/2018 61928 Insert Intraperitoneal Cannula/Catheter Permanent Completed 07/28/2018 37911 Insert Intraperitoneal Cannula/Catheter Permanent Completed 07/14/2018 89924 EKG Tracing & Interpretation Completed 05/05/2018 52708 Pace Maker Eval W/Iterative Adjment Dual Lead Completed 05/05/2018 00450 Pace Maker Eval W/Iterative Adjment Dual Lead Completed 09/09/2017 53909 Pace Maker Eval W/Iterative Adjment Dual Lead Completed 09/09/2017 06430 Pace Maker Eval W/Iterative Adjment Dual Lead Completed 06/05/2017 80678 Stress Test Completed 06/05/2017 17894 Myocardial Perfusion Imaging Tomographic (Spect) Completed Multiple Studies 05/26/2017 61391 Pace Maker Eval W/Iterative Adjment Dual Lead Completed 04/28/2017 36295 EKG Tracing & Interpretation Completed 04/21/2017 25141 Pace Maker Eval W/Iterative Adjment Dual Lead Completed 04/21/2017 94285 EKG, Interpretation Only Completed 04/20/2017 72580 EKG, Interpretation Only Completed 04/20/2017 59963 Perm Pacemaker Av Sequential Atrial And Ventricular Completed 04/15/2017 29573 ECHO Transthorasic Realtime 2D W Doppler & Color Flow Completed Hosp 04/10/2017 75222 Lap With Revision Previous Placed Cannula Or Catheter Completed 04/10/2017 71116 Lap With Revision Previous Placed Cannula Or Catheter Completed 12/15/2016 39405 Removal Of Tunneled Central Venous Cath W/O Completed Subcutaneous Port/CLIENT TECHNICAL SPECIALIST 10/08/2016 64721 Lap W/Insert Intraperitoneal Cannula Or Catheter Completed Permanent 09/24/2016 69930 Fluoroscopic Guidance For Cent Completed 09/24/2016 91446 Repair Hernia Inguinal > 5Yrs, Reducible Completed 09/24/2016 58021 Repair Hernia Inguinal > 5Yrs, Reducible Completed 09/24/2016 31246 Removal Of Tunneled Central Venous Cath W/O Completed Subcutaneous Port/CLIENT TECHNICAL SPECIALIST 09/24/2016 12025 Insertion Tunneled Cent Venous Cathr W/O Subcut Completed Port/Pump 5Yrs> 09/24/2016 05496 Insertion Tunneled Cent Venous Cathr W/O Subcut Completed Port/Pump 5Yrs> 08/27/2016 29011 Endobronchial Ultrasound=>3 Completed 08/18/2016 04935 Insertion Tunneled Cent Venous Cathr W/O Subcut Completed Port/Pump 5Yrs> 08/18/2016 03095 Ultrasound Guidance For Vascular Access Completed 08/18/2016 97010 Fluoroscopic Guidance For Cent Completed 08/15/2016 49214 ECHO Transthorasic Realtime 2D W Doppler & Color Flow Completed Hosp 05/19/2016 90246 EEG Recording Awake & Asleep Completed 07/29/2014 83495 Tube,Thoracostomy,Incl Water S Completed 12/25/2011 03521 Color Flow Doppler/Interp & Reprt Completed 12/25/2011 86663 Pulse Wave/Continuous-Interp.RPT Completed 12/25/2011 25884 ECHO Transthorasic Realtime 2D W Doppler & Color Flow Completed Hosp Encounters Type Date Location Provider CPT E/M Dx Office Visit 08/11/2018 [facility] Edith Colunga 11534 R94.31 11:00a Jesus Wick I25.10 I10 Office Visit 08/06/2018 1:15p [facility] Jerrica Mars 41882 Z99.2 Of [facility] [address] GRZEGORZ Deluna Z48.01 Office Visit 07/14/2018 1:45p [facility] Edith Colunga 94811 I47.2 Jesus Wick Z95.0 I25.10 R06.02 Office Visit 07/05/2018 10:30a [facility] [place] [address] N18.6 [facility] [address] Office Visit 05/31/2018 1:20p [place] dagmar Espinoza 60846 R51 Hospitalists D.OVenancio N18.6 E11.22 Z89.512 E11.40 Office Visit 08/11/2017 1:45p [facility] Edith Colunga 14873 I47.2 Sleeping Car Conductor AT [facility] M.D. R94.31 I44.1 Z95.0 Office Visit 05/28/2017 3:15p [facility] Of Garyjessica Colunga, 71719 I44.1 [facility] [address] M.D. Z95.0 I47.2 R94.31 Office Visit 04/19/2017 3:16p [facility] Qutaybeh S. Maghaydah, 53055 I47.2 M.D. Office Visit 04/18/2017 3:15p [facility] Qutaybeh S. Maghaydah, 13439 I47.2 M.D. Office Visit 04/17/2017 3:47p [facility] Qutaybeh S. Maghaydah, 38501 R55 M.D. I47.2 Office Visit 04/16/2017 4:28p [facility] Qutaybeh S. Maghaydah, 07712 R55 M.D. I47.2 Office Visit [facility]2017 [facility], 76046 R11.2 Assoc, Hospitalists Delano N18.6 R53.1 Z99.2 Office Visit 04/15/2017 11:52a [facility] Of [facility] [address] Ronel Baca M.D. 76263 R55 I47.2 Office Visit 04/10/2017 7:00a [facility], 27368 T85.621A [facility] [address] N18.6 Office Visit 04/08/2017 10:41a [facility], Connor Kirk, 06830 E87.2 Hospitalists Delano R74.8 E11.9 N18.6 Office Visit 09/15/2016 11:30a [facility] [place] [address] N18.6 [facility] [address] Office Visit 08/29/2016 11:24a [facility] [place] [address] R06.02 Services Of [facility] [address] Office Visit 08/29/2016 3:42p [facility] Alisa Vega, GRZEGORZ 10048 R06.02 Assoc,pc Hospitalists J20.9 N18.6 E11.8 Office Visit 08/22/2016 11:30a [facility] [place] [address] R22.2 Services Of Sleeping Car Conductor N18.6 E11.22 Office Visit 08/19/2016 11:29a [facility] [place] [address] R22.2 Services Of Sleeping Car Conductor E11.22 N18.6 Office Visit 05/20/2016 4:39p [facility] Brandon Cruz, 40111 I63.6 Delano G08 Office Visit 05/19/2016 4:38p [facility] [address] G43.109 R44.3 I10 G93.40 R94.01 Office Visit 05/18/2016 4:35p [facility] [address] G43.109 R44.3 I10 G93.40 Office Visit 07/30/2014 2:30p [facility] Alexandre Salvador M.D. 21218 511.89 Services Of [facility] [address] Office Visit 07/29/2014 2:26p [facility] Alexandre Salvador M.D. 71996 511.89 Services Of [facility] [address] 786.05 511.9 Plan of Care 08/11/2018 - Gary Colunga M.D.R94.31 Abnormal electrocardiogram [ECG] [EKG] Follow up:June 2019I25.10 [facility] heart disease of [place] coronary artery w/o ang [id number] Essential (primary) hypertension
[2018-08-16] MEDS ORDERED: LORazepam TAB(*) 1 MG PO ONE (01:18)
--- NOTE | 2018-08-16 01:46 | ED ---
Psychiatric Complaint - HPI Summary HPI Summary: This patient is a 72 year old M presenting to [facility] with a chief complaint of worsening anxiety. He notes his prescription for anxiety is not alleviating symptoms. The patient uses CBD oil with mild sx alleviation. When lying down he feels he cant breathe, and is up and down all night long. Pt denies CP. He endorses chronic SOB, cough, and pedal edema. PMHx right BKA. - History Of Current Complaint Chief Complaint: EDGeneral Hx Obtained From: Patient, Family/Territory Service Representative Onset/Duration: Gradual Onset, Still Present, Worse Since - gradually Timing: Constant Severity Initially: Mild Severity Currently: Moderate Character: Anxious Aggravating Factor(s): Nothing Alleviating Factor(s): Other - CBD oil Associated Signs And Symptoms: Positive: Sleep Disturbance Related History: Positive For: Prior Psychiatric Issues Has Suicidal: Denies: Thoughts Has Homicidal: Denies: Thoughts - Allergies/Home Medications Allergies/Adverse Reactions: Allergies Allergy/AdvReac Type Severity Reaction Status Date / Time labetalol Allergy Mild Hallucinati Verified 08/04/18 10:50 ons PMH/Surg Hx/FS Hx/Imm Hx Endocrine/Hematology History: Reports: Hx Diabetes - TYPE 2, Hx Thyroid Disease - HYPO, Hx Anemia Cardiovascular History: Reports: Hx Congestive Heart Failure, Hx Coronary Artery Disease - 3 STENTS, Hx Hypercholesterolemia, Hx Hypertension - CONTROL WITH MEDS, Hx Pacemaker/ICD - 04/2017, Hx Peripheral Vascular Disease - RIGHT LEG AMPUTATION, Other Cardiovascular Problems/Disorders - CVA 2011 -right LE slight limb / BKA 2017 - [place] Respiratory History: Reports: Other Respiratory Problems/Disorders - right pneumothorax with chest tube 07/30, pulmonary nodules on CT GI History: Reports: Other GI Disorders - HX OF BILATERAL INGUINAL HERNIA Denies: Hx Cirrhosis, Hx Crohn's Disease, Hx Diverticulosis, Hx Gall Bladder Disease, Hx Gastroesophageal Reflux Disease, Hx Gastrointestinal Bleed, Hx Hiatal Hernia, Hx Irritable Bowel, Hx Jaundice, Hx Obstructive Bowel, Hx Ileostomy, Hx Pyloric Stenosis, Hx Ulcer History: Reports: Hx Chronic Renal Failure - T/R/S HD, Hx Dialysis - TUE, THURS, SAT, Hx Renal Disease, Other Problems/Disorders - kidney toxic drugs Denies: Hx Acute Renal Failure, Hx Benign Prostatic Hyperplasia, Hx Kidney Infection, Hx Kidney Stones Musculoskeletal History: Reports: Hx Arthritis - hands, Hx Orthopedic Injury - lt femur fx repair 07/18/14, Other Musculoskeletal History - HX OF RIGHT RIB FX 1- 7 - NO PROBLEMS SINCE 2013 Denies: Hx Back Problems, Hx Bursitis, Hx Congenital Bone Abnormalities, Hx Fibromyalgia, Hx Gout, Hx Osteoporosis, Hx Scoliosis, Hx Tendonitis Sensory History: Reports: Hx Cataracts - DAVIAN, Hx Legally Blind, Other Sensory Impairments Denies: Hx Contacts or Glasses - LEGALLY BLIND, Hx Glaucoma, Hx Hearing Aid Opthamlomology History: Reports: Hx Cataracts - DAVIAN, Hx Legally Blind, Other Sensory Impairments Denies: Hx Contacts or Glasses - LEGALLY BLIND, Hx Glaucoma Neurological History: Reports: Hx Headaches, Hx Migraine - 20 years ago, Hx Nerve Disease - NEUROPATHY IN LEFT FOOT Psychiatric History: Reports: Hx Anxiety - ON MEDS Denies: Hx Panic Disorder - Cancer History Cancer Type, Location and Year: pt has lung nodules- refused biopsies in past, unable to determine Hx Chemotherapy: No - Surgical History Surgery Procedure, Year, and Place: TONSILLECTOMY A CHILD. 07/2014 LEFT FEMUR REPAIR, [facility]. 2015 LAPAROSCOPIC CHOLECYSTECTOMY, [facility]. 2013 BILATERAL CATARACT EXTRACTION WITH IOL IMPLANTS, [facility]. 08/2016 EBUS, [facility]. 09/2016 LEFT INGUINAL HERNIA REPAIR, HEMODIALYSIS CATHETER INSERTION, [facility]. 09/2016 PERTIONEAL DIALYSIS CATHETER INSERTION, [facility]. 03/2017 REVISION OF PERTIONEAL DIALYSIS CATHETER, [facility]. 04/2017 MEDTRONIC PACEMAKER INSERTION, [facility]. 2018 RIGHT BELOW KNEE AMPUTATION, [place], [place]. 2018 CARDIAC STENTS INSERTION, [place], [place] Hx Anesthesia Reactions: No - Immunization History Date of Tetanus Vaccine: Unk Date of Influenza Vaccine: None Infectious Disease History: No Infectious Disease History: Denies: Hx Clostridium Difficile, Hx Hepatitis, Hx Human Immunodeficiency Virus (HIV), Hx of Known/Suspected MRSA, Traveled Outside the in Last 30 Days - Family History Known Family History: Positive: Hypertension, Diabetes - Social History Occupation: Retired Alcohol Use: None Hx Substance Use: No Substance Use Type: Reports: None Hx Tobacco Use: No Smoking Status (MU): Never Smoked Tobacco Type: Cigarettes Amount Used/How Often: "ONLY SMOKED TEN CIGARETTES IN WHOLE LIFE" Length of Time of Smoking/Using Tobacco: 1 YEAR Have You Smoked in the Last Year: No Review of Systems Negative: Fever Negative: Chest Pain Positive: Shortness Of Breath, Cough Positive: no symptoms reported Positive: Decreased ROM - RBKA, Edema - LLE Positive: Anxious All Other Systems Reviewed And Are Negative: Yes Physical Exam - Summary Physical Exam Summary: Appearance: Well appearing, no pain distress. Right leg BKA. Skin: warm, dry, reflects adequate perfusion Head/face: normal Eyes: EOMI, KATHRINE ENT: normal Neck: supple, non-tender Respiratory: creps b/l Cardiovascular: RRR, pulses symmetrical Abdomen: non-tender, soft. Peritoneal dialysis catheter in right abd. Bowel: present Musculoskeletal: Right BKA, strength/ROM intact Neuro: normal, sensory motor intact, A&Ox3 Psych: anxious Triage Information Reviewed: Yes Vital Signs On Initial Exam: Initial Vitals Temp Pulse Resp BP Pulse Ox 97.2 F 77 16 142/71 96 08/16/18 00:46 08/16/18 00:46 08/16/18 00:46 08/16/18 00:46 08/16/18 00:46 Vital Signs Reviewed: Yes Diagnostics - Vital Signs Vital Signs Temp Pulse Resp BP Pulse Ox 08/16/18 01:32 18 08/16/18 01:20 79 94 08/16/18 01:19 72 150/85 93 08/16/18 00:46 97.2 F 77 16 142/71 96 - Laboratory Result Diagrams: 08/16/18 01:31 08/16/18 01:31 Lab Statement: Any lab studies that have been ordered have been reviewed, and results considered in the medical decision making process. - Radiology CXR Xray Interpretation: Positive (See Comments) Radiology Interpretation Completed By: ED Physician - CHF and pleural effusion. Pending official imaging report. - EKG 0138 Cardiac Rate: NL - 70 EKG Rhythm: Sinus Rhythm Ectopy: PVCs EKG Interpretation: RBBB, LBBB, PVCs Course/Dx - Course Course Of Treatment: A 72-year-old M presents to the ED with a CC of worsening anxiety. (+) cough, chronic SOB, LLE edema. (-) CP. PMHx ESRD, dialysis, RBKA, anxiety. Sx alleviation with CBD oil, none with his rx medication for anxiety. A CXR reveals CHF and pleural effusion. An EKG reveals NSR at 70 BPM with RBBB, LBBB, and PVC's. In the ED course, pt was given ativan. Labs obtained and reviewed. - Differential Dx/Clinical Impression Differential Diagnosis/HQI/PQRI: Positive: Other - esrd/chf/pul edema Provider Diagnosis: Pulmonary edema, Pleural effusion, ESRD (end stage renal disease) - Physician Notifications Discussed Care Of Patient With: David Shoemaker Time Discussed With Above Provider: 02:11 Instructed by Provider To: Other - Recommends speaking with assembler finger buffs Dr. Holder. 0345: accepts admission. - Critical Care Time Critical Care Time: 30-74 min Discharge - Sign-Out/Discharge Documenting (check all that apply): Patient Departure - admit - Discharge Plan Condition: Fair Disposition: ADMITTED TO [facility] Referrals: Jose White MD [Primary Care Provider] - - Billing Disposition and Condition Condition: FAIR Disposition: Admitted to [facility] - Attestation Statements Document Initiated by Scribe: Yes Documenting Scribe: Jeffry Mcmahan Provider For Whom Scribe is Documenting (Include Credential): Dr. Alan Mccallum MD Scribe Attestation: Jeffry Blake, scribed for Dr. Alan Mccallum MD on 08/16/18 at 0446. Scribe Documentation Reviewed: Yes Provider Attestation: The documentation as recorded by the Jeffry sterling accurately reflects the service I personally performed and the decisions made by me, Dr. Alan Mccallum MD Consult Consult: [phone] Dr. Francesco Holder MD: will dialyze in the ED, recommends admit.
[2018-08-16 01:49] LABS: ABS Basophils 0 10^3/ul (0-0.2); ABS Eosinophils 0.1 10^3/ul (0-0.6); ABS Lymphocytes 1.2 10^3/ul (1.0-4.8); ABS Monocytes 0.8 10^3/ul (0-0.8); ABS Neutrophils 5.1 10^3/ul (1.5-7.7); ABS Nucleated RBC 0 10^3/ul; Eosinophil % 1.3 % (0-6); Hematocrit 30 % (42-52); Hemoglobin 10.1 g/dl (14.0-18.0); Lymphocyte % 16.3 % (25-47); Mean Corpuscular HGB Conc 33 g/dl (31-36); Mean Corpuscular Hemoglobin 30 pg (27-31); Mean Corpuscular Volume 89 fL (80-94); Mean Platelet Volume 7.7 um3 (7.4-10.4); Nucleated Red Blood Cells % 0.1; Platelet Count 345 10^3/ul (150-450); Red Blood Count 3.41 10^6/ul (4.00-5.40); Red Cell Distribution Width 17 % (10.5-15); White Blood Count 7.2 10^3/ul (3.5-10.8)
[2018-08-16 02:04] LABS: INR 1.05 (0.77-1.02)
[2018-08-16 02:07] LABS: EGFR Non-African American 9.8 (>60)
[2018-08-16] MEDS ORDERED: Furosemide IV* 10 MG/ML 10 ML VIAL (100 MG) IV ONE (02:14)
--- NOTE | 2018-08-16 04:12 | HP ---
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 He had one episode of N/V without black or bloody content, but no chest pain, palpitations , light-headedness, F/C, or cough. He has had the onset of a mild dry cough this evening. He continued to feel worse into tonight and so his brought him in for evaluation revealing a BNP of >6k and CXR consistent with volume overload. He denies missing HD last week and reports compliance with a low sodium diet, but when directly questioned does admit to drinking Coke. 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 Insulin Lispro [Humalog Kwikpen U-100] 0 - 3 unit SUBCUT AC MDD 50 units Timolol 0.5% OPTH.ERLINDA* [Timoptic 0.5% Opth*] 1 drop BOTH EYES BID 05/16/16 amLODIPine TAB* [Norvasc 5 mg TAB*] 10 mg PO BEDTIME 05/16/16 Atorvastatin* [Lipitor 20 MG*] 20 mg PO BEDTIME 04/08/17 Furosemide TAB* [Lasix TAB*] 80 mg PO BID 04/08/17 Sevelamer TAB* [Renvela TAB*] 2,400 mg PO .W /MEALS AND SNACKS 04/08/17 Clopidogrel TAB* [Plavix TAB*] 75 mg PO QAM 05/21/18 Gabapentin CAP(*) [Neurontin 100 mg CAP(*)] 100 mg PO QAM 05/21/18 Insulin Detemir [Levemir Flextouch] 16 - 20 unit SQ BEDTIME 05/21/18 Levothyroxine TAB* [Synthroid 88 MCG TAB*] 88 mcg PO QAM 05/21/18 Vit B Comp C/Folic Acid/Vit D3 [Dialyvite 800 Plus D Wafer] 1 each PO QAM Promethazine TAB* [Phenergan Tab*] 25 mg PO Q6H PRN #12 tab 05/31/18 Aspirin EC TAB* [Ecotrin EC Low Dose 81 MG*] 81 mg PO QAM 06/29/18 Carvedilol TAB* [Coreg TAB*] 12.5 mg PO BID 07/23/18 Hydrocodone/Acetaminophen [Vicodin 5-300 mg] 1 tab PO Q4HR PRN 08/03/18 Allergies labetalol Allergy (Mild, Verified 08/04/18 10:50) Hallucinations PSurgHx new PD catheter placement 07/28/2018 new HD fistula RUE 08/04/2018 R anterior chest tunnelled catheter R BKA SocHx: no tobacco, alcohol, or recreational drugs; disabled, lives with his ; lives part-time in [place]; full code status FamHx: reviewed and non-contributory to presentation ROS: chronic cough at its baseline; otherwise as above or reviewed and negative Constitutional: NAD, normally developed, overweight white male vitals: Vital Signs Temp 36.2 C 08/16/18 00:46 Pulse 79 08/16/18 01:20 Resp 18 08/16/18 01:32 BP 150/85 08/16/18 01:19 Pulse Ox 94 08/16/18 01:20 Intake & Output 08/15/18 08/15/18 08/16/18 11:59 23:59 11:59 Weight 86.636 kg HEENM: atraumatic; hearing: clinically mildly decreased; oropharynx: clear, mucosa moist Neck: soft tissue: no nuchal rigidity; thyroid: normal Pulmonary: mildly coarse B, poor aeration, no accessory muscle use CV: RR/RR, normal S1S2, no carotid bruit, no jugular venous distention, 1+ L DP/ PT, 1+ LLE edema Abdominal: soft, non-distended, non-tender, no rebound/guarding/rigidity, normoactive bowel sounds, no hepatosplenomegaly or masses, no costovertebral angle tenderness; PD catheter current & former site appear to be healing well, no erythema/warmth/induration/discharge Musculoskeletal: general: grossly intact Integumental: RUE fistula site w/ tu in place, PD site w/ clean/dry dressing Psychiatric orientation: AA&O to PPS affect: fatigued mood: cooperative eye contact: absent content: reliable responses: mildly slowed insight: fair Testing: Lab Results 08/16/18 08/16/18 08/16/18 Range/Units 01:31 01:31 01:31 WBC 7.2 (3.5-10.8) 10^3/ul RBC 3.41 L (4.00-5.40) 10^6/ul Hgb 10.1 L (14.0-18.0) g/dl Hct 30 L (42-52) % MCV 89 (80-94) fL MCH 30 (27-31) pg MCHC 33 (31-36) g/dl RDW 17 H (10.5-15) % Plt Count 345 (150-450) 10^3/ul MPV 7.7 (7.4-10.4) um3 Neut % (Auto) 71.0 (38-83) % Lymph % (Auto) 16.3 L (25-47) % Wise % (Auto) 10.8 H (0-7) % Eos % (Auto) 1.3 (0-6) % Baso % (Auto) 0.6 (0-2) % Absolute Neuts (auto) 5.1 (1.5-7.7) 10^3/ul Absolute Lymphs (auto) 1.2 (1.0-4.8) 10^3/ul Absolute Monos (auto) 0.8 (0-0.8) 10^3/ul Absolute Eos (auto) 0.1 (0-0.6) 10^3/ul Absolute Basos (auto) 0 (0-0.2) 10^3/ul Absolute Nucleated RBC 0 10^3/ul Nucleated RBC % 0.1 INR (Anticoag Therapy) 1.05 H (0.77-1.02) APTT 30.7 (26.0-36.3) seconds Sodium 135 (135-145) mmol/L Potassium 4.4 (3.5-5.0) mmol/L Chloride 98 L (101-111) mmol/L Carbon Dioxide 29 (22-32) mmol/L Anion Gap 8 (2-11) mmol/L BUN 19 (6-24) mg/dL Creatinine 5.73 H (0.67-1.17) mg/dL Est GFR ( Amer) 11.9 (>60) Est GFR (Non-Af Amer) 9.8 (>60) BUN/Creatinine Ratio 3.3 L (8-20) Glucose 171 H (70-100) mg/dL Lactic Acid (0.5-2.0) mmol/L Calcium 9.2 (8.6-10.3) mg/dL Total Bilirubin 0.50 (0.2-1.0) mg/dL AST 11 L (13-39) U/L ALT 4 L (7-52) U/L Alkaline Phosphatase 83 (34-104) U/L Troponin I 0.04 H* (<0.04) ng/mL B-Natriuretic Peptide ( - 100) pg/mL Total Protein 6.4 (6.4-8.9) g/dL Albumin 3.2 (3.2-5.2) g/dL Globulin 3.2 (2-4) g/dL Albumin/Globulin Ratio 1.0 (1-3) 08/16/18 08/16/18 Range/Units 01:31 01:31 WBC (3.5-10.8) 10^3/ul RBC (4.00-5.40) 10^6/ul Hgb (14.0-18.0) g/dl Hct (42-52) % MCV (80-94) fL MCH (27-31) pg MCHC (31-36) g/dl RDW (10.5-15) % Plt Count (150-450) 10^3/ul MPV (7.4-10.4) um3 Neut % (Auto) (38-83) % Lymph % (Auto) (25-47) % Wise % (Auto) (0-7) % Eos % (Auto) (0-6) % Baso % (Auto) (0-2) % Absolute Neuts (auto) (1.5-7.7) 10^3/ul Absolute Lymphs (auto) (1.0-4.8) 10^3/ul Absolute Monos (auto) (0-0.8) 10^3/ul Absolute Eos (auto) (0-0.6) 10^3/ul Absolute Basos (auto) (0-0.2) 10^3/ul Absolute Nucleated RBC 10^3/ul Nucleated RBC % INR (Anticoag Therapy) (0.77-1.02) APTT (26.0-36.3) seconds Sodium (135-145) mmol/L Potassium (3.5-5.0) mmol/L Chloride (101-111) mmol/L Carbon Dioxide (22-32) mmol/L Anion Gap (2-11) mmol/L BUN (6-24) mg/dL Creatinine (0.67-1.17) mg/dL Est GFR ( Amer) (>60) Est GFR (Non-Af Amer) (>60) BUN/Creatinine Ratio (8-20) Glucose (70-100) mg/dL Lactic Acid 1.0 (0.5-2.0) mmol/L Calcium (8.6-10.3) mg/dL Total Bilirubin (0.2-1.0) mg/dL AST (13-39) U/L ALT (7-52) U/L Alkaline Phosphatase (34-104) U/L Troponin I (<0.04) ng/mL B-Natriuretic Peptide 6765 H ( - 100) pg/mL Total Protein (6.4-8.9) g/dL Albumin (3.2-5.2) g/dL Globulin (2-4) g/dL Albumin/Globulin Ratio (1-3) ECG, personally reviewed: LBBB 2nd atrial sensing/v-pacing w/ PVCs pCXR, personally reviewed: volume overload Impression: 72M HX ESRD-PD, DM2, COPD presents with volume overload DIAGNOSIS & PLAN Primary ESRD-HD w/ volume overload : Loretta Holder MD nephrology consulted by ED, requests admission for inpatient dialysis : renal diet : supplemental oxygen Secondary DM2 w/ retinopathy, neuropathy, nephropathy : insulin carb ratio diet : basal/bolus/correctional insulin : update A1c 7.1 04/2018 COPD : albuterol nebs Q2H PRN : continue outpatient regimen when reconciled HX L MCA CVA : continue aspirin legally blind : no acute issue HTN : review meds once reconciled Admission Rational: observation for N/V & failure to thrive DVTp: heparin SQ & SCDs Code Status: full HCP:
[2018-08-16] MEDS ORDERED: Ondansetron ODT TAB* 4 MG PO PRN (05:56)
[2018-08-16] MEDS ORDERED: Acetaminophen TAB* 325 MG PO PRN (05:56)
[2018-08-16] MEDS ORDERED: Albuterol 2.5 MG/3 ML NEB.SOL* (0.083%) INH PRN (06:15)
[2018-08-16 06:30] LABS: Hematocrit 31 % (42-52); Hemoglobin 10.3 g/dl (14.0-18.0); Mean Corpuscular HGB Conc 33 g/dl (31-36); Mean Corpuscular Hemoglobin 30 pg (27-31); Mean Corpuscular Volume 89 fL (80-94); Mean Platelet Volume 7.4 um3 (7.4-10.4); Platelet Count 370 10^3/ul (150-450); Red Blood Count 3.48 10^6/ul (4.00-5.40); Red Cell Distribution Width 17 % (10.5-15); White Blood Count 8.3 10^3/ul (3.5-10.8)
[2018-08-16 06:52] LABS: EGFR Non-African American 9.7 (>60)
--- NOTE | 2018-08-16 08:28 | PN ---
Subjective - Subjective Reason for Note: Progress Note History: ICU Critical Care - Internal medicine. History from patient and from Cornelia Lee (signicant other). He is a primary care patient at my office. He has T2D insulin dependent, essential hypertension , CAD (post [place]) and end stage renal failure on HD. His last HD was Thursday ( today Thursday). For 2 days he has had dyspnea at rest, orthopnea, and paroxysmal nocturnal dyspnea with severe associated anxiety. He has had a slight cough, and this has not been productive. He has had more edema than usual. He denies chest pain, palpitations, nausea, vomiting or diaphoresis. Cornelia has been able to help him transfer (he has an amputated leg). He is feeling improved with oxygen, though he remains short of breath. Active Problems: Active Problems Acute combined systolic (congestive) and diastolic (congestive) heart failure ( Acute) I50.41 Hemodialysis patient (Acute) Z99.2 Pleural effusion, bilateral (Acute) J90 Volume overload (Acute) E87.70 Bundle branch block (Chronic) I45.4 Cardiac pacemaker in situ (Chronic) Z95.0 Essential hypertension (Chronic) I10 History of CVA (cerebrovascular accident) (Chronic) Z86.73 History of right below knee amputation (Chronic) Z89.511 Hyperlipidemia (Chronic) E78.5 Hypothyroidism (acquired) (Chronic) E03.9 Mass of right lung (Chronic) R91.8 S/P cholecystectomy (Chronic 12/31/14) Z90.49 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) E11.22 , N18.5 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 Current Medications: Current Medications Acetaminophen (Tylenol Tab*) 650 mg PO Q6H PRN PRN Reason: FEVER/PAIN Albuterol (Ventolin 2.5 Mg/3 Ml Neb.Erlinda*) 2.5 mg INH Q2H PRN PRN Reason: SOB/WHEEZING Aspirin (Aspirin Ec Tab*) 81 mg PO QAM VICTOR M Heparin Sodium (Porcine) (Heparin Vial(*)) 5,000 units SUBCUT Q8HR VICTOR M Insulin Glargine (Lantus(*)) 17 units 0.2 units/kg (17 units) SUBCUT 2100 VICTOR M Insulin Human Lispro (Humalog*) 0 units SUBCUT AC VICTOR M; Protocol Insulin Human Lispro (Humalog*) 0 units SUBCUT ACHS VICTOR M; Protocol Ondansetron HCl (Zofran Odt Tab*) 4 mg PO Q6H PRN PRN Reason: n/v - Review of Systems Constitutional Symptoms: Yes: Weight Gain, Fatigue, No: Fever, Night Sweats Dermatology: Rash: No Pulmonary: Positive: Cough, Respiratory Distress, Shortness of Breath, Exercise Intolerance Negative: Sputum, Hemoptysis, Wheezing, Home Oxygen Cardiology: Positive: Shortness of Breath, Swelling of Ankles, Proximal NocturnalDyspnea, Orthopnoea Negative: Chest Pain, Palpitations, Faintness Gastroenterology: Negative: Abdominal Pain, Nausea, Vomiting, Difficulty Swallowing, Constipation - BM yesterday, Haematemesis, Melena Home Medications: Home Medications Medication Instructions Recorded Confirmed Type Insulin Lispro [Humalog Kwikpen 0 - 3 unit SUBCUT AC MDD 50 units 05/16/1608/04 History U-100] Timolol 0.5% OPTH.ERLINDA* [Timoptic 1 drop BOTH EYES BID 05/16/16 08/04/18 History 0.5% Opth*] amLODIPine TAB* [Norvasc 5 mg TAB*] 10 mg PO BEDTIME 05/16/16 08/04/18 History Atorvastatin* [Lipitor 20 MG*] 20 mg PO BEDTIME 04/08/17 08/04/18 History Furosemide TAB* [Lasix TAB*] 80 mg PO BID 04/08/17 08/04/18 History Sevelamer TAB* [Renvela TAB*] 2,400 mg PO .W /MEALS AND SNACKS 04/08/17 History Clopidogrel TAB* [Plavix TAB*] 75 mg PO QAM 05/21/18 08/04/18 History Gabapentin CAP(*) [Neurontin 100 100 mg PO QAM 05/21/18 08/04/18 History mg CAP(*)] Insulin Detemir [Levemir Flextouch] 16 - 20 unit SQ BEDTIME 05/21/18 08/04/18 History Levothyroxine TAB* [Synthroid 88 88 mcg PO QAM 05/21/18 08/04/18 History MCG TAB*] Vit B Comp C/Folic Acid/Vit D3 1 each PO QAM 05/21/18 08/04/18 History [Dialyvite 800 Plus D Wafer] Promethazine TAB* [Phenergan Tab*] 25 mg PO Q6H PRN #12 tab 05/31/18 08/04/18 Rx Aspirin EC TAB* [Ecotrin EC Low 81 mg PO QAM 06/29/18 08/04/18 History Dose 81 MG*] Carvedilol TAB* [Coreg TAB*] 12.5 mg PO BID 07/23/18 08/04/18 History Hydrocodone/Acetaminophen [Vicodin 1 tab PO Q4HR PRN 08/03/18 08/04/18 History 5-300 mg] Allergies: Allergies Allergy/AdvReac Type Severity Reaction Status Date / Time labetalol Allergy Mild Hallucinati Verified 08/04/18 10:50 ons Objective - Vital Signs Vital Signs: Vital Signs 08/16/18 08/16/18 08/16/18 00:46 01:19 01:20 Temperature 97.2 F Pulse Rate 77 72 79 Respiratory 16 Rate Blood Pressure 142/71 150/85 (mmHg) O2 Sat by Pulse 96 93 94 Oximetry 08/16/18 08/16/18 08/16/18 01:32 01:49 02:02 Temperature Pulse Rate 73 72 Respiratory 18 Rate Blood Pressure 156/75 (mmHg) O2 Sat by Pulse 93 99 Oximetry 08/16/18 08/16/18 08/16/18 02:19 02:46 02:49 Temperature Pulse Rate 77 Respiratory Rate Blood Pressure 162/82 162/82 164/84 (mmHg) O2 Sat by Pulse 97 Oximetry 08/16/18 08/16/18 08/16/18 03:19 03:49 04:19 Temperature Pulse Rate Respiratory Rate Blood Pressure 171/104 168/73 158/67 (mmHg) O2 Sat by Pulse Oximetry 08/16/18 08/16/18 08/16/18 04:49 05:19 06:10 Temperature Pulse Rate 74 Respiratory Rate Blood Pressure 157/124 169/78 169/72 (mmHg) O2 Sat by Pulse 96 Oximetry 08/16/18 08/16/18 08/16/18 06:19 06:49 07:25 Temperature 98.4 F Pulse Rate 74 76 Respiratory 34 Rate Blood Pressure 158/103 151/99 172/93 (mmHg) O2 Sat by Pulse 97 93 Oximetry 08/16/18 08/16/18 08/16/18 07:32 07:33 07:44 Temperature 98.4 F Pulse Rate Respiratory 10 20 Rate Blood Pressure 172/93 (mmHg) O2 Sat by Pulse Oximetry 08/16/18 08:00 Temperature Pulse Rate 77 Respiratory 9 Rate Blood Pressure (mmHg) O2 Sat by Pulse 93 Oximetry - Intake and Output Intake and Output: Intake & Output 08/13/18 08/14/18 08/15/18 08/16/18 11:59 11:59 11:59 11:59 Intake Total 0 Output Total 0 Balance 0 Weight 172 lb 8 oz Intake: Oral 0 Output: Urine 0 ADLs: Meal Record Start: 08/16/18 06: 41 Freq: ,,18 Status: Active Protocol: Created 08/16/18 06:41 System (Rec: 08/16/18 06:41 System [id number]) Intake and Output Start: 08/16/18 00: 50 Freq: Status: Active Protocol: Created 08/16/18 00:50 System (Rec: 08/16/18 00:50 System [id number]) Intake and Output Start: 08/16/18 06: 41 Freq: Q1HR Status: Active Protocol: Created 08/16/18 06:41 System (Rec: 08/16/18 06:41 System [id number]) Document 08/16/18 07:25 [id number] (Rec: 08/16/18 07:54 [id number]) Document 08/16/18 08:00 [id number] (Rec: 08/16/18 08:17 [id number]) - Physical Exam General Physical Exam Comment: He is fatigued. He has tachypnea and a dry cough. At present he is not in acute distress. He is perfused and warm peripheries. General: No Cyanosis, Yes Anemia, No Jaundice, No Clubbing Eye Exam: bilateral: EOMI Skin: Normal: Rash Lungs and Chest: Yes: Chest Expansion Full, Chest Expansion Symetrica, Crackles - fine crackles bases, Respiratory Distress. No: Percussion Note Resonant - Dull left base, Vessicular Breath Sounds - diminished bases, Wheezes, Use of Accessory Muscles Heart Rate and Rhythm: Irregular Additional Cardiovascular: Yes: Normal Heart Sounds, Pedal Edema - trace. No: Heart Murmur, Carotid Bruits Abdominal Exam: Yes: Soft, Bowel Sounds Present. No: Distention, Abdominal Mass , Abdominal Tenderness - Extremities Cranial Nerves II-XII Intact: Yes Limbs: Normal Power, Normal Tone - Neuro Orientation: A/O x3 Psychiatric: Anxious - and fatigued Speech: Normal Results - Results Lab Results: Laboratory Results - last 24 hr 08/16/18 08/16/18 08/16/18 01:31 01:31 01:31 WBC 7.2 RBC 3.41 L Hgb 10.1 L Hct 30 L MCV 89 MCH 30 MCHC 33 RDW 17 H Plt Count 345 MPV 7.7 Neut % (Auto) 71.0 Lymph % (Auto) 16.3 L [place] % (Auto) 10.8 H Eos % (Auto) 1.3 Baso % (Auto) 0.6 Absolute Neuts (auto) 5.1 Absolute Lymphs (auto) 1.2 Absolute Monos (auto) 0.8 Absolute Eos (auto) 0.1 Absolute Basos (auto) 0 Absolute Nucleated RBC 0 Nucleated RBC % 0.1 INR (Anticoag Therapy) 1.05 H APTT 30.7 Sodium 135 Potassium 4.4 Chloride 98 L Carbon Dioxide 29 Anion Gap 8 BUN 19 Creatinine 5.73 H Est GFR ( Amer) 11.9 Est GFR (Non-Af Amer) 9.8 BUN/Creatinine Ratio 3.3 L Glucose 171 H POC Glucose (mg/dL) Lactic Acid Calcium 9.2 Phosphorus Magnesium Total Bilirubin 0.50 AST 11 L ALT 4 L Alkaline Phosphatase 83 Troponin I 0.04 H* B-Natriuretic Peptide Total Protein 6.4 Albumin 3.2 Globulin 3.2 Albumin/Globulin Ratio 1.0 08/16/18 08/16/18 08/16/18 01:31 01:31 06:17 WBC 8.3 RBC 3.48 L Hgb 10.3 L Hct 31 L MCV 89 MCH 30 MCHC 33 RDW 17 H Plt Count 370 MPV 7.4 Neut % (Auto) Lymph % (Auto) [place] % (Auto) Eos % (Auto) Baso % (Auto) Absolute Neuts (auto) Absolute Lymphs (auto) Absolute Monos (auto) Absolute Eos (auto) Absolute Basos (auto) Absolute Nucleated RBC Nucleated RBC % INR (Anticoag Therapy) APTT Sodium Potassium Chloride Carbon Dioxide Anion Gap BUN Creatinine Est GFR ( Amer) Est GFR (Non-Af Amer) BUN/Creatinine Ratio Glucose POC Glucose (mg/dL) Lactic Acid 1.0 Calcium Phosphorus Magnesium Total Bilirubin AST ALT Alkaline Phosphatase Troponin I B-Natriuretic Peptide 6765 H Total Protein Albumin Globulin Albumin/Globulin Ratio 08/16/18 08/16/18 06:17 07:51 WBC RBC Hgb Hct MCV MCH MCHC RDW Plt Count MPV Neut % (Auto) Lymph % (Auto) [place] % (Auto) Eos % (Auto) Baso % (Auto) Absolute Neuts (auto) Absolute Lymphs (auto) Absolute Monos (auto) Absolute Eos (auto) Absolute Basos (auto) Absolute Nucleated RBC Nucleated RBC % INR (Anticoag Therapy) APTT Sodium 136 Potassium 4.4 Chloride 98 L Carbon Dioxide 27 Anion Gap 11 BUN 20 Creatinine 5.80 H Est GFR ( Amer) 11.7 Est GFR (Non-Af Amer) 9.7 BUN/Creatinine Ratio 3.4 L Glucose 137 H POC Glucose (mg/dL) 144 H Lactic Acid Calcium 9.5 Phosphorus 4.2 Magnesium 1.9 Total Bilirubin AST ALT Alkaline Phosphatase Troponin I 0.04 H* B-Natriuretic Peptide Total Protein Albumin Globulin Albumin/Globulin Ratio Radiology Results: Patient Name: SHANTE MANZO Medical Record#: [id number] Ordering Physician: Alan Mccallum MD Acct.#: [id number] : 1945 Age: 72 Sex: M Location: [facility] Exam Date: 08/16/18116 ADM Status: ADM IN Order Information: CHEST AP PORTABLE Accession Number: [id number] CPT: 71253 INDICATION: Anxiety COMPARISON: Most recent comparison chest x-ray June 29, 2018 TECHNIQUE: Single AP portable view of the chest was obtained. FINDINGS: Image quality is compromised due to the relative inferiority of a portable chest x-ray. Again seen is a left upper chest cardiac pacemaker with 2 leads overlying the heart. There is a right internal jugular vein tunneled hemodialysis catheter with the tip terminating over the cavoatrial junction. There is a mild degree of cardiomegaly. Linear densities obscuring the bilateral lower lungs are consistent with pleural effusions. The pulmonary vasculature is engorged and indistinct. There is pleural-based density overlying the lateral mid-level left lung. Visualized bones are normal for the patient's age. IMPRESSION: Chest x-ray findings are consistent with pulmonary edema with left worse than right bilateral pleural effusions. R1 <Electronically signed by Marcus Morris MD in OV> 08/16/18827 Dictated By: Marcus Morris MD Dictated Date/Time: 08/16/18827 Transcribed Date/Time: 08/16/18825 Copy to: CC:Jose White MD; Alan Mccallum MD; David Shoemaker MD; Francesco Holder MD Imaging - [facility] [address] [place] [address] This report is only to be considered final once signed by the Provider(s) as displayed in the "<Electronically Signed by >" field (s). Absence of a signature indicates the report is in a draft status and still needs to be finalized. In the event this document was created by someone other than the signing Provider, the individual initiating the document will be listed in the "Entered by:" or "Dictated by:" crouch. 1 of 2 EKG Report: 70 ND 183 QTc 4563 QRS axis - 84. sinus rhythm with multiple VEs. Broad QRS complexes - consistent with LBBB, but with positive R waves V1 and V2 that look more like RBBB. He has a pacemaker. Assessment - Problem List Assessment: Patient Problems Acute combined systolic (congestive) and diastolic (congestive) heart failure ( Acute) Hemodialysis patient (Acute) Pleural effusion, bilateral (Acute) Volume overload (Acute) Bundle branch block (Chronic) Cardiac pacemaker in situ (Chronic) Essential hypertension (Chronic) History of CVA (cerebrovascular accident) (Chronic) History of right below knee amputation (Chronic) Hyperlipidemia (Chronic) Hypothyroidism (acquired) (Chronic) Mass of right lung (Chronic) S/P cholecystectomy (Chronic 12/31/14) 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) 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 His CXR shows bilateral pleural effusions and pulmonary edema. He looks as though he has more volume on board than usual. His troponin I readings are 0.04. He has a poor LV from a previous [place] and also from diastolic dysfunction. His BNP is markedly elevated. He likely has little reserve when it comes to volume overload and has to be kept on the dry side by HD. Hemodialysis patient (Acute) Volume overload (Acute) He is due for dialysis today and requires more volume to be taken off Bundle branch block (Chronic)Cardiac pacemaker in situ (Chronic) He has a mixed pattern on the EKG - it isn't clear to me if this is due to paced beats or due to an aberrantly conducted RBBB Essential hypertension (Chronic) His BP is running a little high at present. This may be due to anxiety or to volume overload. 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 I spoke to the patient and to Cornelia Lee, his significant other/caregiver. I explained that he has heart failure and that there is likely a contribution of volume overload. I discussed resuscitation status - he wants to be full code - but would only have a brief trial of intubation following CPR. He doesn' t want a prolonged time on a respirator.
--- NOTE | 2018-08-16 08:31 | RAD ---
INDICATION: Anxiety COMPARISON: Most recent comparison chest x-ray June 29, 2018 TECHNIQUE: Single AP portable view of the chest was obtained. FINDINGS: Image quality is compromised due to the relative inferiority of a portable chest x-ray. Again seen is a left upper chest cardiac pacemaker with 2 leads overlying the heart. There is a right internal jugular vein tunneled hemodialysis catheter with the tip terminating over the cavoatrial junction. There is a mild degree of cardiomegaly. Linear densities obscuring the bilateral lower lungs are consistent with pleural effusions. The pulmonary vasculature is engorged and indistinct. There is pleural-based density overlying the lateral mid-level left lung. Visualized bones are normal for the patient's age. IMPRESSION: Chest x-ray findings are consistent with pulmonary edema with left worse than right bilateral pleural effusions. R1
[2018-08-16] MEDS ORDERED: Temazepam CAP* 15 MG PO PRN (08:58)
[2018-08-16] MEDS: Insulin LISPRO* 1 UNITS UNIT SUBCUT SCH ×7 (09:12→21:18)
[2018-08-16] MEDS: ALPRAZolam TAB* 0.5 MG PO PRN ×3 (11:06→21:36)
[2018-08-16] MEDS: Clopidogrel TAB* 75 MG PO SCH (11:06)
[2018-08-16] MEDS: Aspirin EC TAB* 81 MG TAB.EC PO SCH (11:07)
[2018-08-16] MEDS: Heparin VIAL(*) 5000 UNITS/ML VIAL (FIVE THOUSAND) SUBCUT SCH ×2 (13:55→21:18)
--- NOTE | 2018-08-16 14:29 | ECHO ---
Patient: SHANTE MANZO [facility] Rec#: [id number] : 1945 Date: 08/16/2018 Age: 72y Height: 175.26 cm / 69.0 in Weight: 78.02 kg / 172.0 lbs Sex: M BSA: 1.94 Room#: ICU7 Admit Date#: 08/16/2018 Type: Inpatient Referring: Jose Whtie MD Reading: Gary Colunga MD Lead Qa Analyst: Neeru Arana [facility] CC: Francesco Holder MD Transthoracic Echocardiogram Indication: CHF BP: 164/75 HR: 74 Rhythm: Paced Findings History: ESRD with dialysis, s/p pacer insert,DM,prior CVA,HLD,COPD,HTN. Technical Comments: The study quality is good. Completed at 1120. Left Ventricle: The left ventricular chamber size is normal. Moderate concentric left ventricular hypertrophy is observed. Left ventricular systolic function is at the lower limits of normal. The estimated ejection fraction is 50-55%. There is abnormal ventricular septal wall motion consistent with right ventricular pacemaker. Abnormal left ventricular diastolic function is observed. Left Atrium: The left atrium is moderate to severely dilated. Right Ventricle: The right ventricular cavity size is normal. The right ventricular global systolic function is normal. The septum has abnormal paradoxical motion consistent with RV pacemaker. A pacemaker wire is visualized in the right ventricle. Right Atrium: The right atrial cavity size is normal. A pacemaker wire is visualized in the right atrium. Aortic Valve: The aortic valve is trileaflet. The aortic valve leaflets are mildly thickened. There is evidence of aortic sclerosis without stenosis. There is mild aortic regurgitation. There is no evidence of aortic stenosis. Mitral Valve: There is mitral annular calcification. The mitral valve leaflets are mildly thickened. There is moderate mitral regurgitation. There is no evidence of mitral stenosis. Tricuspid Valve: The tricuspid valve leaflets are normal. There is moderate tricuspid regurgitation. There is evidence of severe pulmonary hypertension. There is no tricuspid stenosis. Pulmonic Valve: The pulmonic valve appears normal. There is a trace pulmonic regurgitation. There is no pulmonic stenosis. Pericardium: A pericardial fat pad is visualized. Aorta: There is mild dilatation of the ascending aorta. There is no dilatation of the aortic arch. There is no dilation of the aortic root. Pulmonary Artery: The main pulmonary artery appears normal. Venous: The inferior vena cava is dilated. There is less than 50% respiratory change in the inferior vena cava dimension. Conclusions Moderate concentric left ventricular hypertrophy is observed. Left ventricular systolic function is at the lower limits of normal. The estimated ejection fraction is 50-55%. There is abnormal ventricular septal wall motion consistent with right ventricular pacemaker. The left atrium is moderate to severely dilated. A pacemaker wire is visualized in the right ventricle. There is evidence of aortic sclerosis without stenosis. There is mild aortic regurgitation. There is moderate mitral regurgitation. There is moderate tricuspid regurgitation. There is evidence of severe pulmonary hypertension. A pericardial fat pad is visualized. There is mild dilatation of the ascending aorta. Compared to study of 04/15/17, the LV function is slightly lower. The MOderate MR and TR and the severe pulm HTN are new Measurements Name Value Normal Range RVIDd (AP) 2D 3.1 cm (0.9 - 2.6) RVDdMajor (2D) 3.4 cm (2.2 - 4.4) RAd ISD 4CH 5.4 cm (3.4 - 4.9) RA (A4C)W 4.6 cm (2.9 - 4.6) IVSd (2D) 1.7 cm (0.6 - 1) LVPWd (2D) 1.1 cm (0.6 - 1) LVIDd (2D) 5.3 cm (3.6 - 5.4) LVIDs (2D) 3.6 cm - LV FS (2D) 32 % (25 - 45) Aortic Annulus 2 cm (1.4 - 2.6) Ao root diameter (2D) 3.2 cm (2.1 - 3.5) Ascending Ao 3.6 cm (2.1 - 3.4) Aortic arch 3.1 cm (1.8 - 3.4) Descending Ao 0.5 cm - LA dimension (AP) 2D 4.9 cm (2.3 - 3.8) LAd ISD 4CH 5.7 cm (2.9 - 5.3) LA ISD 4CH W 4.9 cm (2.5 - 4.5) Name Value Normal Range LA ESV SP 4CH (A/L) 82 ml - LA ESV SP 2CH (A/L) 54 ml - LA ESV BP (A/L) 71 ml - LA ESV BP (A/L) index 36.46 ml/m2 - LA ESV SP 4CH (MOD) 73 ml - LA ESV SP 2CH (MOD) 49 ml - Name Value Normal Range MV E-wave Vmax 1 m/sec - MV deceleration time 156 msec - MV A-wave Vmax 1.4 m/sec - MV E:A ratio 0.7 ratio - LV septal e' Vmax 0.11 m/sec - LV lateral e' Vmax 0.14 m/sec - LV E:e' septal ratio 9.09 ratio - LV E:e' lateral ratio 7.14 ratio - Name Value Normal Range AV Vmax 1.4 m/sec - AV VTI 28.2 cm - AV peak gradient 7.54 mmHg - AV mean gradient 4.13 mmHg - LVOT Vmax 0.8 m/sec - LVOT VTI 18.7 cm - LVOT peak gradient 2.88 mmHg - LVOT mean gradient 1.48 mmHg - AR PHT 486 msec - AR peak gradient 42.85 mmHg - Name Value Normal Range TR Vmax 3.6 m/sec - TR peak gradient 50 mmHg - RAP 15 mmHg - RVSP 65 mmHg - IVC diameter 2.8 cm - Name Value Normal Range PV Vmax 0.6 m/sec - PV peak gradient 1.57 mmHg -
[2018-08-16] MEDS ORDERED: Heparin DIALYSIS ONLY(*) 1,000 UNITS/ML VIAL DIALYSIS ONE (15:00)
[2018-08-16] MEDS ORDERED: ALPRAZolam TAB* 0.5 MG ONE (15:32)
[2018-08-16] MEDS ORDERED: ALPRAZolam TAB* 0.5 MG PO ONE (16:00)
[2018-08-16] MEDS: Insulin GLARGINE(*) 1 UNITS UNIT SUBCUT SCH (21:18)
[2018-08-16] MEDS: Atorvastatin* 20 MG TAB PO SCH (21:18)
[2018-08-16] MEDS: Carvedilol TAB* 6.25 MG PO SCH (21:18)
[2018-08-17 05:24] LABS: EGFR Non-African American 14.7 (>60)
[2018-08-17 06:05] LABS: ABS Basophils 0 10^3/ul (0-0.2); ABS Neutrophils 4.3 10^3/ul (1.5-7.7); ABS Neutrophils 4.4 10^3/ul (1.5-7.7); Hematocrit 26 % (42-52); Hemoglobin 8.6 g/dl (14.0-18.0); Mean Corpuscular HGB Conc 34 g/dl (31-36); Mean Corpuscular Hemoglobin 30 pg (27-31); Mean Corpuscular Volume 89 fL (80-94); Monocytes % 10 % (0-7); Platelet Count 381 10^3/ul (150-450); Red Blood Count 2.87 10^6/ul (4.00-5.40); Red Cell Distribution Width 17 % (10.5-15); White Blood Count 7.2 10^3/ul (3.5-10.8)
[2018-08-17] MEDS: Heparin VIAL(*) 5000 UNITS/ML VIAL (FIVE THOUSAND) SUBCUT SCH ×3 (06:14→20:37)
[2018-08-17] MEDS: Levothyroxine TAB* 75 MCG TAB PO SCH (06:14)
[2018-08-17] MEDS: Insulin LISPRO* 1 UNITS UNIT SUBCUT SCH ×7 (08:08→20:26)
--- NOTE | 2018-08-17 08:18 | PN ---
Subjective - Subjective Reason for Note: Progress Note History: He was anxious during hemodialysis yesterday and received extra benzodiazepine. He also required sedation for anxiety overnight. His breathing is improved this morning. He has difficulty distinguishing anxiety and dyspnea. He denies chest pain or palpitations. He has an appetite. He has had no fevers, sweats. 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 Essential hypertension (Chronic) I10 History of CVA (cerebrovascular accident) (Chronic) Z86.73 Hyperlipidemia (Chronic) E78.5 S/P cholecystectomy (Chronic 12/31/14) Z90.49 Anxiety (Acute) F41.9 Mitral regurgitation (Acute) Pulmonary hypertension (Acute) I27.20 Current Medications: Current Medications Acetaminophen (Tylenol Tab*) 650 mg PO Q6H PRN PRN Reason: FEVER/PAIN Albuterol (Ventolin 2.5 Mg/3 Ml Neb.Erlinda*) 2.5 mg INH Q2H PRN PRN Reason: SOB/WHEEZING Alprazolam (Xanax Tab*) 0.5 mg PO Q6H PRN PRN Reason: ANXIETY Last Admin: 08/16/18 21:36 Dose: 0.5 mg Aspirin (Aspirin Ec Tab*) 81 mg PO QAM [facility] Last Admin: 08/16/18 11:07 Dose: 81 mg Atorvastatin Calcium (Lipitor*) 20 mg PO 2100 [facility] Last Admin: 08/16/18 21:18 Dose: 20 mg Carvedilol (Coreg Tab*) 12.5 mg PO BID [facility] Last Admin: 08/16/18 21:18 Dose: 12.5 mg Clopidogrel Bisulfate (Plavix Tab*) 75 mg PO DAILY [facility] Last Admin: 08/16/18 11:06 Dose: 75 mg Heparin Sodium (Porcine) (Heparin Vial(*)) 5,000 units SUBCUT Q8HR [facility] Last Admin: 08/17/18 06:14 Dose: 5,000 units Insulin Glargine (Lantus(*)) 17 units 0.2 units/kg (17 units) SUBCUT 2100 [facility] Last Admin: 08/16/18 21:18 Dose: 17 unit Insulin Human Lispro (Humalog*) 0 units SUBCUT AC [facility]; Protocol Last Admin: 08/16/18 17:38 Dose: 5 unit Insulin Human Lispro (Humalog*) 0 units SUBCUT ACHS [facility]; Protocol Last Admin: 08/17/18 08:08 Dose: Not Given Levothyroxine Sodium (Synthroid Tab*) 75 mcg PO DAILY@0600 [facility] Last Admin: 08/17/18 06:14 Dose: 75 mcg Ondansetron HCl (Zofran Odt Tab*) 4 mg PO Q6H PRN PRN Reason: n/v Temazepam (Restoril Cap*) 15 mg PO BEDTIME PRN PRN Reason: INSOMNIA Last Admin: 08/17/18 02:13 Dose: 15 mg Home Medications: Home Medications Medication Instructions Recorded Confirmed Type Insulin Lispro [Humalog Kwikpen 0 - 3 unit SUBCUT AC MDD 50 units 05/16/1608/04 History U-100] Timolol 0.5% OPTH.ERLINDA* [Timoptic 1 drop BOTH EYES BID 05/16/16 08/04/18 History 0.5% Opth*] amLODIPine TAB* [Norvasc 5 mg TAB*] 10 mg PO BEDTIME 05/16/16 08/04/18 History Atorvastatin* [Lipitor 20 MG*] 20 mg PO BEDTIME 04/08/17 08/04/18 History Furosemide TAB* [Lasix TAB*] 80 mg PO BID 04/08/17 08/04/18 History Sevelamer TAB* [Renvela TAB*] 2,400 mg PO .W /MEALS AND SNACKS 04/08/17 History Clopidogrel TAB* [Plavix TAB*] 75 mg PO QAM 05/21/18 08/04/18 History Gabapentin CAP(*) [Neurontin 100 100 mg PO QAM 05/21/18 08/04/18 History mg CAP(*)] Insulin Detemir [Levemir Flextouch] 16 - 20 unit SQ BEDTIME 05/21/18 08/04/18 History Levothyroxine TAB* [Synthroid 88 88 mcg PO QAM 05/21/18 08/04/18 History MCG TAB*] Vit B Comp C/Folic Acid/Vit D3 1 each PO QAM 05/21/18 08/04/18 History [Dialyvite 800 Plus D Wafer] Promethazine TAB* [Phenergan Tab*] 25 mg PO Q6H PRN #12 tab 05/31/18 08/04/18 Rx Aspirin EC TAB* [Ecotrin EC Low 81 mg PO QAM 06/29/18 08/04/18 History Dose 81 MG*] Carvedilol TAB* [Coreg TAB*] 12.5 mg PO BID 07/23/18 08/04/18 History Hydrocodone/Acetaminophen [Vicodin 1 tab PO Q4HR PRN 08/03/18 08/04/18 History 5-300 mg] Allergies: Allergies Allergy/AdvReac Type Severity Reaction Status Date / Time labetalol Allergy Mild Hallucinati Verified 08/04/18 10:50 ons Objective - Vital Signs Vital Signs: Vital Signs 08/16/18 08/16/18 08/16/18 09:00 10:00 11:00 Temperature Pulse Rate 72 72 93 Respiratory 31 25 33 Rate Blood Pressure 164/75 175/71 (mmHg) O2 Sat by Pulse 97 99 87 Oximetry 08/16/18 08/16/18 08/16/18 11:02 11:06 11:32 Temperature Pulse Rate 88 72 Respiratory 43 33 19 Rate Blood Pressure 175/67 163/71 (mmHg) O2 Sat by Pulse 87 99 Oximetry 08/16/18 08/16/18 08/16/18 12:00 13:00 13:53 Temperature 98.1 F Pulse Rate 70 74 76 Respiratory 5 18 38 Rate Blood Pressure 154/76 157/73 167/85 (mmHg) O2 Sat by Pulse 97 92 83 Oximetry 08/16/18 08/16/18 08/16/18 14:00 14:01 14:15 Temperature Pulse Rate 75 77 85 Respiratory 27 30 31 Rate Blood Pressure 154/74 163/75 (mmHg) O2 Sat by Pulse 98 94 89 Oximetry 08/16/18 08/16/18 08/16/18 14:30 14:45 15:00 Temperature Pulse Rate 62 Respiratory 26 28 30 Rate Blood Pressure 157/76 157/77 153/76 (mmHg) O2 Sat by Pulse 96 Oximetry 08/16/18 08/16/18 08/16/18 15:16 15:30 15:34 Temperature Pulse Rate 68 Respiratory 9 31 28 Rate Blood Pressure 156/83 167/76 (mmHg) O2 Sat by Pulse 100 Oximetry 08/16/18 08/16/18 08/16/18 15:46 16:00 16:15 Temperature 97.8 F Pulse Rate 77 93 117 Respiratory 23 24 Rate Blood Pressure 150/72 148/83 155/72 (mmHg) O2 Sat by Pulse 82 82 72 Oximetry 08/16/18 08/16/18 08/16/18 16:31 16:45 17:00 Temperature Pulse Rate 87 Respiratory 28 34 17 Rate Blood Pressure 120/79 110/66 (mmHg) O2 Sat by Pulse 99 Oximetry 08/16/18 08/16/18 08/16/18 18:00 19:00 19:55 Temperature Pulse Rate 61 63 Respiratory 12 29 15 Rate Blood Pressure 118/73 135/68 (mmHg) O2 Sat by Pulse 95 95 Oximetry 08/16/18 08/16/18 08/16/18 20:00 21:00 21:36 Temperature 98.7 F Pulse Rate 61 64 Respiratory 2 28 30 Rate Blood Pressure 150/65 148/76 (mmHg) O2 Sat by Pulse 91 96 Oximetry 08/16/18 08/16/18 08/16/18 22:00 22:01 23:00 Temperature Pulse Rate 62 68 Respiratory 14 23 Rate Blood Pressure 158/69 (mmHg) O2 Sat by Pulse 95 94 Oximetry 08/16/18 08/17/18 08/17/18 23:07 00:00 00:06 Temperature 98.7 F Pulse Rate 66 65 65 Respiratory 15 24 13 Rate Blood Pressure 125/82 134/77 (mmHg) O2 Sat by Pulse 93 98 97 Oximetry 08/17/18 08/17/18 08/17/18 01:00 01:01 01:42 Temperature Pulse Rate 64 Respiratory 40 34 20 Rate Blood Pressure 146/63 (mmHg) O2 Sat by Pulse 98 Oximetry 08/17/18 08/17/18 08/17/18 02:00 02:01 03:00 Temperature Pulse Rate 69 69 64 Respiratory 19 28 34 Rate Blood Pressure 142/76 (mmHg) O2 Sat by Pulse 98 93 94 Oximetry 08/17/18 08/17/18 08/17/18 03:05 04:00 04:01 Temperature Pulse Rate 62 66 66 Respiratory 31 22 25 Rate Blood Pressure 126/84 138/65 (mmHg) O2 Sat by Pulse 94 97 97 Oximetry 08/17/18 08/17/18 08/17/18 05:00 05:01 05:22 Temperature 98.8 F Pulse Rate 65 67 Respiratory 30 30 Rate Blood Pressure 146/67 (mmHg) O2 Sat by Pulse 94 92 Oximetry 08/17/18 08/17/18 08/17/18 06:00 07:00 07:01 Temperature Pulse Rate 66 Respiratory 12 10 16 Rate Blood Pressure 169/73 143/94 (mmHg) O2 Sat by Pulse 95 85 Oximetry 08/17/18 08:00 Temperature Pulse Rate 75 Respiratory 22 Rate Blood Pressure 160/66 (mmHg) O2 Sat by Pulse 92 Oximetry - Intake and Output Intake and Output: Intake & Output 08/14/18 08/15/18 08/16/18 08/17/18 11:59 11:59 11:59 11:59 Intake Total 0 40 Output Total 50 50 Balance -50 -10 Weight 172 lb 8 oz 161 lb 2.526 oz Intake: Oral 0 40 Output: Urine 50 50 ADLs: Meal Record Start: 08/16/18 06: 41 Freq: 09,,18 Status: Active Protocol: Created 08/16/18 06:41 System (Rec: 08/16/18 06:41 System ICU-C16) Document 08/16/18 09:00 [id number] (Rec: 08/16/18 09:41 [id number] ICU-C07) Document 08/16/18 13:00 [id number] (Rec: 08/16/18 13:23 [id number] ICU-C07) Document 08/16/18 18:00 [id number] (Rec: 08/16/18 21:24 [id number] ICU-C25) Intake and Output Start: 08/16/18 00: 50 Freq: Status: Active Protocol: Created 08/16/18 00:50 System (Rec: 08/16/18 00:50 System ED-C24) Intake and Output Start: 08/16/18 06: 41 Freq: Q1HR Status: Active Protocol: Created 08/16/18 06:41 System (Rec: 08/16/18 06:41 System ICU-C16) Document 08/16/18 07:25 [id number] (Rec: 08/16/18 07:54 [id number] ICU-M18) Document 08/16/18 08:00 [id number] (Rec: 08/16/18 08:17 [id number] ICU-M18) Document 08/16/18 09:00 [id number] (Rec: 08/16/18 09:41 [id number] ICU-C07) Document 08/16/18 10:00 [id number] (Rec: 08/16/18 10:51 [id number] ICU-C07) Document 08/16/18 11:00 [id number] (Rec: 08/16/18 11:35 [id number] ICU-C07) Document 08/16/18 12:00 [id number] (Rec: 08/16/18 12:21 [id number] ICU-C07) Document 08/16/18 13:00 [id number] (Rec: 08/16/18 13:23 [id number] ICU-C07) Document 08/16/18 14:00 [id number] (Rec: 08/16/18 14:05 [id number] ICU-C07) Document 08/16/18 15:00 [id number] (Rec: 08/16/18 15:05 [id number] ICU-C07) Document 08/16/18 16:00 [id number] (Rec: 08/16/18 16:40 [id number] ICU-C07) Document 08/16/18 17:00 [id number] (Rec: 08/16/18 17:16 [id number] ICU-C06) Document 08/16/18 18:00 [id number] (Rec: 08/16/18 18:13 [id number] ICU-C06) Document 08/16/18 19:00 [id number] (Rec: 08/16/18 19:23 [id number] ICU-C25) Document 08/16/18 19:55 [id number] (Rec: 08/16/18 20:04 [id number] ICU-C25) Document 08/16/18 21:00 [id number] (Rec: 08/16/18 21:24 [id number] ICU-C25) Document 08/16/18 22:00 [id number] (Rec: 08/16/18 22:03 [id number] ICU-C25) Document 08/16/18 23:00 [id number] (Rec: 08/16/18 23:13 [id number] ICU-M18) Document 08/17/18 00:00 [id number] (Rec: 08/17/18 00:05 [id number] ICU-C25) Document 08/17/18 02:00 [id number] (Rec: 08/17/18 02:17 [id number] ICU-C25) Document 08/17/18 04:00 [id number] (Rec: 08/17/18 04:14 [id number] ICU-C25) Document 08/17/18 05:00 [id number] (Rec: 08/17/18 05:19 [id number] ICU-C25) Document 08/17/18 06:00 [id number] (Rec: 08/17/18 06:14 [id number] ICU-M18) Document 08/17/18 07:00 [id number] (Rec: 08/17/18 08:00 [id number] ICU-C12) - Physical Exam General: No Cyanosis, Yes Anemia, No Jaundice, No Clubbing Lungs and Chest: Yes: Chest Expansion Full, Chest Expansion Symetrica, Crackles - scattered fine crackles. No: Percussion Note Resonant - dull bases, Vessicular Breath Sounds - diminished bases, Wheezes, Respiratory Distress, Use of Accessory Muscles Heart Rate and Rhythm: Regular Additional Cardiovascular: Yes: Normal Heart Sounds, Pedal Edema - trace. No: Heart Murmur Abdominal Exam: Yes: Soft. No: Distention, Abdominal Mass, Abdominal Tenderness Results - Results Lab Results: Laboratory Results - last 24 hr 08/16/18 08/16/18 08/16/18 06:17 06:17 11:16 WBC RBC Hgb Hct MCV MCH MCHC RDW Plt Count MPV Absolute Neuts (auto) Neutrophils % Lymphocytes % Monocytes % Eosinophils % Basophils % Abs Neuts (Manual) Abs Lymphs (Manual) Abs Monocytes (Manual) Absolute Eos (Manual) Abs Basophils (Manual) Normal RBC Morphology Polychromasia Sodium 136 Potassium 4.4 Chloride 98 L Carbon Dioxide 27 Anion Gap 11 BUN 20 Creatinine 5.80 H Est GFR ( Amer) 11.7 Est GFR (Non-Af Amer) 9.7 BUN/Creatinine Ratio 3.4 L Glucose 137 H POC Glucose (mg/dL) 132 H Hemoglobin A1c 6.2 H Calcium 9.5 Phosphorus 4.2 Magnesium 1.9 Troponin I 0.04 H* C-Reactive Protein 31.57 H 08/16/18 08/16/18 08/17/18 16:02 21:10 04:40 WBC 7.2 RBC 2.87 L Hgb 8.6 L Hct 26 L MCV 89 MCH 30 MCHC 34 RDW 17 H Plt Count 381 MPV Not Reportable Absolute Neuts (auto) 4.3 Neutrophils % 61 Lymphocytes % 27 Monocytes % 10 H Eosinophils % 2 Basophils % 0 Abs Neuts (Manual) 4.4 Abs Lymphs (Manual) 1.9 Abs Monocytes (Manual) 0.7 Absolute Eos (Manual) 0.1 Abs Basophils (Manual) 0 Normal RBC Morphology Not Reportable Polychromasia 1+ Sodium Potassium Chloride Carbon Dioxide Anion Gap BUN Creatinine Est GFR ( Amer) Est GFR (Non-Af Amer) BUN/Creatinine Ratio Glucose POC Glucose (mg/dL) 132 H 105 H Hemoglobin A1c Calcium Phosphorus Magnesium Troponin I C-Reactive Protein 08/17/18 04:40 WBC RBC Hgb Hct MCV MCH MCHC RDW Plt Count MPV Absolute Neuts (auto) Neutrophils % Lymphocytes % Monocytes % Eosinophils % Basophils % Abs Neuts (Manual) Abs Lymphs (Manual) Abs Monocytes (Manual) Absolute Eos (Manual) Abs Basophils (Manual) Normal RBC Morphology Polychromasia Sodium 137 Potassium 3.9 Chloride 101 Carbon Dioxide 30 Anion Gap 6 BUN 13 Creatinine 4.04 H Est GFR ( Amer) 17.7 Est GFR (Non-Af Amer) 14.7 BUN/Creatinine Ratio 3.2 L Glucose 89 POC Glucose (mg/dL) Hemoglobin A1c Calcium 8.5 L Phosphorus Magnesium Troponin I C-Reactive Protein 25.77 H Other Results/Reports: Transthoracic echocardiogram Conclusions Moderate concentric left ventricular hypertrophy is observed. Left ventricular systolic function is at the lower limits of normal. The estimated ejection fraction is 50-55%. There is abnormal ventricular septal wall motion consistent with right ventricular pacemaker. The left atrium is moderate to severely dilated. A pacemaker wire is visualized in the right ventricle. There is evidence of aortic sclerosis without stenosis. There is mild aortic regurgitation. There is moderate mitral regurgitation. There is moderate tricuspid regurgitation. There is evidence of severe pulmonary hypertension. A pericardial fat pad is visualized. There is mild dilatation of the ascending aorta. Compared to study of 04/15/17, the LV function is slightly lower. 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 I think we should rule out PE - d-dimer may be elevated in HD. If it is negative it is informative. I will transfer him out of the ICU as he is no longer critically ill. However, he is not yet at baseline. I note that the moderate mitral regurgitation is new. Anxiety: According to the patient and Cornelia Lee he did not have anxiety prior to HD. I have tried treating this with both benzodiazepines and atypical antipsychotics. I will ask for a psychopharmacology consultation. 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 I think we should start a calcium channel leda as this may help with the pulmonary hypertension History of CVA (cerebrovascular accident) (Chronic) Hyperlipidemia (Chronic) continue current Rx S/P cholecystectomy (Chronic 12/31/14) I discussed the above with the patient and Cornelia Lee - they agree with the management plan
[2018-08-17] MEDS: Carvedilol TAB* 6.25 MG PO SCH ×2 (08:19→20:35)
[2018-08-17] MEDS: Clopidogrel TAB* 75 MG PO SCH (08:19)
[2018-08-17] MEDS: Aspirin EC TAB* 81 MG TAB.EC PO SCH (08:19)
[2018-08-17] MEDS: ALPRAZolam TAB* 0.5 MG PO PRN ×2 (08:40→14:35)
[2018-08-17] MEDS: Citalopram TAB* 10 MG PO SCH (16:06)
[2018-08-17] MEDS: LORazepam TAB(*) 0.5 MG PO PRN (16:06)
[2018-08-17] MEDS: Atorvastatin* 20 MG TAB PO SCH (20:35)
[2018-08-17] MEDS: Insulin GLARGINE(*) 1 UNITS UNIT SUBCUT SCH (20:38)
--- NOTE | 2018-08-17 21:47 | CONS ---
CONSULTATION REPORT: DATE OF CONSULT: 08/17/18 ATTENDING PHYSICIAN: Dr. Jose White. CONSULTING PHYSICIAN: Dr. Lee Joesph. REASON FOR CONSULT: Anxiety. SUBJECTIVE HISTORY: Psychiatry is asked to see this 72-year-old white male with no prior psychiatric history, who is admitted to Dr. White's service secondary to shortness of breath. The patient has end-stage renal disease and was recently placed on hemodialysis, which appears to have coincided with the onset of disabling anxiety. Prior to admission, he has received trials of aripiprazole as well as alprazolam in the outpatient setting, which have had limited benefit, and Dr. White is seeking consultation for an anxiolytic strategy that will be safe given the patient's multiple medical comorbidities. When I entered Mr. Bynum' room, he is extremely short of breath and appears to be having significant anxiety at this time. I rely on his , Cornelia Bynum, for much of this history. According to his , his hemodialysis treatment started approximately 1 month ago. Prior to this, he had no history of debilitating anxiety. She does note that the alprazolam works initially, but tends to wear off rather quickly. I asked for any further stressors other than hemodialysis and she does indicate that he had a right-sided below-the- knee amputation in January while residing in their winter home in [place] and this has made mobility and everyday living significantly more challenging. He denies being in any current physical pain and he denies any significant changes in his medications recently. She has noticed, however, that he appears to be depressed, does not seem to joke as much as he used to and she is worried about this as well. I screened Alec for the so-called neurovegetative effects of depression and he endorsed decreased sleep, anhedonia, decreased energy, poor appetite, psychomotor retardation as well as intermittent suicidal thoughts without any specific plan or intent. He did deny symptoms of guilt or concentration loss. The patient has no history of leonard, posttraumatic stress symptoms, or psychosis when screened. PAST PSYCHIATRIC HISTORY: Negative for any previous psychiatric hospitalizations, trials of psychiatric medications in his remote history. He denies any history of suicidal or homicidal ideations. He denies any history of early life developmental trauma such as abuse or neglect. SUBSTANCE ABUSE HISTORY: Similarly noncontributory. He does drink alcohol socially, but denies any history of tobacco use or illicit drugs. PAST MEDICAL HISTORY: Significant for end-stage renal disease, currently on hemodialysis 3 times weekly. He has insulin-dependent diabetes mellitus with retinopathy, nephropathy and neuropathy and he is legally blind. He is status post right [id number] amputation in January of 2018. He has COPD, hypertension, hyperlipidemia. He is status post left-sided stroke with some residual right-sided hemiparesis. FAMILY HISTORY: Not significant for mental health or suicides. SOCIAL HISTORY: The patient was born in [place], [place] and raised in [place]. He is the 4th of 7 total children to an intact family and his mother and father stayed together throughout their lives. He has 3 children including a 47 -year-old son, 49-year-old son and 50-year-old daughter. Whereas his sons are somewhat estranged, his daughter resides in [place] and is still involved in his life. He has been to his current for approximately 1 year; however, they have been together for 11 years. Previous to this, he was once and . 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 His son apparently took this business over. Currently, the patient lives in [place], [place], but resides approximately half of the year in [place], [place], where he owns a winter home. He is not jainism, but describes himself as spiritual, believing in God. 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 He has no significant legal history. MENTAL STATUS EXAM: The patient is an aging white male, who is wearing sweatpants and is shirtless. I can see that he has a pacemaker inserted under his left breast and I can see that he has an IV line in his right upper extremity. He makes limited eye contact and speech is difficult secondary to shortness of breath. He does make commentary at times when answering questions. Mood appears to be anxious with a corresponding anxious affect. Thought process is linear and goal directed. Thought content is significant for concern over his anxiety and depression. He denies suicidal ideations currently. He similarly denies homicidality. He denies auditory or visual hallucinations. Insight and judgment appear to be good given the fact that he is agreeable with psychiatric intervention for his anxiety. Cognitively, he is awake and alert with what would appear to be an average intellect. DIAGNOSES: [place] I: Major depressive disorder, single episode, severe, without psychotic features; rule out panic disorder without agoraphobia. [place] II: Deferred. ASSESSMENT: The patient is a 72-year-old, , white male with no prior psychiatric history, who is currently admitted to Dr. White's service receiving treatment for shortness of breath in the setting of multiple medical comorbidities, who appears to suffer with significant depression and anxiety. He is currently hospitalized on the 4th floor. There have been some limitations to treatment with benzodiazepines and the primary team is looking for suggestions that would be appropriate given his status of end-stage renal disease. It appears that in addition to anxiety, the patient suffers from major depressive disorder and it may be that the anxiety is a feature of this condition. It does appear that he would benefit from antidepressant therapy. Fortunately, severe renal failure does not appear to affect the pharmacokinetics of citalopram and therefore we will be recommending this agent. Modification of the usual citalopram dosing strategy would not be necessary. RECOMMENDATION TO PRIMARY TEAM: Psychiatry recommends using a longer acting benzodiazepine for acute relief of anxiety. For this reason, we will replace alprazolam with 0.5 mg of p.r.n. lorazepam. In addition, we will start the patient on 10 mg of daily citalopram. This can be fairly rapidly titrated to 20 mg, which is likely to be a more effective dose. Psychiatry will continue to follow the patient for the duration of his inpatient hospitalization, but I do not see any barriers psychiatrically to his discharge given the fact that this condition can be treated effectively in the outpatient setting. Thank you for the interesting consult. [id number]/[facility] #: [id number] SIRENA
[2018-08-18] MEDS: LORazepam TAB(*) 0.5 MG PO PRN ×2 (02:11→23:47)
[2018-08-18] MEDS: Heparin VIAL(*) 5000 UNITS/ML VIAL (FIVE THOUSAND) SUBCUT SCH ×3 (05:38→21:33)
[2018-08-18] MEDS: Levothyroxine TAB* 75 MCG TAB PO SCH (05:38)
[2018-08-18] MEDS: Insulin LISPRO* 1 UNITS UNIT SUBCUT SCH ×7 (07:56→21:02)
[2018-08-18] MEDS: Clopidogrel TAB* 75 MG PO SCH (08:02)
[2018-08-18] MEDS: Carvedilol TAB* 6.25 MG PO SCH ×2 (08:02→21:34)
[2018-08-18] MEDS: Citalopram TAB* 10 MG PO SCH (08:02)
[2018-08-18] MEDS: Aspirin EC TAB* 81 MG TAB.EC PO SCH (08:02)
--- NOTE | 2018-08-18 08:09 | PN ---
Subjective - Subjective Reason for Note: Progress Note History: He continues to have paroxysmal nocturnal dyspnea associated with anxiety. Dr. Joseph saw him and started him on escitalopram. He complains about some pain in the right 3rd finger tip this morning. He denies chest pain or palpitations. His glycemic control is becoming a little too tight. His BP has remained elevated. Cornelia Lee thinks he had hallucinations when he was place on an anti-hypertensive, but states that she thinks it was labetalol. He is due for a PD tube check in radiology today. Active Problems: Active Problems Acute combined systolic (congestive) and diastolic (congestive) heart failure ( Acute) I50.41 Anxiety (Acute) F41.9 Hemodialysis patient (Acute) Z99.2 Mitral regurgitation (Acute) Paronychia (Acute) [id number] Pleural effusion, bilateral (Acute) J90 Pulmonary hypertension (Acute) I27.20 Volume overload (Acute) E87.70 Bundle branch block (Chronic) I45.4 Cardiac pacemaker in situ (Chronic) Z95.0 Essential hypertension (Chronic) I10 History of CVA (cerebrovascular accident) (Chronic) Z86.73 History of right below knee amputation (Chronic) Z89.511 Hyperlipidemia (Chronic) E78.5 Hypothyroidism (acquired) (Chronic) E03.9 Mass of right lung (Chronic) R91.8 S/P cholecystectomy (Chronic 12/31/14) Z90.49 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) E11.22 , N18.5 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 Current Medications: Current Medications Acetaminophen (Tylenol Tab*) 650 mg PO Q6H PRN PRN Reason: FEVER/PAIN Albuterol (Ventolin 2.5 Mg/3 Ml Neb.Erlinda*) 2.5 mg INH Q2H PRN PRN Reason: SOB/WHEEZING Aspirin (Aspirin Ec Tab*) 81 mg PO QAM [facility] Last Admin: 08/17/18 08:19 Dose: 81 mg Atorvastatin Calcium (Lipitor*) 20 mg PO 2100 [facility] Last Admin: 08/17/18 20:35 Dose: 20 mg Carvedilol (Coreg Tab*) 12.5 mg PO BID [facility] Last Admin: 08/17/18 20:35 Dose: 12.5 mg Citalopram Hydrobromide (Celexa Tab*) 10 mg PO DAILY [facility] Last Admin: 08/17/18 16:06 Dose: 10 mg Clopidogrel Bisulfate (Plavix Tab*) 75 mg PO DAILY [facility] Last Admin: 08/17/18 08:19 Dose: 75 mg Heparin Sodium (Porcine) (Heparin Vial(*)) 5,000 units SUBCUT Q8HR [facility] Last Admin: 08/18/18 05:38 Dose: 5,000 units Insulin Glargine (Lantus(*)) 17 units 0.2 units/kg (17 units) SUBCUT 2100 [facility] Last Admin: 08/17/18 20:38 Dose: 17 unit Insulin Human Lispro (Humalog*) 0 units SUBCUT AC [facility]; Protocol Last Admin: 08/17/18 18:14 Dose: Not Given Insulin Human Lispro (Humalog*) 0 units SUBCUT ACHS [facility]; Protocol Last Admin: 08/17/18 20:26 Dose: Not Given Levothyroxine Sodium (Synthroid Tab*) 75 mcg PO DAILY@0600 [facility] Last Admin: 08/18/18 05:38 Dose: 75 mcg Lorazepam (Ativan Tab(*)) 0.5 mg PO Q6H PRN PRN Reason: ANXIETY Last Admin: 08/18/18 02:11 Dose: 0.5 mg Ondansetron HCl (Zofran Odt Tab*) 4 mg PO Q6H PRN PRN Reason: n/v Temazepam (Restoril Cap*) 15 mg PO BEDTIME PRN PRN Reason: INSOMNIA Last Admin: 08/17/18 02:13 Dose: 15 mg Home Medications: Home Medications Medication Instructions Recorded Confirmed Type Insulin Lispro [Humalog Kwikpen 0 - 3 unit SUBCUT AC MDD 50 units 05/16/1608/04 History U-100] Timolol 0.5% OPTH.ERLINDA* [Timoptic 1 drop BOTH EYES BID 05/16/16 08/04/18 History 0.5% Opth*] amLODIPine TAB* [Norvasc 5 mg TAB*] 10 mg PO BEDTIME 05/16/16 08/04/18 History Atorvastatin* [Lipitor 20 MG*] 20 mg PO BEDTIME 04/08/17 08/04/18 History Furosemide TAB* [Lasix TAB*] 80 mg PO BID 04/08/17 08/04/18 History Sevelamer TAB* [Renvela TAB*] 2,400 mg PO .W /MEALS AND SNACKS 04/08/17 History Clopidogrel TAB* [Plavix TAB*] 75 mg PO QAM 05/21/18 08/04/18 History Gabapentin CAP(*) [Neurontin 100 100 mg PO QAM 05/21/18 08/04/18 History mg CAP(*)] Insulin Detemir [Levemir Flextouch] 16 - 20 unit SQ BEDTIME 05/21/18 08/04/18 History Levothyroxine TAB* [Synthroid 88 88 mcg PO QAM 05/21/18 08/04/18 History MCG TAB*] Vit B Comp C/Folic Acid/Vit D3 1 each PO QAM 05/21/18 08/04/18 History [Dialyvite 800 Plus D Wafer] Promethazine TAB* [Phenergan Tab*] 25 mg PO Q6H PRN #12 tab 05/31/18 08/04/18 Rx Aspirin EC TAB* [Ecotrin EC Low 81 mg PO QAM 06/29/18 08/04/18 History Dose 81 MG*] Carvedilol TAB* [Coreg TAB*] 12.5 mg PO BID 07/23/18 08/04/18 History Hydrocodone/Acetaminophen [Vicodin 1 tab PO Q4HR PRN 08/03/18 08/04/18 History 5-300 mg] Allergies: Allergies Allergy/AdvReac Type Severity Reaction Status Date / Time labetalol Allergy Mild Hallucinati Verified 08/04/18 10:50 ons Objective - Vital Signs Vital Signs: Vital Signs 08/17/18 08/17/18 08/17/18 08:40 09:00 10:00 Temperature Pulse Rate Respiratory 31 26 33 Rate Blood Pressure 155/74 123/53 (mmHg) O2 Sat by Pulse Oximetry 08/17/18 08/17/18 08/17/18 10:45 10:46 14:35 Temperature 97.7 F 97.7 F Pulse Rate 73 73 Respiratory 16 20 20 Rate Blood Pressure 119/50 119/50 (mmHg) O2 Sat by Pulse 94 Oximetry 08/17/18 08/17/18 08/17/18 16:06 16:16 16:55 Temperature 97.4 F Pulse Rate 75 Respiratory 16 18 20 Rate Blood Pressure 167/63 (mmHg) O2 Sat by Pulse 100 Oximetry 08/17/18 08/17/18 08/17/18 18:10 19:41 20:00 Temperature 97.3 F Pulse Rate 71 Respiratory 20 17 17 Rate Blood Pressure 163/64 (mmHg) O2 Sat by Pulse 98 Oximetry 08/17/18 08/18/18 08/18/18 22:43 02:11 04:08 Temperature 97.1 F Pulse Rate 69 Respiratory 19 28 18 Rate Blood Pressure 161/61 (mmHg) O2 Sat by Pulse 95 Oximetry 08/18/18 08/18/18 05:38 07:13 Temperature 97.4 F 97.4 F Pulse Rate 70 70 Respiratory 19 16 Rate Blood Pressure 171/68 150/48 (mmHg) O2 Sat by Pulse 95 98 Oximetry - Intake and Output Intake and Output: Intake & Output 08/15/18 08/16/18 08/17/18 08/18/18 11:59 11:59 11:59 11:59 Intake Total 0 280 0 Output Total 50 50 Balance -50 230 0 Weight 172 lb 8 oz 161 lb 2.526 oz Intake: Oral 0 280 0 Output: Urine 50 50 ADLs: Meal Record Start: 08/16/18 06: 41 Freq: 09,13,18 Status: Active Protocol: Created 08/16/18 06:41 System (Rec: 08/16/18 06:41 System ICU-C16) Document 08/16/18 09:00 [id number] (Rec: 08/16/18 09:41 [id number] ICU-C07) Document 08/16/18 13:00 [id number] (Rec: 08/16/18 13:23 [id number] ICU-C07) Document 08/16/18 18:00 [id number] (Rec: 08/16/18 21:24 [id number] ICU-C25) Document 08/17/18 09:00 [id number] (Rec: 08/17/18 09:23 [id number] ICU-C12) Document 08/17/18 13:00 [id number] (Rec: 08/17/18 16:19 [id number] MED-C02) Document 08/17/18 18:00 [id number] (Rec: 08/17/18 18:36 [id number] MED-C02) Intake and Output Start: 08/16/18 00: 50 Freq: Status: Active Protocol: Created 08/16/18 00:50 System (Rec: 08/16/18 00:50 System ED-C24) Intake and Output Start: 08/16/18 06: 41 Freq: Q8H Status: Active Protocol: Created 08/16/18 06:41 System (Rec: 08/16/18 06:41 System ICU-C16) Document 08/16/18 07:25 [id number] (Rec: 08/16/18 07:54 [id number] ICU-M18) Document 08/16/18 08:00 [id number] (Rec: 08/16/18 08:17 [id number] ICU-M18) Document 08/16/18 09:00 [id number] (Rec: 08/16/18 09:41 [id number] ICU-C07) Document 08/16/18 10:00 [id number] (Rec: 08/16/18 10:51 [id number] ICU-C07) Document 08/16/18 11:00 [id number] (Rec: 08/16/18 11:35 [id number] ICU-C07) Document 08/16/18 12:00 [id number] (Rec: 08/16/18 12:21 [id number] ICU-C07) Document 08/16/18 13:00 [id number] (Rec: 08/16/18 13:23 [id number] ICU-C07) Document 08/16/18 14:00 [id number] (Rec: 08/16/18 14:05 [id number] ICU-C07) Document 08/16/18 15:00 [id number] (Rec: 08/16/18 15:05 [id number] ICU-C07) Document 08/16/18 16:00 [id number] (Rec: 08/16/18 16:40 [id number] ICU-C07) Document 08/16/18 17:00 [id number] (Rec: 08/16/18 17:16 [id number] ICU-C06) Document 08/16/18 18:00 [id number] (Rec: 08/16/18 18:13 [id number] ICU-C06) Document 08/16/18 19:00 [id number] (Rec: 08/16/18 19:23 [id number] ICU-C25) Document 08/16/18 19:55 [id number] (Rec: 08/16/18 20:04 [id number] ICU-C25) Document 08/16/18 21:00 [id number] (Rec: 08/16/18 21:24 [id number] ICU-C25) Document 08/16/18 22:00 [id number] (Rec: 08/16/18 22:03 [id number] ICU-C25) Document 08/16/18 23:00 [id number] (Rec: 08/16/18 23:13 [id number] ICU-M18) Document 08/17/18 00:00 [id number] (Rec: 08/17/18 00:05 [id number] ICU-C25) Document 08/17/18 02:00 [id number] (Rec: 08/17/18 02:17 [id number] ICU-C25) Document 08/17/18 04:00 [id number] (Rec: 08/17/18 04:14 [id number] ICU-C25) Document 08/17/18 05:00 [id number] (Rec: 08/17/18 05:19 [id number] ICU-C25) Document 08/17/18 06:00 [id number] (Rec: 08/17/18 06:14 [id number] ICU-M18) Document 08/17/18 07:00 [id number] (Rec: 08/17/18 08:00 [id number] ICU-C12) Document 08/17/18 08:00 [id number] (Rec: 08/17/18 09:20 [id number] ICU-C12) Document 08/17/18 09:00 [id number] (Rec: 08/17/18 09:23 [id number] ICU-C12) Document 08/17/18 10:00 [id number] (Rec: 08/17/18 10:26 [id number] ICU-M18) Document 08/17/18 16:00 [id number] (Rec: 08/17/18 16:14 [id number] MED-M02) Document 08/17/18 16:14 [id number] (Rec: 08/17/18 16:20 [id number] MED-C02) - Physical Exam General Physical Exam Comment: Tender on the medial aspect of his right 3rd finger, no apparent swelling/redness. General: No Cyanosis, Yes Anemia, No Jaundice, No Clubbing Skin: Normal: Rash Lungs and Chest: Yes: Chest Expansion Full, Chest Expansion Symetrica, Other - sitting forward in a chair. No: Percussion Note Resonant - dull beases, Vessicular Breath Sounds - decreased bases, Crackles, Wheezes, Respiratory Distress, Use of Accessory Muscles Heart Rate and Rhythm: Regular Additional Cardiovascular: Yes: Normal Heart Sounds, Pedal Edema - trace. No: Heart Murmur Abdominal Exam: Yes: Soft, Bowel Sounds Present. No: Distention, Abdominal Mass , Abdominal Tenderness Results - Results Lab Results: Laboratory Results - last 24 hr 08/16/18 08/17/18 08/17/18 15:45 08:04 08:30 D-Dimer, Quantitative 691 H POC Glucose (mg/dL) 102 H Hepatitis B Antibody Not immune A Hep Bs Antigen Nonreactive Hep Bs Antibody, Quant < 3.10 08/17/18 08/17/18 08/17/18 12:15 16:11 20:24 D-Dimer, Quantitative POC Glucose (mg/dL) 119 H 174 H 99 Hepatitis B Antibody Hep Bs Antigen Hep Bs Antibody, Quant 08/17/18 08/17/18 22:42 23:31 D-Dimer, Quantitative POC Glucose (mg/dL) 70 113 H Hepatitis B Antibody Hep Bs Antigen Hep Bs Antibody, Quant Assessment - Problem List Assessment: Patient Problems Acute combined systolic (congestive) and diastolic (congestive) heart failure ( Acute) Anxiety (Acute) Hemodialysis patient (Acute) Mitral regurgitation (Acute) Paronychia (Acute) Pleural effusion, bilateral (Acute) Pulmonary hypertension (Acute) Volume overload (Acute) Bundle branch block (Chronic) Cardiac pacemaker in situ (Chronic) Essential hypertension (Chronic) History of CVA (cerebrovascular accident) (Chronic) History of right below knee amputation (Chronic) Hyperlipidemia (Chronic) Hypothyroidism (acquired) (Chronic) Mass of right lung (Chronic) S/P cholecystectomy (Chronic 12/31/14) 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) 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 He has a positive D-dimer - this may be from the venous access for HD or it may represent PE. I will check a CTA (he has no renal function and hence there is no renal risk). Since his BP is raised and he had pulmonary hypertension, I will try him on amlodipine (a dihydropyridine calcium channel leda). Anxiety (Acute) Dr. Joseph started him on citalopram. This sh ould help with anxiety/depression, but may take a few weeks to act. Hemodialysis patient (Acute) Paronychia (Acute) There is no swelling or redness. 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 I discussed the above in detail with the patient and Cornelia Lee. In particular, they gave permission for the CT angiogram to rule out PE - I explained the hazards and benefits, we also discussed a V:Q scan as an alternative - he is unlikely to be able to provide sufficient assistance for this test.
[2018-08-18 08:17] LABS: EGFR Non-African American 10.8 (>60)
[2018-08-18] MEDS ORDERED: Iodixanol* (CONTRAST) 320 MG/ML 100 ML SDV IV ONE (08:46)
--- NOTE | 2018-08-18 10:19 | RAD ---
INDICATION: Shortness of breath in a patient with end-stage renal disease COMPARISON: CT of the chest April 09, 2017 TECHNIQUE: Axial source images were acquired following the administration of 66 mL of Visipaque [address] angiographic technique. Coronal and sagittal reconstructed images were constructed and reviewed. FINDINGS: The tunneled left internal jugular vein hemodialysis catheter remains appropriately positioned with the distal tip terminating in the superior most portion of the right atrium. There is a left upper chest to lead cardiac pacemaker in position. There there are no filling defects in the pulmonary arteries to indicate acute pulmonary embolic disease. There is diffuse groundglass opacification. There are small bibasilar pleural effusions. There are pleural-based densities involving the left lower and upper lobes. In the left upper lobe the density measures 5.2 x 2.4 cm in the sagittal plane and approximately 3.6 cm transverse. There is a moderate degree of cardiomegaly. There is trace pericardial effusion. The heart is otherwise morphologically normal. There are coarsely calcified mediastinal or hilar lymph nodes. Healed right-sided rib fractures are again noted. The patient is status post cholecystectomy with surgical clips in the gallbladder fossa. Again seen is mild splenomegaly with the spleen measuring 14.1 cm in greatest axial dimension. IMPRESSION: 1. No CT of evidence of pulmonary embolism. 2. CT findings are consistent with cardiogenic pulmonary edema with groundglass opacification and small bibasilar pleural effusions. 3. Pleural-based densities are seen in the left lung, the largest in the left upper lobe which could be pneumonia in the correct clinical setting. 4. Stable mild splenomegaly.
[2018-08-18] MEDS: amLODIPine TAB* 5 MG PO SCH ×2 (10:32→14:06)
--- NOTE | 2018-08-18 10:39 | RAD ---
CPT II Codes: G9500 Indication: Fluid overload in a patient with a peritoneal dialysis catheter. History: End-stage renal disease. Fluoroscopy time: 24 seconds Procedure note and findings: The risks and benefits of the procedure were carefully explained to the patient and informed consent was obtained. The patient was appropriately positioned on the fluoroscopy and a formal time out was performed. The peritoneal dialysis catheter was prepped and draped in standard sterile fashion. Sterile precautions including cap, mask, gown and sterile gloves were utilized. Contrast injection of the peritoneal dialysis catheter locate the catheter in the right lower quadrant. Contrast is seen filling the peritoneal cavity surrounding the neighboring bowel. There is no evidence of a fistulous communication of the bowel. There is no evidence to catheter is obstructed. The patient tolerated the procedure well and returned to his inpatient room in stable condition. IMPRESSION: Patent right lower quadrant peritoneal dialysis catheter without evidence of obstruction or fistulous communication to the bowel.
--- NOTE | 2018-08-18 11:57 | CONSULT ---
Consult Consult: Psychiatry attempted to follow up with Mr. Bynum this morning. He was sleeping and his requested that we return tomorrow, which we will do.
[2018-08-18] MEDS ORDERED: Heparin DIALYSIS ONLY(*) 1,000 UNITS/ML VIAL DIALYSIS ONE (17:00)
[2018-08-18] MEDS ORDERED: Epoetin Alfa* 10,000 UNITS/ML VIAL IV ONE (17:00)
[2018-08-18] MEDS ORDERED: LORazepam INJ* 2 MG/ML 1 ML VIAL IV PUSH ONE (18:00)
[2018-08-18] MEDS ORDERED: Insulin GLARGINE(*) 1 UNITS UNIT SUBCUT SCH (21:00)
[2018-08-18] MEDS: Atorvastatin* 20 MG TAB PO SCH (21:34)
[2018-08-19 04:53] LABS: ABS Basophils 0 10^3/ul (0-0.2); ABS Eosinophils 0.1 10^3/ul (0-0.6); ABS Lymphocytes 1.4 10^3/ul (1.0-4.8); ABS Monocytes 0.8 10^3/ul (0-0.8); ABS Neutrophils 3.1 10^3/ul (1.5-7.7); ABS Nucleated RBC 0 10^3/ul; Eosinophil % 1.9 % (0-6); Hematocrit 30 % (42-52); Hemoglobin 10.2 g/dl (14.0-18.0); Lymphocyte % 25.5 % (25-47); Mean Corpuscular HGB Conc 34 g/dl (31-36); Mean Corpuscular Hemoglobin 30 pg (27-31); Mean Corpuscular Volume 88 fL (80-94); Nucleated Red Blood Cells % 0; Platelet Count 281 10^3/ul (150-450); Red Blood Count 3.42 10^6/ul (4.00-5.40); Red Cell Distribution Width 17 % (10.5-15); White Blood Count 5.3 10^3/ul (3.5-10.8)
[2018-08-19] MEDS: Levothyroxine TAB* 75 MCG TAB PO SCH (06:32)
[2018-08-19] MEDS: Heparin VIAL(*) 5000 UNITS/ML VIAL (FIVE THOUSAND) SUBCUT SCH (06:32)
--- NOTE | 2018-08-19 07:31 | PN ---
Subjective - Subjective Reason for Note: Discharge Note History: He is feeling better. He has had no paroxysmal nocturnal dyspnea overnight. He is in no pain or distress. He feels ready to go home Active Problems: Active Problems Acute combined systolic (congestive) and diastolic (congestive) heart failure ( Acute) I50.41 Anxiety (Acute) F41.9 Hemodialysis patient (Acute) Z99.2 Mitral regurgitation (Acute) Paronychia (Acute) [id number] Pleural effusion, bilateral (Acute) J90 Pulmonary hypertension (Acute) I27.20 Volume overload (Acute) E87.70 Bundle branch block (Chronic) I45.4 Cardiac pacemaker in situ (Chronic) Z95.0 Essential hypertension (Chronic) I10 History of CVA (cerebrovascular accident) (Chronic) Z86.73 History of right below knee amputation (Chronic) Z89.511 Hyperlipidemia (Chronic) E78.5 Hypothyroidism (acquired) (Chronic) E03.9 Mass of right lung (Chronic) R91.8 S/P cholecystectomy (Chronic 12/31/14) Z90.49 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) E11.22 , N18.5 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 Current Medications: Current Medications Acetaminophen (Tylenol Tab*) 650 mg PO Q6H PRN PRN Reason: FEVER/PAIN Albuterol (Ventolin 2.5 Mg/3 Ml Neb.Erlinda*) 2.5 mg INH Q2H PRN PRN Reason: SOB/WHEEZING Amlodipine Besylate (Norvasc Tab*) 10 mg PO DAILY [facility] Last Admin: 08/18/18 14:06 Dose: 10 mg Aspirin (Aspirin Ec Tab*) 81 mg PO QAM [facility] Last Admin: 08/18/18 08:02 Dose: 81 mg Atorvastatin Calcium (Lipitor*) 20 mg PO 2100 [facility] Last Admin: 08/18/18 21:34 Dose: 20 mg Carvedilol (Coreg Tab*) 12.5 mg PO BID [facility] Last Admin: 08/18/18 21:34 Dose: 12.5 mg Citalopram Hydrobromide (Celexa Tab*) 10 mg PO DAILY [facility] Last Admin: 08/18/18 08:02 Dose: 10 mg Clopidogrel Bisulfate (Plavix Tab*) 75 mg PO DAILY [facility] Last Admin: 08/18/18 08:02 Dose: 75 mg Heparin Sodium (Porcine) (Heparin Vial(*)) 5,000 units SUBCUT Q8HR [facility] Last Admin: 08/19/18 06:32 Dose: 5,000 units Insulin Glargine (Lantus(*)) 10 units SUBCUT 2100 VICTOR M Last Admin: 08/18/18 21:32 Dose: 10 units Insulin Human Lispro (Humalog*) 0 units SUBCUT AC [facility]; Protocol Last Admin: 08/18/18 19:34 Dose: Not Given Insulin Human Lispro (Humalog*) 0 units SUBCUT ACHS [facility]; Protocol Last Admin: 08/18/18 21:02 Dose: Not Given Levothyroxine Sodium (Synthroid Tab*) 75 mcg PO DAILY@0600 [facility] Last Admin: 08/19/18 06:32 Dose: 75 mcg Lorazepam (Ativan Tab(*)) 0.5 mg PO Q6H PRN PRN Reason: ANXIETY Last Admin: 08/18/18 23:47 Dose: 0.5 mg Ondansetron HCl (Zofran Odt Tab*) 4 mg PO Q6H PRN PRN Reason: n/v Temazepam (Restoril Cap*) 15 mg PO BEDTIME PRN PRN Reason: INSOMNIA Last Admin: 08/17/18 02:13 Dose: 15 mg Home Medications: Home Medications Medication Instructions Recorded Confirmed Type Insulin Lispro [Humalog Kwikpen 0 - 3 unit SUBCUT AC MDD 50 units 05/16/1608/04 History U-100] Timolol 0.5% OPTH.ERLINDA* [Timoptic 1 drop BOTH EYES BID 05/16/16 08/04/18 History 0.5% Opth*] amLODIPine TAB* [Norvasc 5 mg TAB*] 10 mg PO BEDTIME 05/16/16 08/04/18 History Atorvastatin* [Lipitor 20 MG*] 20 mg PO BEDTIME 04/08/17 08/04/18 History Furosemide TAB* [Lasix TAB*] 80 mg PO BID 04/08/17 08/04/18 History Sevelamer TAB* [Renvela TAB*] 2,400 mg PO .W /MEALS AND SNACKS 04/08/17 History Clopidogrel TAB* [Plavix TAB*] 75 mg PO QAM 05/21/18 08/04/18 History Gabapentin CAP(*) [Neurontin 100 100 mg PO QAM 05/21/18 08/04/18 History mg CAP(*)] Insulin Detemir [Levemir Flextouch] 16 - 20 unit SQ BEDTIME 05/21/18 08/04/18 History Levothyroxine TAB* [Synthroid 88 88 mcg PO QAM 05/21/18 08/04/18 History MCG TAB*] Vit B Comp C/Folic Acid/Vit D3 1 each PO QAM 05/21/18 08/04/18 History [Dialyvite 800 Plus D Wafer] Promethazine TAB* [Phenergan Tab*] 25 mg PO Q6H PRN #12 tab 05/31/18 08/04/18 Rx Aspirin EC TAB* [Ecotrin EC Low 81 mg PO QAM 06/29/18 08/04/18 History Dose 81 MG*] Carvedilol TAB* [Coreg TAB*] 12.5 mg PO BID 07/23/18 08/04/18 History Hydrocodone/Acetaminophen [Vicodin 1 tab PO Q4HR PRN 08/03/18 08/04/18 History 5-300 mg] Allergies: Allergies Allergy/AdvReac Type Severity Reaction Status Date / Time labetalol Allergy Mild Hallucinati Verified 08/04/18 10:50 ons Objective - Vital Signs Vital Signs: Vital Signs 08/18/18 08/18/18 08/18/18 08:00 11:11 16:00 Temperature 97.8 F Pulse Rate 67 Respiratory 20 30 30 Rate Blood Pressure 151/62 (mmHg) O2 Sat by Pulse Oximetry 08/18/18 08/18/18 08/18/18 17:54 19:05 20:00 Temperature Pulse Rate Respiratory 22 22 24 Rate Blood Pressure (mmHg) O2 Sat by Pulse Oximetry 08/18/18 08/18/18 08/19/18 20:41 23:47 00:07 Temperature 98.3 F 97.3 F Pulse Rate 70 60 Respiratory 32 26 32 Rate Blood Pressure 135/53 130/40 (mmHg) O2 Sat by Pulse 97 98 Oximetry 08/19/18 08/19/18 08/19/18 02:23 04:02 04:07 Temperature Pulse Rate 67 Respiratory 22 Rate Blood Pressure 109/37 (mmHg) O2 Sat by Pulse 77 93 Oximetry - Intake and Output Intake and Output: Intake & Output 08/16/18 08/17/18 08/18/18 08/19/18 11:59 11:59 11:59 11:59 Intake Total 0 280 0 360 Output Total 50 50 50 Balance -50 230 0 310 Weight 172 lb 8 oz 161 lb 2.526 oz 161 lb Intake: Oral 0 280 0 360 Output: Urine 50 50 50 Other: # Bowel Movements 0 ADLs: Meal Record Start: 08/16/18 06: 41 Freq: ,,18 Status: Active Protocol: Created 08/16/18 06:41 System (Rec: 08/16/18 06:41 System ICU-C16) Document 08/16/18 09:00 [id number] (Rec: 08/16/18 09:41 [id number] ICU-C07) Document 08/16/18 13:00 [id number] (Rec: 08/16/18 13:23 [id number] ICU-C07) Document 08/16/18 18:00 [id number] (Rec: 08/16/18 21:24 [id number] ICU-C25) Document 08/17/18 09:00 [id number] (Rec: 08/17/18 09:23 [id number] ICU-C12) Document 08/17/18 13:00 [id number] (Rec: 08/17/18 16:19 [id number] MED-C02) Document 08/17/18 18:00 [id number] (Rec: 08/17/18 18:36 [id number] MED-C02) Document 08/18/18 08:48 [id number] (Rec: 08/18/18 08:48 [id number] MED-C09) Document 08/18/18 13:00 [id number] (Rec: 08/18/18 15:01 [id number] MED-C09) Document 08/18/18 18:00 [id number] (Rec: 08/18/18 22:53 [id number] MED-C11) Intake and Output Start: 08/16/18 00: 50 Freq: Status: Active Protocol: Created 08/16/18 00:50 System (Rec: 08/16/18 00:50 System ED-C24) Intake and Output Start: 08/16/18 06: 41 Freq: Q8H Status: Active Protocol: Created 08/16/18 06:41 System (Rec: 08/16/18 06:41 System ICU-C16) Document 08/16/18 07:25 [id number] (Rec: 08/16/18 07:54 [id number] ICU-M18) Document 08/16/18 08:00 [id number] (Rec: 08/16/18 08:17 [id number] ICU-M18) Document 08/16/18 09:00 [id number] (Rec: 08/16/18 09:41 [id number] ICU-C07) Document 08/16/18 10:00 [id number] (Rec: 08/16/18 10:51 [id number] ICU-C07) Document 08/16/18 11:00 ZOY2493 (Rec: 08/16/18 11:35 ORV1744 ICU-C07) Document 08/16/18 12:00 [id number] (Rec: 08/16/18 12:21 VRI0370 ICU-C07) Document 08/16/18 13:00 [id number] (Rec: 08/16/18 13:23 [id number] ICU-C07) Document 08/16/18 14:00 [id number] (Rec: 08/16/18 14:05 [id number] ICU-C07) Document 08/16/18 15:00 [id number] (Rec: 08/16/18 15:05 [id number] ICU-C07) Document 08/16/18 16:00 ZJD0358 (Rec: 08/16/18 16:40 [id number] ICU-C07) Document 08/16/18 17:00 [id number] (Rec: 08/16/18 17:16 [id number] ICU-C06) Document 08/16/18 18:00 [id number] (Rec: 08/16/18 18:13 [id number] ICU-C06) Document 08/16/18 19:00 ZAD3484 (Rec: 08/16/18 19:23 [id number] ICU-C25) Document 08/16/18 19:55 DHL1630 (Rec: 08/16/18 20:04 [id number] ICU-C25) Document 08/16/18 21:00 [id number] (Rec: 08/16/18 21:24 [id number] ICU-C25) Document 08/16/18 22:00 [id number] (Rec: 08/16/18 22:03 [id number] ICU-C25) Document 08/16/18 23:00 [id number] (Rec: 08/16/18 23:13 [id number] ICU-M18) Document 08/17/18 00:00 [id number] (Rec: 08/17/18 00:05 [id number] ICU-C25) Document 08/17/18 02:00 [id number] (Rec: 08/17/18 02:17 [id number] ICU-C25) Document 08/17/18 04:00 [id number] (Rec: 08/17/18 04:14 [id number] ICU-C25) Document 08/17/18 05:00 [id number] (Rec: 08/17/18 05:19 [id number] ICU-C25) Document 08/17/18 06:00 HMR3793 (Rec: 08/17/18 06:14 [id number] ICU-M18) Document 08/17/18 07:00 [id number] (Rec: 08/17/18 08:00 [id number] ICU-C12) Document 08/17/18 08:00 LGS0133 (Rec: 08/17/18 09:20 [id number] ICU-C12) Document 08/17/18 09:00 [id number] (Rec: 08/17/18 09:23 [id number] ICU-C12) Document 08/17/18 10:00 [id number] (Rec: 08/17/18 10:26 [id number] ICU-M18) Document 08/17/18 16:00 OZN2278 (Rec: 08/17/18 16:14 [id number] MED-M02) Document 08/17/18 16:14 [id number] (Rec: 08/17/18 16:20 KUC0633 MED-C02) Document 08/18/18 08:00 [id number] (Rec: 08/18/18 08:49 [id number] MED-C09) Document 08/18/18 16:00 [id number] (Rec: 08/18/18 22:53 VHY0002 MED-C11) Document 08/19/18 00:00 [id number] (Rec: 08/19/18 01:40 [id number] MED-C09) - Physical Exam General: No Cyanosis, Yes Anemia, No Jaundice, No Clubbing Lungs and Chest: Yes: Chest Expansion Full, Chest Expansion Symetrica. No: Vessicular Breath Sounds, Crackles, Wheezes, Use of Accessory Muscles Heart Rate and Rhythm: Regular Additional Cardiovascular: Yes: Normal Heart Sounds, Pedal Edema - trace. No: Heart Murmur Abdominal Exam: Yes: Soft. No: Distention, Abdominal Mass, Abdominal Tenderness Results - Results Lab Results: Laboratory Results - last 24 hr 08/18/18 08/18/18 08/18/18 07:50 07:51 11:57 WBC RBC Hgb Hct MCV MCH MCHC RDW Plt Count MPV Neut % (Auto) Lymph % (Auto) [place] % (Auto) Eos % (Auto) Baso % (Auto) Absolute Neuts (auto) Absolute Lymphs (auto) Absolute Monos (auto) Absolute Eos (auto) Absolute Basos (auto) Absolute Nucleated RBC Nucleated RBC % Sodium 138 Potassium 3.9 Chloride 102 Carbon Dioxide 27 Anion Gap 9 BUN 19 Creatinine 5.25 H Est GFR ( Amer) 13.1 Est GFR (Non-Af Amer) 10.8 BUN/Creatinine Ratio 3.6 L Glucose 99 POC Glucose (mg/dL) 128 H 167 H Calcium 8.9 C-Reactive Protein 22.23 H 08/18/18 08/18/18 08/18/18 17:15 20:57 23:55 WBC RBC Hgb Hct MCV MCH MCHC RDW Plt Count MPV Neut % (Auto) Lymph % (Auto) [place] % (Auto) Eos % (Auto) Baso % (Auto) Absolute Neuts (auto) Absolute Lymphs (auto) Absolute Monos (auto) Absolute Eos (auto) Absolute Basos (auto) Absolute Nucleated RBC Nucleated RBC % Sodium Potassium Chloride Carbon Dioxide Anion Gap BUN Creatinine Est GFR ( Amer) Est GFR (Non-Af Amer) BUN/Creatinine Ratio Glucose POC Glucose (mg/dL) 88 107 H 75 Calcium C-Reactive Protein 08/19/18 04:43 WBC 5.3 RBC 3.42 L Hgb 10.2 L Hct 30 L MCV 88 MCH 30 MCHC 34 RDW 17 H Plt Count 281 MPV 7.0 L Neut % (Auto) 57.1 Lymph % (Auto) 25.5 [place] % (Auto) 15.1 H Eos % (Auto) 1.9 Baso % (Auto) 0.4 Absolute Neuts (auto) 3.1 Absolute Lymphs (auto) 1.4 Absolute Monos (auto) 0.8 Absolute Eos (auto) 0.1 Absolute Basos (auto) 0 Absolute Nucleated RBC 0 Nucleated RBC % 0 Sodium Potassium Chloride Carbon Dioxide Anion Gap BUN Creatinine Est GFR ( Amer) Est GFR (Non-Af Amer) BUN/Creatinine Ratio Glucose POC Glucose (mg/dL) Calcium C-Reactive Protein Assessment - Problem List Assessment: Patient Problems Acute combined systolic (congestive) and diastolic (congestive) heart failure ( Acute) Anxiety (Acute) Hemodialysis patient (Acute) Mitral regurgitation (Acute) Paronychia (Acute) Pleural effusion, bilateral (Acute) Pulmonary hypertension (Acute) Volume overload (Acute) Bundle branch block (Chronic) Cardiac pacemaker in situ (Chronic) Essential hypertension (Chronic) History of CVA (cerebrovascular accident) (Chronic) History of right below knee amputation (Chronic) Hyperlipidemia (Chronic) Hypothyroidism (acquired) (Chronic) Mass of right lung (Chronic) S/P cholecystectomy (Chronic 12/31/14) 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) 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 His anxiety is improved. I am discharging him home on amlodipine 5 mg qddaily, lorazepam and citalopram. See dictated discharge summary
[2018-08-19 08:02] VITALS: BP 125/46
[2018-08-19] MEDS: amLODIPine TAB* 5 MG PO SCH (09:02)
[2018-08-19] MEDS: Citalopram TAB* 10 MG PO SCH (09:02)
[2018-08-19] MEDS: Clopidogrel TAB* 75 MG PO SCH (09:03)
[2018-08-19] MEDS: Carvedilol TAB* 6.25 MG PO SCH (09:03)
[2018-08-19] MEDS: Aspirin EC TAB* 81 MG TAB.EC PO SCH (09:03)
[2018-08-19] MEDS: Insulin LISPRO* 1 UNITS UNIT SUBCUT SCH ×2 (09:07→09:14)
--- NOTE | 2018-08-19 23:20 | DS ---
CC: Dr. Francesco Holder; Dr. Lee Joseph * DISCHARGE SUMMARY: DATE OF ADMISSION: 08/16/18 DATE OF DISCHARGE: 08/19/18 DISCHARGE DIAGNOSES: 1. Acute pulmonary edema, pulmonary hypertension. 2. Systolic and diastolic dysfunction. 3. Volume overload in the patient with hemodialysis. 4. Paroxysmal nocturnal dyspnea. 5. Severe anxiety disorder and major depression. COMORBIDITIES: Type 2 diabetes mellitus with nephropathy, essential hypertension, coronary artery disease with prior myocardial infarction, mitral regurgitation, cardiac pacemaker. SECONDARY DIAGNOSES: 1. Essential hypertension. 2. History of cerebrovascular accident. 3. Right-below knee amputation. 4. Hyperlipidemia. 5. Primary hypothyroidism. HISTORY: Alec Bynum is a 72-year-old right-handed white male. His presentation is documented in David Shoemaker's admitting history and physical. He is a patient who has end-stage renal disease secondary to diabetic nephropathy and long- term poor glycemic control. He presented with worsening anxiety, paroxysmal nocturnal dyspnea, some ankle swelling. PHYSICAL EXAMINATION AT ADMISSION: Temperature 36.2 celsius, pulse 79, respirations 18, blood pressure 150/85, pulse oximetry 94. He was fatigued, cooperative. No JVD. Heart sounds were normal. He had 1+ leg edema. He had course crackles and poor aeration in his lungs. INITIAL INVESTIGATIONS: White count 7.2, hemoglobin 10.1, hematocrit 30, platelets 345, percent neutrophils 71. INR 1.05, APTT 30.7. Chemistry was normal aside from the following: Chloride 98, creatinine of 5.73, glucose 171, troponin I 0.04. EKG showed atrial sensing with pacemaker and PVCs. X-ray showed evidence of CHF. INITIAL IMPRESSION: 1. End-stage renal disease. 2. Type 2 diabetes. 3. Chronic obstructive pulmonary disease. 4. Volume overload. INITIAL PLAN: Managed on ICU. Inpatient dialysis arranged. INVESTIGATIONS: Lab: C-reactive protein 22.23, 08/17/18 D-dimer 691. Imaging: Chest x-ray consistent with pulmonary edema, left side worse than the right side, bilateral pleural effusions. 08/18/18, CT angiogram, no evidence of PE. CT findings consistent of cardiogenic pulmonary edema with ground-glass opacification and small bilateral pleural effusions, pleural-based densities in the left lung, largest in the left upper lobe. Transthoracic echocardiogram on 08/16/18, moderate concentric LVH, left ventricular systolic function low limited normal ejection fraction 50% to 55%, left atrium [id number] dilated, moderate mitral and tricuspid regurgitation, severe pulmonary hypertension. CONSULTATIONS: He was seen in consultation by Lee Joseph MD. His report is part of the electronic medical record. His assessment was major depressive disorder, anxiety. RECOMMENDATIONS: Longer-acting benzodiazepine replacing alprazolam with lorazepam and starting him on citalopram 10 mg daily. HOSPITAL PROGRESS: Post 2 days in the hospital, he had severe paroxysmal nocturnal dyspnea and orthopnea. This was associated with severe anxiety requiring large doses of benzodiazepines. This was also required to allow him to complete dialysis. He improved after his first dialysis, but it was a second dialysis on the penultimate day in the hospital that made the difference. On the day of discharge, he is feeling much better. He no longer has proximal nocturnal dyspnea or orthopnea. He denies chest pain or palpitations. He has no productive cough. His appetite is lower than usual, but otherwise he is in no pain or distress. PHYSICAL EXAMINATION ON THE DAY OF DISCHARGE: Vital Signs: Pulse 67, oxygen saturation 93%, respirations 22, blood pressure 109/37, temperature 97.3 Fahrenheit. He is pale. No cyanosis, jaundice, or clubbing. Cardiovascular System: His pulse was regular with extra beats. Heart sounds were normal. No added sounds or murmurs. He had a trace edema. Respiratory System: Chest expansion was full and symmetrical. Percussion note was dull at the bases. Decreased air entry in the bases. No crackles or wheezes. Abdomen: No distention, masses, tenderness, or organomegaly. Nervous System: He is alert and oriented. He has no anxiety. He is moving all limbs. ASSESSMENT AND PLAN: 1. Acute combined systolic and diastolic congestive cardiac failure. 2. Pulmonary hypertension. 3. Pleural effusions. 4. Pulmonary edema, this is likely multifactorial. He, however, was improved greatly by hemodialysis and by the day of discharge, he was no longer in any acute distress. Dr. Holder is aware that his dry weight has decreased considerably over the last few months and will adjust his dialysis accordingly as an outpatient. 5. Anxiety and depression. He was seen in consultation by Dr. Lee Joseph, who recognized major depression with anxiety as a secondary manifestation and treated this with citalopram 10 mg a day. He is switched to longer acing benzodiazepine and I will follow this as an outpatient. 6. Type 2 diabetes mellitus. During his hospital stay, he required much less insulin than usual. He was not eating quite as much with same foods. He will slowly increase his insulin back to baseline as an outpatient. 7. Coronary artery disease, this is stable. 8. Cardiac pacemaker, this is functional. 9. Essential hypertension. His blood pressure was high prior to his second dialysis and this came down again, it seems to be volume dependent. 10. Primary hypothyroidism. Continue current medication. 11. Hyperlipidemia. Continue current medication. DISCHARGE MEDICATIONS: 1. Citalopram 10 mg daily. 2. Lorazepam 0.5 mg 1 to 2 tablets up to 3 times a day, maximum daily dose 6 tablets. 3. Amlodipine 5 mg daily at bedtime. 4. Timolol 0.5% eye drops 1 drop each eye twice daily. 5. Lispro insulin 0 to 3 units before meals. 6. Sevelamer tablet 2400 mg with meals and snacks. 7. Atorvastatin 20 mg q.h.s. 8. Levemir insulin start at 10 units twice daily and increase. 9. Clopidogrel 75 mg daily. 10. Gabapentin 100 mg every morning. 11. Levothyroxine 88 mcg daily. 12. Vitamin B complex 1 daily. 13. Promethazine 25 mg q.6 hours as needed for nausea. 14. Carvedilol 12.5 mg twice daily. 15. Hydrocodone/acetaminophen 5/300 1 tablet every 4 hours. 16. Aspirin 81 mg daily. I have discussed the above with the patient. [id number]/[facility] #: [id number] SIRENA
== END 2018-08-19 09:10 | disposition home or self-care (01) | DRG 291 ==
LOC: ED 00:44 → ICU 05:53 → MED 08-17 10:39
PROVIDERS: ADMIT Hospitalist; ATTEND Internal Medicine
PROC: 5A1D70Z Performance of Urinary Filtration, Intermittent, Less than 6 Hours Per Day (ICD-10-PCS; principal; 2018-08-16)
PROC: 5A1D70Z Performance of Urinary Filtration, Intermittent, Less than 6 Hours Per Day (ICD-10-PCS; 2018-08-16)
PROC: 5A1D70Z Performance of Urinary Filtration, Intermittent, Less than 6 Hours Per Day (ICD-10-PCS; 2018-08-16)
DX: I13.2 Hypertensive heart and chronic kidney disease with heart failure and with stage 5 chronic kidney disease, or end stage renal disease (principal); N18.6 End stage renal disease; I50.41 Acute combined systolic (congestive) and diastolic (congestive) heart failure; I45.2 Bifascicular block; F32.2 Major depressive disorder, single episode, severe without psychotic features; I69.351 Hemiplegia and hemiparesis following cerebral infarction affecting right dominant side; J44.9 Chronic obstructive pulmonary disease, unspecified; E11.22 Type 2 diabetes mellitus with diabetic chronic kidney disease; I44.7 Left bundle-branch block, unspecified; E11.40 Type 2 diabetes mellitus with diabetic neuropathy, unspecified; E11.319 Type 2 diabetes mellitus with unspecified diabetic retinopathy without macular edema; H54.8 Legal blindness, as defined in USA; E78.5 Hyperlipidemia, unspecified; F32.9 Major depressive disorder, single episode, unspecified; I25.10 Atherosclerotic heart disease of native coronary artery without angina pectoris; E11.51 Type 2 diabetes mellitus with diabetic peripheral angiopathy without gangrene; M19.042 Primary osteoarthritis, left hand; M19.041 Primary osteoarthritis, right hand; G43.909 Migraine, unspecified, not intractable, without status migrainosus; F41.9 Anxiety disorder, unspecified; I27.20 Pulmonary hypertension, unspecified; R91.8 Other nonspecific abnormal finding of lung field; E03.9 Hypothyroidism, unspecified; I08.1 Rheumatic disorders of both mitral and tricuspid valves; Z79.82 Long term (current) use of aspirin; Z79.4 Long term (current) use of insulin; Z90.49 Acquired absence of other specified parts of digestive tract; I25.2 Old myocardial infarction; Z99.2 Dependence on renal dialysis; Z89.511 Acquired absence of right leg below knee; Z88.8 Allergy status to other drugs, medicaments and biological substances; Z95.5 Presence of coronary angioplasty implant and graft; Z95.810 Presence of automatic (implantable) cardiac defibrillator; Z98.42 Cataract extraction status, left eye; Z98.41 Cataract extraction status, right eye; Z83.3 Family history of diabetes mellitus; Z82.49 Family history of ischemic heart disease and other diseases of the circulatory system; Z87.891 Personal history of nicotine dependence; Z72.89 Other problems related to lifestyle; R62.7 Adult failure to thrive; Z99.81 Dependence on supplemental oxygen; Z86.73 Personal history of transient ischemic attack (TIA), and cerebral infarction without residual deficits; Z95.0 Presence of cardiac pacemaker
CPT/HCPCS: 36415; 36598; 71045; 71275; 80048; 80053; 83036; 83605; 83735; 83880; 84100; 84484; 85025; 85027; 85379; 85610; 85730; 86140; 86706; 87340; 87641; 90935; 93005; 93306; 99285; A9270-GY; G0257; G8978-GP-CL; G8979-GP-CL; G8980-GP-CL; G8987-GO-CK; G8988-GO-CK; G8989-GO-CK; J0885; J1644; J1940; J2060; Q9967

== ENCOUNTER 2018-09-29 07:37 | Day surgery (SDC) | payer MEDICARE ==
--- NOTE | 2018-09-21 19:46 | HP ---
AMENDED REPORT NOW INCLUDES DESIGNATED COSIGNER CC: Dr. Holder; Dr. Jose White * PREOPERATIVE HISTORY AND PHYSICAL: DATE OF ADMISSION/SURGERY: 09/29/18 This patient is scheduled for same-day surgery admission by Dr. Winkler on 09/29/18. DATE OF PREOPERATIVE HISTORY AND PHYSICAL: 09/21/18. ATTENDING SURGEON: Dr. Neil Winkler * (dictated by Jerrica Diggs, GRZEGORZ) CHIEF COMPLAINT: Malfunctioning peritoneal dialysis catheter. HISTORY OF PRESENT ILLNESS: The patient is a 72-year-old male with multiple medical problems including chronic kidney disease, currently on hemodialysis therapy. His dialysis days are typically Thursday, Thursday, and Thursday, though his scheduled next week will change to Thursday, Thursday, and Thursday to accommodate the upcoming surgery on 09/29/18. The patient had an open peritoneal dialysis catheter placed by Dr. Winkler 07/28/18. Currently, the peritoneal dialysis catheter allows fluid to flow in but the fluid is not flowing out. Therefore, the patient has been scheduled for diagnostic laparoscopy with possible replacement of the peritoneal dialysis catheter. Currently for hemodialysis, he has a right chest dialysis catheter; he does have a right arm AV fistula, which was placed by Dr. Sanchez on 08/04/18 and most likely is not yet fully matured. Dr. Winkler discussed the surgical procedure, the relevant risks and benefits, and the patient would like to proceed as scheduled. The patient did have an admission to [facility] on 08/16/18 with paroxysmal nocturnal dyspnea and anxiety and was diagnosed with congestive heart failure; he improved greatly during his admission with hemodialysis. PAST MEDICAL HISTORY: Type 2 diabetes with nephropathy; chronic kidney disease , on dialysis; retinopathy (legally blind); peripheral neuropathy. He is treated for hypertension, hyperlipidemia, and hypothyroidism. He has a history of coronary artery disease with prior myocardial infarction and underwent PCI with stent placement x3 earlier this year in [place]. He has a pacemaker that was placed by Dr. Colunga. He sustained a left MCA stroke in 2011 and has right hemiparesis. 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 PAST SURGICAL HISTORY: Other surgeries include PCI with stenting as noted above ; pacemaker placement by Dr. Colunga; left inguinal herniorrhaphy; laparoscopic cholecystectomy; hemodialysis catheter placement and subsequent removal and replacement; right upper extremity AV fistula; ORIF of the left femoral fracture ; PD catheter placement and removal and replacement. CURRENT MEDICATIONS: 1. Aspirin 81 mg p.o. daily, which he will hold as of 09/23/18. 2. Plavix 75 mg p.o. daily, which he will continue during the perioperative period. 3. Carvedilol 12.5 mg p.o. b.i.d. 4. Atorvastatin 20 mg p.o. daily. 5. Furosemide 80 mg p.o. b.i.d. 6. Levothyroxine 88 mcg p.o. daily. 7. Lispro up to 6 units before meals based on fingersticks. 8. Levemir 16 units subcutaneously every evening and occasionally in the morning based on fingersticks. 9. Sevelamer 400 mg 3 tablets t.i.d. with meals. 10. Timolol eye drops 0.5% one drop in both eyes b.i.d. 11. He also has alprazolam 0.5 mg as needed. DRUG ALLERGIES: LABETALOL caused hallucinations. FAMILY HISTORY: No known anesthesia complications, bleeding tendencies, or clotting disorders. SOCIAL HISTORY: The patient lives with his significant other. No history of tobacco use or alcohol use. REVIEW OF SYSTEMS: General: As previously mentioned, he was admitted to [facility] 08/16/18 with congestive heart failure; his BNP at that time was greater than 6000. His chest x-ray was consistent with congestive heart failure. Dr. White saw the patient; the patient improved greatly with hemodialysis during his admission. At present, he denies any chest pain or shortness of breath. He denies any palpitations. He denies any orthopnea. He is followed by Dr. Colunga for Cardiology and his last visit was 08/11/18. Please see the attached Cardiology note. When he was hospitalized in early August, he underwent transthoracic echocardiogram and the estimated ejection fraction was 50% to 55%. There was abnormal ventricular septal wall motion consistent with right ventricular pacemaker. Constitutional: No fevers or chills. Endocrine: Type 2 diabetes. Fingersticks at home are typically less than 200. He is also treated for hypothyroidism. Hematologic: No recent bleeding or blood transfusions. Respiratory: No current dyspnea or orthopnea. No chronic cough. Cardiovascular: No anginal chest pain or palpitations. Gastrointestinal: No problems reported. Genitourinary: No problems reported other than chronic kidney disease. Musculoskeletal: Status post right below the knee amputation with healed stump. Neurologic: Legally blind. History of peripheral neuropathy. PHYSICAL EXAMINATION GENERAL SURVEY: The patient is a 72-year-old chronically ill-appearing male, in no acute distress. VITAL SIGNS: Height 69 inches, weight approximately 161 pounds, body mass index 23.8. Blood pressure 116/50, pulse 64 and regular, respiratory rate 16, temperature 98.2 tympanic. HEENT: Benign. NECK: Supple. No lymphadenopathy or thyromegaly noted. LUNGS: Breath sounds bilaterally clear and equal. HEART: Regular rate and rhythm. No murmurs or rubs appreciated. Pacemaker in the left upper anterior chest wall. Dialysis catheter in the right upper anterior chest wall. ABDOMEN: Well-healed laparoscopic incisions from prior surgeries. Peritoneal dialysis catheter without signs of infection at the exit site. Nontender. No palpable masses. GENITALIA: Exam deferred. RECTAL: Exam deferred. EXTREMITIES: Status post right below the knee amputation. Left lower extremity without edema or open lesions. NEUROLOGIC: Alert and oriented x3. SKIN: Warm and dry. No suspicious rashes or lesions noted. IMPRESSION: End-stage renal disease, malfunctioning peritoneal dialysis catheter. PLAN: Same-day surgery admission to Dr. Winkler's service on 09/29/18 , for diagnostic laparoscopy, possible replacement of peritoneal dialysis catheter. The patient will have hemodialysis on 09/27/18; Thursday, 09/28; 10/01/18; he will continue Plavix in the perioperative period and hold aspirin for 5 days preoperatively. I have asked Dr. Holder to review his most recent chest x- ray and lab values from today, 09/21/18. LIZ DIGGS NP [id number]/[facility] #: [id number] SIRENA
[~2018-09-29 07:37] MED LIST changes: +DiMENhydriNATE IV* 50 MG/ML VIAL IV PUSH PRN; +Famotidine IV* 10 MG/ML 2 ML (20 mg) ONE; +Morphine PCA ADULT* 5 MG/ML 30 ML ONE; +Morphine VIAL* 4 MG/ML VIAL (1 ml vial) IV PRN; +Naloxone* 0.4 MG/ML 1 ML VIAL IV PRN; +Ondansetron ODT TAB* 4 MG ONE; +Ondansetron TAB* 4 MG PO ONE; +PROCHLORPERAZINE INJ 5 MG/ML 2 ML VIAL IV PRN; +ceFAZolin 2 GM in NS PREMIX(*) 2 GM/100 ML BAG IVPB ONE; +fentaNYL* 50 MCG/ML 2 ML VIAL (100 MCG VIAL) IV PRN; +oxyCODONE/Acetamin 5/325 MG* TAB PO PRN
[2018-09-29] MEDS ORDERED: Atracurium* 10 MG/ML 10 ML VIAL ONE (08:08)
[2018-09-29] MEDS ORDERED: Midazolam* 1 MG/ML 5 ML VIAL (5 MG) ONE (08:08)
[2018-09-29] MEDS ORDERED: fentaNYL* 50 MCG/ML 2 ML VIAL (100 MCG VIAL) ONE (08:08)
[2018-09-29] MEDS ORDERED: KETAMINE HCL* 50 MG/ML 10 ML VIAL ONE (08:08)
[2018-09-29] MEDS ORDERED: Heparin DIALYSIS ONLY(*) 1,000 UNITS/ML VIAL ONE ×2 (08:37→08:38)
[2018-09-29] MEDS ORDERED: Bupivacaine 0.25% W/EPI* 10 ML SDV ONE (08:37)
[2018-09-29 09:26] LABS: EGFR Non-African American 11.9 (>60)
[2018-09-29] MEDS ORDERED: Bupivacaine 0.5% W/EPI SDV* 30 ML VIAL ONE (11:05)
[2018-09-29] MEDS ORDERED: Neostigmine Methylsulfate* 1 MG/ML 10 ML VIAL (1 mg/ml) ONE (11:18)
[2018-09-29] MEDS ORDERED: Glycopyrrolate IV* 0.2 MG/ML 1 ML VIAL ONE (11:18)
[2018-09-29] MEDS ORDERED: Lidocaine 2% PF * 5 ML VIAL ONE (11:20)
[2018-09-29] MEDS ORDERED: PROCHLORPERAZINE INJ 5 MG/ML 2 ML VIAL ONE (11:20)
[2018-09-29] MEDS ORDERED: Phenylephrine INJ* 10 MG/ML 1 ML VIAL (10 MG) ONE (11:20)
[2018-09-29] MEDS ORDERED: Propofol* 10 MG/ML 20 ML BTL IV PUSH ONE (11:20)
[2018-09-29] MEDS ORDERED: Norepinephrine VIAL* 1 MG/ML 4 ML VIAL ONE (11:20)
[2018-09-29] MEDS ORDERED: Flumazenil* 0.1 MG/ML 5 ML MDV ONE (11:35)
--- NOTE | 2018-09-29 11:39 | BRIEFOPN ---
Brief Operative Note - Surgery Procedures: Procedures Pre-OP Diagnoses: malfunctioning PD catheter Post-op Diagnosis: same secondary to adhesions Procedure: Diagnostic laparoscopy, ISRA Surgeon: Peterson Mortont: Hany Anethesia: JAZMINE EBL: minimal IVF: minimal Specimen: none Drains: none Findings adhesions wrapped aroud PD cath Complications: None
[2018-09-29 13:33] VITALS: BP 115/59
--- NOTE | 2018-09-30 02:14 | OP ---
CC: Dr. Jose White; Dr. Francesco Holder * DATE OF OPERATION: 09/29/18 - [facility] DATE OF : 45 SURGEON: Neil Winkler MD. BATTERY CHECKER: HARITHA Gutiérrez ANESTHESIOLOGIST: Omkar Malik MD ANESTHESIA: General anesthesia. PRE-OP DIAGNOSIS: Malfunctioning PD catheter. POST-OP DIAGNOSIS: Malfunctioning PD catheter. OPERATIVE PROCEDURE: Diagnostic laparoscopy and lysis of adhesions. FINDINGS: Adhesions wrapped around peritoneal dialysis catheter. ESTIMATED BLOOD LOSS: Minimal. FLUIDS: Minimal crystalloid fluid given. DESCRIPTION OF PROCEDURE: The patient was identified in the preoperative area, marked. Consent was signed. He was taken to the operating room and placed on the operating table in supine position. Preoperative antibiotics were given. Sequential devices were placed on single lower extremity. General anesthesia was induced. The patient's abdomen was clipped of hair, prepped and draped in the standard surgical fashion with Betadine including the peritoneal dialysis catheter. A time-out was performed. Folds of the umbilicus were elevated anteriorly and a Veress needle was inserted into the abdominal cavity, which was then allowed to insufflate to a pressure of 15 mmHg. The patient tolerated the insufflation well. An 8-mm trocar was inserted through the previous site at the Smith's point in the left upper quadrant. Scope was inserted. There was evidence of adhesions at this site. We then placed a 5-mm in the left lower quadrant and moved the camera to this site and saw that we were in a small of the omentum, but did not injure any intestine. Next, the camera was reinserted at the left upper quadrant and we looked at the peritoneal dialysis catheter. It had a significant amount of scarring around it and additional 5-mm trocar was inserted through the midline and this scarring was dissected sharply with Endo Jaquelin. There was minimal amount of bleeding. Once the catheter was free and clear, we inserted fluid under pressure and noted that all the holes were functioning well. It was then dropped back into the pelvis and dialysate was connected and allowed to flow. It flowed freely and also exited freely. Review of the abdomen showed omentopexy intact. I did not wish to perform any additional pexy. The sigmoid colon did sit into the pelvis, but I do believe the adhesions were what caused problem with this particular catheter. Prior to the abdomen was collapsing, we closed the left upper quadrant port site with an Endo Close device with 0 Vicryl suture. The abdomen was allowed to collapse and 3 incisions were reapproximated with 4-0 Monocryl subcuticular sutures followed by Steri-Strips and sterile dressing. The patient tolerated the procedure well and was transferred to the PACU in stable condition. [id number]/[facility] #: [id number] SIRENA
== END 2018-09-29 13:38 | disposition home or self-care (01) ==
LOC: OR 07:37
PROVIDERS: ATTEND Surgery
DX: T85.611A Breakdown (mechanical) of intraperitoneal dialysis catheter, initial encounter (principal); N18.6 End stage renal disease; E11.21 Type 2 diabetes mellitus with diabetic nephropathy; Z79.84 Long term (current) use of oral hypoglycemic drugs; Z99.2 Dependence on renal dialysis; I12.9 Hypertensive chronic kidney disease with stage 1 through stage 4 chronic kidney disease, or unspecified chronic kidney disease; E78.5 Hyperlipidemia, unspecified; E03.9 Hypothyroidism, unspecified; I25.10 Atherosclerotic heart disease of native coronary artery without angina pectoris; I25.2 Old myocardial infarction; Z95.5 Presence of coronary angioplasty implant and graft; I69.351 Hemiplegia and hemiparesis following cerebral infarction affecting right dominant side; Z79.01 Long term (current) use of anticoagulants
CPT/HCPCS: 36415; 80048; A9270-GY; J0690; J0780; J1644; J2250; J2270; J2704; J2710; J3010

== ENCOUNTER 2019-10-14 19:58 | Emergency (ER) | payer MEDICARE ==
[2019-10-14] MEDS ORDERED: LORazepam TAB(*) 1 MG PO ONE (20:28)
--- NOTE | 2019-10-14 20:32 | ED ---
Complex/Multi-Sys Presentation - HPI Summary HPI Summary: Patient is a 73 y/o M who is on peritoneal dialysis since 2016 presenting to [facility] with chief complaint of anxiety and SI. reports that the patient has been dealing with anxiety for the past few years but notes recent exacerbation in the past 3-4 weeks. states that the patient had also made statements of SI. Patient is legally blind and has RBKA, states that the patient would not be able to harm himself due to physical disability and his reliance on her. He was recently prescribed lorazepam but reports no relief with this medication. Patient states that there was no specific factor which has caused an exacerbation in his anxiety. notes that the patient also had onset of congestion and cough tonight, 10/14/19. She additionally reports episodes of emesis and diarrhea. Fever and decreased appetite are denied. Home medications and allergies are reviewed. - History Of Current Complaint Chief Complaint: EDGeneral Time Seen by Provider: 10/14/19 20:18 Hx Obtained From: Patient, Family/Ethics Manager - Onset/Duration: Lasting Weeks, Still Present, Worse Since Timing: Constant, Weeks Aggravating Factor(s): nothing Alleviating Factor(s): nothing Associated Signs And Symptoms: Positive: Cough, Vomiting, Diarrhea, Other - positive - congestion, SI, anxiety; negative - decreased appetite. Negative: Fever - Allergies/Home Medications Allergies/Adverse Reactions: Allergies Allergy/AdvReac Type Severity Reaction Status Date / Time No Known Allergies Allergy Verified 09/30/19 11:19 Home Medications: Home Medications Mupirocin 2% CREAM* 1 applic TOPICAL DAILY 10/14/19 [History Confirmed 10/14/19] Potassium Chloride 20 meq PO DAILY 10/14/19 [History Confirmed 10/14/19] Reglan TAB* 5 mg PO SEE INSTRUCTIONS 10/14/19 [History Confirmed 10/14/19] Jennifer-Laz Rx Tablet 1 tab PO DAILY 10/14/19 [History Confirmed 10/14/19] PMH/Surg Hx/FS Hx/Imm Hx Endocrine/Hematology History: Reports: Hx Anticoagulant Therapy, Hx Diabetes, Hx Thyroid Disease, Hx Anemia Denies: Hx Blood Disorders, Hx Blood Transfusions, Hx Bone Marrow Disease, Hx Systemic Lupus Erythematosus, Hx Sickle Cell Disease, Hx Unexplained Bleeding , Other Endocrine/Hematological Disorders Cardiovascular History: Reports: Hx Auto Implanted Cardiovert Defib, Hx Congestive Heart Failure, Hx Coronary Artery Disease - 3 STENTS, Hx Hypercholesterolemia, Hx Hypertension - CONTROL WITH MEDS, Hx Pacemaker/ICD - 2016, Hx Peripheral Vascular Disease - RIGHT LEG AMPUTATION, Other Cardiovascular Problems/Disorders - CVA 2011 -right LE slight limb / BKA 2017 - [place] Denies: Hx Aneurysm, Hx Angina, Hx Angioplasty, Hx Cardiac Arrest, Hx Cardiomegaly, Hx Congenital Heart Disease, Hx Deep Vein Thrombosis, Hx Embolism , Hx Hypotension, Hx Rheumatic Fever, Hx Syncope, Hx Valvular Heart Disease Respiratory History: Reports: Hx Chronic Obstructive Pulmonary Disease (COPD), Hx Pulmonary Edema - pulmonary htn, Other Respiratory Problems/Disorders - right pneumothorax with chest tube 07/30, pulmonary nodules on CT GI History: Reports: Other GI Disorders - HX OF BILATERAL INGUINAL HERNIA Denies: Hx Cirrhosis, Hx Crohn's Disease, Hx Diverticulosis, Hx Gall Bladder Disease, Hx Gastroesophageal Reflux Disease, Hx Gastrointestinal Bleed, Hx Hiatal Hernia, Hx Irritable Bowel, Hx Jaundice, Hx Obstructive Bowel, Hx Ileostomy, Hx Pyloric Stenosis, Hx Ulcer History: Reports: Hx Chronic Renal Failure - T/R/S HD, Hx Dialysis - TUE, THURS, SAT, Hx Renal Disease, Other Problems/Disorders - kidney toxic drugs Denies: Hx Acute Renal Failure, Hx Benign Prostatic Hyperplasia, Hx Kidney Infection, Hx Kidney Stones Musculoskeletal History: Reports: Hx Arthritis - hands, Hx Orthopedic Injury - lt femur fx repair 07/18/14, Other Musculoskeletal History - HX OF RIGHT RIB FX 1- 7 - NO PROBLEMS SINCE 2013 Denies: Hx Back Problems, Hx Bursitis, Hx Congenital Bone Abnormalities, Hx Fibromyalgia, Hx Gout, Hx Osteoporosis, Hx Scoliosis, Hx Tendonitis Sensory History: Reports: Hx Cataracts - DAVIAN, Hx Legally Blind, Other Sensory Impairments Denies: Hx Contacts or Glasses - LEGALLY BLIND, Hx Glaucoma, Hx Hearing Aid Opthamlomology History: Reports: Hx Cataracts - DAVIAN, Hx Legally Blind, Other Sensory Impairments Denies: Hx Contacts or Glasses - LEGALLY BLIND, Hx Glaucoma Neurological History: Reports: Hx Headaches, Hx Migraine - 20 years ago, Hx Nerve Disease - 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 07/2014 LEFT FEMUR REPAIR, [facility]. 2014 LAPAROSCOPIC CHOLECYSTECTOMY, [facility] [place]. 2013 BILATERAL CATARACT EXTRACTION WITH IOL IMPLANTS, [facility] [place]. 08/2016 EBUS, [facility] [place]. 09/2016 LEFT INGUINAL HERNIA REPAIR, HEMODIALYSIS CATHETER INSERTION, [facility] [place]. 09/2016 PERTIONEAL DIALYSIS CATHETER INSERTION, [facility] [place]. 03/2017 REVISION OF PERTIONEAL DIALYSIS CATHETER, [facility] [place]. 04/2017 MEDTRONIC PACEMAKER INSERTION, [facility] [place]. 2017 RIGHT BELOW KNEE AMPUTATION, [place]. 2018 CARDIAC STENTS INSERTION, Hx Anesthesia Reactions: No - Immunization History Date of Tetanus Vaccine: Unk Date of Influenza Vaccine: None Infectious Disease History: No Infectious Disease History: Denies: Hx Clostridium Difficile, Hx Hepatitis, Hx Human Immunodeficiency Virus (HIV), Hx of Known/Suspected MRSA, Hx Shingles, Hx Tuberculosis, History Other Infectious Disease, Traveled Outside the in Last 30 Days - Family History Known Family History: Positive: Hypertension, Diabetes - Social History Alcohol Use: None Alcohol Amount: 1 per year Hx Substance Use: No Substance Use Type: Reports: None Hx Tobacco Use: No Smoking Status (MU): Never Smoked Tobacco Type: Cigarettes Amount Used/How Often: "ONLY SMOKED TEN CIGARETTES IN WHOLE LIFE" Length of Time of Smoking/Using Tobacco: 1 YEAR Have You Smoked in the Last Year: No Review of Systems Negative: Fever Respiratory: Other - positive - congestion Positive: Cough Gastrointestinal: Other - negative - decreased appetite Positive: Vomiting, Diarrhea Psychological: Other - positive - SI Positive: Anxious All Other Systems Reviewed And Are Negative: Yes Physical Exam - Summary Physical Exam Summary: Appearance: Ill-appearing, Well-nourished, lying in bed with no acute distress Skin: Warm, dry, no obvious rash; there are numerous scars to extremities from prior fistulas Eyes: sclera anicteric, no conjunctival pallor ENT: mucous membranes moist, pharynx appears normal Neck: Supple, nontender Respiratory: Occasional scattered rhonchi noted, no signs of respiratory distress Cardiovascular: Normal S1, S2. No murmurs. Normal distal pulses in tibial and radial bilaterally. Abdomen: Soft, nontender, normal active bowel sounds present Musculoskeletal: RBKA noted, otherwise normal Neurological: A&Ox3, awake and alert, mentation is normal, speech is fluent and appropriate Psychiatric: affect is normal, does not appear anxious or depressed Triage Information Reviewed: Yes Vital Signs On Initial Exam: Initial Vitals Temp Pulse Resp BP Pulse Ox 98.0 F 79 18 140/79 97 10/14/19 20:01 10/14/19 20:01 10/14/19 20:01 10/14/19 20:01 10/14/19 20:01 Vital Signs Reviewed: Yes Procedures - Sedation Patient Received Moderate/Deep Sedation with Procedure: No Diagnostics - Vital Signs Vital Signs Temp Pulse Resp BP Pulse Ox 10/14/19 20:01 98.0 F 79 18 140/79 97 - Laboratory Lab Statement: Any lab studies that have been ordered have been reviewed, and results considered in the medical decision making process. - Radiology CXR Radiology Interpretation Completed By: ED Physician Summary of Radiographic Findings: Atelectasis to left upper chest. There is diffuse interstitial pattern that appears chronic noted. This pattern is present on previous films. Pending official report. Complex Multi-Symp Course/Dx Course Of Treatment: Patient is a 73 y/o M who is on peritoneal dialysis since 2016 presenting to [facility] with chief complaint of anxiety and SI. reports that the patient has been dealing with anxiety for the past few years but notes recent exacerbation in the past 3-4 weeks. states that the patient had also made statements of SI. Patient is legally blind and has RBKA, states that the patient would not be able to harm himself due to physical disability and his reliance on her. He was recently prescribed lorazepam but reports no relief with this medication. Patient states that there was no specific factor which has caused an exacerbation in his anxiety. notes that the patient also had onset of congestion and cough tonight, 10/14/19. She additionally reports episodes of emesis and diarrhea. Fever and decreased appetite are denied. Pt's is not concerned about possibility of self harm as the patient is so debilitated he would be unable to act on such an impulse even were he to develop worsening SI. For his part, the patient denies any specific plans and only professes to vague SI. Patient is chronically ill-appearing, no acute distress. There are numerous scars to extremities from prior fistulas. RBKA noted. Occasional scattered rhonchi noted. CXR showed atelectasis to left upper chest. There is diffuse interstitial pattern that appears chronic noted. This pattern is present on previous films. During ED course, patient was given 1 mg Ativan. He was discharged to home with prescription for higher dose and frequency of Ativan. He will follow up with PCP. - Diagnoses Provider Diagnoses: Anxiety, Bronchitis Discharge ED - Sign-Out/Discharge Documenting (check all that apply): Patient Departure - discharge - Discharge Plan Condition: Good Disposition: HOME Prescriptions: LORazepam TAB(*) [Ativan 1 MG TAB (*)] 1 mg PO TID PRN #30 tab MDD 3 tabs PRN Reason: Anxiety Patient Education Materials: Anxiety (ED) Referrals: Jose White MD [Primary Care Provider] - Additional Instructions: I am ok going up on the dose and frequency of the lorazepam, but keep in mind that it can be sedating. You may need to adjust the dose to keep the anxiety in check while balancing that against excess sedation. Definitely followup with Dr. White in the near future to see how he is doing on this medication; it can be habit forming so does need to be carefully monitored. Your chest film looks stable compared to prior films, so I would not pursue further workup of your cough at present, but again, if your breathing worsens we would want you back for a recheck. - Billing Disposition and Condition Condition: GOOD Disposition: Home - Attestation Statements Document Initiated by Yara: Yes Documenting Scribe: THALIA LEE Provider For Whom Yara is Documenting (Include Credential): SILVERIO COX MD Scribe Attestation: I, THALIA LEE, scribed for SILVERIO COX MD on 10/15/19 at 0455. Scribe Documentation Reviewed: Yes Provider Attestation: The documentation as recorded by the THALIA sterling accurately reflects the service I personally performed and the decisions made by me, SILVERIO COX MD Status of Scribwing Document: Viewed
[2019-10-14 22:42] VITALS: BP 143/74
== END 2019-10-14 22:41 | disposition home or self-care (01) ==
LOC: ED 19:58
DX: F41.9 Anxiety disorder, unspecified (principal); J40 Bronchitis, not specified as acute or chronic; R91.8 Other nonspecific abnormal finding of lung field; H54.8 Legal blindness, as defined in USA; E07.9 Disorder of thyroid, unspecified; D64.9 Anemia, unspecified; I25.10 Atherosclerotic heart disease of native coronary artery without angina pectoris; E78.00 Pure hypercholesterolemia, unspecified; J44.9 Chronic obstructive pulmonary disease, unspecified; E11.22 Type 2 diabetes mellitus with diabetic chronic kidney disease; I13.2 Hypertensive heart and chronic kidney disease with heart failure and with stage 5 chronic kidney disease, or end stage renal disease; N18.6 End stage renal disease; I50.9 Heart failure, unspecified; Z99.2 Dependence on renal dialysis; Z95.5 Presence of coronary angioplasty implant and graft; Z95.810 Presence of automatic (implantable) cardiac defibrillator; Z86.73 Personal history of transient ischemic attack (TIA), and cerebral infarction without residual deficits; Z89.511 Acquired absence of right leg below knee; Z79.899 Other long term (current) drug therapy; Z90.49 Acquired absence of other specified parts of digestive tract
CPT/HCPCS: 71046; 99282; A9270-GY

== ENCOUNTER 2019-11-12 09:44 | Inpatient (IN) | payer MEDICARE ==
--- NOTE | 2019-11-12 10:26 | ED ---
Complex/Multi-Sys Presentation - HPI Summary HPI Summary: Patient is a 74 y/o M presenting to the ED for a chief complaint of fatigue and gangrene on the right fifth finger. Patient is present with his family. Patient' s family reports that the patient initially had a sore on the right fifth finger , which has worsened to gangrene. Patient reports pain in the right fifth finger and fatigue. Patient's family reports that the patient has anxiety, decreased appetite, confusion, and visual hallucinations. Per daughter, patient does have intermittent visual hallucinations. On triage, vomiting was also reported. Patient denies chest pain. He is currently taking Tramadol for the right fifth finger pain. PMHx is significant for anxiety, peripheral vascular disease, and chronic renal failure for which he is on dialysis. 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 Patient was previously seen by Dr. Starr who attempted to push a clot buster without success. Patient was also recommended for hospice, but patient's family does not want the patient to be in hospice. - History Of Current Complaint Chief Complaint: EDGeneral Time Seen by Provider: 11/12/19 10:15 Hx Obtained From: Patient Onset/Duration: Gradual Onset, Still Present Timing: Constant Severity Currently: Moderate Severity Initially: Moderate Character: Unable To Describe Associated Signs And Symptoms: Positive: Confusion, Vomiting. Negative: Chest Pain - Allergies/Home Medications Allergies/Adverse Reactions: Allergies Allergy/AdvReac Type Severity Reaction Status Date / Time No Known Allergies Allergy Verified 09/30/19 11:19 PMH/Surg Hx/FS Hx/Imm Hx Previously Healthy: Yes Endocrine/Hematology History: Reports: Hx Anticoagulant Therapy, Hx Diabetes, Hx Thyroid Disease, Hx Anemia Denies: Hx Blood Disorders, Hx Blood Transfusions, Hx Bone Marrow Disease, Hx Systemic Lupus Erythematosus, Hx Sickle Cell Disease, Hx Unexplained Bleeding , Other Endocrine/Hematological Disorders Cardiovascular History: Reports: Hx Auto Implanted Cardiovert Defib, Hx Congestive Heart Failure, Hx Coronary Artery Disease - 3 STENTS, Hx Hypercholesterolemia, Hx Hypertension - CONTROL WITH MEDS, Hx Pacemaker/ICD - 2016, Hx Peripheral Vascular Disease - RIGHT LEG AMPUTATION, Other Cardiovascular Problems/Disorders - CVA 2011 -right LE slight limb / BKA 2017 - [place] Denies: Hx Aneurysm, Hx Angina, Hx Angioplasty, Hx Cardiac Arrest, Hx Cardiomegaly, Hx Congenital Heart Disease, Hx Deep Vein Thrombosis, Hx Embolism , Hx Hypotension, Hx Rheumatic Fever, Hx Syncope, Hx Valvular Heart Disease Respiratory History: Reports: Hx Chronic Obstructive Pulmonary Disease (COPD), Hx Pulmonary Edema - pulmonary htn, Other Respiratory Problems/Disorders - right pneumothorax with chest tube 07/30, pulmonary nodules on CT GI History: Reports: Other GI Disorders - HX OF BILATERAL INGUINAL HERNIA Denies: Hx Cirrhosis, Hx Crohn's Disease, Hx Diverticulosis, Hx Gall Bladder Disease, Hx Gastroesophageal Reflux Disease, Hx Gastrointestinal Bleed, Hx Hiatal Hernia, Hx Irritable Bowel, Hx Jaundice, Hx Obstructive Bowel, Hx Ileostomy, Hx Pyloric Stenosis, Hx Ulcer History: Reports: Hx Chronic Renal Failure - T/R/S HD, Hx Dialysis - TUE, THURS, SAT, Hx Renal Disease, Other Problems/Disorders - kidney toxic drugs Denies: Hx Acute Renal Failure, Hx Benign Prostatic Hyperplasia, Hx Kidney Infection, Hx Kidney Stones Musculoskeletal History: Reports: Hx Arthritis - hands, Hx Orthopedic Injury - lt femur fx repair 07/18/14, Other Musculoskeletal History - HX OF RIGHT RIB FX 1- 7 - NO PROBLEMS SINCE 2013 Denies: Hx Back Problems, Hx Bursitis, Hx Congenital Bone Abnormalities, Hx Fibromyalgia, Hx Gout, Hx Osteoporosis, Hx Scoliosis, Hx Tendonitis Sensory History: Reports: Hx Cataracts - DAVIAN, Hx Legally Blind, Other Sensory Impairments Denies: Hx Contacts or Glasses - LEGALLY BLIND, Hx Glaucoma, Hx Deafness, Hx Hearing Aid Opthamlomology History: Reports: Hx Cataracts - DAVIAN, Hx Legally Blind, Other Sensory Impairments Denies: Hx Contacts or Glasses - LEGALLY BLIND, Hx Glaucoma EENT History: Denies: Hx Deafness Neurological History: Reports: Hx Headaches, Hx Migraine - 20 years ago, Hx Nerve Disease - NEUROPATHY IN LEFT FOOT Denies: Hx Dementia, Hx Developmental Delay, Hx Seizures, Hx Spinal Cord Injury, Hx Transient Ischemic Attacks (TIA), Other Neuro Impairments/Disorders Psychiatric History: Reports: Hx Anxiety - ON MEDS Denies: Hx Panic Disorder - Cancer History Cancer Type, Location and Year: pt has lung nodules- refused biopsies in past, unable to determine Hx Chemotherapy: No - Surgical History Surgical History: Yes Surgery Procedure, Year, and Place: TONSILLECTOMY A CHILD. 07/2014 LEFT FEMUR REPAIR, [place]. 2015 LAPAROSCOPIC CHOLECYSTECTOMY, [facility]. 2014 BILATERAL CATARACT EXTRACTION WITH IOL IMPLANTS, [facility]. 08/2016 EBUS, [facility]. 09/2016 LEFT INGUINAL HERNIA REPAIR, HEMODIALYSIS CATHETER INSERTION, [facility]. 09/2016 PERTIONEAL DIALYSIS CATHETER INSERTION, [facility]. 03/2017 REVISION OF PERTIONEAL DIALYSIS CATHETER, [facility]. 04/2017 MEDTRONIC PACEMAKER INSERTION, [facility]. 2018 RIGHT BELOW KNEE AMPUTATION, [facility], [place]. 2018 CARDIAC STENTS INSERTION, [facility], [place] Hx Anesthesia Reactions: No - Immunization History Date of Tetanus Vaccine: Unk Date of Influenza Vaccine: None Infectious Disease History: No Infectious Disease History: Denies: Hx Clostridium Difficile, Hx Hepatitis, Hx Human Immunodeficiency Virus (HIV), Hx of Known/Suspected MRSA, Hx Shingles, Hx Tuberculosis, History Other Infectious Disease, Traveled Outside the in Last 30 Days - Family History Known Family History: Positive: Hypertension, Diabetes - Social History Occupation: Retired Lives: With Family Alcohol Use: None Alcohol Amount: 1 per year Hx Substance Use: No Substance Use Type: Reports: None Hx Tobacco Use: Yes Smoking Status (MU): Former Smoker Type: Cigarettes Amount Used/How Often: "ONLY SMOKED TEN CIGARETTES IN WHOLE LIFE" Length of Time of Smoking/Using Tobacco: 1 YEAR Have You Smoked in the Last Year: No Review of Systems Positive: Fatigue, Other - Positive decreased appetite Negative: Chest Pain Positive: Vomiting Positive: Myalgia - Right fifth finger Positive: Other - Gangrene in the right fifth finger Neurological: Other - Positive confusion Psychological: Other - Positive visual hallucinations Positive: Anxious All Other Systems Reviewed And Are Negative: Yes Physical Exam - Summary Physical Exam Summary: Constitutional: Well-developed, Well-nourished, Alert. (-) Distressed Skin: Warm, Dry HENT: Normocephalic; Atraumatic Eyes: Conjunctiva normal Neck: Musculoskeletal ROM normal neck. (-) JVD, (-) Stridor, (-) Nuchal rigidity Cardio: Rhythm regular, rate normal, Heart sounds normal; Intact distal pulses; Radial pulses are 2+ and symmetric. (-) Murmur Pulmonary/Chest wall: Effort normal. (-) Respiratory distress, (-) Wheezes, (-) Rales Abd: Soft, (-) tenderness, (-) Distension, (-) Guarding, (-) Rebound Musculoskeletal: (-) Edema. Necrotic DIP/PIP on right pinky, s/p right BKA, Doppler signal of the bilateral radial pulses. Lymph: (-) Cervical adenopathy Neuro: Alert, Oriented x3 Psych: Mood and affect Normal Triage Information Reviewed: Yes Vital Signs On Initial Exam: Initial Vitals Temp Pulse Resp BP Pulse Ox 96.3 F 76 24 0/0 0 11/12/19 09:45 11/12/19 09:45 11/12/19 09:45 11/12/19 09:45 11/12/19 09:45 Vital Signs Reviewed: Yes Procedures - Sedation Patient Received Moderate/Deep Sedation with Procedure: No Diagnostics - Vital Signs Vital Signs Temp Pulse Resp BP Pulse Ox 11/12/19 09:45 96.3 F 76 24 0/0 0 - Laboratory Result Diagrams: 11/12/19 10:24 11/12/19 10:24 Lab Statement: Any lab studies that have been ordered have been reviewed, and results considered in the medical decision making process. - Radiology Chest X-ray Radiology Interpretation Completed By: Radiologist Summary of Radiographic Findings: Chest X-ray IMPRESSION: 1. FINDINGS SUGGESTIVE OF MILD CONGESTIVE HEART FAILURE IMPROVED. 2. SMALL AMOUNT OF FREE INTRAPERITONEAL AIR, UNCHANGED CONSISTENT WITH THE PATIENT'S HISTORY OF PERITONEAL DIALYSIS. Reviewed by Dr. Morel. - EKG 10:26 Cardiac Rate: Other Rate - 81 BPM EKG Rhythm: Sinus Rhythm ST Segment: Other Ectopy: None Summary of EKG Findings: An EKG at 10:26 reveals ventricular paced rhythm with 81 BPM, worsening ST elevations in lead II, IIII, aVF, V4, V5, and V6. Old ST depression in V2. Does not meet Sgarbossa criteria. Nml axis, nml intervals. No acute changes. Reviewed and interpreted by Dr. Morel. Re-Evaluation - Re-Evaluation First Eval Re-Evaluation Time: 11:46 Change: Unchanged Comment: At 11:46, due to a lactic acid of 2.9 and WBC of 18.8, will start on antibiotics and order blood cultures. Complex Multi-Symp Course/Dx Course Of Treatment: 74-year-old male with a history of ESRD on home peritoneal dialysis, peripheral vascular disease status post right BKA, right necrotic fifth digit, who presents with fatigue. - Vital signs notable for mild hypertension and 90 systolic, physical exam with an elderly appearing male, generally extremities, necrotic right fifth digit with mild proximal erythema. - Labs notable for elevated white count 18.8, lactic acid 2.9. Elevated troponin. Patient given 500 cc of fluids for elevated lactic acid in the setting of likely infection, will not give full 20 cc/kg given history of ESRD. Chest x-ray does not show obvious pneumonia. EKG shows a paced rhythm with mild worsening ST elevations, Sgarbossa negative (<5 mm discordant elevations). Abdomen is soft and PD site clean. Does have mild erythema of the finger she' ll be causing the infection. Patient to be admitted to medicine, workup for infection. Patient given Zosyn and vancomycin. - Diagnoses Provider Diagnoses: Sepsis, Fatigue - Physician Notifications Discussed Care Of Patient With: Jes Reyes - At 12:06, patients case was reviewed by Dr. Jes Reyes who agrees to admit the patient to [facility] with a diagnosis of sepsis and fatigue. Time Discussed With Above Provider: 12:06 Instructed by Provider To: Admit As Inpatient Discharge ED - Sign-Out/Discharge Documenting (check all that apply): Patient Departure - Admit - Discharge Plan Condition: Stable Disposition: ADMITTED TO [facility] Referrals: Jose White MD [Primary Care Provider] - - Billing Disposition and Condition Condition: STABLE Disposition: Admitted to [facility] - Attestation Statements Document Initiated by Yara: Yes Documenting Scribe: Neeru Andrade Provider For Whom Yara is Documenting (Include Credential): Kerline Morel MD Scribe Attestation: Neeru Blake, scribed for Kerline Morel MD on 11/12/19 at 1245. Scribe Documentation Reviewed: Yes Provider Attestation: The documentation as recorded by the Neeru sterling accurately reflects the service I personally performed and the decisions made by Kerline quiñones MD Status of Scribe Document: Viewed
[2019-11-12 10:31] LABS: ABS Basophils 0.1 10^3/ul (0-0.2); ABS Lymphocytes 0.7 10^3/ul (1.0-4.8); ABS Monocytes 1.2 10^3/ul (0-0.8); ABS Neutrophils 16.7 10^3/ul (1.5-7.7); Eosinophil % 0.2 %; Hematocrit 36 % (42-52); Hemoglobin 12.3 g/dL (14.0-18.0); Lymphocyte % 3.9 %; Mean Corpuscular HGB Conc 34 g/dL (31-36); Mean Corpuscular Hemoglobin 33 pg (27-31); Mean Corpuscular Volume 97 fL (80-94); Mean Platelet Volume 6.9 fL (7.4-10.4); Platelet Count 292 10^3/uL (150-450); Red Blood Count 3.75 10^6 /uL (4.18-5.48); Red Cell Distribution Width 17 % (10-15); White Blood Count 18.8 10^3/uL (3.5-10.8)
[2019-11-12 11:21] LABS: ALT 10 U/L (7-52); AST 7 U/L (13-39); Albumin 3.1 g/dL (3.2-5.2); Albumin/Globulin Ratio 0.8 (1-3); Alkaline Phosphatase 82 U/L (34-104); Anion Gap 17 mmol/L (2-11); BUN/Creatinine Ratio 4.4 (8-20); Blood Urea Nitrogen 44 mg/dL (6-24); CO2 Carbon Dioxide 27 mmol/L (22-32); Calcium 8.5 mg/dL (8.6-10.3); Chloride 92 mmol/L (101-111); EGFR African American 6.2 (>60); EGFR Non-African American 5.1 (>60); Globulin 3.7 g/dL (2-4); Glucose 202 mg/dL (70-100); Potassium 4.1 mmol/L (3.5-5.0); Sodium 136 mmol/L (135-145); Total Protein 6.8 g/dL (6.4-8.9)
[2019-11-12 11:30] LABS: Troponin I 0.08 ng/mL (<0.03)
[2019-11-12] MEDS ORDERED: Piperacillin/Tazobac ADVAN(*) 3.375 GM in NS 0.9% 100 ML* 100 ML IVPB ONE (11:46)
[2019-11-12] MEDS ORDERED: Vancomycin(*) 1,000 MG VIAL IVPB SCH (12:00)
[2019-11-12] MEDS ORDERED: NS 0.9% 500 ML* 500 ML IV ONE ×2 (12:06→14:53)
[2019-11-12] MEDS ORDERED: Vancomycin(*) 1,250 MG IV x ONCE IVPB ONE ×2 (13:00)
[2019-11-12] MEDS ORDERED: Ondansetron INJ* 2 MG/ML VIAL IV PRN (13:03)
[2019-11-12] MEDS ORDERED: Dextrose 50% VIAL 50 ml IV PUSH PRN (13:26)
[2019-11-12] MEDS ORDERED: Vancomycin per Pharmacy* NOTE FOLLOW UP SCH (14:00)
[2019-11-12] MEDS ORDERED: Zosyn per Pharmacy* NOTE FOLLOW UP SCH (14:00)
[2019-11-12 14:06] LABS: C Reactive Protein 43.62 mg/L (<8.01)
--- NOTE | 2019-11-12 16:09 | HP ---
CC: Dr. Jose White; Dr. Jes Reyes; Dr. Sangeeta Robles* ADMISSION HISTORY AND PHYSICAL: DATE OF ADMISSION: 11/12/19 PRIMARY CARE PROVIDER: Dr. Jose White. MY ATTENDING WHILE IN THE HOSPITAL: Dr. Jes Reyes* (dictated by HARITHA Mason). CONSULTING ORTHOPEDIST: Dr. Sangeeta Robles. CHIEF COMPLAINT: Altered mental status, nausea x1 day. HISTORY OF PRESENT ILLNESS: Mr. Bynum is a 74-year-old male with past medical history significant for severe vasculopathy, end-stage renal disease, on peritoneal dialysis; and diabetes mellitus type 2, who presents to the emergency department after last night he was in his normal state of health, but then began to get very anxious, was given dinner and vomited twice, had a difficult time sleeping, was somewhat disoriented with some concern for hallucinations. This was all consistent when the patient has previously had infections. The patient has had nonbloody, nonpainful diarrhea of moderate volume for the last 2 weeks, but has been eating and drinking well and has not had any dizziness or syncope. The patient this morning again was attempted to be fed and vomited up again. The patient has been coughing a little bit more without producing sputum. His attributes this to irritation of his throat after the vomiting. The patient has had no chest pain or shortness of breath. The patient is now not nauseated, but is very anxious. The patient does complain of some pain in his right fifth finger, which has been getting progressively worse. He has been seen by a hand specialist, Dr. Sangeeta Robles , who felt limited options for medical intervention related to the finger. The patient's states she thinks that his finger does look a little worse with slightly more erythema surrounding it than previously has been, but that this is all part of a slow deterioration in how the finger looks. The patient has had no sick contacts. The patient got his flu shot and his pneumonia shot. The patient had no issues with his dialysis. The patient denies fevers or chills, but has been kicking off the covers during the interview. The patient has had no other recent changes to medications, no antibiotics except for topical mupirocin. The patient in the emergency department was found to have an elevated white blood cell count, elevated lactic acid, and persistent altered mental status. Due to concern for infection with altered mental status , we were asked to evaluate the patient for admission to the hospital. PAST MEDICAL HISTORY: Diabetes mellitus type 2; end-stage renal disease, on peritoneal dialysis; diabetic nephropathy; diabetic retinopathy; diabetic peripheral neuropathy; heart failure with preserved ejection fraction; hypertension; hyperlipidemia; hypothyroidism; history of coronary artery disease ; MCA stroke. PAST SURGICAL HISTORY: PCI, pacemaker implantation, right BKA, ORIF of the ankle, AV fistula placement, peritoneal dialysis catheter placement, hemodialysis catheter placement and removal, cholecystectomy. MEDICATIONS: Per most recent outpatient note: 1. Amlodipine 10 mg p.o. daily. 2. Insulin lispro sliding scale and carb counting. 3. Lipitor 20 mg p.o. at bedtime. 4. Insulin detemir 16 units subcutaneous at bedtime. 5. Clopidogrel 75 mg p.o. daily. 6. Levothyroxine 88 mcg p.o. daily. 7. Aspirin 81 mg p.o. daily. 8. Carvedilol 12.5 mg p.o. b.i.d. 9. Citalopram 10 mg p.o. daily. 10. Lorazepam 0.5 mg p.o. q.6 hours as needed. 11. Furosemide 80 mg p.o. b.i.d. 12. Jennifer-Laz 1 tab p.o. daily. ALLERGIES: LABETALOL. FAMILY HISTORY: The patient's father had hypertension, diabetes mellitus type 2 , and rectal cancer. The patient's sister had hypertension and diabetes mellitus type 2. The patient had a brother with rectal cancer. SOCIAL HISTORY: The patient has never smoked. Drinks alcohol once a year approximately. Denies illicit drug use. 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 Lives with his . The patient is and has 3 children. REVIEW OF SYSTEMS: A 10-point review of systems was reviewed with the patient and is negative except as above in the HPI. PHYSICAL EXAMINATION GENERAL: The patient is a 74-year-old male, who appears older than stated age and sitting in the bed, visibly anxious. VITAL SIGNS: Temperature 96.3, pulse rate 84, respiratory rate 14, oxygen saturation 100% on room air, blood pressure 109/62. HEENT: Head: Normocephalic, atraumatic. Sclerae anicteric. No conjunctival injection. Nasal mucosa moist. Oral mucosa moist. No pharyngeal erythema, discharge, or exudate. NECK: Supple, nontender. No lymphadenopathy. No carotid bruits auscultated. No JVD. RESPIRATORY: Singular wheeze in the right upper lobe. Good air exchange bilaterally. No rales or rhonchi. CARDIAC: Regular rate and rhythm. No clicks, murmurs, gallops, or rubs. Pulses are 1+ in the bilateral radial areas. Pulses are trace in the left lower extremity, dorsalis pedis and posterior tibialis areas. ABDOMEN: Soft, nontender, nondistended. Bowel sounds present and normoactive in all 4 quadrants. No hepatosplenomegaly. No abdominal bruits auscultated. Peritoneal dialysis catheter in place. GENITOURINARY: No suprapubic or CVA tenderness. NEURO: Alert and oriented x3, but lethargic. No other focal deficits except for peripheral neuropathy in a stocking-glove pattern. SKIN: Small area of erythema on the lateral malleolus of the left foot, scrape on the alamo of the left foot, gangrenous fifth finger on the right hand with slight erythema progressing closer to the hand. DIAGNOSTIC STUDIES/LAB DATA: White blood cell count 18.8, hemoglobin 12.3, platelet count 292. Sodium 136, potassium 4.1, chloride 92, carbon dioxide 27, anion gap 17, BUN 44, creatinine 10.05, glucose 202, lactic acid 2.9, calcium 8.5. Bilirubin 0.4, AST 7, ALT 10, alkaline phosphatase 82. Troponin I 0.08. Protein 6.8, albumin 3.1, globulin 3.7. Studies: Electrocardiogram shows paced rhythm, otherwise uninterpretable. No significant changes from previous exam. Chest x-ray read as findings suggestive of mild congestive heart failure improved; small amount of free intraperitoneal air, unchanged consistent with the patient's history of peritoneal dialysis. Hand x-ray read as no significant focal osseous abnormality is seen, soft tissue atrophy around the distal portion of the fifth finger, atherosclerotic changes. ASSESSMENT AND PLAN: Impression: Mr. Bynum is a 74-year-old male with past medical history significant for severe vasculopathy; end-stage renal disease, on peritoneal dialysis; diabetes mellitus type 2 with retinopathy, neuropathy and nephropathy; heart failure with preserved ejection fraction; coronary artery disease; and history of cerebrovascular accident. The patient has had approximately 12 hours of altered mental status, nausea and vomiting with laboratory findings consistent with infection. The patient will be admitted to the hospital for broad-spectrum antibiotic coverage, evaluation for a source and evaluation of his left fifth finger for consideration of amputation for possible source control. 1. Severe sepsis, unclear source, suspect possible left fifth finger infection. The patient has an elevated lactic acid at 2.9. The patient is non- tachycardic. He has had 2 low blood pressure readings, though his MAP has stayed above 65. The patient has an elevated white blood cell count, an elevated lactic acid, elevated neutrophil count. The most likely source of the patient's infection is his finger; however, the patient will also be cultured. We will have blood cultures. The patient will be straight cathed for a urine culture as he does make a small amount of urine still. The patient will have his dialysate fluid cultured as well. The patient will be seen in consultation by Dr. Sangeeta Robles of Orthopedics to assess his finger and the possibility of this being the source of the infection with consideration for amputation for source control. The patient will be started on broad-spectrum antibiotics with vancomycin and Zosyn. Given the patient's peritoneal dialysis, minimal urine output, the increase of acute kidney injury is not a concern at this point. If the patient needs surgery, the patient will be a high risk due to his known coronary artery disease, end-stage renal disease, heart failure with preserved ejection fraction, history of stroke. The patient's RCRI is 5 with a 15% chance of 30-day risk of myocardial infarction, , or cardiac arrest; however, this would likely be a very low risk surgery with the possibility of local anesthesia minimizing his risk. Further treatment and narrowing of antibiotics will be based on any possible culture data that will be obtained. 2. Diabetes mellitus type 2 with complicating nephropathy, retinopathy, neuropathy. The patient will be continued on his home doses of insulin at this time. The patient's blood sugar is 202. He will have fingersticks a.c. and h.s. with sliding scale insulin coverage. The patient is not eating very much and with possibility of surgery tomorrow, so his long-acting insulin will be decreased. 3. Heart failure with preserved ejection fraction. The patient has an elevated lactic acid and has been getting fluids. We will hold the patient's diuretics at this point and monitor his fluid status closely. The patient will have strict I's and O's and daily weights. The patient is on carvedilol. The patient has a borderline EF of 50% to 55% on most recent echo. The patient does not appear to be in heart failure exacerbation at this time. 4. Hypertension. The patient is currently borderline hypotensive. Continue the patient's carvedilol. Hold the patient's amlodipine. Hold the patient's Lasix at this time. 5. History of middle cerebral artery stroke. Continue the patient's clopidogrel and aspirin as well as his Lipitor. 6. Hypothyroidism. Continue the patient's Synthroid. 7. Coronary artery disease. Continue antiplatelet and statin therapy as above. 8. FEN: The patient will have a renal diet and 500 mL of fluid and recheck of his lactic acid. 9. DVT prophylaxis: The patient will be on heparin subcu and this will be held after tonight's dose. 10. Disposition: The patient is admitted to the hospital inpatient. TIME SPENT: Approximately 60 minutes was spent on the admission of this patient , 30 of which was spent [id number] with the patient obtaining history and physical and discussing treatment plan. The plan has been discussed with my attending, Dr. Jes Reyes, and she is in agreement. HARITHA MASON [id number]/[facility] #: [id number] [id number]
[2019-11-12 16:27] LABS: Magnesium 1.6 mg/dL (1.9-2.7)
[2019-11-12] MEDS: Insulin LISPRO* 1 UNITS UNIT SUBCUT SCH ×2 (16:48→21:06)
[2019-11-12] MEDS: ZOSYN 3.375 GM Q8H per EXTENDED INFUSION IVPB SCH ×2 (17:33)
[2019-11-12] MEDS: LORazepam TAB(*) 0.5 MG PO PRN ×3 (17:40→23:51)
[2019-11-12] MEDS: Carvedilol TAB* 6.25 MG PO SCH (20:38)
[2019-11-12] MEDS: Atorvastatin* 20 MG TAB PO SCH (20:41)
[2019-11-12] MEDS ORDERED: Heparin VIAL(*) 5000 UNITS/ML VIAL (FIVE THOUSAND) SUBCUT SCH (21:00)
[2019-11-12] MEDS ORDERED: FUROSEMIDE 80 MG PO SCH (21:00)
[2019-11-12] MEDS ORDERED: INSULIN DETEMIR 16 UNIT SQ SCH (21:00)
[2019-11-12] MEDS ORDERED: amLODIPine TAB* 5 MG PO SCH (21:00)
[2019-11-12] MEDS: Insulin GLARGINE(*) 1 UNITS UNIT SUBCUT SCH (21:05)
[2019-11-13] MEDS ORDERED: diPHENhydraMINE IV* 50 MG/ML 1 ml VIAL (BENADRYL) IV ONE (01:32)
[2019-11-13] MEDS: ZOSYN 3.375 GM Q8H per EXTENDED INFUSION IVPB SCH ×4 (01:43→10:43)
[2019-11-13] MEDS: NS 0.9% 1000 ML** 1,000 ML IV SCH (01:44)
[2019-11-13 05:12] LABS: ABS Basophils 0.1 10^3/ul (0-0.2); ABS Eosinophils 0.1 10^3/ul (0-0.6); ABS Lymphocytes 1.4 10^3/ul (1.0-4.8); ABS Monocytes 0.7 10^3/ul (0-0.8); ABS Neutrophils 8.6 10^3/ul (1.5-7.7); Eosinophil % 1.2 %; Hematocrit 29 % (42-52); Hemoglobin 10.3 g/dL (14.0-18.0); Lymphocyte % 12.7 %; Mean Corpuscular HGB Conc 35 g/dL (31-36); Mean Corpuscular Hemoglobin 34 pg (27-31); Mean Corpuscular Volume 97 fL (80-94); Mean Platelet Volume 6.8 fL (7.4-10.4); Platelet Count 228 10^3/uL (150-450); Red Blood Count 3.01 10^6 /uL (4.18-5.48); Red Cell Distribution Width 17 % (10-15); White Blood Count 10.9 10^3/uL (3.5-10.8)
[2019-11-13] MEDS: Levothyroxine TAB* 88 MCG TAB PO SCH (05:21)
[2019-11-13 05:35] LABS: Anion Gap 13 mmol/L (2-11); BUN/Creatinine Ratio 4.7 (8-20); Blood Urea Nitrogen 44 mg/dL (6-24); C Reactive Protein 82.31 mg/L (<8.01); CO2 Carbon Dioxide 25 mmol/L (22-32); Calcium 7.8 mg/dL (8.6-10.3); Chloride 96 mmol/L (101-111); EGFR African American 6.7 (>60); EGFR Non-African American 5.5 (>60); Glucose 143 mg/dL (70-100); Magnesium 1.5 mg/dL (1.9-2.7); Phosphorus 5.8 mg/dL (2.5-5.0); Potassium 3.5 mmol/L (3.5-5.0); Sodium 134 mmol/L (135-145)
[2019-11-13 05:43] LABS: Troponin I 0.08 ng/mL (<0.03)
[2019-11-13] MEDS ORDERED: Vancomycin Random Level* NOTE FOLLOW UP ONE (06:00)
[2019-11-13 06:21] LABS: Vancomycin Random 11.9 mcg/mL
[2019-11-13] MEDS ORDERED: Propofol* 10 MG/ML 20 ML BTL ONE (07:51)
[2019-11-13] MEDS: Insulin LISPRO* 1 UNITS UNIT SUBCUT SCH ×4 (07:51→21:47)
[2019-11-13] MEDS ORDERED: Propofol* 500 MG/50 ML BTL ONE (07:52)
[2019-11-13] MEDS ORDERED: KETAMINE HCL* 50 MG/ML 10 ML VIAL ONE (07:52)
[2019-11-13] MEDS ORDERED: Lidocaine 2% PF * 5 ML VIAL ONE ×2 (07:52→08:49)
[2019-11-13] MEDS ORDERED: Magnesium Sulfate 2 GM IV* 2 GM/50 ML BAG IVPB ONE (07:54)
[2019-11-13] MEDS ORDERED: DiMENhydriNATE IV* 50 MG/ML VIAL IV PUSH PRN (08:11)
[2019-11-13] MEDS ORDERED: oxyCODONE TAB* 5 MG TAB PO PRN (08:11)
[2019-11-13] MEDS ORDERED: Naloxone* 0.4 MG/ML 1 ML VIAL IV PRN (08:11)
[2019-11-13] MEDS ORDERED: fentaNYL* 50 MCG/ML 2 ML VIAL (100 MCG VIAL) IV PRN (08:11)
[2019-11-13] MEDS ORDERED: Midazolam* 1 MG/ML 2 ML VIAL (2 MG) ONE (08:34)
--- NOTE | 2019-11-13 08:42 | CONS ---
CC: Dr. Robles CONSULTATION NOTE: DATE OF CONSULTATION: 11/12/19. CHIEF COMPLAINT: Left little finger pain. HISTORY OF PRESENT ILLNESS: Alec Bynum is a 74-year-old man with extensive cardiac disease and di abetes. I have seen him previously in my office. He has pain and progressive gangrene of the left s mall finger. He became quite ill today with vomiting, was brought to the emergency room for evaluati on. There was concern that the systemic illness was caused by the small finger gangrene. The patien t has no other localizing symptoms for an infection. PHYSICAL EXAMINATION: He is an elderly gentleman, who appears uncomfortable at rest. On exam of his left hand, he has gangrene of the small finger from the PIP joint distal. There does not appear to be significant active infection, however, there is no drainage. There is minimal erythema and mild t enderness to palpation. He has some decreased blood flow to the other fingers with slow capillary ref ill, but however there is no other gangrene in the remainder of his left hand and not in his right rios nd. IMPRESSION: Gangrene of the left small finger. PLAN: Plan is for a left small finger amputation, this will be done on the morning of 11/13/19, the patient has been optimized medically. The surgery can be done with local MAC anesthesia. [id number]/[facility] #: [id number]
[2019-11-13] MEDS ORDERED: Phenylephrine 40 MCG/ML SYRINGE ONE (08:49)
[2019-11-13] MEDS ORDERED: [UNRECOGNIZED DRUG - OTHER] PO SCH (09:00)
--- NOTE | 2019-11-13 10:48 | PN ---
Subjective Date of Service: 11/13/19 Interval History: Patient is feeling better today. Patient is drowsy post-op, but appears to be doing better mentally and with his anxiety than yesterday. Patient denies CP, SOB, abdominal pain, diarrhea, F/C, N/V, or other pain. Patient's performed his dialysis last night without issue. Family History: Unchanged from Admission Social History: Unchanged from Admission Past Medical History: Unchanged from Admission Objective Active Medications: Acetaminophen (Tylenol Tab*) 650 mg PO Q6H PRN PRN Reason: MILD PAIN or TEMP > 100.4 Aspirin (Aspirin Ec Tab*) 81 mg PO QAM [facility] Atorvastatin Calcium (Lipitor*) 20 mg PO BEDTIME [facility] Last Admin: 11/12/19 20:41 Dose: 20 mg Carvedilol (Coreg Tab*) 12.5 mg PO BID [facility] Last Admin: 11/12/19 20:38 Dose: 12.5 mg Citalopram Hydrobromide (Celexa Tab*) 10 mg PO DAILY [facility] Clopidogrel Bisulfate (Plavix Tab*) 75 mg PO QAM [facility] Dextrose (Dextrose 50% Vial 50 Ml*) 25 ml IV PUSH .FOR FS < 60 - SS PRN PRN Reason: FS < 60 Dimenhydrinate (Dramamine Iv*) 25 mg IV PUSH ONCE PRN PRN Reason: NAUSEA/VOMITING Fentanyl Citrate (Fentanyl*) 25 mcg IV Q5M PRN PRN Reason: PAIN - MODERATE Folic Acid (Folvite Tab*) 0.5 mg PO DAILY [facility] Piperacillin Sod/Tazobactam (Sod 3.375 gm/ Sodium Chloride) 100 mls @ 25 mls/ hr IVPB Q8H [facility] Last Admin: 11/13/19 01:43 Dose: 25 mls/hr Sodium Chloride (Ns 0.9% 1000 Ml) 1,000 mls @ 50 mls/hr IV .PER RATE [facility] Last Admin: 11/13/19 01:44 Dose: 50 mls/hr Insulin Glargine (Lantus(*)) 8 units SUBCUT BEDTIME [facility] Last Admin: 11/12/19 21:05 Dose: 8 units Insulin Human Lispro (Humalog*) 0 units SUBCUT ACHS [facility]; Protocol Last Admin: 11/13/19 07:51 Dose: 1 units Levothyroxine Sodium (Synthroid Tab*) 88 mcg PO DAILY@0600 [facility] Last Admin: 11/13/19 05:21 Dose: Not Given Lorazepam (Ativan Tab(*)) 0.5 mg PO Q6H PRN PRN Reason: ANXIETY Last Admin: 11/12/19 23:51 Dose: 0.5 mg Naloxone HCl (Narcan*) 0.08 mg IV Q2M PRN PRN Reason: severe induced resp depression Ondansetron HCl (Zofran Inj*) 4 mg IV Q6H PRN PRN Reason: NAUSEA Oxycodone HCl (Roxycodone Tab*) 5 mg PO ONCE PRN PRN Reason: PAIN - MODERATE Pharmacy Consult (Vancomycin Per Pharmacy*) 1 note FOLLOW UP .VANC PER PHARMACY [facility]; Protocol Pharmacy Consult (Zosyn Per Pharmacy*) 1 note FOLLOW UP .ZOSYN PER PHARMACY [facility] Vitamin B Complex/Vitamin E (B Complex-50*) 1 tab PO DAILY [facility] Vital Signs - 8 hr 11/13/19 11/13/19 11/13/19 03:00 03:22 06:55 Temperature 98.0 F 97.5 F Pulse Rate 72 68 Respiratory 16 16 18 Rate Blood Pressure 92/39 107/57 (mmHg) O2 Sat by Pulse 100 100 Oximetry 11/13/19 11/13/19 11/13/19 08:00 09:21 09:25 Temperature 97.7 F Pulse Rate 65 65 Respiratory 18 15 15 Rate Blood Pressure 121/35 (mmHg) O2 Sat by Pulse 100 100 Oximetry 11/13/19 11/13/19 11/13/19 09:31 09:36 09:40 Temperature Pulse Rate 66 66 66 Respiratory 7 14 15 Rate Blood Pressure 99/38 93/47 113/39 (mmHg) O2 Sat by Pulse 100 100 100 Oximetry 11/13/19 11/13/19 09:46 09:55 Temperature 96.9 F Pulse Rate 66 Respiratory 16 18 Rate Blood Pressure 98/40 (mmHg) O2 Sat by Pulse 100 Oximetry Oxygen Devices in Use Now: None Appearance: Patient is a 74yo male who appears stated age and is sitting in the bed in NAD. Eyes: No Scleral Icterus, PERRLA Ears/Nose/Mouth/Throat: NL Teeth, Lips, Gums, Clear Oropharnyx, Mucous Membranes Moist Neck: NL Appearance and Movements; NL JVP, Trachea Midline Respiratory: Symmetrical Chest Expansion and Respiratory Effort, Clear to Auscultation Cardiovascular: NL Sounds; No Murmurs; No JVD, RRR, No Edema Abdominal: NL Sounds; No Tenderness; No Distention, No Hepatosplenomegaly Lymphatic: No Cervical Adenopathy Extremities: No Edema, No Clubbing, Cyanosis Skin: No Nodules or Sclerosis, - - Scrape on left leg. Right leg surgically absent. Distal 2 phalanges of 5th digit of left hand surgically absent. Neurological: - - Drowsy, no focal deficits. Result Diagrams: 11/13/19 05:07 11/13/19 05:07 Microbiology and Other Data: Microbiology 11/12/19 17:05 Gram Stain - Final Peritoneal Fluid Body Fluid Culture - Preliminary No Growth Day 1 11/12/19 13:45 Nasal Screen MRSA (PCR) - Final Nasal Mrsa Not Detected Assess/Plan/Problems-Billing Assessment: Patient is a 74yo male with a PMH for DM II, ESRD on Peritoneal dialysis, HFrEF , CKD, here with AMS, N/V and sepsis of unknown origin, suspect from gangrenous right fifth digit. - Patient Problems (1) Severe sepsis Current Visit: Yes Status: Acute Code(s): A41.9 - SEPSIS, UNSPECIFIED ORGANISM; R65.20 - SEVERE SEPSIS WITHOUT SEPTIC SHOCK SNOMED Code(s): 92354418 Comment: - With elevated WBC, Elevated Lactic Acid - Resolved with fluids - Source unclear, suspect finger. (2) Gangrene of finger of right hand Current Visit: Yes Status: Acute Code(s): I96 - GANGRENE, NOT ELSEWHERE CLASSIFIED SNOMED Code(s): 45164920652059342 Comment: - Due to PVD - S/P amputation today - Await intraop cultures. (3) History of CVA (cerebrovascular accident) Current Visit: No Status: Chronic Priority: Low Code(s): Z86.73 - PRSNL HX OF TIA (TIA), AND CEREB INFRC W/O RESID DEFICITS SNOMED Code(s): 944579843 Comment: - Continue Statin, Aspirin, Plavix. (4) Stage 5 chronic kidney disease due to type 2 diabetes mellitus Current Visit: No Status: Chronic Code(s): E11.22 - TYPE 2 DIABETES MELLITUS W DIABETIC CHRONIC KIDNEY DISEASE; N18.5 - CHRONIC KIDNEY DISEASE, STAGE 5 SNOMED Code(s): 414872915849 Comment: - Continue Peritoneal Dialysis. - Electrolytes WNL. (5) Encephalopathy Current Visit: No Status: Resolved Priority: Medium Code(s): G93.40 - ENCEPHALOPATHY, UNSPECIFIED SNOMED Code(s): 55730812 Comment: - Likely due to infection - Improving (6) Non-sustained ventricular tachycardia Current Visit: No Status: Resolved Code(s): I47.2 - VENTRICULAR TACHYCARDIA SNOMED Code(s): 810910621 Comment: - S/P Pacer - Check echo for EF. (7) Vomiting Current Visit: No Status: Resolved Code(s): R11.10 - VOMITING, UNSPECIFIED SNOMED Code(s): 893970405 Comment: - Improved, likely due to systemic illness. (8) DM (diabetes mellitus) Current Visit: Yes Status: Acute Code(s): E11.9 - TYPE 2 DIABETES MELLITUS WITHOUT COMPLICATIONS SNOMED Code(s): 40878158 Comment: - Continue home long acting insulin and SSI - Moderate Control. (9) Essential hypertension Current Visit: No Status: Chronic Priority: High Code(s): I10 - ESSENTIAL (PRIMARY) HYPERTENSION SNOMED Code(s): 70641594 Comment: - Borderline hypotensive, continue Coreg - Hold Amlodipine and Furosemide. (10) DVT prophylaxis Current Visit: Yes Status: Acute Code(s): Z29.9 - ENCOUNTER FOR PROPHYLACTIC MEASURES, UNSPECIFIED SNOMED Code(s): 695767282 Comment: - HSQ Status and Disposition: Inpatient.
[2019-11-13] MEDS: Carvedilol TAB* 6.25 MG PO SCH ×2 (10:49→20:21)
--- NOTE | 2019-11-13 11:02 | OP ---
CC: Dr. Robles OPERATIVE REPORT: DATE OF OPERATION: 11/13/19 DATE OF : 45 SURGEON: Sangeeta Robles MD DIRECTOR OF CORPORATE STRATEGY: HARITHA Smith ANESTHESIA: Local MAC. PRE-OP DIAGNOSIS: Right small finger gangrene. POST-OP DIAGNOSIS: Right small finger gangrene. OPERATIVE PROCEDURE: Right small finger amputation. ESTIMATED BLOOD LOSS: Zero. TOURNIQUET TIME: About 20 minutes. INDICATION FOR PROCEDURE: Alec is a 74-year-old man who has severe vascular disease with calcific ation of all the arteries in his right hand. He has developed gangrene of the small finger which has demarcated at the level of the PIP joint. He presents for amputation. DESCRIPTION OF PROCEDURE: The patient was brought to the operating room, was given a sedation anesth etic and a digital block with 10 cc of 2% plain lidocaine. The skin of his right upper extremity was prepped and draped in the usual sterile fashion. A fishmouth incision was made at the level of the PIP joint which was proximal to the demarcation of the necrotic tissue. A disarticulation was perfor med and then the articular surface of the proximal phalanx was removed with a bone cutter. The gangr enous finger was sent for pathology. The wound was copiously irrigated with saline. There was no si gn of infection. There was no purulent material. A Bovie was used to gain hemostasis and then the w ound was closed in interrupted fashion with 4-0 nylon suture. The wound was dressed with Xeroform, 4 x4, Cailin, and Coban. The patient tolerated the procedure well and was brought to the recovery room in good condition. [id number]/[facility] #: [id number]
[2019-11-13] MEDS ORDERED: Vancomycin(*) 1,000 MG in NS 0.9% 250 ML* 250 ML IV ONE (12:00)
[2019-11-13] MEDS: Aspirin EC TAB* 81 MG TAB.EC PO SCH (12:55)
[2019-11-13] MEDS: Vitamin B Complex TAB PO SCH (12:55)
[2019-11-13] MEDS: Folic Acid TAB* 1 MG PO SCH (12:56)
[2019-11-13] MEDS: Citalopram TAB* 10 MG PO SCH (15:53)
[2019-11-13] MEDS: Clopidogrel TAB* 75 MG PO SCH (15:53)
[2019-11-13] MEDS: Acetaminophen TAB* 325 MG PO PRN (18:56)
[2019-11-13] MEDS: Heparin VIAL(*) 5000 UNITS/ML VIAL (FIVE THOUSAND) SUBCUT SCH (20:00)
[2019-11-13] MEDS: Atorvastatin* 20 MG TAB PO SCH (20:00)
[2019-11-13] MEDS: Insulin GLARGINE(*) 1 UNITS UNIT SUBCUT SCH (21:47)
[2019-11-13] MEDS: ZOSYN 3.375 GM Q12H per EXTENDED INFUSION IVPB SCH ×2 (21:50)
[2019-11-14] MEDS: Levothyroxine TAB* 88 MCG TAB PO SCH (05:01)
[2019-11-14] MEDS ORDERED: Vancomycin Random Level* NOTE FOLLOW UP ONE (06:00)
[2019-11-14 06:06] LABS: Hematocrit 31 % (42-52); Hemoglobin 10.5 g/dL (14.0-18.0); Mean Corpuscular HGB Conc 34 g/dL (31-36); Mean Corpuscular Hemoglobin 33 pg (27-31); Mean Corpuscular Volume 97 fL (80-94); Mean Platelet Volume 6.8 fL (7.4-10.4); Platelet Count 210 10^3/uL (150-450); Red Blood Count 3.16 10^6 /uL (4.18-5.48); Red Cell Distribution Width 17 % (10-15); White Blood Count 7.8 10^3/uL (3.5-10.8)
[2019-11-14 06:26] LABS: BUN/Creatinine Ratio 4.7 (8-20); C Reactive Protein 53.52 mg/L (<8.01); Calcium 7.6 mg/dL (8.6-10.3); EGFR African American 7.3 (>60); EGFR Non-African American 6.1 (>60); Potassium 3.1 mmol/L (3.5-5.0)
[2019-11-14 06:37] LABS: Vancomycin Random 19.4 mcg/mL
[2019-11-14 06:43] LABS: ABS Eosinophils 0.2 10^3/ul (0-0.6); ABS Lymphocytes 1.1 10^3/ul (1.0-4.8); ABS Monocytes 0.8 10^3/ul (0-0.8); ABS Neutrophils 5.6 10^3/ul (1.5-7.7); Eosinophil % 3.1 %; Lymphocyte % 14.6 %
[2019-11-14] MEDS: Acetaminophen TAB* 325 MG PO PRN (07:53)
[2019-11-14] MEDS: LORazepam TAB(*) 0.5 MG PO PRN ×2 (07:54→09:31)
[2019-11-14] MEDS: NS 0.9% 1000 ML** 1,000 ML IV SCH (07:58)
[2019-11-14] MEDS: Carvedilol TAB* 6.25 MG PO SCH ×2 (08:54→21:57)
[2019-11-14] MEDS ORDERED: Perflutren Lipid Microsphere* 3 ML VIAL ONE (09:42)
[2019-11-14] MEDS: Citalopram TAB* 10 MG PO SCH (10:10)
[2019-11-14] MEDS: Aspirin EC TAB* 81 MG TAB.EC PO SCH (10:10)
[2019-11-14] MEDS: Folic Acid TAB* 1 MG PO SCH (10:10)
[2019-11-14] MEDS: Clopidogrel TAB* 75 MG PO SCH (10:11)
[2019-11-14] MEDS: ZOSYN 3.375 GM Q12H per EXTENDED INFUSION IVPB SCH ×4 (10:13→22:08)
[2019-11-14] MEDS: Insulin LISPRO* 1 UNITS UNIT SUBCUT SCH ×4 (10:19→22:14)
[2019-11-14] MEDS: Heparin VIAL(*) 5000 UNITS/ML VIAL (FIVE THOUSAND) SUBCUT SCH ×2 (10:20→22:05)
[2019-11-14] MEDS: Vitamin B Complex TAB PO SCH (10:25)
--- NOTE | 2019-11-14 10:59 | ECHO ---
*[facility]* [place] [address] Fax #: [phone] Transthoracic Echocardiogram Patient: Alec Bynum : 1945 Study Date: 11/14/2019 Age: 74 Gender: M HR: 73 bpm Height: 69 in /175.3 cm BSA: 1.84 m^2 Weight: 152.7 lb /69.4 kg BMI: 22.6 kg/m^2 *Hardboard Factory Worker: * Janee Santana RDCS RN *Referring Physician: * Praful Almaguer *Reading Physician: * Neil Harden MD Indications: Congestive Heart Failure. History: Cerebrovascular accident. ESRD on dialysis. COPD. Risk factors: Hypertension. Diabetes mellitus. Dyslipidemia. Labs, prior tests, procedures, and surgery: Permanent pacemaker system implantation. Conclusions Summary: - Left ventricle: The cavity size is normal. Wall thickness is mildly to moderately increased. The estimated ejection fraction is 30-35%. Hypokinesis of the mid-apicalinferior myocardium. Hypokinesis of the mid-apicalanterior myocardium. - Regional wall motion abnormality: Akinesis of the apical inferior, apical septal, and apical myocardium; moderate hypokinesis of the mid-apical anterior myocardium. - Right ventricle: The cavity size is normal. Pacer wire noted in the right ventricle. Systolic function is normal. - Ventricular septum: There is abnormal interventricular septal wall motion consistent with an RV pacemaker. - Left atrium: The atrium is moderately dilated. - Aortic valve: The findings are consistent with mild stenosis. - Pulmonary arteries: Systolic pressure is mildly increased, estimated to be 46 mm Hg. Recommendations: Previous study 08/2018 without definity LVEFwas 50-55% Study data: Transthoracic echocardiogram. Procedure: Transthoracic echocardiography was performed. Image quality was fair. The study was technically limited due to poor patient compliance and COPD. The patient had difficulty holding still and maintaining positioning. Intravenous Definity 2 ml was administered to enhance imaging. Complete 2D, spectral Doppler, and color flow Doppler. Location: Bedside. Patient status: Inpatient. Patient room number: 401. Rhythm: Paced rhythm. Findings Left ventricle: The cavity size is normal. Wall thickness is mildly to moderately increased. The estimated ejection fraction is 30-35%. Regional wall motion abnormalities: Hypokinesis of the mid-apicalinferior myocardium. Hypokinesis of the mid-apicalanterior myocardium. Akinesis of the apical inferior, apical septal, and apical myocardium; moderate hypokinesis of the mid-apical anterior myocardium. Doppler parameters are consistent with abnormal left ventricular relaxation (grade 1 diastolic dysfunction). Right ventricle: The cavity size is normal. Pacer wire noted in the right ventricle. Systolic function is normal. Ventricular septum: There is abnormal interventricular septal wall motion consistent with an RV pacemaker. Left atrium: The atrium is moderately dilated. Right atrium: The atrium is mildly dilated. Pacer wire noted in right atrium. Mitral valve: The Mitral valve annulus appears moderately calcified. The leaflets are mildly thickened. There is no evidence of stenosis. There is mild regurgitation. Aortic valve: The annulus is calcified. The valve is trileaflet. The leaflets are mildly thickened with decreased excursion. The findings are consistent with mild stenosis. There is mild regurgitation. Tricuspid valve: The valve is structurally normal. There is no evidence of stenosis. There is mild regurgitation. Pulmonic valve: The valve is structurally normal. There is no evidence of stenosis. There is trace regurgitation. Aorta: Aortic root: The aortic root is mildly dilated at 3.6 cm. Ascending aorta: The ascending aorta is mildly dilated at 3.9 cm. Aortic arch: The aortic arch is not visualized. Pericardium: There is no pericardial effusion. Pulmonary arteries: The main pulmonary artery is normal-sized. Systolic pressure is mildly increased, estimated to be 46 mm Hg. Systemic veins: Inferior vena cava: Not well visualized. Measurements Left ventricle Value Ref Aortic valve Value Ref BLAS, LAX 5.7 cm 4.2 - 5.8 Lynda diam, ED 2.3 cm ----- ESD, LAX (H) 4.2 cm 2.5 - 4.0 Lynda diam/bsa, ED 1.2 cm/m^2 ----- FS, LAX 27 % 25 - 43 Peak v, S 2.28 m/sec ----- PW, ED (H) 1.2 cm 0.6 - 1.0 VTI, S 47.6 cm ----- IVS/PW, ED 1.27 Mean grad, S 12.0 mm Hg ----- E', lat lynda, TDI (L) 7.6 cm/sec >=10.0 Peak grad, S 21.0 mm Hg -- --- E/e', lat lynda, 16 LVOT/AV, VTI ratio 0.49 ----- TDI MEGHNA, VTI 1.68 cm^2 ----- E', med lynda, TDI (L) 4.7 cm/sec >=7.0 MEGHNA, Vmax 1.87 cm^2 -- --- E/e', med lynda, 25 TDI Mitral valve Value Ref E', avg, TDI 6.2 cm/sec Peak E 1.19 m/sec ----- E/e', avg, TDI (H) 19 <=14 Peak A 1.79 m/sec -- --- Decel time 194 ms ----- LVOT Value Ref PHT 59 ms ----- Diam, S 2.10 cm Mean grad, D 4.0 mm Hg ----- Area 3.5 cm^2 Peak grad, D 14.0 mm Hg ----- Peak dale, S 1.23 m/sec Peak E/A ratio 0.7 ----- VTI, S 23.1 cm MVA, PHT 3.7 cm^2 ----- Peak grad, S 6 mm Hg Mean grad, S 3 mm Hg Pulmonic valve Value Ref SV 83 ml Peak v, S 0.92 m/sec ----- SV/bsa 45 ml/m^2 Peak grad, S 3.0 mm Hg ----- Ventricular septum Value Ref Tricuspid valve Value Ref IVS, ED (H) 1.5 cm 0.6 - 1.0 TR peak v (H) 3.1 m/sec <=2.8 Peak RV-RA grad, S 38 mm Hg ----- Right ventricle Value Ref BLAS, LAX 3.0 cm Aortic root Value Ref BLAS minor ax, A4C 3.4 cm 1.9 - 3.5 Root diam 3.6 cm <4.0 mid Pressure, S 46 mm Hg Ascending aorta Value Ref AAo AP diam, S 3.9 cm ----- Left atrium Value Ref AP dim, ES (H) 4.10 cm 3.00 - Pulmonary artery Value Ref 4.00 Pressure, S 43.0 mm Hg ----- ML dim, A4C 5.1 cm SI dim, A4C 5.4 cm Vol/bsa, ES, 1-p (H) 49 ml/m^2 12 - 37 A4C Vol/bsa, ES, A/L (H) 55 ml/m^2 16 - 34 Right atrium Value Ref ML dim, ES, A4C (H) 4.5 cm 2.6 - 4.4 SI dim, ES, A4C 5.1 cm 3.4 - 5.3 Estimated RAP 8 mm Hg Legend: (L) and (H) fanny values outside specified reference range. Prepared and electronically signed by Neil Harden MD 11/14/2019 10:58
[2019-11-14] MEDS: Potassium Chlor TAB* 20 MEQ TAB.ER PO SCH ×2 (11:09→16:25)
[2019-11-14] MEDS: traMADol TAB* 50 MG PO PRN ×2 (11:10→19:46)
[2019-11-14] MEDS: LORazepam TAB(*) 0.5 MG PO SCH ×2 (13:39→22:03)
--- NOTE | 2019-11-14 14:09 | PN ---
Progress Note - Progress Note Date of Service: 11/14/19 SOAP: Subjective: [Pt has no complaints regarding right hand/small finger. Has not had any problems with dressing.] Objective: [A and O x 3, NAD R hand/small finger dressing C/D/I. Able to wiggle remaining fingers. NV function intact. Vital Signs: Temp Pulse Resp BP Pulse Ox 98.1 F 81 18 97/38 99 11/14/19 12:41 11/14/19 12:41 11/14/19 13:49 11/14/19 12:41 11/14/19 12:41 Laboratory Results - last 24 hr 11/13/19 11/13/19 11/14/19 16:58 20:09 05:46 WBC RBC Hgb Hct MCV MCH MCHC RDW Plt Count MPV Neut % (Auto) Lymph % (Auto) [place] % (Auto) Eos % (Auto) Baso % (Auto) Absolute Neuts (auto) Absolute Lymphs (auto) Absolute Monos (auto) Absolute Eos (auto) Absolute Basos (auto) Absolute Nucleated RBC Nucleated RBC % Sodium 137 Potassium 3.1 L Chloride 99 L Carbon Dioxide 25 Anion Gap 13 H BUN 41 H Creatinine 8.65 H Est GFR ( Amer) 7.3 Est GFR (Non-Af Amer) 6.1 BUN/Creatinine Ratio 4.7 L Glucose 159 H POC Glucose (mg/dL) 171 H 159 H Calcium 7.6 L Magnesium 2.0 C-Reactive Protein 53.52 H Random Vancomycin 19.4 11/14/19 11/14/19 11/14/19 05:46 08:05 12:09 WBC 7.8 RBC 3.16 L Hgb 10.5 L Hct 31 L MCV 97 H MCH 33 H MCHC 34 RDW 17 H Plt Count 210 MPV 6.8 L Neut % (Auto) 72.1 Lymph % (Auto) 14.6 [place] % (Auto) 9.7 Eos % (Auto) 3.1 Baso % (Auto) 0.5 Absolute Neuts (auto) 5.6 Absolute Lymphs (auto) 1.1 Absolute Monos (auto) 0.8 Absolute Eos (auto) 0.2 Absolute Basos (auto) 0.0 Absolute Nucleated RBC 0.0 Nucleated RBC % 0.0 Sodium Potassium Chloride Carbon Dioxide Anion Gap BUN Creatinine Est GFR ( Amer) Est GFR (Non-Af Amer) BUN/Creatinine Ratio Glucose POC Glucose (mg/dL) 180 H 109 H Calcium Magnesium C-Reactive Protein Random Vancomycin ] Assessment: [s/p R small finger amputation POD #1] Plan: [Elevate R hand, wiggle fingers Con't to follow F/U with Dr. Robles 2 weeks post op]
--- NOTE | 2019-11-14 15:19 | CONSULT ---
Consult Consult: Consult requested for: ESRD on PD. Consult requested by: Praful Adames, Hospitalist Performed by Dr. Donny Lynch, [facility] Nephrology 11/14/2019 74 yo wm, ESRD on PD who was diagnosed clinically with Calciphylaxis (MAGDIEL). He received 2 week worth of STS, but couldn't continue because of severe Vomiting! He was admitted with poor po intake & nausea and later found to be septic with high Lactic acid & WBC count. In the ED, chief complaint was fatigue, pain in the right fifth finger, decreased appetite, confusion, and visual hallucinations. The source of infection was his right little finger, s/p ortho evaluate, and had amputation today! PD fluid gram stain negative, and he denied abdominal pain or cloudy PD fluid. Hes undergoing PD by his at bedside. Of note, has AVF Rt UE, his PD catheter has clean exit site. ESRD 2/2 DM. Doesnt make any urine!! PD regimen: Daily CCPD, Fill volume 2.2L. Last fill 2L at noon & mid-day exchange 2L at 1p. He alternated 1.5% & 2.5% Dextose. PMH: ESRD CVA DM Gastroparesis HTN HomeMeds: Medication Instructions Recorded Confirmed Type Insulin Lispro [Humalog Kwikpen 0 - 3 unit SUBCUT AC MDD 50 units 05/16/1611/12 History U-100] amLODIPine TAB* [Norvasc 5 mg TAB*] 10 mg PO BEDTIME 05/16/16 11/12/19 History Atorvastatin* [Lipitor 20 MG*] 20 mg PO BEDTIME 04/08/17 11/12/19 History Clopidogrel TAB* [Plavix TAB*] 75 mg PO QAM 05/21/18 11/12/19 History Insulin Detemir [Levemir Flextouch] 16 unit SQ BEDTIME 05/21/18 11/12/19 History Levothyroxine TAB* [Synthroid 88 88 mcg PO QAM 05/21/18 11/12/19 History MCG TAB*] Aspirin EC TAB* [Ecotrin EC Low 81 mg PO QAM 06/29/18 11/12/19 History Dose 81 MG*] Carvedilol TAB* [Coreg TAB*] 12.5 mg PO BID 07/23/18 11/12/19 History Furosemide 80 mg PO BID 09/21/18 11/12/19 History Jennifer-Laz Rx Tablet 1 tab PO DAILY 10/14/19 11/12/19 History Hospital Meds: Acetaminophen (Tylenol Tab*) 650 mg PO Q6H PRN PRN Reason: MILD PAIN or TEMP > 100.4 Last Admin: 11/14/19 07:53 Dose: 650 mg Aspirin (Aspirin Ec Tab*) 81 mg PO QAM [facility] Last Admin: 11/14/19 10:10 Dose: 81 mg Atorvastatin Calcium (Lipitor*) 20 mg PO BEDTIME [facility] Last Admin: 11/13/19 20:00 Dose: 20 mg Carvedilol (Coreg Tab*) 12.5 mg PO BID [facility] Last Admin: 11/14/19 08:54 Dose: Not Given Citalopram Hydrobromide (Celexa Tab*) 10 mg PO DAILY [facility] Last Admin: 11/14/19 10:10 Dose: 10 mg Clopidogrel Bisulfate (Plavix Tab*) 75 mg PO QAM [facility] Last Admin: 11/14/19 10:11 Dose: 75 mg Dextrose (Dextrose 50% Vial 50 Ml*) 25 ml IV PUSH .FOR FS < 60 - SS PRN PRN Reason: FS < 60 Folic Acid (Folvite Tab*) 0.5 mg PO DAILY [facility] Last Admin: 11/14/19 10:10 Dose: 0.5 mg Heparin Sodium (Porcine) (Heparin Vial(*)) 5,000 units SUBCUT Q12HR [facility] Last Admin: 11/14/19 10:20 Dose: 5,000 units Piperacillin Sod/Tazobactam (Sod 3.375 gm/ Sodium Chloride) 100 mls @ 25 mls/ hr IVPB Q12H [facility] Last Admin: 11/14/19 10:13 Dose: 25 mls/hr Insulin Glargine (Lantus(*)) 8 units SUBCUT BEDTIME [facility] Last Admin: 11/13/19 21:47 Dose: 8 units Insulin Human Lispro (Humalog*) 0 units SUBCUT ACHS [facility]; Protocol Last Admin: 11/14/19 12:11 Dose: Not Given Levothyroxine Sodium (Synthroid Tab*) 88 mcg PO DAILY@0600 [facility] Last Admin: 11/14/19 05:01 Dose: 88 mcg Lorazepam (Ativan Tab(*)) 0.5 mg PO 0900,1500,2100 [facility] Last Admin: 11/14/19 13:39 Dose: 0.5 mg Ondansetron HCl (Zofran Inj*) 4 mg IV Q6H PRN PRN Reason: NAUSEA Pharmacy Consult (Vancomycin Per Pharmacy*) 1 note FOLLOW UP .VANC PER PHARMACY [facility]; Protocol Pharmacy Consult (Zosyn Per Pharmacy*) 1 note FOLLOW UP .ZOSYN PER PHARMACY [facility] Potassium Chloride (Klor Con Er Tab*) 20 meq PO 1100,1600 [facility] Last Admin: 11/14/19 11:09 Dose: 20 meq Tramadol HCl (Ultram*) 50 mg PO Q8H PRN PRN Reason: PAIN - MODERATE Last Admin: 11/14/19 11:10 Dose: 50 mg Vitamin B Complex/Vitamin E (B Complex-50*) 1 tab PO DAILY [facility] Last Admin: 11/14/19 10:25 Dose: 1 tab Allergies: Social History: Denied Alcohol, smoking. No IVDA. Surgical History: TONSILLECTOMY, LAPAROSCOPIC CHOLECYSTECTOMY, CATARACT, INGUINAL HERNIA, HEMODIALYSIS CATHETER INSERTION, PERTIONEAL DIALYSIS CATHETER. PPM. Rt BKA. Family History negative for ESRD. Social History: Retired. Lives with Family. No ETOH or IVDA. Ex-smoker 12-Point Review of System obtained: Constitutional: Fatigue Eyes No blurry vision. No red eye CV: No SOB at rest no chest pain no syncope or edema Respiratory: No SOB at rest no cough no wheezing G.I: no diarrhea, Has nausea & had vomiting. But no pain no blood per rectum no burning no obstruction symptoms Skin no rash Neurology No seizures or neurologic deficit Endocrine diabetes, no heat or cold intolerance Hem/Lymphatic no bleeding no lymph nodes swelling Immune/Allergy no allergic reactions Musculoskeletal: Rt 5th finger amputation Psych no anxiety no depression no hallucination Objective: Vital Signs Temp 98.1 F 11/14/19 12:41 Pulse 81 11/14/19 12:41 Resp 18 11/14/19 13:49 BP 97/38 11/14/19 12:41 Pulse Ox 99 11/14/19 12:41 Intake & Output 11/13/19 11/14/19 11/14/19 18:59 06:59 18:59 Intake Total 467 641 0 Balance 467 641 0 Intake: IV Fluids 367 541 LR 250 NS (0.9%) 117 541 IVPB 100 ABX - ZOSYN 100 Oral 100 0 0 Other: # Bowel Movements 0 Estimated Stool Amount Medium # Voids 0 10 Point multi system exam: Constitutional Alert Oriented x 3 HEENT: No Conjunctivitis Abdomen Soft Abdomen No Ascites Heart: NSR, No LE Edema, No murmur., Rt BKA Lungs: Clear to auscultation Extremities: No edema, no rash Skin no rash Neurology No deficit. CN intact Hem/Lymph: no palpable lymph nodes Musculoskeletal: No joint swelling Laboratory Reviewed Sodium 137 mmol/L (135-145) 11/14/19 05:46 Potassium 3.1 mmol/L (3.5-5.0) L 11/14/19 05:46 BUN 41 mg/dL (6-24) H 11/14/19 05:46 Creatinine 8.65 mg/dL (0.67-1.17) H 11/14/19 05:46 Calcium 7.6 mg/dL (8.6-10.3) L 11/14/19 05:46 Magnesium 2.0 mg/dL (1.9-2.7) 11/14/19 05:46 AST 7 U/L (13-39) L 11/12/19 10:24 ALT 10 U/L (7-52) 11/12/19 10:24 Assessment and Plan: *ESRD on PD. Continue PD by as home prescription. PD nurse provided necessary supplies. *K 3.1: Could be from Zosyn or a marker of malnutrition. Replace with KCl to keep K >4.0 *BP Ok *No evidence of Peritonitis as no symptoms suggestive and gram stain negative. PD fluid clear and exit site clean! *No evidence of Fluid overload He & his were informed about lab/radiology results & prognosis. All questions were answered. They were made part of the treatment plan.
[2019-11-14] MEDS: Atorvastatin* 20 MG TAB PO SCH (21:57)
[2019-11-14] MEDS: Insulin GLARGINE(*) 1 UNITS UNIT SUBCUT SCH (22:06)
[2019-11-15] MEDS ORDERED: LORazepam TAB(*) 1 MG PO ONE (01:36)
[2019-11-15] MEDS: Levothyroxine TAB* 88 MCG TAB PO SCH (05:55)
[2019-11-15 05:57] LABS: Hematocrit 30 % (42-52); Hemoglobin 10.4 g/dL (14.0-18.0); Mean Corpuscular HGB Conc 35 g/dL (31-36); Mean Corpuscular Hemoglobin 34 pg (27-31); Mean Corpuscular Volume 97 fL (80-94); Mean Platelet Volume 6.8 fL (7.4-10.4); Platelet Count 211 10^3/uL (150-450); Red Blood Count 3.07 10^6 /uL (4.18-5.48); Red Cell Distribution Width 17 % (10-15); White Blood Count 8.8 10^3/uL (3.5-10.8)
[2019-11-15 06:14] LABS: BUN/Creatinine Ratio 4.7 (8-20); C Reactive Protein 37.32 mg/L (<8.01); Calcium 7.6 mg/dL (8.6-10.3); EGFR African American 7.5 (>60); EGFR Non-African American 6.2 (>60); Potassium 3.1 mmol/L (3.5-5.0)
[2019-11-15] MEDS: Insulin LISPRO* 1 UNITS UNIT SUBCUT SCH ×4 (07:36→21:35)
[2019-11-15 07:49] LABS: ABS Eosinophils 0.2 10^3/ul (0-0.6); ABS Lymphocytes 1.3 10^3/ul (1.0-4.8); ABS Monocytes 0.9 10^3/ul (0-0.8); ABS Neutrophils 6.4 10^3/ul (1.5-7.7)
[2019-11-15] MEDS ORDERED: Vancomycin(*) 1,000 MG in NS 0.9% 250 ML* 250 ML IV ONE (08:30)
[2019-11-15] MEDS: Clopidogrel TAB* 75 MG PO SCH (09:21)
[2019-11-15] MEDS: Aspirin EC TAB* 81 MG TAB.EC PO SCH (09:21)
[2019-11-15] MEDS: Citalopram TAB* 10 MG PO SCH (09:22)
[2019-11-15] MEDS: Carvedilol TAB* 6.25 MG PO SCH (09:22)
[2019-11-15] MEDS: Vitamin B Complex TAB PO SCH (09:30)
[2019-11-15] MEDS: LORazepam TAB(*) 0.5 MG PO SCH ×3 (09:30→21:28)
[2019-11-15] MEDS: Folic Acid TAB* 1 MG PO SCH (09:30)
[2019-11-15] MEDS: Heparin VIAL(*) 5000 UNITS/ML VIAL (FIVE THOUSAND) SUBCUT SCH ×2 (09:36→21:29)
[2019-11-15] MEDS: ZOSYN 3.375 GM Q12H per EXTENDED INFUSION IVPB SCH ×4 (11:45→22:26)
[2019-11-15] MEDS: Potassium Chlor TAB* 20 MEQ TAB.ER PO SCH ×2 (11:48→15:45)
--- NOTE | 2019-11-15 13:43 | PN ---
Progress Note - Progress Note Date of Service: 11/15/19 Note: Inpatient Nephrology f/u note Performed by Dr. Donny Lynch, [facility] Nephrology 11/15/2019 74 yo wm, ESRD on PD 2/2 DM CCPD, 2.2L of 1.5% & 2.5% D Known Calciphylaxis (MAGDIEL). Admitted with sepsis from right fifth finger gangrene, s/p amputation 11/14. Had Echo with LVEF 30-35% PD fluid clear with negative culture AVF Rt UE PD catheter has clean exit site Hospital Meds: Acetaminophen (Tylenol Tab*) 650 mg PO Q6H PRN PRN Reason: MILD PAIN or TEMP > 100.4 Last Admin: 11/14/19 07:53 Dose: 650 mg Aspirin (Aspirin Ec Tab*) 81 mg PO QAM [facility] Last Admin: 11/15/19 09:21 Dose: 81 mg Atorvastatin Calcium (Lipitor*) 20 mg PO BEDTIME [facility] Last Admin: 11/14/19 21:57 Dose: 20 mg Carvedilol (Coreg Tab*) 12.5 mg PO BID [facility] Last Admin: 11/15/19 09:22 Dose: 12.5 mg Citalopram Hydrobromide (Celexa Tab*) 10 mg PO DAILY [facility] Last Admin: 11/15/19 09:22 Dose: 10 mg Clopidogrel Bisulfate (Plavix Tab*) 75 mg PO QAM [facility] Last Admin: 11/15/19 09:21 Dose: 75 mg Dextrose (Dextrose 50% Vial 50 Ml*) 25 ml IV PUSH .FOR FS < 60 - SS PRN PRN Reason: FS < 60 Folic Acid (Folvite Tab*) 0.5 mg PO DAILY [facility] Last Admin: 11/15/19 09:30 Dose: 0.5 mg Heparin Sodium (Porcine) (Heparin Vial(*)) 5,000 units SUBCUT Q12HR [facility] Last Admin: 11/15/19 09:36 Dose: 5,000 units Piperacillin Sod/Tazobactam (Sod 3.375 gm/ Sodium Chloride) 100 mls @ 25 mls/ hr IVPB Q12H [facility] Last Admin: 11/15/19 11:45 Dose: 25 mls/hr Insulin Glargine (Lantus(*)) 8 units SUBCUT BEDTIME [facility] Last Admin: 11/14/19 22:06 Dose: 8 units Insulin Human Lispro (Humalog*) 0 units SUBCUT ACHS [facility]; Protocol Last Admin: 11/15/19 11:47 Dose: Not Given Levothyroxine Sodium (Synthroid Tab*) 88 mcg PO DAILY@0600 [facility] Last Admin: 11/15/19 05:55 Dose: 88 mcg Lorazepam (Ativan Tab(*)) 0.5 mg PO 0900,1500,2100 [facility] Last Admin: 11/15/19 09:30 Dose: 0.5 mg Ondansetron HCl (Zofran Inj*) 4 mg IV Q6H PRN PRN Reason: NAUSEA Pharmacy Consult (Vancomycin Per Pharmacy*) 1 note FOLLOW UP .VANC PER PHARMACY [facility]; Protocol Pharmacy Consult (Zosyn Per Pharmacy*) 1 note FOLLOW UP .ZOSYN PER PHARMACY [facility] Pharmacy Consult (Vancomycin Random Level*) 1 note FOLLOW UP 0600 ONE Stop: 11/16/19 06:01 Potassium Chloride (Klor Con Er Tab*) 20 meq PO 1100,1600 [facility] Last Admin: 11/15/19 11:48 Dose: 20 meq Tramadol HCl (Ultram*) 50 mg PO Q8H PRN PRN Reason: PAIN - MODERATE Last Admin: 11/14/19 19:46 Dose: 50 mg Vitamin B Complex/Vitamin E (B Complex-50*) 1 tab PO DAILY [facility] Last Admin: 11/15/19 09:30 Dose: 1 tab 12-Point Review of System obtained: Constitutional: Fatigue Eyes No blurry vision. No red eye CV: No SOB at rest no chest pain no syncope or edema. Can't assess exercise capacity. Respiratory: No SOB at rest no cough no wheezing G.I: no diarrhea, Has nausea & had vomiting. But no pain no blood per rectum no burning no obstruction symptoms Skin no rash Neurology No seizures or neurologic deficit Endocrine diabetes, no heat or cold intolerance Hem/Lymphatic no bleeding no lymph nodes swelling Immune/Allergy no allergic reactions Musculoskeletal: Rt 5th finger amputation Psych no anxiety no depression no hallucination Objective: Vital Signs Temp 97.7 F 11/15/19 03:24 Pulse 64 11/15/19 03:24 Resp 18 11/15/19 11:45 BP 123/59 11/15/19 03:24 Pulse Ox 100 11/15/19 03:24 10 Point multi system exam: Constitutional Alert Oriented x 3 HEENT: No Conjunctivitis Abdomen Soft Abdomen No Ascites Heart: NSR, No LE Edema, No murmur, Rt BKA Lungs: Clear to auscultation Extremities: No edema, no rash Skin no rash Neurology No deficit. CN intact Hem/Lymph: no palpable lymph nodes Musculoskeletal: Rt 5th finger amputation Laboratory Reviewed Sodium 134 mmol/L (135-145) L 11/15/19 05:34 Potassium 3.1 mmol/L (3.5-5.0) L 11/15/19 05:34 BUN 40 mg/dL (6-24) H 11/15/19 05:34 Creatinine 8.51 mg/dL (0.67-1.17) H 11/15/19 05:34 Calcium 7.6 mg/dL (8.6-10.3) L 11/15/19 05:34 Magnesium 2.0 mg/dL (1.9-2.7) 11/14/19 05:46 AST 7 U/L (13-39) L 11/12/19 10:24 ALT 10 U/L (7-52) 11/12/19 10:24 Assessment and Plan: *ESRD on PD. Same regimen. UF & BP Ok, No peritonitis. *Calciphylaxis, s/p finger gangrene and amputation, failed Na-ThioSulfate treatment recently! *K 3.1: Replace with KCl to keep K >4.0 *No evidence of Fluid overload *He's cleared from Nephrology perspective for discharge home! *HFrEF, LVEF 30-35%, compensated, currently on Coreg. May need repeat Echo in 8 weeks to reassess LVEF after resolution of sepsis. He & his were informed about lab/radiology results & prognosis. All questions were answered. They were made part of the treatment plan.
[2019-11-15] MEDS ORDERED: Lisinopril TAB* 5 MG PO ONE (14:44)
[2019-11-15] MEDS: Acetaminophen TAB* 325 MG PO PRN (17:05)
--- NOTE | 2019-11-15 17:58 | CONS ---
CC: Dr. White; Dr. Hilary Bonilla; Dr. Colunga; Dr. Estes CARDIOLOGY CONSULTATION: DATE OF CONSULT: 11/15/19 HISTORY OF PRESENT ILLNESS: I was asked by Dr. Hilary Bonilla to see this 74-year- old male patient, elizabeth wright presented with multiple symptoms of feeling fatigued, tired, nausea, and vomiting. No chest pain. The reason for the consult was cardiomyopathy with a newly reduced left ventricular systolic functi on. It was noted that his last echocardiogram that was done in August 2018 showed EF 50% to 55% wit hout any comments on wall motion abnormality. An echocardiogram that was done yesterday on 11/14/19 showed EF 30% to 35% with multiple regional wall motion abnormalities, please refer to a full detaile d report. The patient does have known history of end-stage renal disease, on peritoneal dialysis, wi fe does this. He had history of some dementia, diabetes mellitus, right below-knee amputation, hyper tension, history of CVA, and hyperlipidemia. The patient was hospitalized for sepsis of the right li ttler finger, status post amputation of the finger. He gives no chest pain, no shortness of breath, no syncope, no fever, no chills. He had sepsis with a white blood cell initially 18,000 on the day o f admission. He was on antibiotic treatment. He is improving. Cardiology consult was further reque sted because of also noticed 6 beats of monomorphic V-tach yesterday. I noted that also his potassiu m was low at 3.1 and he is on potassium supplements, just started. He gives no swelling in the lower extremities, no hematochezia, no skin rash, no abdominal pain, no syncope. He did have according to the patient and the at bedside myocardial infarction in December 2017, at that time in [facility] and underwent cardiac catheterization, angioplasty, and stenting. The report indicated in the notes of Dr. Colunga, his primary carton marker machine, multivessel disease, moderate in nature, 40% of the le ft main, but appears to be severe in the LAD, underwent 3 stents. PAST MEDICAL HISTORY: Extensive including end-stage renal disease, on peritoneal dialysis; diabetes mellitus with neuropathy; systemic arterial hypertension; hyperlipidemia; and CVA. He had also histo ry of mild mitral insufficiency, mild aortic insufficiency, mild aortic stenosis. PAST SURGICAL HISTORY: Includes history of cholecystectomy in 2014, inguinal hernia repair in 2016, peritoneal dialysis in 2016. He had a cardiac cath in December 2017, angioplasty and stenting in . He is status post permanent pacemaker implantation, dual-chamber, April 2017, secondary to second- degree AV block. MEDICATIONS: His medications as an outpatient include: 1. Insulin adjusted to his blood sugar. 2. He is on phosphorus 3 tablets with each meal. 3. He is on Lipitor 20 mg daily. 4. Lasix 80 mg twice daily. 5. Levothyroxine 88 mcg daily. 6. Plavix 75 mg daily. 7. Aspirin 81 mg daily. 8. Coreg 12.5 mg twice a day. 9. Amlodipine 5 mg daily. His medications as an inpatient include: 1. Tylenol 650 mg p.o. q.6 hours. 2. Aspirin baby 81 mg daily. 3. Lipitor 20 mg daily. 4. Coreg 12.5 mg twice a day. 5. Plavix 75 mg daily. 6. Folic acid 0.5 mg daily. 7. Heparin 5000 units subcu q.12 hours. 8. Insulin 8 units subcu at bedtime. 9. Synthroid 88 mcg daily. 10. Vancomycin. 11. He is on Zosyn as well. 12. Potassium 20 mEq twice a day. ALLERGIES: He is allergic to LABETALOL giving him hallucinations. SOCIAL HISTORY: He is , lives with his . 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 Socially, he give s no history of smoking, no drinking, no history of illicit drug abuse. REVIEW OF SYSTEMS: Review of all other systems essentially is negative. PHYSICAL EXAM: On exam, he is awake, alert, and oriented. He is not in acute distress. He is chest pain-free. His is at bedside. His vitals: Blood pressure elevated 126/55, his heart rate 66, his temperature 98.1, respiratory rate 18. Head and Neck Exam: Normocephalic, atraumatic head. Ears, Nose, and Throat: Essentially benign . Neck is supple. JVP is not elevated. No carotid bruits. No masses in the neck. Chest: Clear t o auscultation. No rales, no wheeze. No added sounds appreciated. Heart: Normal S1, S2. No added sounds. No gallops, no rubs. There is a grade 2/6 systolic murmur in the left sternal border. Abdo men: Benign. Positive bowel sounds. Extremities: On the right side, there is right below-knee ampu tation. Skin exam is normal. Psych: Normal affect and mood. CHAIR CANER: No focal deficits appreciated. DIAGNOSTIC STUDIES/LAB DATA: His labs showed white blood cell 8.8, hemoglobin 10.4, hematocrit 30, a nd platelets 211. His chemistry: Sodium 134, potassium 3.1, chloride 98, BUN 40, creatinine 8.5, ca lcium 7.6. CRP 37. His EKG showed him to be in sinus rhythm with ventricular paced rhythm. IMPRESSION: The patient is a 74-year-old male patient with complex medical history and comorbidities with: 1. Hospitalization with sepsis, source is actually right little finger, status post amputation. 2. Cardiomyopathy, new compared to an echo done in August 2018 with multiple wall motion abnormalit ies, concerns for ischemic cardiomyopathy in a patient who does have known history of coronary artery disease and stents. 3. Known history of coronary artery disease and history of myocardial infarction, cath in December 18 in [place], multiple stents, multivessel disease. 4. Diabetes mellitus with diabetic neuropathy. 5. Right below-knee amputation. 6. Systemic arterial hypertension. 7. Hyperlipidemia. 8. Nonsustained ventricular tachycardia, concerns ischemic and severe cardiomyopathy. 9. Hypokalemia. 10. Mild mitral insufficiency. 11. Mild aortic stenosis and mild aortic insufficiency. 12. History of cerebrovascular accident. 13. End-stage renal disease. He is on peritoneal dialysis. PLAN: Again, this patient is complex with significant comorbidities. My concern is ischemic coronar y artery disease. Currently, he is without chest pain and hemodynamically stable. I understand he i s DNR. I had a lengthy discussion with the patient and his at bedside. As per his wishes, he w ants everything to be done including invasive procedures including cardiac catheterization. I do rec ommend cardiac catheterization to evaluate progression of CAD and the status of his stents. I will d iscuss him further with Dr. Dyer from the Interventional Cardiology as well. Meanwhile, I agree wi th your current treatment. Continue antibiotic treatment. I will increase his Coreg to 25 mg twice a day. I will start him if blood pressure allows on a very low dose SALVATORE inhibitor, lisinopril 2.5 mg daily and keep a close eye on his electrolytes. Any further recommendations will be pending his cli nical outcome. I answered all their concerns and questions up to their satisfaction. TIME SPENT: More than half of at least 65-plus minutes was in the education and counseling mode, fac e-to-face explaining the above and making further recommendations. [id number]/[facility] #: [id number]
[2019-11-15] MEDS: Carvedilol TAB* 25 MG PO SCH (21:23)
[2019-11-15] MEDS: Atorvastatin* 20 MG TAB PO SCH (21:23)
[2019-11-15] MEDS: Insulin GLARGINE(*) 1 UNITS UNIT SUBCUT SCH (21:28)
[2019-11-15] MEDS: traMADol TAB* 50 MG PO PRN (22:40)
[2019-11-16] MEDS ORDERED: Vancomycin Random Level* NOTE FOLLOW UP ONE (06:00)
[2019-11-16] MEDS: Levothyroxine TAB* 88 MCG TAB PO SCH (07:31)
[2019-11-16 07:54] LABS: Hematocrit 29 % (42-52); Hemoglobin 10.2 g/dL (14.0-18.0); Mean Corpuscular HGB Conc 35 g/dL (31-36); Mean Corpuscular Hemoglobin 34 pg (27-31); Mean Corpuscular Volume 97 fL (80-94); Platelet Count 179 10^3/uL (150-450); Red Blood Count 3.01 10^6 /uL (4.18-5.48); Red Cell Distribution Width 17 % (10-15); White Blood Count 7.2 10^3/uL (3.5-10.8)
[2019-11-16 07:57] LABS: ABS Eosinophils 0.1 10^3/ul (0-0.6); ABS Lymphocytes 1.3 10^3/ul (1.0-4.8); ABS Monocytes 0.8 10^3/ul (0-0.8); ABS Neutrophils 4.8 10^3/ul (1.5-7.7); Eosinophil % 1.8 %; Lymphocyte % 18.3 %
[2019-11-16] MEDS: Insulin LISPRO* 1 UNITS UNIT SUBCUT SCH ×4 (08:02→20:28)
[2019-11-16 08:09] LABS: BUN/Creatinine Ratio 4.5 (8-20); C Reactive Protein 48.17 mg/L (<8.01); Calcium 7.6 mg/dL (8.6-10.3); EGFR African American 8.3 (>60); EGFR Non-African American 6.8 (>60); Potassium 3.5 mmol/L (3.5-5.0)
[2019-11-16 08:28] LABS: Vancomycin Random 23.3 mcg/mL
[2019-11-16] MEDS: ZOSYN 3.375 GM Q12H per EXTENDED INFUSION IVPB SCH ×4 (09:32→22:32)
[2019-11-16] MEDS: Citalopram TAB* 10 MG PO SCH (09:40)
[2019-11-16] MEDS: Clopidogrel TAB* 75 MG PO SCH (09:40)
[2019-11-16] MEDS: Aspirin EC TAB* 81 MG TAB.EC PO SCH (09:40)
[2019-11-16] MEDS: Carvedilol TAB* 25 MG PO SCH ×2 (09:40→20:36)
[2019-11-16] MEDS: Folic Acid TAB* 1 MG PO SCH (09:40)
[2019-11-16] MEDS: Vitamin B Complex TAB PO SCH (09:44)
[2019-11-16] MEDS: LORazepam TAB(*) 0.5 MG PO SCH ×3 (09:44→20:41)
[2019-11-16] MEDS: Heparin VIAL(*) 5000 UNITS/ML VIAL (FIVE THOUSAND) SUBCUT SCH ×2 (09:45→20:35)
[2019-11-16] MEDS: Potassium Chlor TAB* 20 MEQ TAB.ER PO SCH ×2 (12:42→16:29)
--- NOTE | 2019-11-16 12:52 | PN ---
Progress Note - Progress Note Date of Service: 11/16/19 Note: POD 3: s/p right small finger partial amputation- Patient has kept dressing clean and dry. He has some pain and swelling in the hand. He has not been elevating. He denies fever or chills. His incision is well approximated with intact sutures without erythema or drainage. Wound appears benign. Sensation is intact and he can move the digit at the CMP joint. 2+ radial pulse. His dressing was changed today. He was encouraged to elevate most of the time to reduce swelling and pain. He is orthopedically stable. Upon discharge, f/u with Dr. Robles 10-14 days post-op for suture removal and evaluation.
[2019-11-16] MEDS: Acetaminophen TAB* 325 MG PO PRN (13:17)
[2019-11-16] MEDS: Insulin GLARGINE(*) 1 UNITS UNIT SUBCUT SCH (20:34)
[2019-11-16] MEDS: Atorvastatin* 20 MG TAB PO SCH (20:36)
[2019-11-16] MEDS ORDERED: Magnesium Oxide TAB* 400 MG PO ONE (22:00)
[2019-11-17] MEDS: Levothyroxine TAB* 88 MCG TAB PO SCH (05:12)
[2019-11-17] MEDS: traMADol TAB* 50 MG PO PRN (06:17)
[2019-11-17] MEDS: Insulin LISPRO* 1 UNITS UNIT SUBCUT SCH (08:14)
[2019-11-17] MEDS: Carvedilol TAB* 25 MG PO SCH (08:15)
[2019-11-17] MEDS: Vitamin B Complex TAB PO SCH (08:15)
[2019-11-17] MEDS: Clopidogrel TAB* 75 MG PO SCH (08:15)
[2019-11-17] MEDS: Heparin VIAL(*) 5000 UNITS/ML VIAL (FIVE THOUSAND) SUBCUT SCH (08:15)
[2019-11-17] MEDS: LORazepam TAB(*) 0.5 MG PO SCH (08:15)
[2019-11-17] MEDS: Aspirin EC TAB* 81 MG TAB.EC PO SCH (08:15)
[2019-11-17] MEDS: Folic Acid TAB* 1 MG PO SCH (08:15)
[2019-11-17] MEDS: Citalopram TAB* 10 MG PO SCH (08:15)
[2019-11-17] MEDS ORDERED: Heparin 2 UNITS/ML IVPREMIX* 2,000 ML IV ONE (09:17)
[2019-11-17] MEDS ORDERED: Iodixanol 320 (CONTRAST) 100 ML SDV ONE (09:18)
[2019-11-17] MEDS ORDERED: Lidocaine 1% INJ* 10 MG/ML 30 ML SDV ONE (09:18)
[2019-11-17] MEDS ORDERED: Midazolam* 1 MG/ML 5 ML VIAL (5 MG) ONE ×2 (09:49→11:44)
[2019-11-17] MEDS ORDERED: fentaNYL* 50 MCG/ML 2 ML VIAL (100 MCG VIAL) ONE (09:49)
[2019-11-17 12:22] VITALS: BP 134/61
--- NOTE | 2019-11-17 12:34 | CATH ---
CC: Dr. Jose White; Dr. Francesco Holder CARDIAC CATHETERIZATION REPORT: DATE OF PROCEDURE: 11/17/19 INDICATION FOR PROCEDURE: The patient presents with marked left ventricular systolic dysfunction, new from echocardiogram in August 2018, now with EF of 30 % to 35% suggestive of wall motion abnormalities to the anteroapical and distal inferior wall, assess for the presence of progressive coronary artery disease with history of prior stents to the proximal and distal LAD as well as the trifurcation marginal branch. PROCEDURE: Coronary arteriography. APPROACH UTILIZED: The left femoral artery approach. PRE-CARDIAC CATHETERIZATION LABORATORY RESULTS: Hemoglobin and hematocrit of 10.2 and 29, a platelet count of 179,000. Glucose 106, BUN and creatinine of 35 and 7.8 (the patient is on peritoneal dialysis), sodium 134, potassium 3.5, chloride 97, bicarb 27. The last available troponin was 0.08 and his BNP is greater than 1300. MEDICATIONS GIVEN DURING THE CASE: Included: 1. 1% lidocaine. 2. A total of 1 mg of Versed. 3. The patient is already on aspirin 81 mg and Plavix 75 mg 1 a day chronically. EQUIPMENT UTILIZED: 1. Right femoral artery sheath: A 5-Scottish Eunice 11 cm sheath. 2. Coronary diagnostic catheters: A 4 curve 5-Scottish FL catheter and a 5- Scottish FR4 curve catheter. 3. The diagnostic guidewire was a standard J 150 length and an exchange J 160 length. 4. The closure device was a Mynx 5-Scottish closure device. DESCRIPTION OF PROCEDURE: The patient was interviewed and examined on the floor of the hospital, where the risks and benefits were explained. At the time of the catheterization, he was brought to the cardiovascular labor operator and prepped and draped in sterile fashion. The left coronary was anesthetized with 1% lidocaine. The left femoral artery was cannulated with an anterior wall approach stick only. The sheath was placed. Diagnostic coronary arteriography was performed. At the end of the case, the catheter and sheath were removed and hemostasis was obtained with a Mynx closure device. The total contrast used was 50 cc of Visipaque dye. The radiation exposure included 3.2 minutes of fluoro time. The air kerma radiation was 727 mGy. The DAP radiation was 4207 microgray per meter squared. RESULTS: CORONARY ARTERIOGRAPHY: A. Left coronary artery: 1. Left main - a 30% to 35% ostial left main narrowing is noted with minimal 10% mid to distal left main narrowing. 2. Left anterior descending artery. The left anterior descending artery' s proximal stent appeared to be patent proximally, but totally occluded at its distal tip. There was collateralization seen from the trifurcation marginal branch to the mid and distal LAD. The distal stent in the LAD appeared to be patent. The distance of total occlusion appeared to be fairly long in nature over 10 mm. 3. Circumflex artery - supplying a high first obtuse marginal/ trifurcation marginal branch, which had a patent stent in its proximal portion with minimal in- stent restenosis. This vessel was extremely large in nature extending across the whole posterolateral apical region. The distal branches off of it had significant narrowings in its beginning portion. The vessel itself had narrowings as much as 65% to 70% in its mid to distal portion. Of note, the branches with significant proximal disease were too small for any interventional approach (less than 1.7 mm). After the takeoff of the high first obtuse marginal branch, the circumflex continued to supply a second and third thin obtuse marginal branch and ending in a slightly larger low-lying short obtuse marginal branch. The mid segment of the circumflex appeared to have a significant 85% lesion in a borderline caliber vessel best for intervention. B. Right coronary artery - a dominant vessel supplying the PDA and multiple posterior left ventricular branches. There was mild disease seen throughout the vessel with a [id number] lesion noted in its mid segment, ulcerated some with degree of narrowing noted to be approximately 50% to 55%. OVERALL ASSESSMENT: Significant coronary artery disease mainly involving a totally occluded mid LAD after the proximal stent. Collateral blood flow is noted filling the mid to distal vessel. Concern would be as to whether or not the overall LV function could be improved by revascularization to this area with poorly filling collaterals currently present. Because of the length of this total occlusion, it would not be one that I felt would be gentile to attempt in our laboratory and would need techniques for possible chronic total occlusion at a more appropriate tertiary center. We will try to arrange for transfer of this patient for further assessment. Obviously ongoing continued medical management for his LV function is critical as well. He is currently on carvedilol at a good dosage. Consideration for obviously adding low-dose SALVATORE inhibition as blood pressure tolerates and some form of Aldactone therapy might be reasonable. Entresto therapy can be considered as well. Further medical management will be guided by the cardiac team up at [facility]. I did personally speak to the hospitalist service, who according to the transfer center up there takes these patients in transfer rather than any kitchen steward which I would have preferred to have spoken to. I kept the family abreast of all of this. I also personally spoke with Dr. Hilary Bonilla, who is dictating the transfer summary, and I spoke to Dr. Estes, the primary kitchen steward who was involved with the patient's case. Of note, given the history of him presenting with an infection back on 11/12/19 , Dr. Hilary Bonilla felt the patient has been on antibiotic therapy intravenously appropriate enough such that stent placement should not be an issue. [id number]/[facility] #: [id number] MTDD
--- NOTE | 2019-11-17 13:15 | TRS ---
CC: Dr. Robles; Dr. Dyer; Dr. White; [facility] TRANSFER SUMMARY: DATE OF ADMISSION: 11/12/19 DATE OF TRANSFER: 11/17/19 TRANSFER DIAGNOSES: 1. Obstructive coronary artery disease, LAD lesion, status post multiple stents in the past. 2. Left ventricular systolic dysfunction. 3. Sepsis. 4. Gangrene, right fifth digit, status post amputation during hospitalization. 5. Peripheral vascular disease. 6. Nonsustained ventricular tachycardia. 7. Pacemaker with possible problem with capture. 8. Hyperlipidemia. 9. History of anxiety. 10. Status post right gephc-jki-zhwy amputation. 11. History of pacemaker. 12. Type 2 diabetes mellitus with nephropathy, neuropathy, retinopathy. 13. Chronic kidney disease, on peritoneal dialysis. 14. History of hypertension. 15. Hypothyroidism, on replacement. 16. History of middle cerebral artery stroke. 17. Mild aortic stenosis. HISTORY: Alec Bynum is a 74-year-old man admitted with sepsis, confusion, hallucinations consistent with his symptoms when he has an infection. Please see dictated admission note for details of the present illness, past medical history, family history, social and personal history, review of systems and physical examination. LABORATORY DATA: CBC on admission: WBC 18.8, H and H 12.3/36, MCV 97, PLT 292, 000. White count came down to 7.2 on 11/16/19, H and H was 10.2/29. Chemistries on admission: Sodium 136, potassium 4.1, chloride 92, CO2 of 17, BUN and creatinine 14/10.05, glucose 202, calcium 8.5, magnesium 1.6, troponin 0.08, C- reactive protein 43.62, albumin 3.1. Rest of the comprehensive metabolic panel was otherwise normal. Lactic acid initially was 2.9, then 2.5 and 2.8, 1.9 on 11/13/19. Blood sugars during his hospitalization ranged from 81 to 260, generally in the 100s. BNP was greater than 1300 on 11/16/19. Repeat magnesium on 11/14/19 was 2, phosphorus on 11/13/19 was 5.8. Vancomycin levels were on 11/13/19 at 11.9, 11/14/19 at 19.4, 11/15/19 at 18, 11/16/19 at 23 and 11/17/19 at 24.3. IMAGING: Chest x-ray on 11/12/19: Findings suggestive of mild congestive heart failure, improved; small amount of free intraperitoneal air, unchanged, consistent with patient's history of peritoneal dialysis. Hand x-ray on showed no significant focal osseous abnormality, soft tissue atrophy around the distal portion of the fifth finger, atherosclerotic changes. Pathology of the finger specimen is pending. EKG on 11/12/19 showed atrial sensed ventricular paced complexes, also complexes also detected. Borderline prolonged KS interval, probable left atrial enlargement, LVH, ST-T wave changes. EKG on 11/13/19 showed ventricular paced complexes. EKG 11/15/19 showed atrial sensed ventricular paced complexes, probable PVC, no further analysis attempted due to paced rhythm. Transthoracic echocardiogram done 11/14/19 showed [id number] increased wall thickness, estimated EF 30% to 35% with hypokinesis of the mid apical inferior myocardium and akinesis of the apical inferior, apical septal and apical myocardium, moderate hypokinesis of the mid septal anterior myocardium, pacer noted in right ventricle. Interventricular septal wall motion was abnormal due to pacemaker. The left atrium was moderately dilated. There was mild stenosis of the aortic valve. Pulmonary artery systolic pressures mildly increased estimated at 46. Cardiac catheterization done on 11/17/19 signed report not yet available, but did show significant stenosis after a stent in the left anterior descending artery thought to be amenable to intervention at a tertiary care center. Consultation note Dr. Robles, her impression was gangrene of the left small finger, recommended amputation to be done on 11/13/19 with local MAC anesthesia. Cardiology consultation 11/15/19, Dr. Estes felt that the patient had ischemic coronary artery disease but without pain and hemodynamically stable. He understood that he was DNR. He had a lengthy discussion with the patient and his . He wanted everything done including invasive procedures including cardiac catheterization. He did recommend cardiac catheterization to evaluate progression of CAD and status of his stents. He started him on low- dose SALVATORE inhibitor lisinopril 2.5 mg daily, keeping a close eye on his electrolytes. Dr. Dyer saw him in cardiac consultation for invasive procedure , proceeded with cardiac catheterization as planned on 11/17/19. Operative report 11/13/19, amputation of the right small finger at the PIP joint. HOSPITAL COURSE: The patient was admitted. He was started on Zosyn and vancomycin. Amputation was done as noted. He underwent telemetry monitoring, had nonsustained ventricular tachycardia. Echocardiogram was ordered in order to assess his LV function. This showed diminished LV function, EF 30% to 35% versus 50% to 55% in 2018. He had cardiac consultation as noted above. The decision was to proceed with a cardiac catheterization to evaluate his anatomy. This was done (see above). He had clinically improved with regards to his infection and his mental status. He did have problems with anxiety and pain managed with lorazepam and tramadol. His blood sugars were fairly well controlled during the course of his hospitalization. His other medications were continued as before. At the time of discharge, he remains anxious. The plan is to transfer him to [facility] in [place] for intervention on his left anterior descending coronary artery disease. Transfer has been arranged by Dr. Ross Dyer with [facility] in [place]. DISCHARGE MEDICATIONS: At the time of discharge, his medications are as follows. 1. Acetaminophen 650 p.o. q.6 hours p.r.n. pain. 2. Aspirin 81 mg daily. 3. Atorvastatin 20 mg q.h.s. 4. Carvedilol 25 mg twice a day. 5. Citalopram 10 mg daily. 6. Clopidogrel 75 mg daily. 7. Folic acid 500 mcg daily. 8. Heparin 5000 units subcu q.12 h. 9. Lantus insulin 8 units at bedtime. 10. Lispro per protocol. Blood glucose 131 to 150, 0 units; 151 to 200, 1 unit ; 201 to 250, 2 units; 251 to 300, 3 units; 301 to 350, 4 units; 351 to 400, 5 units; greater than 400, 6 units. 11. Levothyroxine 88 mcg daily. 12. Lorazepam 0.5 mg at 9 p.m. to be given on schedule. 13. Ondansetron 4 mg IV q.6 h. p.r.n. nausea. 14. Zosyn 3.375 mg IV q.12 h. 15. Potassium chloride 20 mEq b.i.d. 16. Tramadol 50 mg q.8 h. p.r.n. 17. Vancomycin per pharmacy dosing based on level, being dosed daily 1 g if level was at 20. 18. Vitamin B complex 1 daily. DIET: Renal. ACTIVITY: Bed rest. Per his , he does not get up and walk even with the prosthesis. He was DNR, but this was rescinded for the cardiac catheterization. DISPOSITION: Transfer to [facility] in [place] in fair condition. [id number]/[facility] #: [id number] MTDD
== END 2019-11-17 12:00 | disposition short-term general hospital (02) | DRG 853 ==
LOC: ED 09:44 → MED 13:03
PROVIDERS: ADMIT Internal Medicine; ATTEND Internal Medicine Geriatric Medicine
PROC: 0X6V0Z1 Detachment at Right Little Finger, High, Open Approach (ICD-10-PCS; 2019-11-17)
PROC: B211YZZ Fluoroscopy of Multiple Coronary Arteries using Other Contrast (ICD-10-PCS; principal; 2019-11-17 09:30)
DX: A41.9 Sepsis, unspecified organism (principal); N18.6 End stage renal disease; I50.32 Chronic diastolic (congestive) heart failure; I13.2 Hypertensive heart and chronic kidney disease with heart failure and with stage 5 chronic kidney disease, or end stage renal disease; E11.52 Type 2 diabetes mellitus with diabetic peripheral angiopathy with gangrene; I96 Gangrene, not elsewhere classified; I42.9 Cardiomyopathy, unspecified; I47.2 Ventricular tachycardia; G93.40 Encephalopathy, unspecified; E11.22 Type 2 diabetes mellitus with diabetic chronic kidney disease; R65.20 Severe sepsis without septic shock; E11.21 Type 2 diabetes mellitus with diabetic nephropathy; E11.42 Type 2 diabetes mellitus with diabetic polyneuropathy; E11.319 Type 2 diabetes mellitus with unspecified diabetic retinopathy without macular edema; E03.9 Hypothyroidism, unspecified; E78.5 Hyperlipidemia, unspecified; I25.10 Atherosclerotic heart disease of native coronary artery without angina pectoris; E78.00 Pure hypercholesterolemia, unspecified; J44.9 Chronic obstructive pulmonary disease, unspecified; M19.042 Primary osteoarthritis, left hand; M19.041 Primary osteoarthritis, right hand; H54.8 Legal blindness, as defined in USA; G43.909 Migraine, unspecified, not intractable, without status migrainosus; F41.9 Anxiety disorder, unspecified; E11.43 Type 2 diabetes mellitus with diabetic autonomic (poly)neuropathy; K31.84 Gastroparesis; I08.0 Rheumatic disorders of both mitral and aortic valves; I44.1 Atrioventricular block, second degree; E87.6 Hypokalemia; R11.10 Vomiting, unspecified; Z99.2 Dependence on renal dialysis; Z86.73 Personal history of transient ischemic attack (TIA), and cerebral infarction without residual deficits; Z95.0 Presence of cardiac pacemaker; Z95.5 Presence of coronary angioplasty implant and graft; Z89.511 Acquired absence of right leg below knee; Z88.8 Allergy status to other drugs, medicaments and biological substances; Z87.891 Personal history of nicotine dependence; Z79.82 Long term (current) use of aspirin; Z79.02 Long term (current) use of antithrombotics/antiplatelets; Z79.899 Other long term (current) drug therapy; Z79.4 Long term (current) use of insulin; Z79.890 Hormone replacement therapy
CPT/HCPCS: 36415; 71045; 80048; 80053; 80202; 83605; 83735; 83880; 84100; 84484; 85025; 86140; 87040; 87070; 87205; 87641; 88305; 88311; 90945; 93005; 93306; 93454; 96365; 99156; 99157; 99284; A9270-GY; C1769; C1887; C8929; G0257; J1200; J1644; J2250; J2543; J2704; J3010; J3370; J3475

== ENCOUNTER 2019-11-26 14:23 | Emergency (ER) | payer MEDICARE ==
--- OUTSIDE RECORDS SUMMARY | 2019-11-26 14:30 | XMS REPORT | Continuity of Care Document ---
:1945 External Reference #:[id number] Author Name Fadi Holt M.D. (transmitted by agent of provider Susanne Byers ) Address [address] [place] [address] Care Team Providers Name Role Phone Francesco Holder MD - Nephrology Care Team Information [employer] Operator Jose White MD - Endocrinology, Care Team Information [employer] Operator Diabetes & Metabolism Problems Active Problems Provider Date Headache Marixa Rush D.O. Onset: 05/31/2018 End-stage renal disease Marixa Rush D.O. Onset: 05/31/2018 Type 2 diabetes mellitus Marixa Rush D.O. Onset: 05/31/2018 Amputated below knee Marixa Rush D.O. Onset: 05/31/2018 Type 2 diabetes mellitus with diabetic Marixa Rush D.O. Onset: 05/31/2018 neuropathy, unspecified Social History Type Date Description Comments Sex Unknown Tobacco Use Start: Unknown Never Smoked Cigarettes Smoking Status Reviewed: 08/04/19 Never Smoked Cigarettes ETOH Use Denies alcohol use Tobacco Use Start: Unknown Patient has never smoked Recreational Drug Use Denies Drug Use Exercise Type/Frequency Exercises rarely Allergies, Adverse Reactions, Alerts Active Allergies Reaction Severity Comments Date Labetalol hallucinations 10/01/2016 Cheng Inhibitors 10/18/2019 Clonidine HCL Oral Tablet 0.2 MG 10/18/2019 Inactive Allergies NKDA 09/11/2016 Medications Active Medications SIG Qnty Indications Ordering Date Provider Potassium Chloride ER 1 by mouth every 30tabs Misti Hopper 10/05/2019 day MD Cris 20Meq Tablets ER Ondansetron 1 tab by mouth 30tabs Misti Hopper 09/16/2019 8mg Tablets three times daily MD Cris Dispers prn Nausea or vomiting Levemir 16 units at Unknown 100Unit/ML bedtime as Solution directed Renal Vitamin daily Unknown Phosphorous 3 tablets with Unknown each meals total of 9 tablet per day Humalog Kwikpen sliding scale Unknown 100Unit/ML Solution Pen-Inject [place] Oil daily prn Unknown Oil Atorvastatin Calcium take 1 tablet at Unknown 20mg bedtime Tablets Furosemide 1 by mouth twice Unknown 80mg Tablets daily Levothyroxine Sodium 1 tablet po daily Unknown 88mcg Tablets Plavix 1 by mouth every Unknown 75mg Tablets day Aspirin 1 by mouth every Unknown 81mg Tablets day Carvedilol 1 tablet po twice Unknown 12.5mg Tablets daily Citalopram 1 tab daily Unknown Hydrobromide 10mg Tablets Lorazepam as needed Unknown 0.5mg Tablets Amlodipine Besylate 1 tab daily Unknown 5mg Tablets Medications Administered in Office Medication SIG Qnty Indications Ordering Provider Date Inj, Regadenoson, 0.1 MG Gary Colunga M.D. 06/05/2017 Injection Technetium TC 99M Tetrofosmin, Gary Colunga M.D. 06/05/2017 Per Unit Dose Up To 40 Millicuries Injection Immunizations Description No Information Available Vital Signs Date Vital Result Comment 08/04/2019 10:44am Height 69 inches 5'9" Weight 171.00 lb Heart Rate 60 /min BP Systolic 90 mmHg BP Diastolic 60 mmHg Respiratory Rate 16 /min Body Temperature 98.1 F Pain Level 10 BMI (Body Mass Index) 25.2 kg/m2 06/10/2019 9:45am Height 69 inches 5'9" Heart Rate 59 /min BP Systolic Sitting 120 mmHg lue reg cuff BP Diastolic Sitting 89 mmHg lue reg cuff BP Systolic Standing 121 mmHg lue reg cuff BP Diastolic Standing 90 mmHg lue reg cuff Respiratory Rate 14 /min Ejection Fraction 50-55% echo. 08/16/2018 Results Test Acquired Facility Test Result H/L Range Note Date Laboratory 11/12/2019 [facility] Lactic Acid 2.5 Critical 0.5- 2.0 1 test finding [address] mmol/[place] [address] [phone] Potassium 09/07/2019 N2N/CCD Import Potassium 3.1 Low 3.5 - 5.5 PTH Intact 08/19/2019 N2N/CCD Import PTH Intact 141 High 18 - 80 Hep B Surfce 08/19/2019 N2N/CCD Import Hep B Surfce Neg Neg Ag Ag Ferritin 08/19/2019 N2N/CCD Import Ferritin 411 High 22 - 322 Hemoglobin A1c 08/19/2019 N2N/CCD Import Hemoglobin A1c 6.6 High 0.0 - % % 5.6 TSH 08/19/2019 N2N/CCD Import TSH 4.39 0.40 - 5.50 Calcium 08/19/2019 N2N/CCD Import Calcium 8.4 8.7 - Corrected Corrected 10.4 Alt/SGPT 08/19/2019 N2N/CCD Import Alt/SGPT <9 Low 10 - 49 Glucose 08/19/2019 N2N/CCD Import Glucose 210 High 70 - 99 CBC With 08/19/2019 N2N/CCD Import Basophils 2.2 Autodiff Neutrophils 73.2 Lymphocytes 15.6 Monocytes 6.4 Eosinophils 2.7 RDW 15.1 High 11.0 - 15.0 WBC 6.8 4.5 - 11.0 RBC 3.80 Low 4.60 - 6.20 Hematocrit 37.0 Low 42.0 - 52.0 Hemoglobin 12.2 Low 14.0 - 18.0 MCV 97.4 80.0 - 100.0 MCH 32.1 High 27.0 - 31.0 MCHC 33.0 32.0 - 36.0 Platelet-CT 244 150 - 400 Neuts-Abs 5014.20 2000 - 8800 Lymphs-Abs 1068.60 Low 1100 - 4800 Monos-Abs 438.40 0 - 1100 Eosins-Abs 184.95 0 - 700 HCT Calc (HGBX3) 36.6 Low 42.0 - 52.0 Basos-Abs 150.70 0 - 400 Chem I HD 08/19/2019 N2N/CCD Import Alk Phos 69 46 - 116 Albumin 3.2 3.2 - 4.8 Calcium 7.8 Low 8.7 - 10.4 Chloride 96 Low 99 - 109 Co2 28 20 - 31 LDH, Total 188 120 - 246 Phosphorus 6.7 High 2.4 - 5.1 Potassium 3.2 Low 3.5 - 5.5 Ast/Sgot <9 0 - 34 Protein - Total 5.6 Low 5.7 - 8.2 A/G Ratio 1.3 1 - 2.5 Globulin 2.4 0.9 - 5 Caxphos Product 52.3 21 - 53 C[place]phos Corrected 56.3 High 21 - 53 Adequacy PD Mal 08/19/2019 N2N/CCD Import BUN 39 High 9 - 23 Creatinine 8.53 High 0.70 - 1.30 NPCR PD 0.74 Creat-PD 4.90 Urea-PD 30 Urea CLR Ur/Bsa 0.2 Low 64 - 99 Cre CLR Ur/Bsa 1 Low 85 - 125 Urea CLR Ur 0.3 Minuts Collctd-Ur 1440 Tot.Vol.-Urine 60 Tot.Vol.-PDF 22090 Urea Gen Rate 8.6 Urea Nit Urine 246 Creat-Ur 125.46 Age Of Patient 73 Bsa ([place]) 1.85 Body WT (LBS) 158.18667 Height (Inches) 68 TBW Ruiz 38.31 Pna (PD) 58.8 Npna-PD 0.89 Lesvia (PD) 5.8 Min Goal:KT/V PD 2.1 PCR PD 49 Amputation Factor 0.065 Cre CLR Ur 1 Low 97 - 137 L/WK/1.73 Resid cc 4.12 L/WK PDF cc 75.87 L/WK/1.73 Total cc 74.90 KT/V PDF 2.65 KT/V Residual 0.07 KT/V Total PD 2.72 L/WK Resid cc 4.41 L/WK/1.73 PDF cc 70.78 L/WK Total cc 80.28 Iron Panel 08/19/2019 N2N/CCD Import Iron 55 Low 65 - 175 Iron Saturation 33 21 - 49 Tibc 166 Low 250 - 425 Uibc 111 75 - 360 Lipid Profile 08/19/2019 N2N/CCD Import Cholesterol 188 0 - 199 Triglycerides 125 0 - 149 HDL 34 Low 40 - 60 Chol/HDL Ratio 5.5 High 3.3 - 5 LDL 129 High 0 - 99 VLDL-Chol (Calc) 25 0 - 29 TSH 07/21/2019 N2N/CCD Import TSH 3.91 0.4-5.5 Caxphos Corrected 07/21/2019 N2N/CCD Import C[place]os Corrected 43.2 21 - 46 Calcium Corrected 07/21/2019 N2N/CCD Import Calcium Corrected 9.0 8.7 - 10.4 Glucose 07/21/2019 N2N/CCD Import Glucose 177 High 70-105 CBC With Autodiff 07/21/2019 N2N/CCD Import WBC 7.2 4.5-11.0 RBC 3.78 Low 4.60-6.20 Hematocrit 35 33.0-36.0 Hemoglobin 12 Low 14.0-18.0 Chem I HD 07/21/2019 N2N/CCD Import Albumin 3.0 Low 3.5-5.0 Calcium 8.2 Low 8.4-10.2 Chloride 94 Low 98-107 Co2 31 22-33 Phosphorus 4.8 High 2.5-4.5 Potassium 3.7 3.5-5.0 Iron Panel 07/21/2019 N2N/CCD Import Iron 69 65-170 Iron Saturation 48 20-55 Tibc 144 Low 228-428 Uibc <129 159-193 CBC Auto Diff 07/21/2019 N2N/CCD Import Nucleated Red Blood Cells % 0.0 Basophil % 1.0 Eosinophil % 3.1 Monocyte % 9.8 Lymphocyte % 22.0 Granulocyte % 64.1 Abs Nucleated RBC 0.0 Abs Basophils 0.1 0-0.2 Abs Eosinophils 0.2 0-0.6 Abs Monocytes 0.7 0-0.8 Abs Lymphocytes 1.6 1.0-4.8 Abs Neutrophils 4.6 1.5-7.7 Mean Platelet Volume 8.0 7.4-10.4 Platelet Count 275 150-450 Red Cell Distribution Width 15 10-15 Mean Corpuscular HGB Conc 35 31-36 Mean Corpuscular Hemoglobin 32 High 27-31 Mean Corpuscular Volume 92 80-94 Hematocrit 35 Low 42-52 Hemoglobin 12.0 Low 14.0-18.0 Red Blood Count 3.78 Low 4.18-5.48 White Blood Count 7.2 3.5-10.8 TSH (Thyroid 07/21/2019 N2N/CCD Import TSH (Thyroid 3.91 0.34-5.60 Stimulating Horm) Stimulating Horm) Iron Iron Bind 07/21/2019 N2N/CCD Import Total Iron Binding 144 Low 250 -450 Cap Capacity Unsaturated Iron Binding < 129 Iron 69 50-212 Transferrin 103 Low 203-362 % Iron Saturation 48 15-55 Phosphorus 07/21/2019 N2N/CCD Import Phosphorus 4.8 2.5-5.0 Comprehensive Metabolic 07/21/2019 N2N/CCD Import Egfr 7.9 >60 Panel [place] Egfr Non- 6.5 >60 Ast 5 Low 13-39 Alt 6 Low 7-52 Alkaline Phosphatase 78 34-104 Total Bilirubin 0.50 0.2-1.0 Albumin/Globulin Ratio 1.0 1-3 Globulin 3.1 2-4 Albumin 3.0 Low 3.2-5.2 Total Protein 6.1 Low 6.4-8.9 Calcium 8.2 Low 8.6-10.3 BUN/Creatinine Ratio 3.9 Low 8-20 One Over Creatinine 0.12 Creatinine 8.16 High 0.67-1.17 Blood Urea Nitrogen 32 High 6-24 Glucose 177 High 70-100 Anion Gap 12 High 2-11 Co2 Carbon Dioxide 31 22-32 Chloride 94 Low 101-111 Potassium 3.7 3.5-5.0 Sodium 137 135-145 HGB + HCT 07/08/2019 N2N/CCD Import Hematocrit 35.1 Low 42.0 - 52.0 Hemoglobin 11.9 Low 14.0 - 18.0 HCT Calc (HGBX3) 35.7 Low 42.0 - 52.0 Albumin 07/08/2019 N2N/CCD Import Albumin 3.2 3.2 - 4.8 Potassium 07/08/2019 N2N/CCD Import Potassium 3.0 Low 3.5 - 5.5 Hep B Surfce Ag 06/24/2019 N2N/CCD Import Hep B Surfce Ag Neg Neg TSH 06/24/2019 N2N/CCD Import TSH 4.32 0.40 - 5.50 Calcium Corrected 06/24/2019 N2N/CCD Import Calcium 8.3 8.7 - 10.4 Corrected Alt/SGPT 06/24/2019 N2N/CCD Import Alt/SGPT 15 10 - 49 Glucose 06/24/2019 N2N/CCD Import Glucose 255 High 70 - 99 CBC With Autodiff 06/24/2019 N2N/CCD Import Lymphs-Abs 1305.92 1100 - 4800 Monos-Abs 437.25 0 - 1100 Basos-Abs 23.32 0 - 400 Eosins-Abs 297.33 0 - 700 HCT Calc (HGBX3) 33.6 Low 42.0 - 52.0 Basophils 0.4 Neutrophils 64.6 Lymphocytes 22.4 Monocytes 7.5 Eosinophils 5.1 RDW 14.9 11.0 - 15.0 WBC 5.8 4.5 - 11.0 RBC 3.70 Low 4.60 - 6.20 Hematocrit 35.2 Low 42.0 - 52.0 Hemoglobin 11.2 Low 14.0 - 18.0 MCV 95.0 80.0 - 100.0 MCH 30.3 27.0 - 31.0 MCHC 31.9 Low 32.0 - 36.0 Platelet-CT 256 150 - 400 Neuts-Abs 3766.18 1999 - 8800 Chem I HD 06/24/2019 N2N/CCD Import Alk Phos 65 46 - 116 Albumin 3.2 3.2 - 4.8 Calcium 7.7 Low 8.7 - 10.4 Chloride 95 Low 99 - 109 Co2 29 20 - 31 LDH, Total 174 120 - 246 Phosphorus 6.1 High 2.4 - 5.1 Potassium 3.0 Low 3.5 - 5.5 Ast/Sgot 10 0 - 34 Protein - Total 5.8 5.7 - 8.2 A/G Ratio 1.2 1 - 2.5 Globulin 2.6 0.9 - 5 Caxphos Product 47.0 21 - 53 C[place]os Corrected 50.6 21 - 53 Adequacy PD Mal 06/24/2019 N2N/CCD Import BUN 34 High 9 - 23 Creatinine 7.63 High 0.70 - 1.30 NPCR PD 0.57 Creat-PD 4.37 Urea-PD 24 Urea CLR Ur/Bsa 0.5 Low 64 - 99 Cre CLR Ur/Bsa 1 Low 85 - 125 Urea CLR Ur 0.6 Minuts Collctd-Ur 1440 Tot.Vol.-Urine 100 Tot.Vol.-PDF 99101 Urea Gen Rate 6.2 Urea Nit Urine 276 Creat-Ur 127.70 Age Of Patient 73 Bsa ([place]) 1.87 Body WT (LBS) 162 Height (Inches) 68 TBW Ruiz 38.81 Pna (PD) 46.7 Npna-PD 0.70 Lesvia (PD) 4.2 Min Goal:KT/V PD 2.1 PCR PD 38 Amputation Factor 0.065 Cre CLR Ur 1 Low 97 - 137 L/WK/1.73 Resid cc 8.05 L/WK PDF cc 65.04 L/WK/1.73 Total cc 68.20 KT/V PDF 2.07 KT/V Residual 0.15 KT/V Total PD 2.21 L/WK Resid cc 8.70 L/WK/1.73 PDF cc 60.15 L/WK Total cc 73.74 Iron Panel 06/24/2019 N2N/CCD Import Iron 60 Low 65 - 175 Iron Saturation 36 21 - 49 Tibc 167 Low 250 - 425 Uibc 107 75 - 360 Lipid Profile 06/24/2019 N2N/CCD Import Cholesterol 146 0 - 199 Triglycerides 148 0 - 149 HDL 33 Low 40 - 60 Chol/HDL Ratio 4.4 3.3 - 5 LDL 83 0 - 99 VLDL-Chol (Calc) 30 High 0 - 29 PET Profile 06/16/2019 N2N/CCD Import BUN-PET (Ser) 54 Creat-PET (Ser) 9.76 High 0.70 - 1.30 Creat-PD 0HR 1.23 Gluc-PD- 0HR 1966 Gluc-PD- 2HR 1165 Gluc-PD- 4HR 840 Creat-PD 2HR 4.69 Creat-PD 4HR 6.21 Urea-PD-0HR 6 Urea-PD-2HR 36 Urea-PD-4HR 46 Aoyxi-DJ-Egei 0HR 0.8 Fmtvw-ET-Tlaj 2HR 4.4 Fwvrq-ZG-Gcfz 4HR 6.0 Drain Vol 4 HR 2100 % Dextrose 4 HR 2.5 Vol.Infused 4HR 2000 Infus Time 4 HR 10 IP Insulin 0 Body WT (LBS) 170 Height (Inches) 68 Gluc-PET (Ser) 214 High 70 - 99 0 HR D/P 0.08 2 HR D/P 0.45 4 HR D/P 0.62 2 HR D/DO 0.59 4 HR D/DO 0.43 Urea 0 HR D/P 0.11 Urea 2 HR D/P 0.67 Urea 4 HR D/P 0.85 Gluc-PD-O.N. 06/16/2019 N2N/CCD Import Gluc-PD-O.N. 362 Creat-PD O.N. 06/16/2019 N2N/CCD Import Creat-PD O.N. 8.81 Urea-PD-O.N. 06/16/2019 N2N/CCD Import Urea-PD-O.N. 53 Phosphorus 06/10/2019 N2N/CCD Import Phosphorus 7.7 High 2.4 - 5.1 Glucose 06/10/2019 N2N/CCD Import Glucose 218 High 70 - 99 HGB + HCT 06/10/2019 N2N/CCD Import Hematocrit 31.8 Low 42.0 - 52.0 Hemoglobin 10.0 Low 14.0 - 18.0 HCT Calc (HGBX3) 30.0 Low 42.0 - 52.0 Adequacy PD Mal 06/10/2019 N2N/CCD Import BUN 45 High 9 - 23 Creatinine 8.86 High 0.70 - 1.30 NPCR PD 0.47 Creat-PD 2.96 Urea-PD 21 Urea CLR Ur/Bsa 0.5 Low 64 - 99 Cre CLR Ur/Bsa 1 Low 85 - 125 Urea CLR Ur 0.5 Minuts Collctd-Ur 1440 Tot.Vol.-Urine 110 Tot.Vol.-PDF 15202 Urea Gen Rate 4.5 Urea Nit Urine 304 Creat-Ur 141.84 Age Of Patient 73 Bsa ([place]) 1.88 Body WT (LBS) 163 Height (Inches) 68 TBW Ruiz 38.96 Pna (PD) 38.4 Npna-PD 0.57 Lesvia (PD) 3.1 Min Goal:KT/V PD 2.1 PCR PD 31 Amputation Factor 0.065 Cre CLR Ur 1 Low 97 - 137 L/WK/1.73 Resid cc 8.08 L/WK PDF cc 30.37 L/WK/1.73 Total cc 36.10 KT/V PDF 1.09 KT/V Residual 0.13 KT/V Total PD 1.22 L/WK Resid cc 8.76 L/WK/1.73 PDF cc 28.02 L/WK Total cc 39.14 Lipid Profile 05/27/2019 N2N/CCD Import Cholesterol 131 0 - 199 Triglycerides 136 0 - 149 HDL 26 Low 40 - 60 Chol/HDL Ratio 5.0 3.3 - 5 LDL 78 0 - 99 VLDL-Chol (Calc) 27 0 - 29 Iron Panel 05/27/2019 N2N/CCD Import Iron 58 Low 65 - 175 Iron Saturation 35 21 - 49 Tibc 167 Low 250 - 425 Uibc 109 75 - 360 Adequacy PD Mal 05/27/2019 N2N/CCD Import BUN 49 High 9 - 23 Creatinine 10.20 High 0.70 - 1.30 NPCR PD 0.45 Creat-PD 2.66 Urea-PD 23 Urea CLR Ur/Bsa 0.5 Low 64 - 99 Cre CLR Ur/Bsa 1 Low 85 - 125 Urea CLR Ur 0.5 Minuts Collctd-Ur 1440 Tot.Vol.-Urine 125 Tot.Vol.-PDF 23884 Urea Gen Rate 4.2 Urea Nit Urine 304 Creat-Ur 123.04 Age Of Patient 73 Bsa ([place]) 1.87 Body WT (LBS) 162.5 Height (Inches) 68 TBW Ruiz 38.88 Pna (PD) 36.8 Npna-PD 0.55 Lesvia (PD) 2.8 Min Goal:KT/V PD 2.1 PCR PD 30 Amputation Factor 0 Cre CLR Ur 1 Low 97 - 137 L/WK/1.73 Resid cc 7.38 L/WK PDF cc 19.56 L/WK/1.73 Total cc 25.45 KT/V PDF 0.91 KT/V Residual 0.14 KT/V Total PD 1.04 L/WK Resid cc 7.99 L/WK/1.73 PDF cc 18.06 L/WK Total cc 27.55 Chem I HD 05/27/2019 N2N/CCD Import Alk Phos 72 46 - 116 Albumin 3.6 3.2 - 4.8 Calcium 8.6 Low 8.7 - 10.4 Chloride 96 Low 99 - 109 Co2 28 20 - 31 LDH, Total 181 120 - 246 Phosphorus 7.9 High 2.4 - 5.1 Potassium 3.6 3.5 - 5.5 Ast/Sgot <9 0 - 34 Protein - Total 6.5 5.7 - 8.2 A/G Ratio 1.2 1 - 2.5 Globulin 2.9 0.9 - 5 C[place]phos Product 67.9 High 21 - 53 C[place]os Corrected 70.3 High 21 - 53 CBC With Autodiff 05/27/2019 N2N/CCD Import Basophils 0.8 Neutrophils 68.4 Lymphocytes 19.7 Monocytes 6.7 Eosinophils 4.5 RDW 15.7 High 11.0 - 15.0 WBC 6.2 4.5 - 11.0 RBC 3.60 Low 4.60 - 6.20 Hematocrit 34.4 Low 42.0 - 52.0 Hemoglobin 11.1 Low 14.0 - 18.0 MCV 95.6 80.0 - 100.0 MCH 30.8 27.0 - 31.0 MCHC 32.2 32.0 - 36.0 Platelet-CT 310 150 - 400 Neuts-Abs 4227.12 2000 - 8800 Lymphs-Abs 1217.46 1100 - 4800 Monos-Abs 414.06 0 - 1100 Basos-Abs 49.44 0 - 400 Eosins-Abs 278.10 0 - 700 HCT Calc (HGBX3) 33.3 Low 42.0 - 52.0 Glucose 05/27/2019 N2N/CCD Import Glucose 173 High 70 - 99 Alt/SGPT 05/27/2019 N2N/CCD Import Alt/SGPT 15 10 - 49 Calcium Corrected 05/27/2019 N2N/CCD Import Calcium Corrected 8.9 8.7 - 10.4 TSH 05/27/2019 N2N/CCD Import TSH 2.52 0.40 - 5.50 Hemoglobin A1c % 05/27/2019 N2N/CCD Import Hemoglobin A1c % 6.9 High 0.0 - 5.6 Ferritin 05/27/2019 N2N/CCD Import Ferritin 414 High 22 - 322 Hep B Surfce Ag 05/27/2019 N2N/CCD Import Hep B Surfce Ag Neg Neg PTH Intact 05/27/2019 N2N/CCD Import PTH Intact 118 High 18 - 80 1 Critical Result LACT:2.5 Called to [id number] at: 14:36:51 by:[id number] Read back by:PRAVIN TIM Severe Sepsis and Septic Shock Management Bundle Measure requires all lactic acids initially measuring >2.0 mmol/L be repeated. Procedures Date Code Description Status 10/15/2019 71360 [facility] Home Dialysis Per Full Month 20 Yrs Completed 06/10/2019 58427 Pace Maker Eval W/Iterative Adjment Dual Lead Completed 06/10/2019 71699 Pace Maker Eval W/Iterative Adjment Dual Lead Completed Medical Devices Description No Information Available Encounters Type Date Location Provider Dx Diagnosis Office Visit 08/04/2019 [facility] Sangeeta Robles, M62.241 Nontraumatic 11:00a at [facility] ischemic infarction of muscle, right hand I70.8 Atherosclerosis of other arteries Office Visit 06/10/2019 10:00a [facility] Gary D. 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 right hand 08/04/2019 I70.8 Atherosclerosis of other arteries Sangeeta Robles M.D. 06/10/2019 Z95.0 Presence of cardiac pacemaker Gary Colunga M.D. 06/10/2019 Z95.0 Presence of cardiac pacemaker Gary Colunga M.D. 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 coronary artery without angina pectoris Plan of Treatment 08/04/2019 - Sangeeta Robles M.D.M62.241 Nontraumatic ischemic infarction of muscle, right handFollow up:Follow up: as [id number] Atherosclerosis of other arteries Functional Status Description No Information Available Mental Status Description No Information Available Referrals Description No Information Available
--- OUTSIDE RECORDS SUMMARY | 2019-11-26 14:30 | XMS REPORT | Continuity of Care Document ---
:1945 External Reference #:[id number] Author Name Covert, Rebecca Care Team Providers Name Role Phone Francesco Holder MD - Nephrology Care Team Information Cutting Machine Tender Jose White MD - Endocrinology, Care Team Information Cutting Machine Tender [phone] Diabetes & Metabolism Problems Active Problems Provider [...] Chloride ER 1 by mouth every 30tabs Mohammad A. 10/05/2019 day MD Cris 20Meq Tablets ER Ondansetron 1 tab by mouth 30tabs Mohammad A. 09/16/2019 8mg Tablets three times daily MD Cris Dispers prn Nausea or vomiting Levemir 16 units at Unknown 100Unit/ML bedtime as Solution directed Renal Vitamin daily Unknown Phosphorous 3 tablets with Unknown each meals total of 9 tablet per day Humalog Kwikpen sliding scale Unknown 100Unit/ML Solution Pen-Inject [place] Oil daily prn Unknown Oil Atorvastatin Calcium [...] Result H/L Range Note Date Laboratory 11/12/2019 [facility] Lactic Acid 2.5 Critical 0.5- 2.0 1 test finding [address] mmol/L [place], [place] [address] [phone] Potassium 09/07/2019 N2N/CCD Import Potassium 3.1 Low [...] 0.3 Minuts Collctd-Ur 1440 Tot.Vol.-Urine 60 Tot.Vol.-PDF 94948 Urea Gen Rate 8.6 Urea Nit Urine 246 Creat-Ur 125.46 Age Of Patient 73 Bsa ([place]) 1.85 Body WT (LBS) 158.99578 Height (Inches) 68 TBW Ruiz 38.31 Pna [...] 07/21/2019 N2N/CCD Import Egfr 7.9 >60 Panel [place] Egfr Non- 6.5 >60 Ast 5 Low [...] 150 - 400 Neuts-Abs 3766.18 1999 - 88 Chem I HD 06/24/2019 N2N/CCD Import Alk [...] 0.6 Minuts Collctd-Ur 1440 Tot.Vol.-Urine 100 Tot.Vol.-PDF 92835 Urea Gen Rate 6.2 Urea Nit Urine 276 Creat-Ur 127.70 Age Of Patient 73 Bsa ([place]) 1.87 Body WT (LBS) 162 Height (Inches) [...] 6.21 Urea-PD-0HR 6 Urea-PD-2HR 36 Urea-PD-4HR 46 Cnhnj-LB-Ndav 0HR 0.8 Aqagf-BE-Mare 2HR 4.4 Bxtdg-HC-Xycv 4HR 6.0 Drain Vol 4 HR 2100 [...] 0.5 Minuts Collctd-Ur 1440 Tot.Vol.-Urine 110 Tot.Vol.-PDF 40920 Urea Gen Rate 4.5 Urea Nit Urine 304 Creat-Ur 141.84 Age Of Patient 73 Bsa ([place]) 1.88 Body WT (LBS) 163 Height (Inches) [...] 0.5 Minuts Collctd-Ur 1440 Tot.Vol.-Urine 125 Tot.Vol.-PDF 26842 Urea Gen Rate 4.2 Urea Nit Urine 304 Creat-Ur 123.04 Age Of Patient 73 Bsa ([place]) 1.87 Body WT (LBS) 162.5 Height (Inches) [...] 80 1 Critical Result LACT:2.5 Called to [id number] at: 14:36:51 by:[id number] Read back by:[id number] [place] Severe Sepsis and Septic Shock Management Bundle Measure requires all lactic acids initially measuring >2.0 mmol/L be repeated. Procedures Date Code Description Status 11/14/2019 29352 ECHO Transthorasic Realtime 2D W Doppler & Color Flow Hosp Completed 10/15/2019 17654 [facility] Per Full Month 20 Yrs Completed 06/10/2019 12785 Pace Maker Eval W/Iterative Adjment Dual Lead Completed 06/10/2019 35172 Pace Maker Eval W/Iterative Adjment Dual Lead Completed Medical Devices Description No Information Available Encounters Type Date Location Provider Dx Diagnosis Office Visit 11/13/2019 [place] Eulalio Almaguer, R65.20 Severe sepsis 12:04p Assoc,pc [place] without septic Hospitalists shock A41.9 Sepsis, unspecified organism I96 Gangrene, not elsewhere classified E11.22 Type 2 diabetes mellitus w diabetic chronic kidney disease N18.5 Chronic kidney disease, stage 5 I10 Essential (primary) hypertension Office Visit 11/12/2019 12:04p [place] Eulalio Basilio R65.20 Severe sepsis Assoc, HARITHA Almaguer without septic Hospitalists shock A41.9 Sepsis, unspecified organism E11.40 Type 2 diabetes mellitus with diabetic neuropathy, unsp I50.30 Unspecified diastolic (congestive) heart failure I10 Essential (primary) hypertension E03.9 Hypothyroidism, unspecified I25.10 Athscl heart disease of [place] coronary artery w/o ang pctrs Z86.73 Prsnl hx of TIA (TIA), and cereb infrc w/o resid deficits Office Visit 08/04/2019 [place] Sangeeta M62.241 Nontraumatic 11:00a Orthopedics rashawn Robles M.D. ischemic [place] infarction of muscle, right hand I70.8 Atherosclerosis of other arteries Office Visit 06/10/2019 10:00a [place] [facility] Gary White Z95.0 [facility] [place] M.D. 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 Assessments Date Code Description Provider 11/13/2019 R65.20 Severe sepsis without septic shock HARITHA Jones 11/13/2019 A41.9 Sepsis, unspecified organism HARITHA Jones 11/13/2019 I96 Gangrene, not elsewhere classified HARITHA Jones 11/13/2019 E11.22 Type 2 diabetes mellitus with diabetic HARITHA Jones chronic kidney disease 11/13/2019 N18.5 Chronic kidney disease, stage 5 HARITHA Jones 11/13/2019 I10 Essential (primary) hypertension HARITHA Jones 11/12/2019 R65.20 Severe sepsis without septic shock HARITHA Jones 11/12/2019 A41.9 Sepsis, unspecified organism HARITHA Jones 11/12/2019 E11.40 Type 2 diabetes mellitus with diabetic HARITHA Jones neuropathy, unspecified 11/12/2019 I50.30 Unspecified diastolic (congestive) heart HARITHA Jones failure 11/12/2019 I10 Essential (primary) hypertension HARITHA Jones 11/12/2019 E03.9 Hypothyroidism, unspecified HARITHA Jones 11/12/2019 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 coronary artery without angina pectoris Plan of Treatment 08/04/2019 - Sangeeta Robles M.D.M62.241 Nontraumatic ischemic infarction of muscle, right handFollow up:Follow up: as bhfneuI65.8 Atherosclerosis of other arteries Functional Status Description No Information Available Mental Status Description No Information Available Referrals Description No Information Available
--- OUTSIDE RECORDS SUMMARY | 2019-11-26 14:30 | XMS REPORT | Continuity of Care Document ---
:1945 External Reference #:[id number] Author Name Covert, Rebecca Care Team Providers Name Role Phone Francesco Holder MD - Nephrology Care Team Information Director Institution Jose White MD - Endocrinology, Care Team Information Director Institution [phone] Diabetes & Metabolism Problems Active Problems Provider [...] Kwikpen sliding scale Unknown 100Unit/ML Solution Pen-Inject [place] Oil daily prn Unknown Oil Atorvastatin Calcium [...] Result H/L Range Note Date Laboratory 11/12/2019 [facility] Lactic Acid 2.5 Critical 0.5- 2.0 1 test finding [address] mmol/L [place], [place] [address] [phone] Potassium 09/07/2019 N2N/CCD Import Potassium 3.1 Low [...] 0.3 Minuts Collctd-Ur 1440 Tot.Vol.-Urine 60 Tot.Vol.-PDF 50933 Urea Gen Rate 8.6 Urea Nit Urine 246 Creat-Ur 125.46 Age Of Patient 73 Bsa ([place]) 1.85 Body WT (LBS) 158.90617 Height (Inches) 68 TBW Ruiz 38.31 Pna [...] 07/21/2019 N2N/CCD Import Egfr 7.9 >60 Panel [place] Egfr Non- 6.5 >60 Ast 5 Low [...] 0.6 Minuts Collctd-Ur 1440 Tot.Vol.-Urine 100 Tot.Vol.-PDF 81285 Urea Gen Rate 6.2 Urea Nit Urine 276 Creat-Ur 127.70 Age Of Patient 73 Bsa ([place]) 1.87 Body WT (LBS) 162 Height (Inches) [...] 6.21 Urea-PD-0HR 6 Urea-PD-2HR 36 Urea-PD-4HR 46 Oucrd-YU-Yjvr 0HR 0.8 Ykyan-TB-Feqy 2HR 4.4 Sfjpm-WM-Vcdn 4HR 6.0 Drain Vol 4 HR 2100 [...] 0.5 Minuts Collctd-Ur 1440 Tot.Vol.-Urine 110 Tot.Vol.-PDF 06647 Urea Gen Rate 4.5 Urea Nit Urine 304 Creat-Ur 141.84 Age Of Patient 73 Bsa ([place]) 1.88 Body WT (LBS) 163 Height (Inches) [...] 0.5 Minuts Collctd-Ur 1440 Tot.Vol.-Urine 125 Tot.Vol.-PDF 55097 Urea Gen Rate 4.2 Urea Nit Urine 304 Creat-Ur 123.04 Age Of Patient 73 Bsa ([place]) 1.87 Body WT (LBS) 162.5 Height (Inches) [...] 80 1 Critical Result LACT:2.5 Called to [id number] at: 14:36:51 by:[id number] Read back by:[id number] [place] Severe Sepsis and Septic Shock Management Bundle Measure requires all lactic acids initially measuring >2.0 mmol/L be repeated. Procedures Date Code Description Status 11/14/2019 89961 ECHO Transthorasic Realtime 2D W Doppler & Color Flow Hosp Completed 10/15/2019 37609 [facility]ialysis Per Full Month 20 Yrs Completed 06/10/2019 16715 Pace Maker Eval W/Iterative Adjment Dual Lead Completed 06/10/2019 48274 Pace Maker Eval W/Iterative Adjment Dual Lead Completed Medical Devices Description No Information Available Encounters Type Date Location Provider Dx Diagnosis Office Visit 11/13/2019 [place] Eulalio Almaguer, R65.20 Severe sepsis 12:04p Assoc,pc [place] without septic Hospitalists shock A41.9 Sepsis, unspecified organism I96 Gangrene, not elsewhere classified E11.22 Type 2 diabetes mellitus w diabetic chronic kidney disease N18.5 Chronic kidney disease, stage 5 I10 Essential (primary) hypertension Office Visit 11/12/2019 12:04p [place] Eulalio Basilio R65.20 Severe sepsis Assoc, HARITHA Almaguer without septic Hospitalists shock A41.9 Sepsis, unspecified organism E11.40 Type 2 diabetes mellitus with diabetic neuropathy, unsp I50.30 Unspecified diastolic (congestive) heart failure I10 Essential (primary) hypertension E03.9 Hypothyroidism, unspecified I25.10 Athscl heart disease of [place]' coronary artery w/o ang pctrs Z86.73 Prsnl hx of TIA (TIA), and cereb infrc w/o resid deficits Office Visit 08/04/2019 [place] Sangeeta M62.241 Nontraumatic 11:00a Orthopedics rashawn Robles M.D. ischemic [place] infarction of muscle, right hand I70.8 Atherosclerosis of other arteries Office Visit 06/10/2019 10:00a [place] [facility] Gary White Z95.0 [facility] Col[facility]a M.D. 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 coronary artery without angina pectoris Plan of Treatment 08/04/2019 - Sangeeta Robles M.D.M62.241 Nontraumatic ischemic infarction of muscle, right handFollow up:Follow up: as yjxeiyJ27.8 Atherosclerosis of other arteries Functional Status Description No Information Available Mental Status Description No Information Available Referrals Description No Information Available
--- OUTSIDE RECORDS SUMMARY | 2019-11-26 14:30 | XMS REPORT | Continuity of Care Document ---
:1945 External Reference #:[id number] Author Name Covert, Rebecca Care Team Providers Name Role Phone Francesco Holder MD - Nephrology Care Team Information Supervisor Payroll Jose White MD - Endocrinology, Care Team Information Supervisor Payroll Diabetes & Metabolism Problems Active Problems Provider [...] Kwikpen sliding scale Unknown 100Unit/ML Solution Pen-Inject [place] Oil daily prn Unknown Oil Atorvastatin Calcium [...] Result H/L Range Note Date Laboratory 11/12/2019 [facility] Lactic Acid 2.5 Critical 0.5- 2.0 1 test finding [address] mmol/L [place], [place] [address] [phone] Potassium 09/07/2019 N2N/CCD Import Potassium 3.1 Low [...] 0.3 Minuts Collctd-Ur 1440 Tot.Vol.-Urine 60 Tot.Vol.-PDF 46493 Urea Gen Rate 8.6 Urea Nit Urine 246 Creat-Ur 125.46 Age Of Patient 73 Bsa ([place]) 1.85 Body WT (LBS) 158.70556 Height (Inches) 68 TBW Ruiz 38.31 Pna [...] 07/21/2019 N2N/CCD Import Egfr 7.9 >60 Panel Citizen Of [place] Egfr Non- 6.5 >60 Ast 5 Low [...] 0.6 Minuts Collctd-Ur 1440 Tot.Vol.-Urine 100 Tot.Vol.-PDF 19291 Urea Gen Rate 6.2 Urea Nit Urine 276 Creat-Ur 127.70 Age Of Patient 73 Bsa ([place]) 1.87 Body WT (LBS) 162 Height (Inches) [...] 6.21 Urea-PD-0HR 6 Urea-PD-2HR 36 Urea-PD-4HR 46 Oomor-GT-Fclt 0HR 0.8 Hppuq-YU-Gaet 2HR 4.4 Abphu-CD-Gizt 4HR 6.0 Drain Vol 4 HR 2100 [...] 0.5 Minuts Collctd-Ur 1440 Tot.Vol.-Urine 110 Tot.Vol.-PDF 13984 Urea Gen Rate 4.5 Urea Nit Urine 304 Creat-Ur 141.84 Age Of Patient 73 Bsa ([place]) 1.88 Body WT (LBS) 163 Height (Inches) [...] 0.5 Minuts Collctd-Ur 1440 Tot.Vol.-Urine 125 Tot.Vol.-PDF 64686 Urea Gen Rate 4.2 Urea Nit Urine 304 Creat-Ur 123.04 Age Of Patient 73 Bsa ([place]) 1.87 Body WT (LBS) 162.5 Height (Inches) [...] 80 1 Critical Result LACT:2.5 Called to [id number] at: 14:36:51 by:[id number] Read back by:[id number] [place] Severe Sepsis and Septic Shock Management Bundle Measure requires all lactic acids initially measuring >2.0 mmol/L be repeated. Procedures Date Code Description Status 11/14/2019 34650 ECHO Transthorasic Realtime 2D W Doppler & Color Flow Hosp Completed 10/15/2019 31000 [facility]ialysis Per Full Month 20 Yrs Completed 06/10/2019 82581 Pace Maker Eval W/Iterative Adjment Dual Lead Completed 06/10/2019 68469 Pace Maker Eval W/Iterative Adjment Dual Lead Completed Medical Devices Description No Information Available Encounters Type Date Location Provider Dx Diagnosis Office Visit 11/13/2019 [place] Eulalio Almaguer, R65.20 Severe sepsis 12:04p Assoc,pc [place] without septic Hospitalists shock A41.9 Sepsis, unspecified organism I96 Gangrene, not elsewhere classified E11.22 Type 2 diabetes mellitus w diabetic chronic kidney disease N18.5 Chronic kidney disease, stage 5 I10 Essential (primary) hypertension Office Visit 11/12/2019 12:04p [place] Eulalio Basilio R65.20 Severe sepsis Assoc, HARITHA Almaguer without septic Hospitalists shock A41.9 Sepsis, unspecified organism E11.40 Type 2 diabetes mellitus with diabetic neuropathy, unsp I50.30 Unspecified diastolic (congestive) heart failure I10 Essential (primary) hypertension E03.9 Hypothyroidism, unspecified I25.10 Athscl heart disease of [place] coronary artery w/o ang pctrs Z86.73 Prsnl hx of TIA (TIA), and cereb infrc w/o resid deficits Office Visit 08/04/2019 [place] Sangeeta M62.241 Nontraumatic 11:00a Orthopedics rashawn Robles M.D. ischemic [place] infarction of muscle, right hand I70.8 Atherosclerosis of other arteries Office Visit 06/10/2019 10:00a [place] [facility] Gary White Z95.0 [facility] Colunga M.D. 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 coronary artery without angina pectoris Plan of Treatment 08/04/2019 - Sangeeta Robles M.D.M62.241 Nontraumatic ischemic infarction of muscle, right handFollow up:Follow up: as ywkikeZ22.8 Atherosclerosis of other arteries Functional Status Description No Information Available Mental Status Description No Information Available Referrals Description No Information Available
--- OUTSIDE RECORDS SUMMARY | 2019-11-26 14:30 | XMS REPORT | Continuity of Care Document ---
:1945 External Reference #:[id number] Author Name Covert, Rebecca Care Team Providers Name Role Phone Francesco Holder MD - Nephrology Care Team Information Environmental Project Manager Jose White MD - Endocrinology, Care Team Information Environmental Project Manager Diabetes & Metabolism Problems Active Problems Provider [...] Kwikpen sliding scale Unknown 100Unit/ML Solution Pen-Inject [place] Oil daily prn Unknown Oil Atorvastatin Calcium [...] Result H/L Range Note Date Laboratory 11/12/2019 [facility] Lactic Acid 2.5 Critical 0.5- 2.0 1 test finding [address] mmol/L [place], [place] [address] [phone] Potassium 09/07/2019 N2N/CCD Import Potassium 3.1 Low [...] 0.3 Minuts Collctd-Ur 1440 Tot.Vol.-Urine 60 Tot.Vol.-PDF 71896 Urea Gen Rate 8.6 Urea Nit Urine 246 Creat-Ur 125.46 Age Of Patient 73 Bsa ([place]) 1.85 Body WT (LBS) 158.86819 Height (Inches) 68 TBW Ruiz 38.31 Pna [...] 07/21/2019 N2N/CCD Import Egfr 7.9 >60 Panel [place] Egfr Non- 6.5 >60 Ast 5 Low [...] 0.6 Minuts Collctd-Ur 1440 Tot.Vol.-Urine 100 Tot.Vol.-PDF 33653 Urea Gen Rate 6.2 Urea Nit Urine 276 Creat-Ur 127.70 Age Of Patient 73 Bsa ([place]) 1.87 Body WT (LBS) 162 Height (Inches) [...] 6.21 Urea-PD-0HR 6 Urea-PD-2HR 36 Urea-PD-4HR 46 Ntkgq-BW-Svhx 0HR 0.8 Luqhl-CP-Klce 2HR 4.4 Qkgud-FS-Sima 4HR 6.0 Drain Vol 4 HR 2100 [...] 0.5 Minuts Collctd-Ur 1440 Tot.Vol.-Urine 110 Tot.Vol.-PDF 54775 Urea Gen Rate 4.5 Urea Nit Urine 304 Creat-Ur 141.84 Age Of Patient 73 Bsa ([place]) 1.88 Body WT (LBS) 163 Height (Inches) [...] 0.5 Minuts Collctd-Ur 1440 Tot.Vol.-Urine 125 Tot.Vol.-PDF 40320 Urea Gen Rate 4.2 Urea Nit Urine 304 Creat-Ur 123.04 Age Of Patient 73 Bsa ([place]) 1.87 Body WT (LBS) 162.5 Height (Inches) [...] 80 1 Critical Result LACT:2.5 Called to [id number] at: 14:36:51 by:[id number] Read back by:[id number] [place] Severe Sepsis and Septic Shock Management Bundle Measure requires all lactic acids initially measuring >2.0 mmol/L be repeated. Procedures Date Code Description Status 11/14/2019 22301 ECHO Transthorasic Realtime 2D W Doppler & Color Flow Hosp Completed 10/15/2019 61488 [facility] Home [facility]ialysis Per Full Month 20 Yrs Completed 06/10/2019 35717 Pace Maker Eval W/Iterative Adjment Dual Lead Completed 06/10/2019 67544 Pace Maker Eval W/Iterative Adjment Dual Lead Completed Medical Devices Description No Information Available Encounters Type Date Location Provider Dx Diagnosis Office Visit 11/13/2019 [place] Eulalio Almaguer, R65.20 Severe sepsis 12:04p Assoc,pc [place] without septic Hospitalists shock A41.9 Sepsis, unspecified organism I96 Gangrene, not elsewhere classified E11.22 Type 2 diabetes mellitus w diabetic chronic kidney disease N18.5 Chronic kidney disease, stage 5 I10 Essential (primary) hypertension Office Visit 11/12/2019 12:04p [place] Eulalio Basilio R65.20 Severe sepsis Assoc, HARITHA Almaguer without septic Hospitalists shock A41.9 Sepsis, unspecified organism E11.40 Type 2 diabetes mellitus with diabetic neuropathy, unsp I50.30 Unspecified diastolic (congestive) heart failure I10 Essential (primary) hypertension E03.9 Hypothyroidism, unspecified I25.10 Athscl heart disease of [place] coronary artery w/o ang pctrs Z86.73 Prsnl hx of TIA (TIA), and cereb infrc w/o resid deficits Office Visit 08/04/2019 [place] Sangeeta M62.241 Nontraumatic 11:00a Orthopedics rashawn Robles M.D. ischemic [place] infarction of muscle, right hand I70.8 Atherosclerosis of other arteries Office Visit 06/10/2019 10:00a [place] [facility] Gary White Z95.0 [facility] Jesus Colunga M.D. 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 coronary artery without angina pectoris Plan of Treatment 08/04/2019 - Sangeeta Robles M.D.M62.241 Nontraumatic ischemic infarction of muscle, right handFollow up:Follow up: as artcqfW63.8 Atherosclerosis of other arteries Functional Status Description No Information Available Mental Status Description No Information Available Referrals Description No Information Available
--- OUTSIDE RECORDS SUMMARY | 2019-11-26 14:30 | XMS REPORT | Continuity of Care Document ---
:1945 External Reference #:[id number] Author Name Covert, Rebecca Care Team Providers Name Role Phone Francesco Holder MD - Nephrology Care Team Information Manager Inventory [phone] Jose White MD - Endocrinology, Care Team Information Manager Inventory Diabetes & Metabolism Problems Active Problems Provider [...] Kwikpen sliding scale Unknown 100Unit/ML Solution Pen-Inject [place] Oil daily prn Unknown Oil Atorvastatin Calcium [...] Result H/L Range Note Date Laboratory 11/12/2019 [facility] Lactic Acid 2.5 Critical 0.5- 2.0 1 test finding [address] mmol/L [place], [place] [address] [phone] Potassium 09/07/2019 N2N/CCD Import Potassium 3.1 Low [...] 0.3 Minuts Collctd-Ur 1440 Tot.Vol.-Urine 60 Tot.Vol.-PDF 37629 Urea Gen Rate 8.6 Urea Nit Urine 246 Creat-Ur 125.46 Age Of Patient 73 Bsa ([place]) 1.85 Body WT (LBS) 158.54578 Height (Inches) 68 TBW Ruiz 38.31 Pna [...] 0.6 Minuts Collctd-Ur 1440 Tot.Vol.-Urine 100 Tot.Vol.-PDF 73592 Urea Gen Rate 6.2 Urea Nit Urine 276 Creat-Ur 127.70 Age Of Patient 73 Bsa ([place]) 1.87 Body WT (LBS) 162 Height (Inches) [...] 6.21 Urea-PD-0HR 6 Urea-PD-2HR 36 Urea-PD-4HR 46 Sodgm-KL-Tesk 0HR 0.8 Rfyhr-YS-Fclu 2HR 4.4 Wdcaa-JA-Galg 4HR 6.0 Drain Vol 4 HR 2100 [...] 0.5 Minuts Collctd-Ur 1440 Tot.Vol.-Urine 110 Tot.Vol.-PDF 71786 Urea Gen Rate 4.5 Urea Nit Urine 304 Creat-Ur 141.84 Age Of Patient 73 Bsa ([place]) 1.88 Body WT (LBS) 163 Height (Inches) [...] 0.5 Minuts Collctd-Ur 1440 Tot.Vol.-Urine 125 Tot.Vol.-PDF 12715 Urea Gen Rate 4.2 Urea Nit Urine 304 Creat-Ur 123.04 Age Of Patient 73 Bsa ([place]) 1.87 Body WT (LBS) 162.5 Height (Inches) [...] 80 1 Critical Result LACT:2.5 Called to [id number] at: 14:36:51 by:[id number] Read back by:[id number] [place] Severe Sepsis and Septic Shock Management Bundle Measure requires all lactic acids initially measuring >2.0 mmol/L be repeated. Procedures Date Code Description Status 11/14/2019 67332 ECHO Transthorasic Realtime 2D W Doppler & Color Flow Hosp Completed 10/15/2019 93219 [facility] Home [facility]ialysis Per Full Month 20 Yrs Completed 06/10/2019 46921 Pace Maker Eval W/Iterative Adjment Dual Lead Completed 06/10/2019 32308 Pace Maker Eval W/Iterative Adjment Dual Lead Completed Medical Devices Description No Information Available Encounters Type Date Location Provider Dx Diagnosis Office Visit 11/13/2019 [place] Eulalio Almaguer, R65.20 Severe sepsis 12:04p Assoc,pc [place] without septic Hospitalists shock A41.9 Sepsis, unspecified organism I96 Gangrene, not elsewhere classified E11.22 Type 2 diabetes mellitus w diabetic chronic kidney disease N18.5 Chronic kidney disease, stage 5 I10 Essential (primary) hypertension Office Visit 11/12/2019 12:04p [place] Eulalio Basilio R65.20 Severe sepsis Assoc, HARITHA Almaguer without septic Hospitalists shock A41.9 Sepsis, unspecified organism E11.40 Type 2 diabetes mellitus with diabetic neuropathy, unsp I50.30 Unspecified diastolic (congestive) heart failure I10 Essential (primary) hypertension E03.9 Hypothyroidism, unspecified I25.10 Athscl heart disease of [place] coronary artery w/o ang pctrs Z86.73 Prsnl hx of TIA (TIA), and cereb infrc w/o resid deficits Office Visit 08/04/2019 [place] Sangeeta M62.241 Nontraumatic 11:00a Orthopedics rashawn Robles M.D. ischemic [place] infarction of muscle, right hand I70.8 Atherosclerosis of other arteries Office Visit 06/10/2019 10:00a [place] [facility] Gary White Z95.0 [facility] Of Jesus Colunga M.D. 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 coronary artery without angina pectoris Plan of Treatment 08/04/2019 - Sangeeta Robles M.D.M62.241 Nontraumatic ischemic infarction of muscle, right handFollow up:Follow up: as tbqvipQ89.8 Atherosclerosis of other arteries Functional Status Description No Information Available Mental Status Description No Information Available Referrals Description No Information Available
[2019-11-26 15:52] LABS: ABS Basophils 0.1 10^3/ul (0-0.2); ABS Eosinophils 0.1 10^3/ul (0-0.6); ABS Lymphocytes 1.1 10^3/ul (1.0-4.8); ABS Neutrophils 6.4 10^3/ul (1.5-7.7); Eosinophil % 1.6 %; Hematocrit 31 % (42-52); Hemoglobin 10.8 g/dL (14.0-18.0); Lymphocyte % 12.5 %; Mean Corpuscular HGB Conc 34 g/dL (31-36); Mean Corpuscular Hemoglobin 33 pg (27-31); Mean Corpuscular Volume 96 fL (80-94); Mean Platelet Volume 6.9 fL (7.4-10.4); Platelet Count 279 10^3/uL (150-450); Red Blood Count 3.27 10^6 /uL (4.18-5.48); Red Cell Distribution Width 17 % (10-15); White Blood Count 8.7 10^3/uL (3.5-10.8)
[2019-11-26 16:08] LABS: Albumin 2.6 g/dL (3.2-5.2); Albumin/Globulin Ratio 0.8 (1-3); BUN/Creatinine Ratio 3.7 (8-20); C Reactive Protein 73.59 mg/L (<8.01); Calcium 7.6 mg/dL (8.6-10.3); EGFR African American 6.7 (>60); EGFR Non-African American 5.5 (>60); Globulin 3.2 g/dL (2-4); Potassium 3.9 mmol/L (3.5-5.0); Total Bilirubin 0.4 mg/dL (0.2-1.0); Total Protein 5.8 g/dL (6.4-8.9)
--- NOTE | 2019-11-26 16:14 | ED ---
Back Pain - HPI Summary HPI Summary: Patient is a 74-year-old male who presents emergency department for back pain, lower abdominal pain, nausea and vomiting 5 days. Patient with history of end- stage renal disease and receives peritoneal dialysis nightly. 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 states since then he has been complaining of lower abdominal pain as well and nausea and vomiting. No associated fever. Patient recently admitted to [facility] for sepsis and necrosis of right fifth digit. Pt. underwent amputation of right 5th digit by Dr. Robles. He was ultimately transferred to [facility] for heart catherization. Sxs are moderate in severity. No current modifying factors. Pt. has been taking tramadol with moderate improvement of back pain. - History of Current Complaint Chief Complaint: EDBackInjuryPain Stated Complaint: BACK PAIN Time Seen by Provider: 11/26/19 15:19 Hx Obtained From: Patient, Family/Pool Cleaner Pain Intensity: 10 - Allergies/Home Medications Allergies/Adverse Reactions: Allergies Allergy/AdvReac Type Severity Reaction Status Date / Time No Known Allergies Allergy Unknown Verified 11/26/19 14:30 Reaction Details PMH/Surg Hx/FS Hx/Imm Hx Previously Healthy: No - ESRD Endocrine/Hematology History: Reports: Hx Anticoagulant Therapy, Hx Diabetes, Hx Thyroid Disease, Hx Anemia Denies: Hx Blood Disorders, Hx Blood Transfusions, Hx Bone Marrow Disease, Hx Systemic Lupus Erythematosus, Hx Sickle Cell Disease, Hx Unexplained Bleeding , Other Endocrine/Hematological Disorders Cardiovascular History: Reports: Hx Auto Implanted Cardiovert Defib, Hx Congestive Heart Failure, Hx Coronary Artery Disease - 3 STENTS, Hx Hypercholesterolemia, Hx Hypertension - CONTROL WITH MEDS, Hx Myocardial Infarction, Hx Pacemaker/ICD - 04/2017, Hx Peripheral Vascular Disease - RIGHT LEG AMPUTATION, Other Cardiovascular Problems/Disorders - CVA 2011 -right LE slight limb / BKA 2017 - [place] Denies: Hx Aneurysm, Hx Angina, Hx Angioplasty, Hx Cardiac Arrest, Hx Cardiomegaly, Hx Congenital Heart Disease, Hx Deep Vein Thrombosis, Hx Embolism , Hx Hypotension, Hx Rheumatic Fever, Hx Syncope, Hx Valvular Heart Disease Respiratory History: Reports: Hx Chronic Obstructive Pulmonary Disease (COPD), Hx Pulmonary Edema - pulmonary htn, Other Respiratory Problems/Disorders - right pneumothorax with chest tube 07/30, pulmonary nodules on CT GI History: Reports: Other GI Disorders - HX OF BILATERAL INGUINAL HERNIA Denies: Hx Cirrhosis, Hx Crohn's Disease, Hx Diverticulosis, Hx Gall Bladder Disease, Hx Gastroesophageal Reflux Disease, Hx Gastrointestinal Bleed, Hx Hiatal Hernia, Hx Irritable Bowel, Hx Jaundice, Hx Obstructive Bowel, Hx Ileostomy, Hx Pyloric Stenosis, Hx Ulcer History: Reports: Hx Chronic Renal Failure - T/R/S HD, Hx Dialysis - TUE, THURS, SAT, Hx Renal Disease, Other Problems/Disorders - kidney toxic drugs Denies: Hx Acute Renal Failure, Hx Benign Prostatic Hyperplasia, Hx Kidney Infection, Hx Kidney Stones Musculoskeletal History: Reports: Hx Arthritis - hands, Hx Orthopedic Injury - lt femur fx repair 07/18/14, Other Musculoskeletal History - HX OF RIGHT RIB FX - - NO PROBLEMS SINCE 2013 Denies: Hx Back Problems, Hx Bursitis, Hx Congenital Bone Abnormalities, Hx Fibromyalgia, Hx Gout, Hx Osteoporosis, Hx Scoliosis, Hx Tendonitis Sensory History: Reports: Hx Cataracts - DAVIAN, Hx Legally Blind, Other Sensory Impairments Denies: Hx Contacts or Glasses - LEGALLY BLIND, Hx Glaucoma, Hx Deafness, Hx Hearing Aid Opthamlomology History: Reports: Hx Cataracts - DAVIAN, Hx Legally Blind, Other Sensory Impairments Denies: Hx Contacts or Glasses - LEGALLY BLIND, Hx Glaucoma Neurological History: Reports: Hx Headaches, Hx Migraine - 20 years ago, Hx Nerve Disease - 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 07/2014 LEFT FEMUR REPAIR, [place]. 2015 LAPAROSCOPIC CHOLECYSTECTOMY, [facility]. 2013 BILATERAL CATARACT EXTRACTION WITH IOL IMPLANTS, [facility]. 08/2016 EBUS, [facility]. 09/2016 LEFT INGUINAL HERNIA REPAIR, HEMODIALYSIS CATHETER INSERTION, [facility]. 09/2016 PERTIONEAL DIALYSIS CATHETER INSERTION, [facility]. 03/2017 REVISION OF PERTIONEAL DIALYSIS CATHETER, [facility]. 04/2017 MEDTRONIC PACEMAKER INSERTION, [facility]. 2018 RIGHT BELOW KNEE AMPUTATION, [place], [place]. 2018 CARDIAC STENTS INSERTION, [facility], [place] Hx Anesthesia Reactions: No - Immunization History Date of Tetanus Vaccine: Unk Date of Influenza Vaccine: None Infectious Disease History: No Infectious Disease History: Denies: Hx Clostridium Difficile, Hx Hepatitis, Hx Human Immunodeficiency Virus (HIV), Hx of Known/Suspected MRSA, Hx Shingles, Hx Tuberculosis, History Other Infectious Disease, Traveled Outside the [place] in Last 30 Days - Family History Known Family History: Positive: Hypertension, Diabetes, Non-Contributory - Social History Occupation: Retired Lives: With Family Alcohol Use: None Alcohol Amount: 1 per year Hx Substance Use: No Substance Use Type: Reports: None Hx Tobacco Use: Yes Smoking Status (MU): Former Smoker Type: Cigarettes Amount Used/How Often: "ONLY SMOKED TEN CIGARETTES IN WHOLE LIFE" Length of Time of Smoking/Using Tobacco: 1 YEAR Have You Smoked in the Last Year: No Review of Systems Constitutional: Negative Negative: Fever Cardiovascular: Negative Respiratory: Negative Positive: Abdominal Pain, Vomiting, Nausea. Negative: Diarrhea Positive: Other - Low back pain. Skin: Negative Neurological: Negative Negative: Weakness, Paresthesia, Numbness All Other Systems Reviewed And Are Negative: Yes Physical Exam Triage Information Reviewed: Yes Vital Signs On Initial Exam: Initial Vitals Temp Pulse Resp BP Pulse Ox 98.3 F 81 18 142/72 98 11/26/19 14:27 11/26/19 14:27 11/26/19 14:27 11/26/19 14:27 11/26/19 14:27 Vital Signs Reviewed: Yes Appearance: Positive: Thin - Pt. lying in bed in NAD. Appears chronically ill. Family member present. Skin: Positive: Warm, Dry Head/Face: Positive: Normal Head/Face Inspection Eyes: Positive: Normal, EOMI Neck: Positive: Supple Respiratory/Lung Sounds: Positive: Clear to Auscultation, Breath Sounds Present Cardiovascular: Positive: Normal, RRR Abdomen Description: Positive: Other: - Mild diffuse lower abdominal tenderness Musculoskeletal: Positive: Other - BKA on right. Full strength in legs. No reproducible back pain. Sutures noted to a healing wound to distal right 5th digit. Neurological: Positive: Normal, CN Intact II-III Psychiatric: Positive: Affect/Mood Appropriate Procedures - Sedation Patient Received Moderate/Deep Sedation with Procedure: No Diagnostics - Vital Signs Vital Signs Temp Pulse Resp BP Pulse Ox 11/26/19 14:27 98.3 F 81 18 142/72 98 - Laboratory Lab Results: Lab Results 11/26/19 11/26/19 Range/Units 15:41 15:41 WBC 8.7 (3.5-10.8) 10^3/uL RBC 3.27 L (4.18-5.48) 10^6 /uL Hgb 10.8 L (14.0-18.0) g/dL Hct 31 L (42-52) % MCV 96 H (80-94) fL MCH 33 H (27-31) pg MCHC 34 (31-36) g/dL RDW 17 H (10-15) % Plt Count 279 (150-450) 10^3/uL MPV 6.9 L (7.4-10.4) fL Neut % (Auto) 73.7 % Lymph % (Auto) 12.5 % [place] % (Auto) 11.5 % Eos % (Auto) 1.6 % Baso % (Auto) 0.7 % Absolute Neuts (auto) 6.4 (1.5-7.7) 10^3/ul Absolute Lymphs (auto) 1.1 (1.0-4.8) 10^3/ul Absolute Monos (auto) 1.0 H (0-0.8) 10^3/ul Absolute Eos (auto) 0.1 (0-0.6) 10^3/ul Absolute Basos (auto) 0.1 (0-0.2) 10^3/ul Absolute Nucleated RBC 0.0 10^3/ul Nucleated RBC % 0.0 Sodium 131 L (135-145) mmol/L Potassium 3.9 (3.5-5.0) mmol/L Chloride 91 L (101-111) mmol/L Carbon Dioxide 29 (22-32) mmol/L Anion Gap 11 (2-11) mmol/L BUN 35 H (6-24) mg/dL Creatinine 9.36 H (0.67-1.17) mg/dL Est GFR ( Amer) 6.7 (>60) Est GFR (Non-Af Amer) 5.5 (>60) BUN/Creatinine Ratio 3.7 L (8-20) Glucose 203 H (70-100) mg/dL Calcium 7.6 L (8.6-10.3) mg/dL Total Bilirubin 0.40 (0.2-1.0) mg/dL AST 12 L (13-39) U/L ALT 13 (7-52) U/L Alkaline Phosphatase 64 (34-104) U/L C-Reactive Protein 73.59 H (<8.01) mg/L Total Protein 5.8 L (6.4-8.9) g/dL Albumin 2.6 L (3.2-5.2) g/dL Globulin 3.2 (2-4) g/dL Albumin/Globulin Ratio 0.8 L (1-3) Lipase 13 (11.0-82.0) U/L Result Diagrams: 11/26/19 15:41 11/26/19 15:41 Lab Statement: Any lab studies that have been ordered have been reviewed, and results considered in the medical decision making process. Back Pain Course/Dx - Course Course Of Treatment: Pt. with CC of low back pain, lower abd. pain and N/V. Afebrile with stable VS. Given abd. discomfort will obtain labs and CT. Pt.'s notes that sutures to right finger were suppose to be taken out last week but she was not able to get pt. into ortho office secondary to pain. requesting sutures be removed. Wound is approximated. 5 sutures removed. Dressing placed. Blood work at pt.'s baseline. CT per radiology: IMPRESSION: #. Large volume of free intraperitoneal air at the upper abdomen. No focal inflammatory. change of the upper GI, small bowel, or colon evident to reveal a source of enteric. perforation to account for the free air. Small volume of pelvic ascites. This may relate. to the pelvic peritoneal dialysis catheter. Correlate with clinical assessment. #. Mild to moderate anterior column compression fracture at L1 involving the superior. endplate new compared with the August 18, 2018 exam. Conspicuous trabecular impaction and. cortical disruption favoring acute injury. Negative for associated paravertebral hematoma. Results discussed with HARITHA Greenwood 11/26/2019 4:[address] findings discussed with Dr. Mcadams, general surgery, and she will evaluate pt. in the ED. Pt. examined by Dr. Mcadams, surgery, in ER. At time of her evaluation pt.'s pain has resolved and he is resting comfortably. Dr. Mcadams feels free air is likely secondary to peritoneal catheter. She states there is no indication for surgical intervention at this time and pt. can be dc from her standpoint. Pt. and comfortable for dc home. Pt. can continue tramadol for pain as directed. To call PCP on Thursday for f.u in 2-3 days. Will return to er if sxs change or worsen. - Diagnoses Differential Diagnosis/HQI/PQRI: Positive: Fracture, Herniated Disc, Strain, Sprain Provider Diagnoses: Compression fracture Discharge ED - Sign-Out/Discharge Documenting (check all that apply): Patient Departure - Discharge Plan Condition: Improved Disposition: HOME Patient Education Materials: Vertebral Compression Fracture (ED) Referrals: Jose White MD [Primary Care Provider] - Additional Instructions: Call PCP on Thursday follow up in 2-3 days Continue tramadol for pain as directed Return to ER if symptoms change or worsen - Billing Disposition and Condition Condition: IMPROVED Disposition: Home
[2019-11-26 17:49] VITALS: BP 143/77
--- NOTE | 2019-11-26 18:20 | CONSULT ---
Consult Consult: DATE OF CONSULTATION: 11/26/19 REASON FOR CONSULT: Abdominal pain and free air on CT abd/pelvis HPI: Alec Bynum is a 74 year-old man with a h/o CAD, DM, hypothyroidism, HTN, hyperlipidemia, and ESRD on PD who presented to the ED with worsening back pain. He picked up his dog about 5 days ago and has had pain since then. He also reports abdominal pain that started about 3 days ago. The pain is localized to the LUQ. However, he reports that the abdominal pain right now has actually resolved. He has been nauseous with an episode of emesis after eating breakfast today. His appetite has been unchanged, and he had been able to eat regularly for the past few days. He reports having a bowel movement once a day. No changes in color of stool and no blood. He undergoes peritoneal dialysis at home each night. No fevers or chills. A CT abdomen/pelvis was order for the abdominal pain which found a large amount of intraperitoneal air. He was also found to have a L1 anterior column compression fracture. PMH: CAD, DM, hypothyroidism, HTN, hyperlipidemia, ESRD on PD PSH: Inguinal hernia repair, cholecystectomy, PD catheter placement, R BKA, R 5th finger amputation Home Medications Medication Instructions Recorded Confirmed Type Insulin Lispro [Humalog Kwikpen 0 - 3 unit SUBCUT AC MDD 50 units 05/16/1611/12 History U-100] amLODIPine TAB* [Norvasc 5 mg TAB*] 10 mg PO BEDTIME 05/16/16 11/12/19 History Atorvastatin* [Lipitor 20 MG*] 20 mg PO BEDTIME 04/08/17 11/12/19 History Clopidogrel TAB* [Plavix TAB*] 75 mg PO QAM 05/21/18 11/12/19 History Insulin Detemir [Levemir Flextouch] 16 unit SQ BEDTIME 05/21/18 11/12/19 History Levothyroxine TAB* [Synthroid 88 88 mcg PO QAM 05/21/18 11/12/19 History MCG TAB*] Aspirin EC TAB* [Ecotrin EC Low 81 mg PO QAM 06/29/18 11/12/19 History Dose 81 MG*] Carvedilol TAB* [Coreg TAB*] 12.5 mg PO BID 07/23/18 11/12/19 History Citalopram TAB* [Celexa TAB*] 10 mg PO DAILY #90 tab 08/19/18 11/12/19 Rx LORazepam TAB(*) [Ativan 0.5 MG 0.5 mg PO Q6H PRN tab 08/19/18 11/12/19 Rx TAB (*)] Furosemide 80 mg PO BID 09/21/18 11/12/19 History Jennifer-Laz Rx Tablet 1 tab PO DAILY 10/14/19 11/12/19 History Allergies No Known Allergies Allergy (Verified 11/26/19 14:30) Unknown Reaction Details FAMILY HX: Father from rectal cancer and also had DM. Mother had Alzheimer's disease. Sister with breast cancer s/p b/l mastectomy. SOCIAL HX: Lives with his . Denies tobacco, alcohol, or drug use. Remote history of heavy alcohol use. ROS: 10-point review of systems was obtained. Pertinent positive and negatives in HPI. PHYSICAL EXAM: Vital Signs - 12 hr Temp Pulse Resp BP Pulse Ox 11/26/19 17:48 97.7 F 86 18 143/77 100 11/26/19 14:27 98.3 F 81 18 142/72 98 General: No acute distress. Lying comfortably in bed with eyes closed. Head: Normocephalic and atraumatic. Eyes: Pupils equal. No scleral icterus. Mouth: Moist mucous membranes. Neck: Trachea midline. CV: Regular rate and rhythm. Chest: Clear to auscultation bilaterally. Abdomen: Soft, mildly distended, minimal tenderness to palpation in LUQ. No rebound or guarding. Extremities: R BKA well healed. Clean dressing over R 5th finger. Superficial wounds anterior L ankle which are healing well, no surrounding erythema, fluctuance, or edema. Skin: Warm and dry. No rashes or lesions. Neuro: Alert, oriented x3 Laboratory Results - last 24 hr 11/26/19 11/26/19 15:41 15:41 WBC 8.7 RBC 3.27 L Hgb 10.8 L Hct 31 L MCV 96 H MCH 33 H MCHC 34 RDW 17 H Plt Count 279 MPV 6.9 L Neut % (Auto) 73.7 Lymph % (Auto) 12.5 [place] % (Auto) 11.5 Eos % (Auto) 1.6 Baso % (Auto) 0.7 Absolute Neuts (auto) 6.4 Absolute Lymphs (auto) 1.1 Absolute Monos (auto) 1.0 H Absolute Eos (auto) 0.1 Absolute Basos (auto) 0.1 Absolute Nucleated RBC 0.0 Nucleated RBC % 0.0 Sodium 131 L Potassium 3.9 Chloride 91 L Carbon Dioxide 29 Anion Gap 11 BUN 35 H Creatinine 9.36 H Est GFR ( Amer) 6.7 Est GFR (Non-Af Amer) 5.5 BUN/Creatinine Ratio 3.7 L Glucose 203 H Calcium 7.6 L Total Bilirubin 0.40 AST 12 L ALT 13 Alkaline Phosphatase 64 C-Reactive Protein 73.59 H Total Protein 5.8 L Albumin 2.6 L Globulin 3.2 Albumin/Globulin Ratio 0.[address] abdomen/pelvis- Large amount of free air without evidence of inflammation in the upper GI tract, small bowel, or colon. Moderate amount of stool in colon up to splenic flexure. Small volume of free fluid in pelvis. RLQ PD catheter. A&P 74M with abdominal pain and free air on CT scan. The pain had resolved by the time I evaluated the patient. Hemodynamically stable and no leukocytosis. I discussed with the patient and his that I believe the air can be explained by the PD catheter and dialysis. I would not expect a person with perforated viscus to report resolution of pain and also to be hemodynamically stable without lab abnormalities. He did have a CXR in October 2019 that also showed free air. The patient and his had the chance to ask questions and were satisfied with the answers. They agree with the plan. -No surgical intervention for the abdomen needed at this time.
== END 2019-11-26 17:48 | disposition home or self-care (01) ==
LOC: ED 14:23
DX: M48.56XA Collapsed vertebra, not elsewhere classified, lumbar region, initial encounter for fracture (principal); E11.22 Type 2 diabetes mellitus with diabetic chronic kidney disease; I13.2 Hypertensive heart and chronic kidney disease with heart failure and with stage 5 chronic kidney disease, or end stage renal disease; I50.9 Heart failure, unspecified; N18.6 End stage renal disease; D63.1 Anemia in chronic kidney disease; Z99.2 Dependence on renal dialysis; E03.9 Hypothyroidism, unspecified; I25.10 Atherosclerotic heart disease of native coronary artery without angina pectoris; E78.00 Pure hypercholesterolemia, unspecified; I25.2 Old myocardial infarction; I73.9 Peripheral vascular disease, unspecified; Z86.73 Personal history of transient ischemic attack (TIA), and cerebral infarction without residual deficits; Z95.810 Presence of automatic (implantable) cardiac defibrillator; Z95.5 Presence of coronary angioplasty implant and graft; Z89.511 Acquired absence of right leg below knee; J44.9 Chronic obstructive pulmonary disease, unspecified; F41.9 Anxiety disorder, unspecified; Z90.49 Acquired absence of other specified parts of digestive tract; Z87.891 Personal history of nicotine dependence; Z79.4 Long term (current) use of insulin; Z79.01 Long term (current) use of anticoagulants; Z79.82 Long term (current) use of aspirin; Z79.890 Hormone replacement therapy; Z79.899 Other long term (current) drug therapy
CPT/HCPCS: 36415; 74176; 80053; 83690; 85025; 86140; 99282